=== PATIENT | female | born 1935 | race Caucasian/White ===

== ENCOUNTER 2017-06-23 08:18 | Day surgery (SDC) | payer OTHER ==
[2017-06-23] MEDS ORDERED: NS 0.9% VIAL 10 ML ONE (09:07)
[2017-06-23] MEDS ORDERED: DUOVISC 1 KIT OPTH ONE (09:08)
[2017-06-23] MEDS ORDERED: BALANCED SALT IRRIG PLAIN 500 ML BTL IRR ONE (09:08)
[2017-06-23] MEDS ORDERED: MOXIFLOXACIN HCL 10 DROPS/ML **OR USE OPTH ONE (09:08)
[2017-06-23] MEDS ORDERED: EPINEPHRINE/PF 1 MG/ML AMP ONE (09:08)
[2017-06-23] MEDS ORDERED: BSS OPTHALMIC SOL 15 ML BOT OPTH ONE (09:15)
[2017-06-23] MEDS: LIDOCAINE 2% MPF 5 ML VIAL ONE ×2 (09:30→10:47)
[2017-06-23] MEDS: TETRACAINE HCL 0.5% 2ML OPTH ONE ×2 (09:30→10:46)
[2017-06-23] MEDS: BUPIVACAINE 0.25% PF 10 ML VIAL ONE ×2 (09:30→10:47)
[2017-06-23 09:35] LABS: Protime INR 1.46
[2017-06-23] MEDS ORDERED: NA CHLORIDE 0.9% 500 ML ONE (09:40)
[2017-06-23] MEDS ORDERED: PHENYLEPHRINE 10% OPTH 5ML ONE (09:41)
[2017-06-23] MEDS ORDERED: CYCLOPENTOLATE 1% OPTH 2 ML ONE (09:41)
[2017-06-23] MEDS ORDERED: CYCLOPENTOLATE 1% OPTH 2 ML OPTH ONE ×2 (09:50→09:55)
[2017-06-23] MEDS ORDERED: PHENYLEPHRINE 10% OPTH 5ML OPTH ONE ×2 (09:50→09:55)
[2017-06-23] MEDS ORDERED: PROPOFOL 200 MG/20 ML VIAL IV ONE ×2 (10:39→10:59)
[2017-06-23] MEDS ORDERED: LIDOCAINE 2% MPF 5 ML VIAL ONE ×2 (10:39→10:59)
[2017-06-23] MEDS ORDERED: BSS PLUS 500 ML BOTTLE IRR ONE (11:08)
--- NOTE | 2017-06-23 11:45 | P.BOP ---
Preoperative diagnosis: Nuclear sclerotic cataract OS Postoperative diagnosis: Same + phacodenesis OS Primary procedure: Phacoemulsification with IOL, complex with iris retractors and CTR OS Estimated blood loss: None Anesthesia: Local (Subtenon's infusion with anesthesia for cataract surgery) Complications: None Implants: ZCB00 +19.0; 12 mm CTR Transferred to: Other (Day surgery) Condition: Good
[2017-06-23 13:05] VITALS: BP 138/78; TEMP 97.4; O2SAT 94
--- NOTE | 2017-06-23 22:39 | OP ---
Date of Procedure: 06/23/2017 Surgeon: Cely Appiah MD Anesthesiologist: 1. Marcia Amaya CRNA. 2. Bart Rascon M.D. Preoperative Diagnoses: Nuclear sclerotic and cortical cataract, OS (left eye). 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 Operation Performed: Phacoemulsification with intraocular lens implant OS eye complex with the use of iris retractors and the capsular tension ring. Anesthesia: Per cataract surgery. Complications: None. Description Of The Procedure: In day surgery, the patient was prepped with Betadine and draped. A lid speculum was placed in the OS eye. A conjunctival incision was made in the inferior nasal quadrant with Flor scissors. A 1:1 mixture of 2% Xylocaine and 0.25% bupivacaine was placed around the globe. Approximately 5 mL were used. A Honan balloon was placed on the eye for approximately 5 minutes. The patient was brought into the operative room. The patient was prepped and draped in the usual sterile fashion for ophthalmic surgery. A lid speculum was placed in the eye. Paracentesis were made superiorly and inferiorly in the limbal cornea. Viscoat was placed in the anterior chamber. A crescent blade was used to create a tunnel incision in the temporal cornea and a keratome was used to enter the anterior chamber. Provisc was placed in the eye and 360 degree capsulotomy was performed. The lens was loose during the capsulotomy. Four additional paracentesis sites were created with one in each quadrant; through these, 4 iris retractors were placed to stabilize the lens. The lens was hydrodissected with balanced salt solution and moved freely. The lens was removed in a stop and chop fashion. A 7.58 CDE was required. Irrigation and aspiration was used to remove residual cortex. Provisc was placed in the eye. A ZCB00 +19.0 diopter lens was placed in the capsular bag without complications. The iris retractors were removed. Irrigation and aspiration was used to remove residual viscoelastic. The paracentesis sites were hydrated with balanced salt solution and the wound and paracentesis sites were inspected and found to be watertight. Intracameral Vigamox 0.07 cc was injected at the end of the procedure. The eye was irrigated with balanced salt solution. The eye was patched with a soft cotton patch and Gandhi metal shield. The patient was returned to day surgery in good condition. Comments: A scleral incision was created. Flor scissors were used to cut the temporal conjunctiva and the scleral incision was initiated in the sclera. BSS Plus was used. A 1:5000 epinephrine was placed in the anterior chamber prior to Viscoat. A 12 mm capsular tension ring was placed in the capsular bag prior to lens insertion. Discharge Instructions: Ms. Carrillo is discharged home in good condition and is to follow up with Dr. Appiah in the morning. GUSTAVO/ABDELRAHMAN Voice ID: [id number] Report ID: [id number] DAVID
== END 2017-06-23 12:15 | disposition home or self-care (01) ==
LOC: OR 08:18
PROVIDERS: ATTEND Ophthalmology Retina Specialist
PROC: 08RK3JZ Replacement of Left Lens with Synthetic Substitute, Percutaneous Approach (ICD-10-PCS; principal; 2017-06-23 09:45)
DX: H25.12 Age-related nuclear cataract, left eye (principal); H25.012 Cortical age-related cataract, left eye; H27.8 Other specified disorders of lens; H35.3130 Nonexudative age-related macular degeneration, bilateral, stage unspecified; H18.51 Endothelial corneal dystrophy; I10 Essential (primary) hypertension; I48.91 Unspecified atrial fibrillation; M19.90 Unspecified osteoarthritis, unspecified site; Z95.0 Presence of cardiac pacemaker; Z86.73 Personal history of transient ischemic attack (TIA), and cerebral infarction without residual deficits; Z79.01 Long term (current) use of anticoagulants
CPT/HCPCS: 36415 ×2; 66982; 84132; 85610; J0171

== ENCOUNTER 2017-08-04 08:45 | Day surgery (SDC) | payer OTHER ==
[2017-08-04] MEDS ORDERED: NS 0.9% VIAL 10 ML ONE (09:09)
[2017-08-04] MEDS ORDERED: EPINEPHRINE/PF 1 MG/ML AMP ONE (09:10)
[2017-08-04] MEDS ORDERED: MOXIFLOXACIN HCL 10 DROPS/ML **OR USE OPTH ONE (09:11)
[2017-08-04] MEDS ORDERED: DUOVISC 1 KIT OPTH ONE (09:11)
[2017-08-04] MEDS ORDERED: PHENYLEPHRINE 10% OPTH 5ML ONE (09:20)
[2017-08-04] MEDS ORDERED: TETRACAINE HCL 0.5% 2ML OPTH ONE (09:20)
[2017-08-04] MEDS ORDERED: LIDOCAINE 2% MPF 5 ML VIAL ONE (09:20)
[2017-08-04] MEDS ORDERED: BUPIVACAINE 0.25% PF 10 ML VIAL ONE (09:20)
[2017-08-04] MEDS ORDERED: NA CHLORIDE 0.9% 500 ML ONE (09:20)
[2017-08-04] MEDS ORDERED: CYCLOPENTOLATE 1% OPTH 2 ML ONE (09:20)
[2017-08-04] MEDS ORDERED: PHENYLEPHRINE 10% OPTH 5ML OPTH ONE ×2 (09:35→09:40)
[2017-08-04] MEDS ORDERED: CYCLOPENTOLATE 1% OPTH 2 ML OPTH ONE ×2 (09:35→09:40)
[2017-08-04 09:38] LABS: Protime INR 1.71
[2017-08-04] MEDS ORDERED: LIDOCAINE 1% MPF 5 ML VIAL ONE (10:03)
[2017-08-04] MEDS ORDERED: PROPOFOL 200 MG/20 ML VIAL IV ONE ×2 (10:03→10:12)
[2017-08-04] MEDS ORDERED: LIDOCAINE 1% MPF 2 ML AMPULE ONE (10:13)
[2017-08-04] MEDS ORDERED: BSS PLUS 500 ML BOTTLE IRR ONE (10:17)
--- NOTE | 2017-08-04 11:06 | P.BOP ---
Preoperative diagnosis: Nuclear sclerotic and posterior subcapsular cataract OD Postoperative diagnosis: Same Primary procedure: Phacoemulsification with IOL OD Estimated blood loss: None Anesthesia: Local (Subtenon's infusion with anesthesia for cataract surgery) Complications: None Implants: ZCB00 +18.5 Transferred to: Other (Day surgery) Condition: Good
[2017-08-04 11:15] VITALS: BP 155/86; TEMP 97.9; O2SAT 95
--- NOTE | 2017-08-05 00:42 | OP ---
Date of Procedure: 08/04/2017 Surgeon: Cely Appiah MD Anesthesiologist: 1. Marciano Marmolejo CRNA. 2. Twyla Son CRNA. 3. Hans Peña M.D. Preoperative Diagnosis: Nuclear sclerotic cataract and posterior subcapsular cataract OD (right eye) . Operation Performed: Phacoemulsification with intraocular lens implant, right eye. Anesthesia: Per cataract surgery. Complications: None. Description Of Procedure: In day surgery, the patient was prepped with Betadine and draped. A conju nctival incision was made in the inferior nasal quadrant with Flor scissors. A sub-Tenon block c onsisting of a 1:1 mixture of 2% Xylocaine and 0.25% bupivacaine was placed through the conjunctival incision with a blunt cannula. A Honan balloon was placed over the eye and the patient was transferr ed to the operating room. In the operating room the patient was prepped and draped in the usual sterile fashion for ophthalmic surgery. A lid speculum was placed in the right eye. Two paracentesis sites were made superiorly an d inferiorly in the limbal cornea. Viscoat was placed in the anterior chamber and a crescent blade w as used to make a corneal groove and tunnel, and a keratome was used to enter the anterior chamber. Provisc was placed in the anterior chamber and a 360 degree capsulotomy was performed with a cystitom e. The lens was hydrodissected with BSS and rotated freely. The lens was removed with a stop and ch op technique. A 4.02 Phaco CDE was used to remove the lens. Residual cortex was removed with the ir rigation and aspiration. Provisc was placed in the capsular bag. A ZCB00 +18.5 diopter lens was tiffany esteban in the capsular bag without complications. Irrigation and aspiration was used to remove residual viscoelastic. The paracentesis sites were hydrated with BSS. The wound and paracentesis sites were inspected and found to be watertight. Vigamox 0.07 cc was placed intracamerally at the end of the p rocedure. The eye was irrigated with balanced salt solution. The eye was patched with a soft cotton patch and Gandhi metal shield. The patient was returned to day surgery in good condition. Comments: A scleral incision was created; 1:5000 epinephrine was placed in the eye prior to Viscoat. BSS plus was used. Discharge Instructions: Ms. Carrillo is discharged to home in good condition and is to follow up with Dr. Appiah in the morning. GUSTAVO/ABDELRAHMAN Voice ID: [id number] Report ID: [id number]
== END 2017-08-04 11:40 | disposition home or self-care (01) ==
LOC: OR 08:45
PROVIDERS: ATTEND Ophthalmology Retina Specialist
PROC: 08RJ3JZ Replacement of Right Lens with Synthetic Substitute, Percutaneous Approach (ICD-10-PCS; principal; 2017-08-04 10:15)
DX: H25.11 Age-related nuclear cataract, right eye (principal); H25.041 Posterior subcapsular polar age-related cataract, right eye; I48.91 Unspecified atrial fibrillation; R56.9 Unspecified convulsions; Z95.0 Presence of cardiac pacemaker; Z86.73 Personal history of transient ischemic attack (TIA), and cerebral infarction without residual deficits; Z79.01 Long term (current) use of anticoagulants
CPT/HCPCS: 36415 ×2; 66984; 84132; 85610; J0171; J2001

== ENCOUNTER 2017-10-12 14:54 | Inpatient (IN) | payer OTHER ==
[2017-10-12] MEDS ORDERED: IPRATROPIUM BROM 0.5MG/2.5ML ONE (15:21)
[2017-10-12] MEDS ORDERED: NA CHLORIDE 0.9% 2,000 ML ONE (15:22)
[2017-10-12] MEDS ORDERED: LEVALBUTEROL 1.25 MG/3 ML NEB ONE (15:22)
[2017-10-12] MEDS ORDERED: ACETAMINOPHEN 650MG/RECT SUPP PR ONE (15:22)
[2017-10-12 15:41] LABS: Arterial Blood Carboxyhemoglob 0.8 % (0-1.5); Blood Gas Oxyhemoglobin 97.9 % (94-97); Blood O2 Saturation 99.6 % (92-98.5)
[2017-10-12 15:43] LABS: Absolute Lymphocytes (CBC) 0.9 K/uL (0.7-4.9); Absolute Monocytes 0.7 K/uL (0.1-1.3); Absolute Neutrophil 3.8 K/uL (1.8-8.0); Basophils % 0.6 % (0-1.3); Eosinophils % 0.2 % (0-4.4); Hematocrit 41.1 % (36.0-45.0); Lymphocytes % 16.7 % (15.3-44.8); MCH 28.6 pg (27.0-35.0); MCV 89.9 fL (80-100); MPV 9.3 fL (7.6-11.3); Monocytes % 12.8 % (3.3-12.3); RBC Red Blood Cell Count 4.58 M/uL (3.86-4.86)
[2017-10-12 15:51] LABS: Protime INR 1.56
[2017-10-12] MEDS ORDERED: VANCOMYCIN 1 GM/250 ML BAG ONE (15:54)
[2017-10-12] MEDS ORDERED: CEFEPIME 1 GM/100 ML BAG IV ONE (15:54)
[2017-10-12] MEDS ORDERED: D5 0.9 NS 1,000 ML IV ONE (15:54)
[2017-10-12 15:59] LABS: Albumin 3.6 g/dL (3.4-5.0); Bilirubin Direct 0.7 mg/dL (0-0.2); Bilirubin Total 1.4 mg/dL (0.2-1.0); Potassium 4.7 mmol/L (3.5-5.1); Protein, Total 8.2 g/dL (6.4-8.2)
--- NOTE | 2017-10-12 16:42 | RAD REPORT ---
EXAM DESCRIPTION: RAD - Chest Single View - 10/12/2017 4:15 pm CLINICAL HISTORY: Shortness of breath COMPARISON: September 28 TECHNIQUE: AP portable chest image was obtained 1604 hours . FINDINGS: Inspiratory effort is shallow this accentuates lung markings. A small left base infiltrate could be masked. Cardiac silhouette is enlarged. Vasculature and central lung markings are prominent . Pacemaker in place. No measurable pleural effusion and no pneumothorax. No gross bony abnormality s een. No acute aortic findings suspected. IMPRESSION: Heart, vasculature and lung markings are all prominent. Findings are in part due to shallow inspiration; however, mild failure or volume overload suspected.
[2017-10-12 16:45] LABS: Urine Blood TRACE (NEG); Urine Glucose NEGATIVE (NEG); Urine Protein NEGATIVE (NEG); Urine pH 5.5 (5.0-7.0)
[2017-10-12 16:45] LABS: Urine RBC <5 /HPF (NONE SEEN)
[2017-10-12 16:46] LABS: Urine Bacteria >50 /HPF (<20); Urine Culture Reflex Order REFLEXED
--- NOTE | 2017-10-12 17:31 | RAD REPORT ---
EXAM DESCRIPTION: CT - Chest For Pe Angio - 10/12/2017 5:21 pm CLINICAL HISTORY: Chest pain, shortness of breath COMPARISON: None. TECHNIQUE: Dynamically enhanced 3 mm thick images of the chest were obtained during administration o f approximately 150mL Isovue 370 IV contrast. Coronal and oblique reconstruction images were generate d using MIP protocol and reviewed. Exam utilizes a protocol to evaluate the pulmonary arterial tree. All CT scans are performed using dose optimization technique as appropriate and may include automated exposure control or mA/KV adjustment according to patient size. FINDINGS: No pulmonary emboli are identified. Far peripheral branch assessment is limited due to mot ion. Aorta assessment is limited on a PE protocol study. No displaced calcification or aneurysm. Cardiomeg kelton is present without pericardial effusion. This is primarily a biatrial enlargement process. Patient has baseline interstitial lung disease that could mask interstitial edema or infiltrate. Smal l pleural effusion is present on the right. Lung base atelectasis is present. There is prominent opac ification of small vessels of the upper chest and left shoulder. This is probably due to restricted f low through the subclavian vein due to compressive affects of arm positioning. No mediastinal or hilar suspicious masses. No chest wall masses or abnormal axillary lymphadenopathy. Dilated air-filled esophagus is present. There is no history of bowel interposition. Esophageal asse ssment is limited. IMPRESSION: No pulmonary emboli. Small right pleural effusion and bilateral lung base atelectasis. Cardiomegaly with interstitial prominence. CHF/volume overload is suspected. The prominent cardiomegaly is primarily biatrial enlargement. Dilated upper and mid esophagus with the esophagus incompletely evaluated.
--- NOTE | 2017-10-12 17:40 | ER ---
Nurse's Notes [facility] Name: Padma Carrillo Age: 82 yrs Sex: Female : 1935 Arrival Date: 10/12/2017 Time: 15:07 Bed 2 Private MD: Diagnosis: Urosepsis;Dyspnea Presentation: 10/12 16:40 Presenting complaint: EMS states: EMS states patient lives at [facility], ae1 staff states patient has difficulty breathing, normally has discoloration to KIKE lower extremities but now has blue tint to KIKE hands and oxygen saturation is in the 70s. Transition of care: nursing facility. [place]. Onset of symptoms was October 12, 2017. Risk Assessment: Do you want to hurt yourself or someone else? Patient reports no desire to harm self or others. Initial Sepsis Screen: Does the patient meet any 2 criteria? RR > 20 per min. Temp <36.0*C (96.8*F)) or > 38.3*C (100.4*F). Does the patient have a suspected source of infection? No. Patient's initial sepsis screen is negative. Care prior to arrival: Oxygen applied via non-rebreather. 16:40 Acuity: SAGAR 1 ae1 16:40 Method Of Arrival: EMS: [facility] ae1 Triage Assessment: 16:47 General: Appears distressed, uncomfortable, unkempt, Behavior is anxious, restless. ae1 Pain: Denies pain. EENT: Oral mucosa is dry. Neuro: Level of Consciousness is awake, obeys commands, Patient can say yes or no weakly, . Oriented to person. 16:49 Cardiovascular: Heart tones S1 S2 present Rhythm is regular. Respiratory: Reports ae1 shortness of breath air hunger labored breathing Airway is compromised PAtient is "moving air" however is labored and cyanotic to KIKE ears, hands and KIKE lower extremities. Onset: The symptoms/episode began/occurred gradually, the patient has severe shortness of breath. Respiratory: Breath sounds are diminished bilaterally. Breath sounds with wheezes in right middle lobe and right posterior middle lobe. GI: Abdomen is round obese, Bowel sounds present X 4 quads. : Urine is cloudy, latonia urine. Derm: Skin is mottled, pale, KIKE HANDS, EARS< AND KIKE LOWER EXTREMITIES APPEAR CYANOTIC WITH BLUE [place] TINT>. Musculoskeletal: Swelling present in right foot, left foot, right leg and left leg. Historical: - Allergies: 16:57 Codeine; ae1 16:57 Fosamax; ae1 16:57 Ibuprofen; ae1 16:57 PROPOXYPHENE; ae1 16:57 Talwin NX; ae1 16:57 Verapamil; ae1 - Home Meds: 19:22 cetirizine 10 mg Oral tab 1 tab once daily [Active]; Cymbalta 30 mg Oral cpDR once ak1 daily for Anxiety with Depression [Active]; docusate sodium 100 mg Oral tab 1 tab once daily [Active]; nitroglycerin 0.4 mg SL subl 1 tab every 5 minutes for Angina [Active]; omeprazole 20 mg Oral cpDR 1 cap once daily [Active]; potassium chloride 10 mEq Oral cpER 1 cap once daily [Active]; rivaroxaban 20 mg Oral 1 tab nightly for Prevention of Deep Vein Thrombosis Recurrence [Active]; Toprol XL 100 mg Oral Tb24 once daily for Hypertension [Active]; tramadol 50 mg Oral tab 2 tabs every 12 hours [Active]; acetaminophen 325 mg Oral cap 650 mg every 6 hours for Fever [Active]; Ativan 1 mg Oral tab 1 tab every 6 hours for Anxiety [Active]; Cerovite Senior Oral tab daily [Active]; clonidine HCl 0.1 mg Oral tab every 6 hours for Hypertension [Active]; gabapentin 100 mg Oral cap twice a day for Restless Legs Syndrome [Active]; gabapentin 300 mg Oral cap nightly [Active]; hydrocodone-acetaminophen 5-325 mg Oral tab 1 tab every 6 hours for Pain [Active]; Keppra 1,000 mg Oral tab 1 tab every 12 hours for Myoclonic Epilepsy Adjunct Treatment [Active]; lactulose 20 gram/30 mL Oral soln 30 mL twice a day for constipation [Active]; Lasix 20 mg Oral tab 1 tab once daily for EDEMA [Active]; Levothroid 75 mcg Oral tab 1 tab once daily [Active]; Lidoderm 5 % Topical ptmd 1 patch once daily [Active]; loperamide 2 mg Oral cap PRN for diarrhea [Active]; magnesium oxide 400 mg Oral cap daily [Active]; melatonin 3 mg Oral tab nightly [Active]; Milk of Magnesia 400 mg/5 mL Oral susp 15 mL once daily [Active]; Namenda XR 28 mg Oral CSpX 1 cap once daily for Moderate to Severe Alzheimer's Type Dementia [Active]; Robafen DM 10-100 mg/5 mL Oral syrp 5 mL every 6 hours for Cough [Active]; - PMHx: 16:57 Anemia; Atrial Fib; CVA (Deficit: slurred speech and weakness); Depression; epilepsy; ae1 GERD; Hyperlipidemia; Hypothyroidism; insomnia; muscle atrophy; UTI; - Immunization history:: Pneumococcal vaccine is up to date, Flu vaccine is up to date. - Ebola Screening: : Patient denies travel to an Ebola-affected area in the 21 days before illness onset. - Social history:: Smoking status: Patient/guardian denies using tobacco. Screenin:37 Abuse screen: Denies threats or abuse. Nutritional screening: No deficits noted. ae1 Tuberculosis screening: No symptoms or risk factors identified. Fall Risk No fall in past 12 months (0 pts). Secondary diagnosis (15 points) impaired mobility, CVA, IV access (20 points). Ambulatory Aid- None/Bed Rest/Nurse Assist (0 pts). Gait- Impaired (20 pts.). Mental Status- Overestimates/Forgets Limitations (15 pts.). Assessment: 17:33 Reassessment: Patient appears in no apparent distress at this time. Patient states she ae1 is able to breathe easier. Patient appears more relaxed, and less labored. Patient states feeling better. Patient states symptoms have improved. 18:30 Reassessment: Dr. Bobo at bedside discussing plan of care. ae1 18:34 Respiratory: Respiratory effort is see full assessment. ae1 19:28 Reassessment: Patient appears in no apparent distress at this time. pt c/o leg pain. pt ak1 reported to be A\\T\\OX1 to 2 as her norm. pt non ambulatory at [facility]. pt on BiPap at 30%. pt bilateral lower legs are red and swollen, hot to touch. pt appears in no distress at this time. called ICU to take pt to room, Natty stated she would have someone call me back. Vital Signs: 15:14 BP 166 / 70; Pulse 80; Resp 20; Temp 101.2(A); Pulse Ox 66% on R/A; ae1 15:35 Weight 79.38 kg (R); ae1 16:15 BP 105 / 79; Pulse 80; Resp 12; Pulse Ox 72% on 50% BiPAP; ae1 16:30 BP 137 / 84; Pulse 80; Resp 16; Pulse Ox 79% on 50% BiPAP; ae1 16:45 BP 133 / 80; Pulse 80; Resp 18; Pulse Ox 70% on 50% BiPAP; ae1 17:38 BP 140 / 90; Pulse 80; Resp 17; Pulse Ox 100% on 50% BiPAP; ae1 18:34 BP 138 / 98; Pulse 82; Resp 15; Temp 98.1(A); Pulse Ox 98% on 50% BiPAP; ae1 16:15 Patient appears less labored, respirations are even, patient states she feels better. ae1 16:30 PAtient states she can breathe easier, respirations are less labored. ae1 ED Course: 15:07 Patient arrived in ED. ae1 15:20 Laurent Wood PA is PHCP. jr8 15:20 Cristhian Deshpande MD is Attending Physician. jr8 15:46 Luke Patel, YUE is Primary Nurse. ae1 16:13 Chest Single View XRAY In Process Unspecified. EDMS 16:30 Placed in gown. Bed in low position. Call light in reach. Side rails up X2. Cardiac ae1 monitor on. Pulse ox on. NIBP on. light sheet applied. 16:33 Inserted saline lock: 20 gauge in left antecubital area, using aseptic technique. Blood ae1 collected. 16:33 Pleitez cath inserted, using sterile technique, 16 Fr., by mn, balloon inflated, to ae1 gravity drainage, urine specimen collected. returned latonia urine. Patient tolerated well. Inserted saline lock: 20 gauge in right forearm, using aseptic technique. 16:44 Triage completed. ae1 16:55 Arm band placed on right wrist. EKG completed in triage. Results shown to MD. ae1 17:20 CT completed. Patient tolerated procedure well. Patient moved back from CT. bq 17:21 CT Chest For PE Angio In Process Unspecified. EDMS 17:39 Guru Bob MD is Hospitalizing Provider. jr8 19:13 No provider procedures requiring assistance completed. Patient admitted, IV remains in ak1 place. 19:15 Primary Nurse role handed off by Luke Patel, RN rg2 Administered Medications: 15:00 Drug: Acetaminophen Suppository 650 mg Route: OK; ae1 18:33 Follow up: Response: Temperature is decreased; 98.1 axillary ae1 15:19 Drug: Xopenex (3) 1.25 mg Route: Inhalation; ae1 15:19 Drug: AtroVENT Aerosol 0.5 mg Route: Inhalation; ae1 15:22 Drug: NS 0.9% (30 ml/kg) 30 ml/kg Route: IV; Rate: bolus; Site: left antecubital; ae1 19:27 Follow up: IV Status: Completed infusion ak1 16:00 Drug: Cefepime 1 grams Route: IVPB; Rate: 200 ml/hr; Infused Over: 30 mins; Site: left ae1 antecubital; 16:44 Follow up: IV Status: Completed infusion ae1 16:00 Drug: D5-NS 300 ml Route: IV; Rate: bolus; Site: right forearm; ae1 16:31 Follow up: 300 ml bolus infused per provider, then infusion switched to 50 mls/hour ae1 19:26 Follow up: IV Status: Completed infusion ak1 16:35 Drug: vancoMYCIN 1 grams Route: IVPB; Infused Over: 2 hrs; Site: left antecubital; ae1 19:26 Follow up: IV Status: Completed infusion ak1 Point of Care Testing: Blood Glucose: 15:25 Blood Glucose: 69 mg/dL; ae1 15:25 provider notified that FSBS low end of normal, new orders received. ae1 Ranges: Intake: Outcome: 17:39 Decision to Hospitalize by Provider. jr8 19:27 Admitted to ICU accompanied by nurse, accompanied by tech, via stretcher, room ICU 6, ak1 with oxygen, on monitor, with chart. 19:27 Condition: stable 19:27 Instructed on the need for admit. 20:33 Patient left the ED. ak1 Signatures: Dispatcher [employer] EDMS Manohar Irving2 Joaquina Cheema Josh, PA PA jr8 Latonia Morfin, RN RN ak1 Luke Patel, YUE RN ae1 Corrections: (The following items were deleted from the chart) 16:55 16:47 Neuro: Level of Consciousness is awake, confused, ae1 ae1
--- NOTE | 2017-10-12 17:40 | EDPHYS ---
Physician Documentation [facility] Name: Padma Carrillo Age: 82 yrs Sex: Female : 1935 Arrival Date: 10/12/2017 Time: 15:07 Bed 2 Private MD: ED Physician Cristhian Deshpande HPI: 10/12 15:29 This 82 yrs old Female presents to ER via Unassigned with complaints of jr8 Breathing Difficulty. 15:29 The patient has shortness of breath at rest. Onset: The symptoms/episode began/occurred jr8 acutely, today. Duration: The symptoms are continuous. The patient's shortness of breath has no apparent modifying factors. Associated signs and symptoms: Pertinent positives: fever. Severity of symptoms: At their worst the symptoms were severe in the emergency department the symptoms are unchanged. It is unknown whether or not the patient has had similar symptoms in the past. The patient has not recently seen a physician. Historical: - Allergies: 16:57 Codeine; ae1 16:57 Fosamax; ae1 16:57 Ibuprofen; ae1 16:57 PROPOXYPHENE; ae1 16:57 Talwin NX; ae1 16:57 Verapamil; ae1 - Home Meds: 19:22 cetirizine 10 mg Oral tab 1 tab once daily [Active]; Cymbalta 30 mg Oral cpDR once ak1 daily for Anxiety with Depression [Active]; docusate sodium 100 mg Oral tab 1 tab once daily [Active]; nitroglycerin 0.4 mg SL subl 1 tab every 5 minutes for Angina [Active]; omeprazole 20 mg Oral cpDR 1 cap once daily [Active]; potassium chloride 10 mEq Oral cpER 1 cap once daily [Active]; rivaroxaban 20 mg Oral 1 tab nightly for Prevention of Deep Vein Thrombosis Recurrence [Active]; Toprol XL 100 mg Oral Tb24 once daily for Hypertension [Active]; tramadol 50 mg Oral tab 2 tabs every 12 hours [Active]; acetaminophen 325 mg Oral cap 650 mg every 6 hours for Fever [Active]; Ativan 1 mg Oral tab 1 tab every 6 hours for Anxiety [Active]; Cerovite Senior Oral tab daily [Active]; clonidine HCl 0.1 mg Oral tab every 6 hours for Hypertension [Active]; gabapentin 100 mg Oral cap twice a day for Restless Legs Syndrome [Active]; gabapentin 300 mg Oral cap nightly [Active]; hydrocodone-acetaminophen 5-325 mg Oral tab 1 tab every 6 hours for Pain [Active]; Keppra 1,000 mg Oral tab 1 tab every 12 hours for Myoclonic Epilepsy Adjunct Treatment [Active]; lactulose 20 gram/30 mL Oral soln 30 mL twice a day for constipation [Active]; Lasix 20 mg Oral tab 1 tab once daily for EDEMA [Active]; Levothroid 75 mcg Oral tab 1 tab once daily [Active]; Lidoderm 5 % Topical ptmd 1 patch once daily [Active]; loperamide 2 mg Oral cap PRN for diarrhea [Active]; magnesium oxide 400 mg Oral cap daily [Active]; melatonin 3 mg Oral tab nightly [Active]; Milk of Magnesia 400 mg/5 mL Oral susp 15 mL once daily [Active]; Namenda XR 28 mg Oral CSpX 1 cap once daily for Moderate to Severe Alzheimer's Type Dementia [Active]; Robafen DM 10-100 mg/5 mL Oral syrp 5 mL every 6 hours for Cough [Active]; - PMHx: 16:57 Anemia; Atrial Fib; CVA (Deficit: slurred speech and weakness); Depression; epilepsy; ae1 GERD; Hyperlipidemia; Hypothyroidism; insomnia; muscle atrophy; UTI; - Immunization history:: Pneumococcal vaccine is up to date, Flu vaccine is up to date. - Ebola Screening: : Patient denies travel to an Ebola-affected area in the 21 days before illness onset. - Social history:: Smoking status: Patient/guardian denies using tobacco. ROS: 15:29 Unable to obtain ROS due to altered mental status. jr8 Exam: 15:29 Eyes: Pupils equal round and reactive to light, extra-ocular motions intact. Lids and jr8 lashes normal. Conjunctiva and sclera are non-icteric and not injected. Cornea within normal limits. Periorbital areas with no swelling, redness, or edema. ENT: Nares patent. No nasal discharge, no septal abnormalities noted. Tympanic membranes are normal and external auditory canals are clear. Oropharynx with no redness, swelling, or masses, exudates, or evidence of obstruction, uvula midline. Mucous membranes moist. Neck: Trachea midline, no thyromegaly or masses palpated, and no cervical lymphadenopathy. Supple, full range of motion without nuchal rigidity, or vertebral point tenderness. No Meningismus. Abdomen/GI: Soft, non-tender, with normal bowel sounds. No distension or tympany. No guarding or rebound. No evidence of tenderness throughout. Back: No spinal tenderness. No costovertebral tenderness. Full range of motion. Skin: Warm, dry with normal turgor. Normal color with no rashes, no lesions, and no evidence of cellulitis. MS/ Extremity: Pulses equal, peripheral cyanosis present. Neurovascular intact. Full, normal range of motion. 15:29 Cardiovascular: Rate: normal, Rhythm: paced, Pulses: Pulses are 2+ in right radial artery and left radial artery. Heart sounds: normal, normal S1and S2, no S3 or S4, no murmur, no rub, no gallop, Edema: 2+ edema to level of left midcalf, left ankle, left foot, left toes, right midcalf, right ankle, right foot and right toes, JVD: is not appreciated. 15:29 Respiratory: mild respiratory distress is noted, Respirations: shallow respirations, that is mild, Breath sounds: bronchial sounds, that are moderate, are heard in the right posterior middle lobe and right posterior lower lobe, Respiratory rate: 20 Vital Signs: 15:14 BP 166 / 70; Pulse 80; Resp 20; Temp 101.2(A); Pulse Ox 66% on R/A; ae1 15:35 Weight 79.38 kg (R); ae1 16:15 BP 105 / 79; Pulse 80; Resp 12; Pulse Ox 72% on 50% BiPAP; ae1 16:30 BP 137 / 84; Pulse 80; Resp 16; Pulse Ox 79% on 50% BiPAP; ae1 16:45 BP 133 / 80; Pulse 80; Resp 18; Pulse Ox 70% on 50% BiPAP; ae1 17:38 BP 140 / 90; Pulse 80; Resp 17; Pulse Ox 100% on 50% BiPAP; ae1 18:34 BP 138 / 98; Pulse 82; Resp 15; Temp 98.1(A); Pulse Ox 98% on 50% BiPAP; ae1 16:15 Patient appears less labored, respirations are even, patient states she feels better. ae1 16:30 PAtient states she can breathe easier, respirations are less labored. ae1 MDM: 15:20 Patient medically screened. jr 17:31 Differential diagnosis: CHF exacerbation, Chronic Obstructive Pulmonary Disease jr8 Myocardial Infarction pneumonia, pulmonary edema, Pulmonary Embolism Sepsis. Antibiotic administration: vancomycin and cefepime , Data reviewed: vital signs, nurses notes, lab test result(s), EKG, radiologic studies, CT scan, plain films. Data interpreted: Pulse oximetry: on room air is 66 %. Interpretation: hypoxia. Sepsis 6 hour Focused Exam: Focused Assessment performed: October 12, 2017 at 17:32 Heart: Regular rate/rhythm noted. Lungs: Rhonchi noted. Capillary refill examination performed. Capillary refill noted to be < 2 seconds. Peripheral pulse evaluation performed. Radial Peripheral pulses noted to be 2+ slightly diminished. Skin examination performed. Core is pink. Extremities with cyanosis. Family states that this is somewhat normal for her Current vital signs reviewed: Neuro: Neurological examination improved from previous exam. Cardio: Cardiovascular examination improved from previous exam. Heart rate and blood pressure have improved. Respiratory: Respiratory exam improved from previous exam. Counseling: I had a detailed discussion with the patient and/or guardian regarding: the historical points, exam findings, and any diagnostic results supporting the discharge/admit diagnosis, lab results, radiology results, the need for further work-up and treatment in the hospital. ED course: Patient overall has improved. Last pulse ox is now 99% on Bipap after cleaning her skin and trying another pulse ox probe. Patient believed to have baseline respiratory failure as her face would become cyanotic if she was laid down or taken off oxygen and would become normal on oxygen. The abnormally low pulse ox readings earlier are thought to be misinterpreted due to chronic long standing history of peripheral cyanosis. ABG was unremarkable. Patient ultimately with mild HF and urosepsis but improving . 10/12 15:21 Order name: ABG; Complete Time: 16:36 10/12 15:21 Order name: Urine Microscopic Only; Complete Time: 16:52 10/12 15:21 Order name: Basic Metabolic Panel; Complete Time: 16:36 [facility] 10/12 15:21 Order name: Blood Culture Adult (2) 10/12 15:21 Order name: CBC with Diff; Complete Time: 15:44 [facility] 10/12 15:21 Order name: Lactate; Complete Time: 16:36 [facility] 10/12 15:21 Order name: LFT's; Complete Time: 16:36 [facility] 10/12 15:21 Order name: Lipase; Complete Time: 16:36 [facility] 10/12 15:21 Order name: Procalcitonin; Complete Time: 16:36 [facility] 10/12 15:21 Order name: Protime (+inr); Complete Time: 16:36 [facility] 10/12 15:21 Order name: Troponin (emerg Dept Use Only); Complete Time: 16:36 [facility] 10/12 16:41 Order name: Urine Dipstick--Ancillary (enter results); Complete Time: 16:52 bd 10/12 16:47 Order name: Urine Culture [facility] 10/12 18:32 Order name: ABG Arterial Blood Gas; Complete Time: 19:19 [facility] 10/12 15:21 Order name: Cath; Complete Time: 16:32 [facility] 10/12 15:21 Order name: Chest Single View XRAY; Complete Time: 16:52 [facility] 10/12 15:21 Order name: Accucheck; Complete Time: 16:13 [facility] 10/12 16:40 Order name: CT Chest For PE Angio; Complete Time: 17:40 [facility] 10/12 18:35 Order name: Echo with Doppler [facility] 10/12 18:35 Order name: NT PRO-BNP [facility] 10/12 18:35 Order name: Thyroid Stimulating Hormone [facility] 10/12 18:36 Order name: Comprehensive Metabolic Panel [facility] 10/12 18:39 Order name: Heart Healthy [facility] 10/12 15:21 Order name: Cardiac monitoring; Complete Time: 15:39 [facility] 10/12 15:21 Order name: EKG - Nurse/Tech; Complete Time: 15:39 [facility] 10/12 15:21 Order name: IV Saline Lock - Large Bore; Complete Time: 15:39 [facility] 10/12 15:21 Order name: Labs collected and sent; Complete Time: 15:39 [facility] 10/12 15:21 Order name: O2 Per Protocol; Complete Time: 15:39 [facility] 10/12 15:21 Order name: O2 Sat Monitoring; Complete Time: 15:39 [facility] 10/12 15:21 Order name: Urine Dipstick-Ancillary (obtain specimen); Complete Time: 16:32 [facility] Administered Medications: 15:00 Drug: Acetaminophen Suppository 650 mg Route: HI; ae1 18:33 Follow up: Response: Temperature is decreased; 98.1 axillary ae1 15:19 Drug: Xopenex (3) 1.25 mg Route: Inhalation; ae1 15:19 Drug: AtroVENT Aerosol 0.5 mg Route: Inhalation; ae1 15:22 Drug: NS 0.9% (30 ml/kg) 30 ml/kg Route: IV; Rate: bolus; Site: left antecubital; ae1 19:27 Follow up: IV Status: Completed infusion ak1 16:00 Drug: Cefepime 1 grams Route: IVPB; Rate: 200 ml/hr; Infused Over: 30 mins; Site: left ae1 antecubital; 16:44 Follow up: IV Status: Completed infusion ae1 16:00 Drug: D5-NS 300 ml Route: IV; Rate: bolus; Site: right forearm; ae1 16:31 Follow up: 300 ml bolus infused per provider, then infusion switched to 50 mls/hour ae1 19:26 Follow up: IV Status: Completed infusion ak1 16:35 Drug: vancoMYCIN 1 grams Route: IVPB; Infused Over: 2 hrs; Site: left antecubital; ae1 19:26 Follow up: IV Status: Completed infusion ak1 Point of Care Testing: Blood Glucose: 15:25 Blood Glucose: 69 mg/dL; ae1 15:25 provider notified that FSBS low end of normal, new orders received. ae1 Ranges: Critical Glucose Levels:Adult <50 mg/dl or >400 mg/dl <40 mg/dl or >180 mg/dl Disposition: 10/13 15:24 Co-signature as Attending Physician, Cristhian Deshpande MD I agree with the assessment and gertrude plan of care. Disposition: 10/12/17 17:39 Hospitalization ordered by Guru Bob for Inpatient Admission. Preliminary diagnosis are Urosepsis, Dyspnea. - Bed requested for Intensive Care Unit. - Status is Inpatient Admission. ak1 - Condition is Stable. - Problem is new. - Symptoms have improved. UTI on Admission? Yes Signatures: Dispatcher [employer] Isidra Mcgrath RN Cristhian De Oliveira MD MD cha Roszak, Josh, PA PA jr8 Latonia Morfin RN RN ak1 Luke Patel RN RN ae1 Corrections: (The following items were deleted from the chart) 10/12 18:38 17:39 Hospitalization Ordered by Guru Bob MD for Inpatient Admission. dw Preliminary diagnosis is Urosepsis; Dyspnea. Bed requested for Telemetry/MedSurg (Inpatient). Status is Inpatient Admission. Condition is Stable. Problem is new. Symptoms have improved. UTI on Admission? Yes. jr8 18:39 18:38 10/12/2017 17:39 Hospitalization Ordered by Guru Bob MD for Inpatient jr8 Admission. Preliminary diagnosis is Urosepsis; Dyspnea. Bed requested for Telemetry/MedSurg (Inpatient). Status is Inpatient Admission. Condition is Stable. Problem is new. Symptoms have improved. UTI on Admission? Yes. dw 18:42 18:39 10/12/2017 17:39 Hospitalization Ordered by Guru Bob MD for Inpatient dw Admission. Preliminary diagnosis is Urosepsis; Dyspnea. Bed requested for Intensive Care Unit. Status is Inpatient Admission. Condition is Stable. Problem is new. Symptoms have improved. UTI on Admission? Yes. 8 20:33 18:42 10/12/2017 17:39 Hospitalization Ordered by Guru Bob MD for Inpatient ak1 Admission. Preliminary diagnosis is Urosepsis; Dyspnea. Bed requested for Intensive Care Unit. Status is Inpatient Admission. Condition is Stable. Problem is new. Symptoms have improved. UTI on Admission? Yes.
--- NOTE | 2017-10-12 18:27 | P.HP ---
Certification for Inpatient With expected LOS: >2 Midnights Practitioner: I am a practitioner with admitting privileges, knowledge of patient current condition, hospital course, and medical plan of care. Services: Services provided to patient in accordance with Admission requirements found in Title 42 Section 412.3 of the Code of Federal Regulations Patient History Date of Service: 10/12/17 Reason for admission: Shortness of breath History of Present Illness: Patient is 82 years of age admitted with shortness of breath she is currently on a BiPAP very poor baseline functioning chronic lower extremity edema she also has purplish discoloration of her hands presumed some Raynaud's is currently alert responsive and a BiPAP Allergies codeine [Codeine] Allergy (Intermediate, Verified 07/31/17 11:31) hallucination morphine Allergy (Intermediate, Verified 07/31/17 11:31) hallucinations propoxyphene HCl [From Darvon] Allergy (Intermediate, Verified 07/31/17 11:31) hallucinations verapamil [Verapamil] Allergy (Intermediate, Verified 07/31/17 11:31) hallucinations alendronate sodium [From Fosamax] Allergy (Verified 07/31/17 11:31) Unknown ibuprofen Allergy (Unverified 07/31/17 11:31) Unknown pentazocine [From Talwin NX] Allergy (Verified 07/31/17 11:31) Rash Home Medications: Rivaroxaban [Xarelto*] 20 mg PO DAILY AT SUPPER 06/24/12 Duloxetine [Cymbalta *] 30 mg PO DAILY 06/26/12 Magnesium Oxide [Mag 0X*] 400 mg PO DAILY 06/26/12 Cetirizine HCl [Zyrtec] 10 mg PO BEDTIME 08/10/15 Docusate Sodium 100 mg PO DAILY 08/10/15 Hydrocodone 5/APAP 325 [Ortley 5/325*] 1 tab PO Q6H PRN 08/10/15 Memantine HCl [Namenda Xr] 28 mg PO DAILY 08/10/15 Multivitamin/Iron/Folic Acid [Certavite-Antioxidant Tablet] 1 tab PO DAILY 08/09 Levetiracetam [Keppra] 1,000 mg PO BID #60 tablet 08/14/15 C,E,Zinc,Copper 11/Fhxtu0o/Lut [Eye Health Adult 50 Plus Sftgl] 1 each PO DAILY 06/19/17 Gabapentin [Gralise] 300 mg PO TIDP PRN 06/19/17 Iron,Carbonyl/Vit C/Vit B12/FA [Iron 100 Plus Tablet] 1 each PO DAILY 06/19/17 Metoprolol Tartrate [Lopressor*] 100 mg PO BID 06/19/17 Omeprazole 20 mg PO DAILY 06/19/17 Potassium Chloride [Micro-K] 10 meq PO DAILY 06/19/17 - Past Medical/Surgical History Diabetic: No -: epilepsy -: GERD -: depression -: hyperlipidemia -: anemia -: hypothyroidism -: Atrial fibrillation -: muscle atrophy -: UTI -: CVA -: dementia -: htn ,osteoarthritis -: pacemaker -: back surgery -: bilateral knee replacement -: abdominal surgery - Family History Father -: Heart disease Mother -: Heart disease, Cancer Sister -: Heart disease, Diabetes Brother -: Heart disease - Social History Alcohol use: No CD- Drugs: No Caffeine use: Yes Review of Systems is unable to be obtained Physical Examination - Vital Signs Blood Pressure: 140/90 Pulse: 80 Respirations: 17 - Physical Exam General: Alert, Cooperative Neck: Supple Respiratory: Clear to auscultation bilaterally, Diminished Cardiovascular: Normal S1 S2, Edema (4+ edema of lower extremities) Gastrointestinal: Normal bowel sounds, Soft and benign Musculoskeletal: No clubbing, Swelling Integumentary: No rashes, No breakdown - Studies Laboratory Data (last 24 hrs) 10/12/17 15:25: PT 18.5 H, INR 1.56 10/12/17 15:25: WBC 5.4, Hgb 13.1, Hct 41.1, Plt Count 134 L 10/12/17 15:25: Sodium 140, Potassium 4.7, BUN 25 H, Creatinine 1.10, Glucose 142 H, Total Bilirubin 1.4 H, AST 26, ALT 15, Alkaline Phosphatase 158 H, Lipase 60 L Assessment and Plan - Problems (Diagnosis) (1) Congestive heart failure Current Visit: Yes Status: Acute Plan: Patient is 82 years of age admitted with dyspnea chronic lower extremity edema she also has a pacemaker I strongly suspect that this is congestive heart failure start patient on Lasix spironolactone currently on BiPAP difficulty obtaining a sat due to a acralcyanosis. Patient's urinalysis is abnormal possible UTI arterial blood gases on FiO2 50% 2D echo with Doppler serum pro calcitonin start patient on Rocephin fluid restriction Qualifiers: Heart failure chronicity: unspecified - Advance Directives Does patient have a Living Will: No Does patient have a Durable POA for Healthcare: No
[2017-10-12 18:56] LABS: Arterial Blood Carboxyhemoglob 0.7 % (0-1.5); Blood Gas Oxyhemoglobin 97.4 % (94-97)
[2017-10-12 21:18] LABS: Thyroid Stimulating Hormone 1.3 uIU/mL (0.36-3.74)
[2017-10-12] MEDS: FUROSEMIDE 20 MG/ 2ML VIAL IV SCH (22:24)
[2017-10-12] MEDS: SPIRONOLACTONE 25 MG TABLET PO SCH (22:25)
[2017-10-13 05:39] LABS: Albumin 3.3 g/dL (3.4-5.0); Bilirubin Total 1.3 mg/dL (0.2-1.0); Protein, Total 7.4 g/dL (6.4-8.2)
[2017-10-13 05:44] VITALS: BMI 29.3
--- NOTE | 2017-10-13 07:40 | EKG ---
Test Date: 2017-10-12 Test Time: 15:24:55 Piler: DARSHAN MEASUREMENT RESULTS: Intervals: Rate: 82 SD: QRSD: 176 QT: 434 QTc: 507 [place]: P: SD: QRS: -66 T: 114 INTERPRETIVE STATEMENTS: Ventricular-paced rhythm Abnormal ECG Compared to ECG 08/10/2015 11:35:42 No significant changes Electronically Signed On 10-13-17 07:39:56 CDT by Christoph Pratt
[2017-10-13] MEDS: CEFTRIAXONE/SWI 1gm 1 GM/10 ML SYR IV SCH (09:31)
[2017-10-13] MEDS: SPIRONOLACTONE 25 MG TABLET PO SCH ×2 (09:31→20:10)
[2017-10-13] MEDS: FUROSEMIDE 20 MG/ 2ML VIAL IV SCH ×2 (09:31→16:34)
[2017-10-13] MEDS ORDERED: NITROGLYCERIN 0.4 MG/TAB SL PRN (10:12)
--- NOTE | 2017-10-13 13:13 | ECHO ---
HEIGHT: 5 ft 8 in WEIGHT: 192 lb 14.4 oz DATE OF STUDY: 10/13/[address]: Guru Bob MD 2-DIMENSIONAL: YES M.MODE: YES DOPPLER: YES COLOR FLOW: YES TDS: NO PORTABLE: NO DEFINITY: NO BUBBLE STUDY: NO DIAGNOSIS: CONGESTIVE HEART FAILURE CARDIAC HISTORY: CATHERIZATION: NO SURGERY: NO PROSTHETIC VALVE: NO PACEMAKER: YES MEASUREMENTS (cm) DIASTOLIC (NORMALS) SYSTOLIC (NORMALS) IVSd 1.3 (0.6-1.2) LA Diam 5.1 (1.9-4.0) LVEF 62% LVIDd 4.3 (3.5-5.7) LVIDs 2.9 (2.0-3.5) %FS 33% LVPWd 1.2 (0.6-1.2) Ao Diam 3.4 (2.0-3.7) 2 DIMENSIONAL ASSESSMENT: RIGHT ATRIUM: DILATED LEFT ATRIUM: DILATED RIGHT VENTRICLE: DILATED, PACEMAKER LEFT VENTRICLE: LEFT VENTRICULAR HYPERTROPHY TRICUSPID VALVE: NORMAL MITRAL VALVE: NORMAL PULMONIC VALVE: NORMAL AORTIC VALVE: SCLEROSIS PERICARDIAL EFFUSION: NONE AORTIC ROOT: NORMAL LEFT VENTRICULAR WALL MOTION: NORMAL DOPPLER/COLOR FLOW: NO AORTIC STENOSIS OR AORTIC REGURGITATION. MILD TRICUSPID REGURGITATION. NORMAL RIGHT VENTRICULAR SYSTOLIC PRESSURE. CONSIDER RESTRICTIVE CARDIOMYOPATHY. COMMENTS: NORMAL LEFT VENTRICULAR EJECTION FRACTION. LEFT VENTRICULAR HYPERTROPHY. DILATED LEFT ATRIUM, RIGHT ATRIUM AND RIGHT VENTRICLE. PACEMAKER CATHETER IN RIGHT VENTRICLE. AORTIC SCLEROSIS WITH NO AORTIC STENOSIS OR AORTIC REGURGITATION. MILD TRICUSPID REGURGITATION. 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
--- NOTE | 2017-10-13 14:11 | PN ---
Date of Progress Note: 10/13/2017 Subjective: The patient seen and examined, chart reviewed and case discussed with RN. The patient continues to be on BiPAP, but O2 saturations are improved. No other complaints. Review of Systems: Negative except as above. Medications: List reviewed. Objective: Vital Signs: Temperature 99.7, T-max was 101.2 yesterday afternoon , heart rate 80, blood pressure 108/53, respirations 12, O2 96% on 3 L via nasal cannula. General: Awake, alert, oriented x3. Elderly female, ill-appearing, obese. CV: S1, S2. Regular rate and rhythm. Peripheral pulses present. Respiratory: Diminished breath sounds. No wheezing or crackles. Gastrointestinal: Abdomen is soft, nontender, nondistended. Positive bowel sounds. Extremities: No clubbing, cyanosis, or edema. Neurologic: Nonfocal. Laboratory Data: Sodium 144, potassium 4, chloride 108, CO2 29, BUN 24, creatinine 1, glucose 97, calcium 8.4. BNP 15,560. ABG showed no abnormalities. Microbiology, blood cultures pending. Urine culture 100,000 colony-forming units of 4+ gram-negative rods. CT angio, no PE, small right pleural effusion and bilateral lung base atelectasis, cardiomegaly, CHF, volume overload, dilated upper and mid esophagus with the esophagus incompletely evaluated. Assessment: 1. Acute congestive heart failure exacerbation. We will continue with congestive heart failure guidelines. Monitor inputs and outputs. Continue 2 g to 8 sodium diet. Diastolic dysfunction. 2. Mild pulmonary hypertension. 3. Hypothyroidism. 4. History of paroxysmal atrial fibrillation. 5. Urinary tract infection, acute cystitis without hematuria. Culture growing gram-negative rods. We will follow up on ID and sensitivity. Continue IV antibiotics for now. 6. History of cerebrovascular accident. 7. Dementia. Continue home medications. 8. Essential hypertension, stable. 9. Osteoarthritis. 10. Epilepsy. 11. Gastroesophageal reflux disease. Continue PPI. 12. Major depressive disorder. Continue SSRI. 13. Hyperlipidemia. 14. Anemia, normocytic, normochromic. Plan: Step down from ICU. Wean off BiPAP. Appreciate pulmonology input. Code status Full SA/MODL Voice ID: [id number] Report ID: [id number] [facility]
[2017-10-13] MEDS: DOCUSATE NA 100 MG CAP PO SCH ×2 (14:12→20:10)
[2017-10-13] MEDS: HYDROCODONE/APAP 5/325 MG TAB PO PRN ×2 (16:31→23:40)
[2017-10-13] MEDS: GABAPENTIN 300 MG CAP PO SCH (16:31)
[2017-10-13] MEDS ORDERED: RIVAROXABAN 20 MG TABLET PO SCH (17:00)
[2017-10-13] MEDS: levETIRAcetam 500 MG TAB PO SCH (20:10)
[2017-10-13] MEDS: MEMANTINE HCL 10 MG TABLET PO SCH (20:10)
[2017-10-13] MEDS ORDERED: CETIRIZINE HCL 5 MG TABLET PO SCH (21:00)
[2017-10-13] MEDS ORDERED: MELATONIN 3 MG TABLET PO SCH (21:00)
[2017-10-14] MEDS: GABAPENTIN 300 MG CAP PO SCH ×2 (01:19→10:49)
[2017-10-14 04:26] LABS: Absolute Lymphocytes (CBC) 1.3 K/uL (0.7-4.9); Absolute Monocytes 0.8 K/uL (0.1-1.3); Absolute Neutrophil 2.4 K/uL (1.8-8.0); Basophils % 0.7 % (0-1.3); Eosinophils % 2.4 % (0-4.4); Hematocrit 35.8 % (36.0-45.0); Lymphocytes % 29.1 % (15.3-44.8); MCH 29.3 pg (27.0-35.0); MCV 87.8 fL (80-100); MPV 9.3 fL (7.6-11.3); Monocytes % 16.9 % (3.3-12.3); RBC Red Blood Cell Count 4.08 M/uL (3.86-4.86)
[2017-10-14 04:36] LABS: Bilirubin Total 0.8 mg/dL (0.2-1.0); Potassium 3.3 mmol/L (3.5-5.1); Protein, Total 6.9 g/dL (6.4-8.2)
[2017-10-14] MEDS ORDERED: LEVOTHYROXINE SOD 0.125 MG TAB PO SCH (06:30)
[2017-10-14] MEDS ORDERED: PANTOPRAZOLE 40MG TABLET PO SCH (06:30)
[2017-10-14] MEDS: CEFTRIAXONE/SWI 1gm 1 GM/10 ML SYR IV SCH (09:00)
[2017-10-14] MEDS ORDERED: METOPROLOL XL 100 MG TAB PO SCH (09:00)
[2017-10-14] MEDS ORDERED: FERROUS SULFATE 325 MG TAB PO SCH (09:00)
[2017-10-14] MEDS ORDERED: DULOXETINE 30 MG CAP PO SCH (09:00)
[2017-10-14 09:12] VITALS: O2SAT 94
[2017-10-14] MEDS: MEMANTINE HCL 10 MG TABLET PO SCH (10:48)
[2017-10-14] MEDS: DOCUSATE NA 100 MG CAP PO SCH (10:48)
[2017-10-14] MEDS: levETIRAcetam 500 MG TAB PO SCH (10:49)
[2017-10-14] MEDS: SPIRONOLACTONE 25 MG TABLET PO SCH (10:49)
[2017-10-14] MEDS: FUROSEMIDE 20 MG/ 2ML VIAL IV SCH (10:50)
[2017-10-14] MEDS ORDERED: POTASSIUM CL SA 10 MEQ TAB PO ONE (11:45)
[2017-10-14 13:28] VITALS: BP 116/55; TEMP 97.8
--- NOTE | 2017-10-15 02:55 | DS ---
Date of Discharge: 10/14/2017 Consultants: None. Admitting Diagnoses: 1.Acute on chronic congestive heart failure exacerbation, diastolic dysfunction. 2.Urinary tract infection. Discharge Diagnoses: 1.Acute on chronic diastolic heart failure. 2.Urinary tract infection secondary to Proteus. 3.Epilepsy. 4.Gastroesophageal reflux disease without esophagitis. 5.Major depressive disorder. 6.Hyperlipidemia, mixed. 7.Atrial fibrillation, on anticoagulation. 8.Hypothyroidism. 9.Normocytic normochromic anemia. 10.History of cerebrovascular accident. 11.Dementia, Alzheimer's type, early onset without behavioral disturbance. 12.Essential hypertension. 13.Generalized osteoarthritis. 14.Status post pacemaker. 15.Hypertensive heart disease. Hospital Course: The patient is an 82-year-old female from [place] comes in with shortness of carlie th. 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 This was thought to be due to the acute on chronic congestive hear t failure. The patient was started on diuresis. Chest x-ray did show some mild CHF pattern. Echoca rdiogram was done, which showed EF of 62%, some left ventricular hypertrophy. The patient was then s tarting to improve. She was able to be taken off BiPAP. She was saturating 95% on 1 L via nasal can nula, which was weaned off. The patient did have some mild hypokalemia, which was replaced. Her UA was positive and cultures grew out E. coli. Blood cultures were negative. The patient also had CT a ngio chest done to rule out PE, which was negative for PE. The patient was then cleared for discharg e and was sent back to [place] in a stable condition. Activity: Fall precautions. Diet: Low-sodium, fluid-restricted diet. Followup: Follow up with primary care physician in 2 to 3 days. Return to ER for worsening conditio n. Medications: As per medication reconciliation list. Total time spent discharging the patient was 35 minutes. Physical Examination: General: Awake, alert, oriented x2, no acute distress elderly female. CV: S1, S2. No murmurs. Respiratory: Moving air well bilaterally. Gastrointestinal: Abdomen is soft, nontender, nondistended. Positive bowel sounds. Extremities: No clubbing, cyanosis, edema. Neurologic: Nonfocal. SA/MODL Voice ID: [id number] Report ID: [id number]
== END 2017-10-14 14:38 | DRG 292 ==
LOC: ER 14:54 → SUPCPDRO 14:54 → ERHOLD 18:29 → 3RD-ICU 19:04 → 4TH 10-13 13:25
PROVIDERS: ADMIT Internal Medicine Sleep Medicine; ATTEND Family Medicine
PROC: 5A09357 Assistance with Respiratory Ventilation, Less than 24 Consecutive Hours, Continuous Positive Airway Pressure (ICD-10-PCS; principal; 2017-10-12)
DX: I11.0 Hypertensive heart disease with heart failure (principal); N30.00 Acute cystitis without hematuria; G40.909 Epilepsy, unspecified, not intractable, without status epilepticus; K21.9 Gastro-esophageal reflux disease without esophagitis; D64.9 Anemia, unspecified; I27.20 Pulmonary hypertension, unspecified; I48.0 Paroxysmal atrial fibrillation; I50.33 Acute on chronic diastolic (congestive) heart failure; E03.9 Hypothyroidism, unspecified; M62.50 Muscle wasting and atrophy, not elsewhere classified, unspecified site; F32.9 Major depressive disorder, single episode, unspecified; E87.6 Hypokalemia; B96.20 Unspecified Escherichia coli [E. coli] as the cause of diseases classified elsewhere; E78.2 Mixed hyperlipidemia; G30.0 Alzheimer's disease with early onset; F02.80 Dementia in other diseases classified elsewhere, unspecified severity, without behavioral disturbance, psychotic disturbance, mood disturbance, and anxiety; M15.9 Polyosteoarthritis, unspecified; I73.00 Raynaud's syndrome without gangrene; I69.328 Other speech and language deficits following cerebral infarction; Z88.6 Allergy status to analgesic agent; Z88.5 Allergy status to narcotic agent; Z88.8 Allergy status to other drugs, medicaments and biological substances; Z79.01 Long term (current) use of anticoagulants; Z95.0 Presence of cardiac pacemaker
CPT/HCPCS: 36415; 51702; 71045; 71275; 80048; 80053; 80076; 81003; 81015; 82805; 82962; 83605; 83690; 83880; 84145; 84443; 84484; 85025; 85610; 87040; 87077; 87086; 87088; 87186; 93005; 93306; 94660; 96365; 96366; 96367; 99291; J0692; J0696; J1940; J3370; J7030; Q9967

== ENCOUNTER 2018-01-04 17:43 | Inpatient (IN) | payer OTHER ==
[2018-01-04] MEDS ORDERED: NA CHLORIDE 0.9% 1,000 ML ONE (18:44)
[2018-01-04 18:54] LABS: Absolute Lymphocytes (CBC) 0.7 K/uL (0.7-4.9); Absolute Monocytes 0.9 K/uL (0.1-1.3); Basophils % 0.4 % (0-1.3); Eosinophils % 0.3 % (0-4.4); Hematocrit 37.6 % (36.0-45.0); Lymphocytes % 7.1 % (15.3-44.8); MCH 28.9 pg (27.0-35.0); MCV 89.1 fL (80-100); MPV 9.1 fL (7.6-11.3); RBC Red Blood Cell Count 4.22 M/uL (3.86-4.86)
[2018-01-04 18:56] LABS: Protime INR 2.73
[2018-01-04 19:06] LABS: ALT/SGPT 15 U/L (12-78); AST/SGOT 25 U/L (15-37); Albumin 3.2 g/dL (3.4-5.0); Alkaline Phosphatase 133 U/L (45-117); BUN Blood Urea Nitrogen 24 mg/dL (7-18); Bicarbonate 30 mmol/L (21-32); Bilirubin Total 1.7 mg/dL (0.2-1.0); CKMB Creatine Kinase MB 1.3 ng/mL (0.3-3.6); Creatine Phosphokinase 48 U/L (26-192); Glucose Level 104 mg/dL (74-106); Lipase 66 U/L (73-393); Potassium 3.8 mmol/L (3.5-5.1); Protein, Total 7.9 g/dL (6.4-8.2); Sodium Level 142 mmol/L (136-145); Troponin (Emerg Dept Use Only) < 0.02 ng/mL (0.0-0.045)
--- NOTE | 2018-01-04 19:22 | RAD REPORT ---
EXAM DESCRIPTION: RAD - Chest Single View - 01/04/2018 7:05 pm CLINICAL HISTORY: SOB Chest pain. COMPARISON: Chest Single View dated 10/12/2017; Chest Single View dated 09/28/2016; Chest Single View d ated 08/10/2015; CHEST SINGLE VIEW dated 03/29/2013 FINDINGS: Portable technique limits examination quality. Mild interstitial pulmonary edema. Small pleural effusions are present. The heart is significantly pr ominent size with a dual lead pacer device present. No displaced fractures. IMPRESSION: Mild CHF versus volume overload pattern.
[2018-01-04] MEDS ORDERED: ACETAMINOPHEN 650MG/RECT SUPP PR ONE (19:33)
[2018-01-04 20:38] LABS: Arterial Blood Carboxyhemoglob 1.1 % (0-1.5); Blood Gas Oxyhemoglobin 97.7 % (94-97); Blood O2 Saturation 99.6 % (92-98.5)
[2018-01-04 20:49] LABS: Urine Bacteria LOADED /HPF (<20); Urine Culture Reflex Order REFLEXED; Urine RBC <5 /HPF (NONE SEEN)
--- NOTE | 2018-01-04 20:53 | EDPHYS ---
Physician Documentation [facility] Name: Padma Carrillo Age: 82 yrs Sex: Female : 1935 Arrival Date: 01/04/2018 Time: 18:03 Bed 4 Private MD: ED Physician Blane Aguirre HPI: 01/04 20:48 This 82 yrs old Female presents to ER via EMS with complaints of Breathing gs Difficulty. 20:48 The patient has shortness of breath at rest. Onset: The symptoms/episode began/occurred gs today. Duration: The symptoms are continuous. Associated signs and symptoms: Pertinent positives: non-productive cough, fever. Severity of symptoms: At their worst the symptoms were incapacitating in the emergency department the symptoms are unchanged. The patient has experienced similar episodes in the past, multiple times. Historical: - Allergies: 18:15 Codeine; iw 18:15 Fosamax; iw 18:15 Ibuprofen; iw 18:15 PROPOXYPHENE; iw 18:15 Talwin NX; iw 18:15 Verapamil; iw - Home Meds: 18:50 acetaminophen 325 mg Oral cap 650 mg every 6 hours for Fever [Active]; Ativan 1 mg Oral sg tab 1 tab every 6 hours for Anxiety [Active]; Cerovite Senior Oral tab daily [Active]; cetirizine 10 mg Oral tab 1 tab once daily [Active]; clonidine HCl 0.1 mg Oral tab every 6 hours for Hypertension [Active]; Cymbalta 30 mg Oral cpDR once daily for Anxiety with Depression [Active]; docusate sodium 100 mg Oral tab 1 tab once daily [Active]; gabapentin 100 mg Oral cap twice a day for Restless Legs Syndrome [Active]; gabapentin 300 mg Oral cap nightly [Active]; hydrocodone-acetaminophen 5-325 mg Oral tab 1 tab every 6 hours for Pain [Active]; Keppra 1,000 mg Oral tab 1 tab every 12 hours for Myoclonic Epilepsy Adjunct Treatment [Active]; lactulose 20 gram/30 mL Oral soln 30 mL twice a day for constipation [Active]; Lasix 20 mg Oral tab 1 tab once daily for EDEMA [Active]; Levothroid 75 mcg Oral tab 1 tab once daily [Active]; Lidoderm 5 % Topical ptmd 1 patch once daily [Active]; loperamide 2 mg Oral cap PRN for diarrhea [Active]; magnesium oxide 400 mg Oral cap daily [Active]; melatonin 3 mg Oral tab nightly [Active]; Milk of Magnesia 400 mg/5 mL Oral susp 15 mL once daily [Active]; Namenda XR 28 mg Oral CSpX 1 cap once daily for Moderate to Severe Alzheimer's Type Dementia [Active]; nitroglycerin 0.4 mg SL subl 1 tab every 5 minutes for Angina [Active]; omeprazole 20 mg Oral cpDR 1 cap once daily [Active]; potassium chloride 10 mEq Oral cpER 1 cap once daily [Active]; rivaroxaban 20 mg Oral 1 tab nightly for Prevention of Deep Vein Thrombosis Recurrence [Active]; Robafen DM 10-100 mg/5 mL Oral syrp 5 mL every 6 hours for Cough [Active]; Toprol XL 100 mg Oral Tb24 once daily for Hypertension [Active]; tramadol 50 mg Oral tab 2 tabs every 12 hours [Active]; - PMHx: 18:15 Anemia; Atrial Fib; CVA (Deficit: slurred speech and weakness); Depression; epilepsy; iw GERD; Hyperlipidemia; Hypothyroidism; insomnia; muscle atrophy; UTI; - Immunization history:: Adult Immunizations up to date. - Social history:: Smoking status: Patient/guardian denies using tobacco. - Ebola Screening: : Patient negative for fever greater than or equal to 101.5 degrees Fahrenheit, and additional compatible Ebola Virus Disease symptoms Patient denies exposure to infectious person Patient denies travel to an Ebola-affected area in the 21 days before illness onset No symptoms or risks identified at this time. ROS: 20:48 Unable to obtain ROS due to patient distress. gs Exam: 20:48 Head/Face: Normocephalic, atraumatic. Eyes: Pupils equal round and reactive to light, gs extra-ocular motions intact. Lids and lashes normal. Conjunctiva and sclera are non-icteric and not injected. Cornea within normal limits. Periorbital areas with no swelling, redness, or edema. ENT: Nares patent. No nasal discharge, no septal abnormalities noted. Tympanic membranes are normal and external auditory canals are clear. Oropharynx with no redness, swelling, or masses, exudates, or evidence of obstruction, uvula midline. Mucous membranes moist. Neck: Trachea midline, no thyromegaly or masses palpated, and no cervical lymphadenopathy. Supple, full range of motion without nuchal rigidity, or vertebral point tenderness. No Meningismus. Chest/axilla: Normal chest wall appearance and motion. Nontender with no deformity. No lesions are appreciated. Cardiovascular: Regular rate and rhythm with a normal S1 and S2. No gallops, murmurs, or rubs. Normal PMI, no JVD. No pulse deficits. 20:48 Constitutional: The patient appears lethargic, in obvious distress, severely distressed. 20:48 Cardiovascular: Rate: normal, Rhythm: regular, Pulses: no pulse deficits are appreciated, Edema: 2+ edema to level of left midcalf and right midcalf. 20:48 ECG was reviewed by the Attending Physician. 20:48 Respiratory: severe repiratory distress is noted, Respirations: shallow respirations, tachypnea. 20:48 Abdomen/GI: Palpation: abdomen is soft and non-tender. 20:48 Skin: cellulitis, that is moderate, on the right louis. 20:48 Neuro: Cranial nerves: CN II- XII are normal as tested, Motor: moves all fours, Sensation: no obvious gross deficits. Vital Signs: 18:06 BP 155 / 75; Pulse 84; Resp 26 S; Temp 100.7(A); Pulse Ox 85% on R/A; Pain 0/10; iw 18:06 Weight 106.59 kg; Height 6 ft. 0 in. (182.88 cm); sg 18:44 BP 143 / 75; Pulse 84; Resp 24; Pulse Ox 94% on R/A; Pain 0/10; sg 19:00 BP 145 / 77; Pulse 80; Resp 24; Pulse Ox 93% on Non-rebreather mask; cb2 19:50 BP 142 / 59; Pulse 80; Resp 22; Temp 101.7(R); Pulse Ox 93% on BiPAP; aa1 20:36 BP 109 / 49; Pulse 80; Resp 18; Pulse Ox 100% on BiPAP; aa1 22:02 BP 107 / 78; Pulse 81; Resp 18; Temp 100.0; Pulse Ox 94% on 40% BiPAP; aa1 18:06 Body Mass Index 31.87 (106.59 kg, 182.88 cm) sg MDM: 19:11 Patient medically screened. gs 20:48 Differential diagnosis: CHF exacerbation, Chronic Obstructive Pulmonary Disease gs Myocardial Infarction Sepsis. Data reviewed: vital signs, nurses notes. 01/04 18:16 Order name: Basic Metabolic Panel iw 01/04 18:16 Order name: Blood Culture Adult (2) iw 01/04 18:16 Order name: CBC with Diff; Complete Time: 19:06 iw 01/04 18:16 Order name: Ckmb; Complete Time: 20:12 iw 01/04 18:16 Order name: CPK; Complete Time: 20:12 iw 01/04 18:16 Order name: Lactate; Complete Time: 20:12 iw 01/04 18:16 Order name: LFT's; Complete Time: 20:12 iw 01/04 18:16 Order name: Lipase; Complete Time: 20:12 iw 01/04 18:16 Order name: Procalcitonin; Complete Time: 20:12 iw 01/04 18:16 Order name: Protime (+inr); Complete Time: 19:06 iw 01/04 18:16 Order name: Ptt, Activated; Complete Time: 19:06 iw 01/04 18:16 Order name: Troponin (emerg Dept Use Only); Complete Time: 20:12 iw 01/04 18:16 Order name: Urine Microscopic Only iw 01/04 18:17 Order name: Basic Metabolic Panel; Complete Time: 20:12 EDMS 01/04 19:12 Order name: ABG gs 01/04 20:16 Order name: Urine Dipstick--Ancillary (enter results) ms 01/04 20:50 Order name: Urine Culture EDMS 01/04 21:17 Order name: CBC with Automated Diff EDMS 01/04 21:17 Order name: CBC with Automated Diff EDMS 01/04 21:17 Order name: Comprehensive Metabolic Panel EDMS 01/04 21:17 Order name: Comprehensive Metabolic Panel EDMS 01/04 21:17 Order name: Magnesium EDMS 01/04 21:17 Order name: Magnesium EDMS 01/04 21:17 Order name: Phosphorus EDMS 01/04 21:17 Order name: Phosphorus EDMS 01/04 21:17 Order name: NT PRO-BNP EDMS 01/04 21:17 Order name: NT PRO-BNP EDMS 01/04 21:17 Order name: Troponin I EDMS 01/04 21:17 Order name: Troponin I EDMS 01/04 21:17 Order name: Troponin I EDMS 01/04 18:16 Order name: Chest Single View XRAY; Complete Time: 20:12 iw 01/04 18:16 Order name: Accucheck; Complete Time: 18:53 iw 01/04 18:16 Order name: Cardiac monitoring; Complete Time: 18:53 iw 01/04 18:16 Order name: EKG - Nurse/Tech; Complete Time: 18:53 iw 01/04 18:16 Order name: IV Saline Lock - Large Bore; Complete Time: 18:53 iw 01/04 18:16 Order name: Labs collected and sent; Complete Time: 18:53 01/04 18:16 Order name: O2 Per Protocol; Complete Time: 18:53 iw 01/04 18:16 Order name: O2 Sat Monitoring; Complete Time: 18:53 01/04 18:16 Order name: Urine Dipstick-Ancillary (obtain specimen); Complete Time: 20:19 01/04 19:12 Order name: BIPAP 01/04 19:26 Order name: Pleitez; Complete Time: 20:06 01/04 21:17 Order name: CONS Physician Consult EDOK 01/04 21:17 Order name: Heart Healthy EDOK 01/04 21:17 Order name: Echo with Doppler EDMS 01/04 21:17 Order name: Troponin I EDMS EC:48 Rate is 82 beats/min. Rhythm is regular with Ventricular paced. QRS interval is gs prolonged. T waves are Normal. No ST changes noted. Clinical impression: Abnormal EKG without significant change. Interpreted by me. Administered Medications: Discontinued: NS 0.9% (30 ml/kg) 30 ml/kg IV at bolus once; Sepsis Protocol 18:52 Drug: NS 0.9% (30 ml/kg) 30 ml/kg {Note: 1,000mL administered at this time.} Route: IV; sg Rate: bolus; Site: right wrist; 19:50 Drug: Tylenol Suppository 650 mg Route: CA; aa1 22:31 Follow up: Response: No adverse reaction; Temperature is decreased aa1 20:50 Drug: Lasix 20 mg Route: IVP; Site: right forearm; aa1 21:50 Follow up: Response: No adverse reaction aa1 20:50 Drug: Rocephin 1 grams Route: IV; Rate: calculated rate; Site: right forearm; aa1 20:55 Follow up: IV Status: Completed infusion aa1 20:55 Drug: vancoMYCIN 1 grams Route: IVPB; Infused Over: 2 hrs; Site: right forearm; aa1 22:30 Follow up: IV Status: Infusion continued upon admission aa1 21:09 Not Given (Other Intervention Used): Rocephin - (cefTRIAXone) 1 grams IVPB once over 30 aa1 mins; (mix in 50 mL NS) Disposition: 20:48 Critical Care:. Disposition: 01/04/18 20:53 Hospitalization ordered by Mercedes Mccoy for Inpatient Admission. Preliminary diagnosis are Systolic (congestive) heart failure, Acute respiratory failure with hypoxia, Cellulitis of left lower limb, Cellulitis of right lower limb. - Bed requested for Telemetry/MedSurg (Inpatient). - Status is Inpatient Admission. aa1 - Condition is Stable. - Problem is new. - Symptoms have improved. UTI on Admission? Yes Critical care time excluding procedures: 20:48 Critical care time: Bedside Care: 10 minutes, Consultation: 10 minutes, Family gs Intervention: 10 minutes. Total time: 30 minutes Signatures: Dispatcher [employer] EDMS Daniel Quezada RN RN Hetal Boss RN RN aa1 Karen Parrish RN RN Tiffany Mancilla ms, Gregory, MD MD Corrections: (The following items were deleted from the chart) 21:36 20:53 Hospitalization Ordered by Mercedes Mccoy MD for Inpatient Admission. Preliminary ms diagnosis is Systolic (congestive) heart failure; Acute respiratory failure with hypoxia; Cellulitis of left lower limb; Cellulitis of right lower limb. Bed requested for Telemetry/MedSurg (Inpatient). Status is Inpatient Admission. Condition is Stable. Problem is new. Symptoms have improved. UTI on Admission? Yes. 22:40 21:36 01/04/2018 20:53 Hospitalization Ordered by Mercedes Mccoy MD for Inpatient aa1 Admission. Preliminary diagnosis is Systolic (congestive) heart failure; Acute respiratory failure with hypoxia; Cellulitis of left lower limb; Cellulitis of right lower limb. Bed requested for Telemetry/MedSurg (Inpatient). Status is Inpatient Admission. Condition is Stable. Problem is new. Symptoms have improved. UTI on Admission? Yes. ms
--- NOTE | 2018-01-04 20:53 | ER ---
Nurse's Notes [facility] Name: Padma Carrilol Age: 82 yrs Sex: Female : 1935 Arrival Date: 01/04/2018 Time: 18:03 Bed 4 Private MD: Diagnosis: Systolic (congestive) heart failure;Acute respiratory failure with hypoxia;Cellulitis of left lower limb;Cellulitis of right lower limb Presentation: 01/04 18:06 Presenting complaint: EMS states: detention staff reported that pt c/o chest pain iw earlier today, was given 1 Nitro and pain resolved, pt then appeared pale and had decreased O2 sat, was placed on 5L NC and sat was 97%, pt had increased respirations and increased BP. pt is normally A\T\OX1 and has speech impediment, can answer yes/no questions, [place] staff reports pt was not responding to her for approx 10 secs, called the doctor and advised to send pt to ER for evaluation. Transition of care: patient was not received from another setting of care. Onset of symptoms was January 04, 2018. Risk Assessment: Do you want to hurt yourself or someone else? Patient reports no desire to harm self or others. Initial Sepsis Screen: Does the patient meet any 2 criteria? RR > 20 per min. Altered Mental Status. HR > 90 bpm. Does the patient have a suspected source of infection? No. Patient's initial sepsis screen is negative. Care prior to arrival: Oxygen administered. 18:06 Method Of Arrival: EMS: [facility] iw 18:06 Acuity: SAGAR 2 iw Historical: - Allergies: 18:15 Codeine; iw 18:15 Fosamax; iw 18:15 Ibuprofen; iw 18:15 PROPOXYPHENE; iw 18:15 Talwin NX; iw 18:15 Verapamil; iw - Home Meds: 18:50 acetaminophen 325 mg Oral cap 650 mg every 6 hours for Fever [Active]; Ativan 1 mg Oral sg tab 1 tab every 6 hours for Anxiety [Active]; Cerovite Senior Oral tab daily [Active]; cetirizine 10 mg Oral tab 1 tab once daily [Active]; clonidine HCl 0.1 mg Oral tab every 6 hours for Hypertension [Active]; Cymbalta 30 mg Oral cpDR once daily for Anxiety with Depression [Active]; docusate sodium 100 mg Oral tab 1 tab once daily [Active]; gabapentin 100 mg Oral cap twice a day for Restless Legs Syndrome [Active]; gabapentin 300 mg Oral cap nightly [Active]; hydrocodone-acetaminophen 5-325 mg Oral tab 1 tab every 6 hours for Pain [Active]; Keppra 1,000 mg Oral tab 1 tab every 12 hours for Myoclonic Epilepsy Adjunct Treatment [Active]; lactulose 20 gram/30 mL Oral soln 30 mL twice a day for constipation [Active]; Lasix 20 mg Oral tab 1 tab once daily for EDEMA [Active]; Levothroid 75 mcg Oral tab 1 tab once daily [Active]; Lidoderm 5 % Topical ptmd 1 patch once daily [Active]; loperamide 2 mg Oral cap PRN for diarrhea [Active]; magnesium oxide 400 mg Oral cap daily [Active]; melatonin 3 mg Oral tab nightly [Active]; Milk of Magnesia 400 mg/5 mL Oral susp 15 mL once daily [Active]; Namenda XR 28 mg Oral CSpX 1 cap once daily for Moderate to Severe Alzheimer's Type Dementia [Active]; nitroglycerin 0.4 mg SL subl 1 tab every 5 minutes for Angina [Active]; omeprazole 20 mg Oral cpDR 1 cap once daily [Active]; potassium chloride 10 mEq Oral cpER 1 cap once daily [Active]; rivaroxaban 20 mg Oral 1 tab nightly for Prevention of Deep Vein Thrombosis Recurrence [Active]; Robafen DM 10-100 mg/5 mL Oral syrp 5 mL every 6 hours for Cough [Active]; Toprol XL 100 mg Oral Tb24 once daily for Hypertension [Active]; tramadol 50 mg Oral tab 2 tabs every 12 hours [Active]; - PMHx: 18:15 Anemia; Atrial Fib; CVA (Deficit: slurred speech and weakness); Depression; epilepsy; iw GERD; Hyperlipidemia; Hypothyroidism; insomnia; muscle atrophy; UTI; - Immunization history:: Adult Immunizations up to date. - Social history:: Smoking status: Patient/guardian denies using tobacco. - Ebola Screening: : Patient negative for fever greater than or equal to 101.5 degrees Fahrenheit, and additional compatible Ebola Virus Disease symptoms Patient denies exposure to infectious person Patient denies travel to an Ebola-affected area in the 21 days before illness onset No symptoms or risks identified at this time. Screenin:00 Abuse screen: Denies threats or abuse. Denies injuries from another. Nutritional sg screening: No deficits noted. Tuberculosis screening: No symptoms or risk factors identified. Never had TB. Fall Risk None identified. Assessment: 18:10 General: Appears ill, well groomed, well developed, well nourished, Behavior is calm, sg cooperative, appropriate for age. Pain: Complains of pain in chest Pain does not radiate. Neuro: Level of Consciousness is awake, obeys commands, Oriented to person, situation, Executive Sales Manager are weak bilaterally Speech is slurred, Facial symmetry appears normal. Cardiovascular: Patient's skin is warm and dry. Respiratory: Respiratory effort is even, labored, shallow, Respiratory pattern is symmetrical, tachypnea. GI: Abdomen is round non-distended, Bowel sounds present X 4 quads. : No deficits noted. EENT: No deficits noted. Derm: Skin is pink, warm \T\ dry. red, noted to BLE. Musculoskeletal: Range of motion: intact in all extremities, Swelling present in right leg and left leg. 19:40 Reassessment: Patient appears in no apparent distress at this time. Patient and/or aa1 family updated on plan of care and expected duration. Pain level reassessed. Daughter at bedside. Discussed camacho placement. BiPAP in place. Finger tips blue. Pt's eyes open and makes eye contact but does not respond verbally to questions. Neuro: Level of Consciousness is awake. Respiratory: Airway is patent Respiratory effort is even, unlabored, Respiratory pattern is symmetrical, tachypnea Breath sounds with crackles bilaterally. Derm: Decubitus located on sacrum approximately 7.6 cm to 20 cm is stage I. 20:35 Reassessment: Patient appears in no apparent distress at this time. No changes from aa1 previously documented assessment. Awaiting provider reassessment. 21:30 Reassessment: Patient appears in no apparent distress at this time. No changes from aa1 previously documented assessment. Patient and/or family updated on plan of care and expected duration. Pain level reassessed. Awaiting bed assignment. 22:15 Reassessment: Patient appears in no apparent distress at this time. No changes from aa1 previously documented assessment. Report given to Darius on 4th floor. Awaiting RT to transport pt upstairs. Vital Signs: 18:06 BP 155 / 75; Pulse 84; Resp 26 S; Temp 100.7(A); Pulse Ox 85% on R/A; Pain 0/10; iw 18:06 Weight 106.59 kg; Height 6 ft. 0 in. (182.88 cm); sg 18:44 BP 143 / 75; Pulse 84; Resp 24; Pulse Ox 94% on R/A; Pain 0/10; sg 19:00 BP 145 / 77; Pulse 80; Resp 24; Pulse Ox 93% on Non-rebreather mask; cb2 19:50 BP 142 / 59; Pulse 80; Resp 22; Temp 101.7(R); Pulse Ox 93% on BiPAP; aa1 20:36 BP 109 / 49; Pulse 80; Resp 18; Pulse Ox 100% on BiPAP; aa1 22:02 BP 107 / 78; Pulse 81; Resp 18; Temp 100.0; Pulse Ox 94% on 40% BiPAP; aa1 18:06 Body Mass Index 31.87 (106.59 kg, 182.88 cm) sg ED Course: 18:00 Initial lab(s) drawn, by me, sent to lab. First set of blood cultures drawn by me. sg Inserted saline lock: 20 gauge in right forearm, using aseptic technique. Blood collected. Maintain EMS IV. Dressing intact. Good blood return noted. Site clean \T\ dry. Gauge \T\ site: 20 G LFA. IV is patent, is intact, with good blood return. 18:03 Patient arrived in ED. iw 18:10 Patient has correct armband on for positive identification. Call light in reach. Side sg rails up X2. surveillance monitor on. Pulse ox on. NIBP on. Warm blanket given. Head of bed elevated. 18:11 Triage completed. iw 18:18 Arm band placed on. iw 18:40 Daniel Quezada, RN is Primary Nurse. sg 19:01 Blane Aguirre MD is Attending Physician. gs 19:05 Chest Single View XRAY In Process Unspecified. EDMS 19:50 Camacho cath inserted, using sterile technique, 16 Fr., by me, balloon inflated, to aa1 gravity drainage, urine specimen collected. returned cloudy urine. Patient tolerated well. 20:52 Mercedes Mccoy MD is Hospitalizing Provider. gs 21:00 Cleaned of incontinence. Linen changed. aa1 22:40 No provider procedures requiring assistance completed. Patient admitted, IV remains in aa1 place. Administered Medications: Discontinued: NS 0.9% (30 ml/kg) 30 ml/kg IV at bolus once; Sepsis Protocol 18:52 Drug: NS 0.9% (30 ml/kg) 30 ml/kg {Note: 1,000mL administered at this time.} Route: IV; sg Rate: bolus; Site: right wrist; 19:50 Drug: Tylenol Suppository 650 mg Route: DE; aa1 22:31 Follow up: Response: No adverse reaction; Temperature is decreased aa1 20:50 Drug: Lasix 20 mg Route: IVP; Site: right forearm; aa1 21:50 Follow up: Response: No adverse reaction aa1 20:50 Drug: Rocephin 1 grams Route: IV; Rate: calculated rate; Site: right forearm; aa1 20:55 Follow up: IV Status: Completed infusion aa1 20:55 Drug: vancoMYCIN 1 grams Route: IVPB; Infused Over: 2 hrs; Site: right forearm; aa1 22:30 Follow up: IV Status: Infusion continued upon admission aa1 21:09 Not Given (Other Intervention Used): Rocephin - (cefTRIAXone) 1 grams IVPB once over 30 aa1 mins; (mix in 50 mL NS) Outcome: 20:53 Decision to Hospitalize by Provider. 22:38 Admitted to Tele accompanied by tech, via stretcher, room 404, with oxygen, with chart, aa1 Report called to Darius 22:38 Condition: stable 22:38 Discharge instructions given to family, Instructed on the need for admit, Demonstrated understanding of instructions. 22:40 Patient left the ED. aa1 Signatures: Dispatcher [employer] EDMS Daniel Quezada, Hetal Smiley RN RN RN aa1 Karen Parrish, Adrián Carson RN, Gregory, MD MD
[2018-01-04] MEDS ORDERED: CEFTRIAXONE/SWI 1gm 1 GM/10 ML SYR ONE (20:54)
[2018-01-04] MEDS ORDERED: VANCOMYCIN 1 GM/250 ML BAG ONE (20:54)
[2018-01-04] MEDS ORDERED: FUROSEMIDE 20 MG/ 2ML VIAL ONE (20:54)
[2018-01-04] MEDS ORDERED: ACETAMINOPHEN 500 MG TAB PO PRN (21:12)
[2018-01-04] MEDS ORDERED: ONDANSETRON 4 MG/2 ML VIAL IV PRN (21:12)
[2018-01-04 22:09] LABS: Urine Blood 2+ (NEG); Urine Glucose NEGATIVE (NEG); Urine Protein NEGATIVE (NEG); Urine Specific Gravity 1.025 (1.005-1.030); Urine pH 5.5 (5.0-7.0)
[2018-01-05] MEDS ORDERED: ALBUTEROL 2.5 MG/3 ML NEB SOL NEB SCH (02:00)
[2018-01-05] MEDS: IPRATROPIUM BROM 0.5MG/2.5ML NEB SCH ×2 (04:25)
[2018-01-05 06:04] LABS: Absolute Lymphocytes (CBC) 0.7 K/uL (0.7-4.9); Absolute Monocytes 0.6 K/uL (0.1-1.3); Absolute Neutrophil 8.1 K/uL (1.8-8.0); Basophils % 0.5 % (0-1.3); Eosinophils % 0.1 % (0-4.4); Lymphocytes % 6.9 % (15.3-44.8); MCH 29.1 pg (27.0-35.0); MCV 89.8 fL (80-100); MPV 9.1 fL (7.6-11.3); Monocytes % 6.7 % (3.3-12.3); RBC Red Blood Cell Count 4.34 M/uL (3.86-4.86)
[2018-01-05 06:20] LABS: ALT/SGPT 15 U/L (12-78); AST/SGOT 25 U/L (15-37); Albumin 3.1 g/dL (3.4-5.0); Alkaline Phosphatase 120 U/L (45-117); BUN Blood Urea Nitrogen 26 mg/dL (7-18); Bicarbonate 30 mmol/L (21-32); Bilirubin Total 1.5 mg/dL (0.2-1.0); Glucose Level 113 mg/dL (74-106); Magnesium 2.3 mg/dL (1.8-2.4); NT PRO-BNP 16762 pg/mL (<450); Phosphorus 4.3 mg/dL (2.5-4.9); Potassium 3.9 mmol/L (3.5-5.1); Protein, Total 7.5 g/dL (6.4-8.2); Sodium Level 142 mmol/L (136-145); Troponin I < 0.02 ng/mL (0.0-0.045)
[2018-01-05 06:52] LABS: Blood Morphology Comment NOT SEEN (NOT SEEN); Platelet Estimate ADEQ
[2018-01-05] MEDS ORDERED: ALBUTEROL 2.5 MG/3 ML NEB SOL NEB PRN (07:50)
[2018-01-05] MEDS ORDERED: IPRATROPIUM BROM 0.5MG/2.5ML NEB PRN (07:50)
[2018-01-05] MEDS ORDERED: KCL 20 MEQ/100 mL IVPB 20 MEQ/100 ML BAG IV SCH ×2 (08:00→10:00)
[2018-01-05] MEDS ORDERED: ENOXAPARIN 40 MG/0.4 ML SQ SCH (09:00)
[2018-01-05] MEDS: POTASSIUM CL SA 10 MEQ TAB PO SCH ×2 (09:00→09:11)
[2018-01-05] MEDS: ASPIRIN EC 81 MG TAB PO SCH ×2 (09:00→09:12)
[2018-01-05] MEDS: FUROSEMIDE 40 MG/4 ML VIAL IV SCH ×2 (09:12→16:38)
--- NOTE | 2018-01-05 09:12 | P.HP ---
Certification for Inpatient Patient admitted to: Inpatient With expected LOS: >2 Midnights Patient will require the following post-hospital care: None Practitioner: I am a practitioner with admitting privileges, knowledge of patient current condition, hospital course, and medical plan of care. Services: Services provided to patient in accordance with Admission requirements found in Title 42 Section 412.3 of the Code of Federal Regulations Patient History Date of Service: 01/04/18 Reason for admission: Respiratory failure History of Present Illness: Patient is an 82-year-old female who is had numerous admissions in the past for similar complaints. She was last admitted a few months ago for respiratory failure. She was short of breath and tachypneic. She was also lethargic. She was sent to the emergency room from [facility]. Patient in the emergency room was found to be tachypneic. Patient's chest x-ray revealed congestive heart failure exacerbation. Patient has an ejection fraction of 20-25%. Patient will be diuresed aggressively. Will wean patient off of the BiPAP. Patient arterial oxygen on the ABG is adequate. Patient does have some cyanosis of the hands and the feet. This is probably related to a circulatory issue. May need to use nitro more keep hands warm so they won't appear cyanotic. However, at this point patient is doing well and will continue to diurese as mentioned above and continue with cardiac medications. Allergies codeine [Codeine] Allergy (Intermediate, Verified 07/31/17 11:31) hallucination morphine Allergy (Intermediate, Verified 07/31/17 11:31) hallucinations propoxyphene HCl [From Darvon] Allergy (Intermediate, Verified 07/31/17 11:31) hallucinations verapamil [Verapamil] Allergy (Intermediate, Verified 07/31/17 11:31) hallucinations alendronate sodium [From Fosamax] Allergy (Verified 07/31/17 11:31) Unknown ibuprofen Allergy (Verified 10/12/17 22:45) Unknown pentazocine [From Talwin NX] Allergy (Verified 07/31/17 11:31) Rash Home Medications: Acetaminophen 650 mg PO Q6HP PRN 10/12/17 Docusate Sodium 100 mg PO TID 10/12/17 Ferrous Sulfate 325 mg PO DAILY 10/12/17 Gabapentin [Gralise] 300 mg PO TID 10/12/17 Hydrocodone Bit/Acetaminophen [Hydrocodon-Acetaminophen 5-325] 1 each PO Q6HP PRN 10/12/17 Magnesium Oxide [Magnesium] 400 mg PO DAILY 10/12/17 Melatonin 3 mg PO BEDTIME 10/12/17 Multivitamin with Minerals [Multivitamins with Minerals] 1 each PO DAILY Nitroglycerin 0.4 mg SL Q5M PRN MDD 3 10/12/17 Omeprazole 20 mg PO DAILY 10/12/17 Potassium Chloride [K-Dur] 10 meq PO DAILY 10/12/17 Rivaroxaban [Xarelto] 20 mg PO DAILY AT SUPPER 10/12/17 Tramadol HCl [Ultram] 100 mg PO Q12H 10/12/17 Furosemide [Lasix*] 20 mg PO BID #60 tab 10/14/17 Arginine/Ascorbate Sod/Crissy AC [Arginaid Powder] 1 packet PO DAILY 01/04/18 Ascorbic Acid [C-500] 500 mg PO DAILY 01/05/18 Levothyroxine Sodium [Synthroid] 150 mcg PO DAILY 01/05/18 Loratadine [Claritin] 10 mg PO DAILY 01/05/18 Memantine HCl [Namenda] 10 mg PO BID 01/05/18 Metoprolol Tartrate [Lopressor] 50 mg PO BID 01/05/18 Valacyclovir HCl [Valtrex] 1,000 mg PO DAILY 01/05/18 Venlafaxine HCl [Effexor] 100 mg PO DAILY 01/05/18 Zinc Sulfate [Zinc Sulfate*] 220 mg PO DAILY 01/05/18 levETIRAcetam [Levetiracetam] 10 ml PO BID 01/05/18 - Past Medical/Surgical History Diabetic: No -: epilepsy -: GERD -: depression -: hyperlipidemia -: anemia -: hypothyroidism -: Atrial fibrillation -: muscle atrophy -: UTI -: CVA -: dementia -: htn ,osteoarthritis -: pacemaker -: back surgery -: bilateral knee replacement -: abdominal surgery -: jerson hip surgeries - Family History Father Medical History: Heart disease Mother Medical History: Heart disease, Cancer Sister Medical History: Heart disease, Diabetes Brother Medical History: Heart disease - Social History Smoking Status: Unknown if ever smoked Alcohol use: No CD- Drugs: No Caffeine use: No Place of Residence: [facility] Review of Systems 10-point ROS is otherwise unremarkable Physical Examination - Vital Signs Temperature: 98.4 F Blood Pressure: 124/61 Pulse: 80 Respirations: 18 Pulse Ox (%): 100 - Physical Exam General: Alert, In no apparent distress, Oriented x1, Moderate distress HEENT: Atraumatic, PERRLA, Mucous membr. moist/pink, EOMI, Sclerae nonicteric Neck: Supple, 2+ carotid pulse no bruit, No LAD, Without JVD or thyroid abnormality Respiratory: Diminished, Crackles/rales, Expiratory wheezes Cardiovascular: Regular rate/rhythm, Normal S1 S2, Abnormal S4, Systolic murmur Gastrointestinal: Normal bowel sounds, Soft and benign, Non-distended, No tenderness Musculoskeletal: No clubbing, No tenderness, Swelling Integumentary: No rashes Neurological: Normal speech, Normal tone, Sensation intact, Cranial nerves 3-12 intact, Normal affect, Abnormal gait, Abnormal strength Lymphatics: No axilla or inguinal lymphadenopathy - Studies Laboratory Data (last 24 hrs) 01/04/18 18:00: PT 32.6 H, INR 2.73, APTT 38.7 H 01/04/18 18:00: WBC 9.6, Hgb 12.2, Hct 37.6, Plt Count 149 L 01/04/18 18:00: Sodium 142, Potassium 3.8, BUN 24 H, Creatinine 1.00, Glucose 104, Total Bilirubin 1.7 H, AST 25, ALT 15, Alkaline Phosphatase 133 H, Lipase 66 L Assessment & Plan - Problems (Diagnosis) (1) Respiratory failure Current Visit: Yes Status: Acute (2) Acute CHF Current Visit: Yes Status: Acute (3) Atrial fibrillation Onset Date: 08/11/15 Current Visit: No Status: Acute (4) Congestive heart failure Onset Date: 10/13/17 Current Visit: No Status: Acute Qualifiers: Heart failure chronicity: unspecified (5) Hyperlipidemia Onset Date: 08/11/15 Current Visit: No Status: Acute (6) Hypertension Onset Date: 08/11/15 Current Visit: No Status: Acute (7) Hypothyroidism Onset Date: 08/11/15 Current Visit: No Status: Acute (8) Seizure disorder Onset Date: 08/11/15 Current Visit: No Status: Acute - Plan 1. Echocardiogram; EF is b/w 20-25% 2. Continue BiPAP support; slowly wean off 3. Continue with low dose Beta janelle 4. Cardiology consultation 5. Aggressive diuresis 6. Strict I's and O's 7. Repeat CXR 8. Daily weights 9. Possible Raynaud's-isosorbide 10. Arrange for discharge to a snf in greater than 48 hrs Discharge Plan: Home Plan to discharge in: Greater than 2 days - Advance Directives Does patient have a Living Will: No Does patient have a Durable POA for Healthcare: No - Code Status/Comfort Care Code Status Assessed: Yes Code Status: Full Code Critical Care: No Time Spent Managing PTS Care (In Minutes): 50
[2018-01-05] MEDS ORDERED: ACETAMINOPHEN 325 MG TABLET PO PRN (09:20)
[2018-01-05] MEDS: TRAMADOL HCL 50 MG TAB PO SCH ×2 (09:30→21:04)
--- NOTE | 2018-01-05 10:04 | EKG ---
Test Date: 2018-01-04 Test Time: 17:50:41 Sheeting Puller: ARIELLA MEASUREMENT RESULTS: Intervals: Rate: 82 UT: QRSD: 142 QT: 420 QTc: 490 [place]: P: UT: QRS: -70 T: 108 INTERPRETIVE STATEMENTS: Electronic ventricular pacemaker Compared to ECG 10/12/2017 15:24:55 No significant changes Electronically Signed On 01-05-18 10:03:47 CDT by Christoph Pratt
[2018-01-05 10:22] LABS: Arterial Blood Carboxyhemoglob 1.6 % (0-1.5); Blood Gas Oxyhemoglobin 96.4 % (94-97); Blood O2 Saturation 98.6 % (92-98.5)
[2018-01-05] MEDS: Levofloxacin500mg IV 500 MG/100 ML BAG IV SCH (11:01)
--- NOTE | 2018-01-05 11:36 | P.CNS ---
Date of Consult: 01/05/18 Reason for Consult: Respiratory failure Chief Complaint: Respiratory failure History of Present Illness: Patient is 82 years of age admitted with the respiratory distress came on rather suddenly patient is nonverbal on a BiPAP machine recurrent hospital admissions lethargic history of congestive heart failure lower extremity edema. Patient is currently on BiPAP very comfortable history of prior stroke will arouse to stimulate Allergies codeine [Codeine] Allergy (Intermediate, Verified 07/31/17 11:31) hallucination morphine Allergy (Intermediate, Verified 07/31/17 11:31) hallucinations propoxyphene HCl [From Darvon] Allergy (Intermediate, Verified 07/31/17 11:31) hallucinations verapamil [Verapamil] Allergy (Intermediate, Verified 07/31/17 11:31) hallucinations alendronate sodium [From Fosamax] Allergy (Verified 07/31/17 11:31) Unknown ibuprofen Allergy (Verified 10/12/17 22:45) Unknown pentazocine [From Talwin NX] Allergy (Verified 07/31/17 11:31) Rash Home Medications: Acetaminophen 650 mg PO Q6HP PRN 10/12/17 Docusate Sodium 100 mg PO TID 10/12/17 Ferrous Sulfate 325 mg PO DAILY 10/12/17 Gabapentin [Gralise] 300 mg PO TID 10/12/17 Hydrocodone Bit/Acetaminophen [Hydrocodon-Acetaminophen 5-325] 1 each PO Q6HP PRN 10/12/17 Magnesium Oxide [Magnesium] 400 mg PO DAILY 10/12/17 Melatonin 3 mg PO BEDTIME 10/12/17 Multivitamin with Minerals [Multivitamins with Minerals] 1 each PO DAILY Nitroglycerin 0.4 mg SL Q5M PRN MDD 3 10/12/17 Omeprazole 20 mg PO DAILY 10/12/17 Potassium Chloride [K-Dur] 10 meq PO DAILY 10/12/17 Rivaroxaban [Xarelto] 20 mg PO DAILY AT SUPPER 10/12/17 Tramadol HCl [Ultram] 100 mg PO Q12H 10/12/17 Furosemide [Lasix*] 20 mg PO BID #60 tab 10/14/17 Arginine/Ascorbate Sod/Crissy AC [Arginaid Powder] 1 packet PO DAILY 01/04/18 Ascorbic Acid [C-500] 500 mg PO DAILY 01/05/18 Levothyroxine Sodium [Synthroid] 150 mcg PO DAILY 01/05/18 Loratadine [Claritin] 10 mg PO DAILY 01/05/18 Memantine HCl [Namenda] 10 mg PO BID 01/05/18 Metoprolol Tartrate [Lopressor] 50 mg PO BID 01/05/18 Valacyclovir HCl [Valtrex] 1,000 mg PO DAILY 01/05/18 Venlafaxine HCl [Effexor] 100 mg PO DAILY 01/05/18 Zinc Sulfate [Zinc Sulfate*] 220 mg PO DAILY 01/05/18 levETIRAcetam [Levetiracetam] 10 ml PO BID 01/05/18 - Past Medical/Surgical History Diabetic: No -: epilepsy -: GERD -: depression -: hyperlipidemia -: anemia -: hypothyroidism -: Atrial fibrillation -: muscle atrophy -: UTI -: CVA -: dementia -: htn ,osteoarthritis -: pacemaker -: back surgery -: bilateral knee replacement -: abdominal surgery -: jerson hip surgeries - Family History Father Medical History: Heart disease Mother Medical History: Heart disease, Cancer Sister Medical History: Heart disease, Diabetes Brother Medical History: Heart disease - Social History Smoking Status: Never smoker Alcohol use: No CD- Drugs: No Caffeine use: No Place of [facility]idence[facility] Review of Systems is unable to be obtained Physical Examination Temp Pulse Resp BP Pulse Ox 98.4 F 80 18 124/61 100 01/05/18 09:22 01/05/18 09:22 01/05/18 09:22 01/05/18 09:22 01/05/18 09:22 General: Other (Minimally responsive) HEENT: Atraumatic Neck: Supple Respiratory: Crackles/rales (Bilateral crackles) Cardiovascular: Normal S1 S2, Edema (Bilateral edema) Laboratory Data (last 24 hrs) 01/04/18 18:00: PT 32.6 H, INR 2.73, APTT 38.7 H 01/04/18 18:00: WBC 9.6, Hgb 12.2, Hct 37.6, Plt Count 149 L 01/04/18 18:00: Sodium 142, Potassium 3.8, BUN 24 H, Creatinine 1.00, Glucose 104, Total Bilirubin 1.7 H, AST 25, ALT 15, Alkaline Phosphatase 133 H, Lipase 66 L - Problems (1) Congestive heart failure Onset Date: 10/13/17 Current Visit: No Status: Acute Plan: Patient is 82 years of age admitted with altered mental status respiratory distress possible exacerbation of congestive heart failure normal ejection fraction chemistries reviewed normal renal function chest x-ray possible volume overload patient is anti coagulated on Xarelto possible urinary tract infection culture pending at spironolactone oxygenation satisfactory probably normal oxygenation hypercapnia is also declined consider DNR Qualifiers: Heart failure chronicity: unspecified
[2018-01-05] MEDS: SPIRONOLACTONE 25 MG TABLET PO SCH ×2 (11:39→21:05)
--- NOTE | 2018-01-05 12:58 | ECHO ---
HEIGHT: 5 ft10 in WEIGHT: 217 lb oz DATE OF STUDY: 01/05/[address]: Mercedes Mccoy MD 2-DIMENSIONAL: YES M.MODE: YES DOPPLER: YES COLOR FLOW: YES TDS: NO PORTABLE: NO DEFINITY: NO BUBBLE STUDY: NO DIAGNOSIS: CONGESTIVE HEART FAILURE CARDIAC HISTORY: CATHERIZATION: NO SURGERY: NO PROSTHETIC VALVE: NO PACEMAKER: YES MEASUREMENTS (cm) DIASTOLIC (NORMALS) SYSTOLIC (NORMALS) IVSd 1.1 (0.6-1.2) LA Diam 5.2 (1.9-4.0) LVEF 72% LVIDd 3.0 (3.5-5.7) LVIDs 1.8 (2.0-3.5) %FS 40% LVPWd 1.0 (0.6-1.2) Ao Diam 3.6 (2.0-3.7) 2 DIMENSIONAL ASSESSMENT: RIGHT ATRIUM: PACEMAKER, DILATED LEFT ATRIUM: DILATED RIGHT VENTRICLE: PACEMAKER, DILATED LEFT VENTRICLE: NORMAL TRICUSPID VALVE: NORMAL MITRAL VALVE: NORMAL PULMONIC VALVE: NORMAL AORTIC VALVE: SCLEROSIS PERICARDIAL EFFUSION: NONE AORTIC ROOT: NORMAL LEFT VENTRICULAR WALL MOTION: NORMAL DOPPLER/COLOR FLOW: NO AORTIC STENOSIS OR AORTIC REGURGITATION. MILD MITRAL REGURGITATION. TRACE TRICUSPID REGURGITATION. NORMAL RIGHT VENTRICULAR SYSTOLIC PRESSURE. COMMENTS: NORMAL LEFT VENTRICULAR EJECTION FRACTION. DILATED LEFT AND RIGHT ATRIUM. PACEMAKER CATHETER IN RIGHT ATRIUM AND RIGHT VENTRICLE. AORTIC SCLEROSIS WITH NO AORTIC STENOSIS OR AORTIC REGURGITATION. MILD MITRAL REGURGITATION. TRACE TRICUSPID REGURGITATION. TECHNOLOGIST: Ronak BARILLAS
[2018-01-05 13:08] LABS: Arterial Blood Carboxyhemoglob 1.6 % (0-1.5); Blood Gas Oxyhemoglobin 90.3 % (94-97); Blood O2 Saturation 92.2 % (92-98.5)
[2018-01-05] MEDS ORDERED: NITROGLYCERIN 0.4 MG/TAB SL PRN (13:21)
--- NOTE | 2018-01-05 13:41 | RAD REPORT ---
EXAM DESCRIPTION: RAD - Chest Single View - 01/05/2018 1:32 pm CLINICAL HISTORY: evaluate overload Chest pain. COMPARISON: Chest Single View dated 01/04/2018; Chest Single View dated 10/12/2017; Chest Single View dated 09/28/2016; Chest Single View dated 08/10/2015 FINDINGS: Portable technique limits examination quality. Mild interstitial pulmonary edema seen. Small pleural effusions are present. The heart is moderately enlarged in size with a dual lead pacer device present. No displaced fractures. IMPRESSION: Mild CHF versus volume overload pattern. Findings appear mildly improved since the betty rative study.
[2018-01-05] MEDS: DOCUSATE NA 100 MG CAP PO SCH ×2 (14:19→21:06)
[2018-01-05] MEDS: GABAPENTIN 300 MG CAP PO SCH ×2 (14:19→21:04)
--- NOTE | 2018-01-05 14:46 | P.PN ---
Subjective Date of Service: 01/05/18 Chief Complaint: Respiratory failure Patient seen and examined at bedside with RN. Chart reviewed. Currently patient is on BiPAP. Case discussed with pulmonology and cardiology at this time. Will try to wean off BiPAP at this time. Patient is responsive to verbal stimuli. Overnight and did well overall as well. Review of Systems 10-point ROS is otherwise unremarkable Physical Examination - Vital Signs Temperature: 97.0 F Blood Pressure: 122/56 Pulse: 80 Respirations: 22 Pulse Ox (%): 100 - Physical Exam General: Alert, In no apparent distress, Acute distress HEENT: Atraumatic, PERRLA, EOMI Neck: Supple, JVD not distended Respiratory: Normal air movement, Crackles/rales, Expiratory wheezes, Inspiratory wheezes Cardiovascular: Regular rate/rhythm, Normal S1 S2 Gastrointestinal: Normal bowel sounds, No tenderness Musculoskeletal: No tenderness Integumentary: No rashes Neurological: Normal speech, Normal tone, Normal affect Lymphatics: No axilla or inguinal lymphadenopathy - Studies Laboratory Data (last 24 hrs) 01/04/18 18:00: PT 32.6 H, INR 2.73, APTT 38.7 H 01/04/18 18:00: WBC 9.6, Hgb 12.2, Hct 37.6, Plt Count 149 L 01/04/18 18:00: Sodium 142, Potassium 3.8, BUN 24 H, Creatinine 1.00, Glucose 104, Total Bilirubin 1.7 H, AST 25, ALT 15, Alkaline Phosphatase 133 H, Lipase 66 L Medications List Reviewed: Yes Assessment And Plan - Current Problems (Diagnosis) (1) Respiratory failure Onset Date: 01/05/18 Current Visit: Yes Status: Acute Plan: Hypoxic acute respiratory failure most likely secondary to CHF exacerbation versus COPD exacerbation -currently patient is on BiPAP will wean as tolerated to nasal cannula -pulmonology consulted appreciated recommendations at this time -ABGs pending at this time if shows marked improvement will wean off to nasal cannula Qualifiers: Chronicity: acute on chronic Respiratory failure complication: hypoxia Qualified Code(s): J96.21 - Acute and chronic respiratory failure with hypoxia (2) COPD (chronic obstructive pulmonary disease) Current Visit: Yes Status: Chronic Plan: COPD with acute exacerbation -units, steroids, BiPAP for right now will wean as tolerated Qualifiers: COPD type: COPD with acute exacerbation Qualified Code(s): J44.1 - Chronic obstructive pulmonary disease with (acute) exacerbation (3) Congestive heart failure Onset Date: 10/13/17 Current Visit: No Status: Acute Plan: acute on chronic CHF -the currently patient is on IV Lasix at this time BiPAP for volume overload -cardiology consulted awaiting recommendations at this time -patient is improving markedly today. Will try to wean off of BiPAP to nasal cannula Qualifiers: Heart failure type: systolic Heart failure chronicity: acute on chronic Qualified Code(s): I50.23 - Acute on chronic systolic (congestive) heart failure (4) Atrial fibrillation Onset Date: 08/11/15 Current Visit: No Status: Chronic Qualifiers: Atrial fibrillation type: chronic Qualified Code(s): I48.2 - Chronic atrial fibrillation (5) Depressive disorder Onset Date: 08/11/15 Current Visit: No Status: Chronic (6) GERD (gastroesophageal reflux disease) Onset Date: 08/11/15 Current Visit: No Status: Chronic Qualifiers: Esophagitis presence: without esophagitis Qualified Code(s): K21.9 - Gastro -esophageal reflux disease without esophagitis (7) Hyperlipidemia Onset Date: 08/11/15 Current Visit: No Status: Chronic Qualifiers: Hyperlipidemia type: mixed hyperlipidemia Qualified Code(s): E78.2 - Mixed hyperlipidemia (8) Hypertension Onset Date: 08/11/15 Current Visit: No Status: Chronic Qualifiers: Hypertension type: essential hypertension Qualified Code(s): I10 - Essential (primary) hypertension (9) Hypothyroidism Onset Date: 08/11/15 Current Visit: No Status: Chronic Qualifiers: Hypothyroidism type: acquired Qualified Code(s): E03.9 - Hypothyroidism, unspecified (10) Osteoarthritis, multiple sites Onset Date: 08/11/15 Current Visit: No Status: Chronic Qualifiers: Osteoarthritis type: primary Qualified Code(s): M15.0 - Primary generalized (osteo)arthritis (11) Seizure disorder Onset Date: 08/11/15 Current Visit: No Status: Chronic - Plan Currently awaiting clinical improvement at this time. Discharge Plan: Jail Plan to discharge in: 48 Hours - Code Status/Comfort Care Code Status Assessed: Yes Critical Care: No
[2018-01-05] MEDS: ISOSORBIDE DINIT 20 MG TAB PO SCH (21:05)
[2018-01-05] MEDS: levETIRAcetam 500 MG TAB PO SCH (21:05)
[2018-01-05] MEDS: MEMANTINE HCL 10 MG TABLET PO SCH (21:06)
[2018-01-05] MEDS: METOPROLOL TAR 50 MG TAB PO SCH (21:06)
[2018-01-05] MEDS: MELATONIN 3 MG TABLET PO SCH (21:06)
[2018-01-05] MEDS ORDERED: FUROSEMIDE 40 MG/4 ML VIAL IV SCH (23:00)
[2018-01-06] MEDS: HYDROCODONE/APAP 5/325 MG TAB PO PRN (04:39)
[2018-01-06] MEDS: LEVOTHYROXINE SOD 0.075 MG TAB PO SCH (06:02)
[2018-01-06] MEDS: PANTOPRAZOLE 40MG TABLET PO SCH (06:02)
[2018-01-06 07:09] LABS: BUN Blood Urea Nitrogen 29 mg/dL (7-18); Bicarbonate 28 mmol/L (21-32); Glucose Level 109 mg/dL (74-106); Magnesium 2.1 mg/dL (1.8-2.4); Phosphorus 2.8 mg/dL (2.5-4.9); Potassium 3.1 mmol/L (3.5-5.1); Sodium Level 142 mmol/L (136-145); Troponin I < 0.02 ng/mL (0.0-0.045)
[2018-01-06] MEDS ORDERED: MULTIVITAMIN WITH MINERALS PO SCH (09:00)
[2018-01-06] MEDS ORDERED: POTASSIUM 25 MEQ EFFERV TAB PO ONE (09:00)
[2018-01-06] MEDS ORDERED: HOME MED 1 EA UNK (Arginine/Ascorbate Sod/Vite Ac [Arginaid Powder] 1 PACKET) PO SCH (09:00)
[2018-01-06] MEDS ORDERED: ASCORBIC ACID 500 MG PO SCH (09:00)
[2018-01-06] MEDS ORDERED: VENLAFAXINE HCL 100 MG PO SCH (09:00)
[2018-01-06] MEDS: levETIRAcetam 500 MG TAB PO SCH ×2 (09:24→20:29)
[2018-01-06] MEDS: VALACYCLOVIR 500 MG TAB PO SCH (09:24)
[2018-01-06] MEDS: GABAPENTIN 300 MG CAP PO SCH ×3 (09:25→20:28)
[2018-01-06] MEDS: DOCUSATE NA 100 MG CAP PO SCH ×3 (09:25→20:30)
[2018-01-06] MEDS: TRAMADOL HCL 50 MG TAB PO SCH ×2 (09:26→20:30)
[2018-01-06] MEDS: MEMANTINE HCL 10 MG TABLET PO SCH ×2 (09:26→20:28)
[2018-01-06] MEDS: MAGNESIUM OXIDE 400 MG TAB PO SCH (09:27)
[2018-01-06] MEDS: FUROSEMIDE 40 MG/4 ML VIAL IV SCH ×2 (09:28→16:00)
[2018-01-06] MEDS: METOPROLOL TAR 50 MG TAB PO SCH ×2 (09:28→20:28)
[2018-01-06] MEDS: FERROUS SULFATE 325 MG TAB PO SCH (09:28)
[2018-01-06] MEDS: MULTIVIT W/ MINERAL TAB PO SCH (09:28)
[2018-01-06] MEDS: ZINC SULFATE 220 MG CAP PO SCH (09:28)
[2018-01-06] MEDS: ASCORBIC ACID 500 MG TABLET PO SCH (09:29)
[2018-01-06] MEDS: ISOSORBIDE DINIT 20 MG TAB PO SCH ×2 (09:29→20:29)
[2018-01-06] MEDS: SPIRONOLACTONE 25 MG TABLET PO SCH ×2 (09:29→20:30)
[2018-01-06] MEDS: ASPIRIN EC 81 MG TAB PO SCH (09:30)
[2018-01-06] MEDS: MEDIHONEY 44 ML TOPICAL TUBE TOP SCH (09:30)
[2018-01-06] MEDS: LORATADINE 10 MG TAB PO SCH (09:30)
[2018-01-06] MEDS: Levofloxacin500mg IV 500 MG/100 ML BAG IV SCH (10:10)
[2018-01-06] MEDS: RIVAROXABAN 20 MG TABLET PO SCH (16:01)
--- NOTE | 2018-01-06 17:13 | PN ---
Date of Progress Note: 01/06/2018 Subjective: The patient seen and examined. Chart reviewed and case discussed with RN. The patient denies any acute events overnight. States her breathing is better. Review of Systems: Negative except as above. Medications: List reviewed. Code Status: Full. Physical Examination: Vital Signs: Temperature 98.8, heart rate 78, blood pressure 132/65, respirations 16, O2 98% on 2 L via nasal cannula. General: Awake, alert, oriented x3, not in any acute distress. Elderly female , somewhat ill-appearing. CV: S1, S2. Peripheral pulses present. Respiratory: Moving air well bilaterally. No wheezing or stridor. No crackles. No use of accessory muscles. Gastrointestinal: Abdomen is soft, nontender, nondistended. Positive bowel sounds. No guarding or rigidity. Extremities: No clubbing, cyanosis. Trace pedal edema. Neurologic: Nonfocal. Skin: The patient does have a wound on the left foot first digit and third digit with ulcerations. Laboratory Data: Sodium 142, potassium 3.1, chloride 105, CO2 28, BUN 29, creatinine 0.8, glucose 109, calcium 8, phosphorus 2.8, magnesium 2.1. Troponin less than 0.02. Urine culture growing 4+ gram-negative rods. Blood cultures no growth to date. Echocardiogram shows EF 72%. Dilated left and right atrium, pacemaker, catheter in right atrium and right ventricle, aortic sclerosis with no stenosis. Tricuspid regurgitation, mild mitral regurgitation. Assessment And Plan: An 82-year-old female with: 1. Acute respiratory failure secondary to congestive heart failure and chronic obstructive pulmonary disease exacerbation, improving. The patient is currently on 2 L via nasal cannula, now off BiPAP. Appreciate Pulmonology and Cardiology recommendations. Continue to wean off as tolerated. 2. Acute chronic obstructive pulmonary disease exacerbation. Continue steroids, supplemental oxygen, breathing treatments. Appreciate Dr. Bob's input. 3. Chronic diastolic heart failure, ejection fraction 72%. Continue IV Lasix. Appreciate Cardiology input. 4. Atrial fibrillation, chronic, on anticoagulation. 5. Major depressive disorder, stable. 6. Gastroesophageal reflux disease without esophagitis. Continue PPI. 7. Mixed hyperlipidemia. Continue home medications. 8. Essential hypertension, stable. 9. Hypothyroidism, stable. Continue home medications. 10. Osteoarthritis, generalized, stable. 11. History of seizure disorder. 12. Urinary tract infection secondary to gram-negative rods. ID and sensitivity pending. 13. Left foot wound: cont wound care. No infection Plan: Await the urine culture results. Continue Levaquin for UTI. Monitor I' s and O's. Likely due to next 24-48 hours if continues to improve. Continue wound care. /ABDELRAHMAN Voice ID: [id number] Report ID: [id number] [facility] HOSPITALIssa
[2018-01-06] MEDS: MELATONIN 3 MG TABLET PO SCH (20:29)
[2018-01-07 05:49] VITALS: BMI 24.7
[2018-01-07] MEDS: PANTOPRAZOLE 40MG TABLET PO SCH (05:59)
[2018-01-07] MEDS: LEVOTHYROXINE SOD 0.075 MG TAB PO SCH (06:00)
[2018-01-07] MEDS: SPIRONOLACTONE 25 MG TABLET PO SCH ×2 (08:47→20:57)
[2018-01-07] MEDS: FERROUS SULFATE 325 MG TAB PO SCH (08:47)
[2018-01-07] MEDS: LORATADINE 10 MG TAB PO SCH (08:47)
[2018-01-07] MEDS: ASCORBIC ACID 500 MG TABLET PO SCH (08:48)
[2018-01-07] MEDS: DOCUSATE NA 100 MG CAP PO SCH ×3 (08:48→20:57)
[2018-01-07] MEDS: TRAMADOL HCL 50 MG TAB PO SCH ×2 (08:48→20:56)
[2018-01-07] MEDS: MEMANTINE HCL 10 MG TABLET PO SCH ×2 (08:48→20:57)
[2018-01-07] MEDS: GABAPENTIN 300 MG CAP PO SCH ×3 (08:48→20:57)
[2018-01-07] MEDS: VALACYCLOVIR 500 MG TAB PO SCH (08:48)
[2018-01-07] MEDS: MAGNESIUM OXIDE 400 MG TAB PO SCH (08:48)
[2018-01-07] MEDS: ISOSORBIDE DINIT 20 MG TAB PO SCH ×2 (08:48→20:58)
[2018-01-07] MEDS: FUROSEMIDE 40 MG/4 ML VIAL IV SCH ×2 (08:48→16:27)
[2018-01-07] MEDS: ZINC SULFATE 220 MG CAP PO SCH (08:48)
[2018-01-07] MEDS: METOPROLOL TAR 50 MG TAB PO SCH ×2 (08:49→20:57)
[2018-01-07] MEDS: MULTIVIT W/ MINERAL TAB PO SCH (08:49)
[2018-01-07] MEDS: ASPIRIN EC 81 MG TAB PO SCH (08:49)
[2018-01-07] MEDS: levETIRAcetam 500 MG TAB PO SCH ×2 (08:49→20:56)
[2018-01-07] MEDS: MEDIHONEY 44 ML TOPICAL TUBE TOP SCH (08:49)
[2018-01-07] MEDS ORDERED: Meropenem 1000 MG/VIAL IV SCH (09:39)
[2018-01-07] MEDS: Meropenem 1,000 MG in NA CHLORIDE 0.9% 100 ML IV SCH ×2 (11:00→16:27)
[2018-01-07] MEDS: Levofloxacin500mg IV 500 MG/100 ML BAG IV SCH (11:01)
[2018-01-07] MEDS: HYDROCODONE/APAP 5/325 MG TAB PO PRN (12:49)
--- NOTE | 2018-01-07 13:28 | CON ---
Additional Attending Physician: Dr. Wilhelm. Chief Complaint: According to ER notes, history and physical, and consultation notes is dyspnea. Th e patient told me the reason she came here is because she passed out. There is simply no documentati on of that. Four years ago, the patient had syncope, and we found it was due to a pacemaker lead fracture. Her p acemaker right now seems to be functioning normally according to electrocardiographic findings. She had a pacemaker check in my office in September of this year, so I think it is important to be interrogate d. The patient has normal ejection fraction. She has a mildly stiff heart, no doubt because of her age. She does very little activity. She has underlying obstructive lung disease. She has a pacemak er and I think there are many reasons why she could get dyspneic. She seems to be doing better now. Physical Examination: Lungs: Do not reveal crackles or wheezes, but the breath sounds are all bronchial. She has really s evere obstructive lung disease and N-terminal proBNP is very elevated, but her ejection fraction is c ompletely normal. Abdomen: Soft. Extremities: No edema. Laboratory Data: Her chest x-ray, when she first came in, indicated mild interstitial edema, bilater al small pleural effusions. Impression: The patient is chronically dyspneic, probably from the reasons that we cannot ever treat . I do not really think a lot of diuresis is needed to help her feel better. Given that the patient said to me she went unconscious and did not know how long, it is undocumented. I think it is import ant for us to interrogate her pacemaker, make sure it is functioning normally. She does have a history of a lead fracture 5 years ago that was repaired with a new pacing lead. CHUCKIE/ABDELRAHMAN Voice ID: [id number] Report ID: [id number]
[2018-01-07] MEDS: RIVAROXABAN 20 MG TABLET PO SCH (16:27)
--- NOTE | 2018-01-07 18:25 | PN ---
Date of Progress Note: 01/07/2018 Subjective: The patient seen and examined. Chart reviewed and case discussed with RN. The patient doing well. No acute events overnight. She did have some apneic episode where she felt like she had sleep apnea. However, the patient is on oxygen. Review of Systems: Negative except as above. Medications: List reviewed. Physical Examination: Vital Signs: Temperature 97.7, heart rate 80, blood pressure 176/96, respirations 20, O2 93% on 2 L via nasal cannula. General: Awake, alert, oriented x3. Elderly female, frail, somewhat ill-appearing. CV: S1, S2. Peripheral pulses present. Respiratory: Moving air well bilaterally. No wheezing. Gastrointestinal: Abdomen is soft, nontender, nondistended. Positive bowel sounds. Extremities: No clubbing, cyanosis, or edema. Neurologic: Nonfocal. Laboratory Data: Troponin less than 0.02. Urine culture growing ESBL Escherichia coli. Blood cultu res no growth to date. Assessment And Plan: A 82-year-old female with: 1.Acute respiratory failure secondary to congestive heart failure and chronic obstructive pulmonary disease, improving. Still on 2 L via nasal cannula, off BiPAP. We will continue to wean as tolerate d. 2.Near syncopal episode. The patient does have pacemaker. Appreciate Dr. Pratt's input. Pacemake r will be interrogated to rule out any abnormalities causing the near syncopal event. No further epi sodes while in the hospital. 3.Acute chronic obstructive pulmonary disease exacerbation. Continue nebulizer treatments and stero ids have been weaned. The patient is still requiring supplemental oxygen. 4.Likely obstructive sleep apnea. The patient has had some apneic episodes. She will need to follo w up with Pulmonology as an outpatient to have sleep study obtained. 5.Chronic diastolic heart failure. We will continue diuresis. Congestive heart failure guidelines. 6.Atrial fibrillation, chronic. On anticoagulation. Rate controlled. 7.Major depressive disorder, stable. 8.Gastroesophageal reflux disease without esophagitis. We will continue PPI. 9.Mixed hyperlipidemia. Continue statin. 10.Essential hypertension, stable on home medications. 11.Hypothyroidism. Continue levothyroxine. 12.Osteoarthritis generalized, stable. 13.History of seizure disorder. 14.Urinary tract infection secondary to extended-spectrum beta-lactamases producing Escherichia col i. The patient has been switched to meropenem. We will need 2 weeks of IV antibiotics and will need isolation bed at the senior living. 15.Right foot wound. We will continue Levaquin for a cellulitis of that area. Blood cultures have not showing any growth. Plan: Refer to the senior living with long-term IV antibiotics for minimum of 2 weeks with meropenem 1000 mg IV q.8 hours. The patient will need PICC line placement. /ABDELRAHMAN Voice ID: [id number] Report ID: [id number]
[2018-01-07] MEDS: MELATONIN 3 MG TABLET PO SCH (21:00)
[2018-01-08] MEDS: Meropenem 1,000 MG in NA CHLORIDE 0.9% 100 ML IV SCH ×2 (01:00→09:31)
[2018-01-08 05:15] LABS: Hematocrit 37.1 % (36.0-45.0); MCV 87.8 fL (80-100); MPV 8.3 fL (7.6-11.3); RBC Red Blood Cell Count 4.23 M/uL (3.86-4.86)
[2018-01-08 05:16] LABS: Absolute Lymphocytes (CBC) 1.1 K/uL (0.7-4.9); Absolute Monocytes 0.6 K/uL (0.1-1.3); Absolute Neutrophil 3.1 K/uL (1.8-8.0); Basophils % 0.6 % (0-1.3); Eosinophils % 0.8 % (0-4.4); Lymphocytes % 22.1 % (15.3-44.8); Monocytes % 12.9 % (3.3-12.3)
[2018-01-08 05:38] LABS: Albumin 2.5 g/dL (3.4-5.0); Bilirubin Total 0.9 mg/dL (0.2-1.0); Potassium 3.5 mmol/L (3.5-5.1); Protein, Total 6.7 g/dL (6.4-8.2)
[2018-01-08] MEDS: LEVOTHYROXINE SOD 0.075 MG TAB PO SCH (06:28)
[2018-01-08] MEDS: PANTOPRAZOLE 40MG TABLET PO SCH (06:28)
--- NOTE | 2018-01-08 06:47 | RAD REPORT ---
EXAM DESCRIPTION: RAD - Chest Single View - 01/07/2018 10:21 pm CLINICAL HISTORY: PICC line placement A preliminary report was provided at the time of the study and reviewed prior to final report. COMPARISON: January 05 TECHNIQUE: AP portable chest image was obtained 2206 hours . FINDINGS: Right upper extremity PICC line has been placed. Tip terminates at the subclavian SVC junc tion. Cardiomegaly remains. Mediastinum and heart are distorted by rotation. No new or progressive pleural or parenchymal finding. IMPRESSION: Right upper extremity PICC line has been placed with tip at the subclavian SVC junction.
--- NOTE | 2018-01-08 06:48 | RAD REPORT ---
EXAM DESCRIPTION: RAD - Chest Single View - 01/07/2018 11:46 pm CLINICAL HISTORY: PICC line placement/readjustment A preliminary report was provided at the time of the study and reviewed prior to final report. COMPARISON: January 07 TECHNIQUE: AP portable chest image was obtained 2315 hours . FINDINGS: PICC line has been advanced in the superior aspect SVC. Exam is otherwise unchanged. IMPRESSION: Right upper extremity PICC line has been advanced. Tip is now in the superior aspect SVC .
[2018-01-08] MEDS ORDERED: KCL 20 MEQ/100 mL IVPB 20 MEQ/100 ML BAG IV SCH (07:00)
[2018-01-08] MEDS: DOCUSATE NA 100 MG CAP PO SCH ×2 (08:15→13:07)
[2018-01-08] MEDS: GABAPENTIN 300 MG CAP PO SCH ×2 (08:15→13:07)
[2018-01-08] MEDS: ISOSORBIDE DINIT 20 MG TAB PO SCH (08:16)
[2018-01-08] MEDS: MAGNESIUM OXIDE 400 MG TAB PO SCH (08:16)
[2018-01-08] MEDS: MEMANTINE HCL 10 MG TABLET PO SCH (08:16)
[2018-01-08] MEDS: ASCORBIC ACID 500 MG TABLET PO SCH (08:16)
[2018-01-08] MEDS: MULTIVIT W/ MINERAL TAB PO SCH (08:16)
[2018-01-08] MEDS: LORATADINE 10 MG TAB PO SCH (08:17)
[2018-01-08] MEDS: VALACYCLOVIR 500 MG TAB PO SCH (08:17)
[2018-01-08] MEDS: TRAMADOL HCL 50 MG TAB PO SCH (08:17)
[2018-01-08] MEDS: ASPIRIN EC 81 MG TAB PO SCH (08:17)
[2018-01-08] MEDS: levETIRAcetam 500 MG TAB PO SCH (08:17)
[2018-01-08] MEDS: FERROUS SULFATE 325 MG TAB PO SCH (08:17)
[2018-01-08] MEDS: SPIRONOLACTONE 25 MG TABLET PO SCH (08:18)
[2018-01-08] MEDS: MEDIHONEY 44 ML TOPICAL TUBE TOP SCH (08:18)
[2018-01-08] MEDS: METOPROLOL TAR 50 MG TAB PO SCH (08:18)
--- NOTE | 2018-01-08 08:21 | P.PN ---
Subjective Date of Service: 01/08/18 Chief Complaint: Congestive heart failure Subjective: Improving (Patient is doing much better Pt has ESBL urine the alert responsive cooperative) Review of Systems General: Weakness Physical Examination - Vital Signs Temperature: 98.2 F Blood Pressure: 115/59 Pulse: 81 Respirations: 18 Pulse Ox (%): 93 - Physical Exam General: Alert, Cooperative Respiratory: Clear to auscultation bilaterally Cardiovascular: No edema, Normal S1 S2 - Studies Microbiology Data (last 24 hrs): 01/04/18 20:04 Clean Catch Urine [place] Count - Final >100,000 CFU/ML. 01/04/18 20:04 Clean Catch Urine - Final Escherichia Coli Medications List Reviewed: Yes Assessment & Plan - Problems (Diagnosis) (1) Congestive heart failure Onset Date: 10/13/17 Current Visit: No Status: Acute Plan: Patient is doing much better oxygenation satisfactory child check daily room air pulse ox and change to p.o. Lasix Dc IV Dc Pleitez catheter physical therapy patient hasESBL in the urine and will need IV meropenem apparently she also has a cellulitis Qualifiers: Heart failure type: systolic Heart failure chronicity: acute on chronic Qualified Code(s): I50.23 - Acute on chronic systolic (congestive) heart failure
[2018-01-08] MEDS ORDERED: FUROSEMIDE 40 MG TABLET PO SCH (09:00)
[2018-01-08] MEDS: ZINC SULFATE 220 MG CAP PO SCH (10:12)
[2018-01-08 11:05] VITALS: O2SAT 90
[2018-01-08 12:24] VITALS: BP 122/60; TEMP 97
--- NOTE | 2018-01-08 22:09 | DS ---
Date of Discharge: 01/08/2018 Consultants: Dr. Bob with Pulmonology and Dr. Pratt with Cardiology. Admitting Diagnoses: 1.Acute respiratory failure. 2.Acute congestive heart failure. 3.Atrial fibrillation. 4.Congestive heart failure. 5.Hyperlipidemia. 6.Hypertension. 7.Hypothyroidism. 8.Seizure disorder. Discharge Diagnoses: 1.Acute respiratory failure, secondary to congestive heart failure and chronic obstructive pulmonary disease. 2.Near syncopal episode. The patient does have a pacemaker which was interrogated. 3.Acute chronic obstructive pulmonary disease exacerbation, improved. 4.Acute on chronic diastolic heart failure. 5.Likely obstructive sleep apnea. Will need sleep study as an outpatient. 6.Atrial fibrillation, chronic, on anticoagulation. 7.Major depressive disorder. 8.Gastroesophageal reflux disease without esophagitis. 9.Mixed hyperlipidemia. 10.Essential hypertension. 11.Hypothyroidism. 12.Osteoarthritis. 13.History of seizure disorder. 14.Urinary tract infection, secondary to extended spectrum beta lactamase Escherichia coli, on merop enem for 2 weeks. 15.Right foot wound with cellulitis. Cultures negative. Hospital Course: The patient is an 82-year-old female with past medical history of atrial fibrillati on, on anticoagulation, COPD, CHF, hypothyroidism, anemia, depression, GERD, dementia, hypertension, history of pacemaker, who is a resident of prison, comes in with respiratory failure secondary to congestive heart failure and chronic obstructive pulmonary disease. The patient has a low EF. Th e patient did well with diuretics, was started on CHF guidelines. Cardiology and Pulmonology were co nsulted. The patient's chest x-ray did show improvement. The patient was also found to have ESBL Es cherichia coli in the urine cultures, and therefore had PICC line placed and will need meropenem for the next 2 weeks. The patient was then doing well, cleared for discharge from [facility] sales [facility] to return [facility] with IV antibiotics for 2 weeks. Medications: As per medication reconciliation list. Followup: Follow up with primary care physician in 2 days. Follow up with senior communications engineer, Dr. Pratt, in 2 weeks. Return to ER for worsening condition. Follow up with wound care clinic as well. Diet: Low-sodium, fluid-restricted diet. Activity: Fall precautions. No driving or operating heavy machinery while on narcotics. Physical Examination: General: Awake, alert, oriented, no acute distress, elderly female. CV: S1, S2. No murmurs. Irregularly irregular. Respiratory: Moving air well bilaterally. Abdomen: Soft, nontender, nondistended. Positive bowel sounds. Extremities: No clubbing, cyanosis, edema. Neurologic: Nonfocal. SA/MODL Voice ID: [id number] Report ID: [id number]
--- NOTE | 2018-01-09 06:19 | PN ---
Subjective: Patient admitted on 01/04/2018 for syncope. Her pacemaker was checked yesterday and zen t was functioning normally. An echocardiogram that was done showed LVH with an ejection fraction of 72%, which is chronic for Ms. Carrillo. She had some mild congestive heart failure symptoms, when she came in. This has resolved already. She is known to have chronic diastolic congestive heart failure . Ms. Carrillo can go home whenever it is okay with admitting physician. I would not change her medical therapy at this point. To follow up with me in the office in the next 2-4 weeks. NICHOLAS/ABDELRAHMAN Voice ID: [id number] Report ID: [id number]
== END 2018-01-08 14:55 | DRG 291 ==
LOC: ER 17:43 → ERHOLD 21:10 → 4TH 22:21
PROVIDERS: ADMIT Hospitalist; ATTEND Family Medicine
PROC: 5A09457 Assistance with Respiratory Ventilation, 24-96 Consecutive Hours, Continuous Positive Airway Pressure (ICD-10-PCS; 2018-01-04)
PROC: 02HV33Z Insertion of Infusion Device into Superior Vena Cava, Percutaneous Approach (ICD-10-PCS; principal; 2018-01-07)
PROC: B548ZZA Ultrasonography of Superior Vena Cava, Guidance (ICD-10-PCS; 2018-01-07)
DX: I50.33 Acute on chronic diastolic (congestive) heart failure (principal); J96.01 Acute respiratory failure with hypoxia; J44.1 Chronic obstructive pulmonary disease with (acute) exacerbation; N39.0 Urinary tract infection, site not specified; L03.115 Cellulitis of right lower limb; G47.33 Obstructive sleep apnea (adult) (pediatric); I48.2 Chronic atrial fibrillation; Z79.01 Long term (current) use of anticoagulants; F32.9 Major depressive disorder, single episode, unspecified; K21.9 Gastro-esophageal reflux disease without esophagitis; E78.2 Mixed hyperlipidemia; E03.9 Hypothyroidism, unspecified; M19.90 Unspecified osteoarthritis, unspecified site; B96.29 Other Escherichia coli [E. coli] as the cause of diseases classified elsewhere; Z95.0 Presence of cardiac pacemaker; I11.0 Hypertensive heart disease with heart failure; F03.90 Unspecified dementia, unspecified severity, without behavioral disturbance, psychotic disturbance, mood disturbance, and anxiety; Z88.6 Allergy status to analgesic agent; Z88.5 Allergy status to narcotic agent; Z88.8 Allergy status to other drugs, medicaments and biological substances; D64.9 Anemia, unspecified; G40.909 Epilepsy, unspecified, not intractable, without status epilepticus; Z96.653 Presence of artificial knee joint, bilateral; Z86.73 Personal history of transient ischemic attack (TIA), and cerebral infarction without residual deficits
CPT/HCPCS: 36415; 51702; 71045; 80048; 80053; 80076; 81003; 81015; 82550; 82553; 82805; 82962; 83605; 83690; 83735; 83880; 84100; 84132; 84145; 84484; 85025; 85610; 85730; 87040; 87077; 87086; 87088; 87186; 93005; 93306; 94760; 97163; 99285; J0696; J1650; J1940; J3370; J7030

== ENCOUNTER 2018-01-14 17:57 | Emergency (ER) | payer OTHER ==
[2018-01-14 18:45] LABS: Absolute Lymphocytes (CBC) 1.5 K/uL (0.7-4.9); Absolute Monocytes 0.8 K/uL (0.1-1.3); Absolute Neutrophil 3.2 K/uL (1.8-8.0); Basophils % 1.6 % (0-1.3); Eosinophils % 3.6 % (0-4.4); Hematocrit 40.4 % (36.0-45.0); Lymphocytes % 25.4 % (15.3-44.8); MCV 87.4 fL (80-100); MPV 8.3 fL (7.6-11.3); Monocytes % 13.6 % (3.3-12.3); RBC Red Blood Cell Count 4.63 M/uL (3.86-4.86)
[2018-01-14 18:47] LABS: Protime INR 1.81
[2018-01-14 18:59] LABS: Bilirubin Total 1.2 mg/dL (0.2-1.0); Potassium 4.4 mmol/L (3.5-5.1); Protein, Total 8.1 g/dL (6.4-8.2)
--- NOTE | 2018-01-14 19:25 | RAD REPORT ---
EXAM DESCRIPTION: US - Extremity Venous Uni Ltd - 01/14/2018 7:15 pm CLINICAL HISTORY: SWELLING Recent PICC line placement COMPARISON: EXT VENOUS UNI LTD dated 10/17/2011 FINDINGS: Right upper extremity venous system was interrogated with Doppler technique. Normal flow, compressibility and augmentation was noted. There is no DVT present. IMPRESSION: No evidence of right upper extremity deep venous thrombosis.
[2018-01-14] MEDS ORDERED: ALTEPLASE 2 MG/VIAL IV ONE (20:00)
[2018-01-14] MEDS ORDERED: WATER FOR INJ,STERILE 10 ML IV ONE (20:00)
--- NOTE | 2018-01-14 20:09 | RAD REPORT ---
EXAM DESCRIPTION: RAD - Chest Single View - 01/14/2018 7:57 pm CLINICAL HISTORY: PICC line placement Chest pain. COMPARISON: Chest Single View dated 01/07/2018; Chest Single View dated 01/07/2018; Chest Single Vie w dated 01/05/2018; Chest Single View dated 01/04/2018 FINDINGS: Portable technique limits examination quality. The lungs are grossly clear. The heart is moderately enlarged in size with a dual lead pacer device p resent. Right-sided PICC line has tip in the SVC. IMPRESSION: No acute intrathoracic process suspected.
--- NOTE | 2018-01-14 20:34 | ER ---
Nurse's Notes [facility] Name: Padma Carrillo Age: 82 yrs Sex: Female : 1935 Arrival Date: 01/14/2018 Time: 17:59 Bed 14 Private MD: Diagnosis: PICC line problem Presentation: 01/14 18:03 Presenting complaint: EMS states: group home staff report increased pain and bruising hb to RIGHT PICC site over the last few days. BP 165/97, HR 88, T 97.9, AOx2 at baseline. Transition of care: patient was not received from another setting of care. Onset of symptoms was January 14, 2018. Risk Assessment: Do you want to hurt yourself or someone else? Patient reports no desire to harm self or others. Care prior to arrival: None. 18:03 Method Of Arrival: EMS: [facility] hb 18:03 Acuity: SAGAR 3 hb 18:17 Initial Sepsis Screen: Does the patient meet any 2 criteria? No. Patient's initial la1 sepsis screen is negative. Does the patient have a suspected source of infection? No. Patient's initial sepsis screen is negative. Historical: - Allergies: 18:06 Codeine; hb 18:06 Fosamax; hb 18:06 Ibuprofen; hb 18:06 PROPOXYPHENE; hb 18:06 Talwin NX; hb 18:06 Verapamil; hb 18:06 Demerol; hb - PMHx: 18:17 Anemia; Atrial Fib; CVA (Deficit: slurred speech and weakness); Depression; epilepsy; la1 GERD; Hyperlipidemia; Hypothyroidism; insomnia; muscle atrophy; UTI; - Immunization history:: Adult Immunizations up to date. - Social history:: Smoking status: Patient/guardian denies using tobacco. - Ebola Screening: : No symptoms or risks identified at this time. Screenin:16 Abuse screen: Denies threats or abuse. Nutritional screening: On. Tuberculosis la1 screening: No symptoms or risk factors identified. Fall Risk None identified. Assessment: 18:15 Reassessment: PICC to MEREDITH, purple port not patent, red port flushes easily. bruising la1 noted from axilla for forearm, pt C/O pain with passive ROM. General: Appears in no apparent distress. Behavior is calm, cooperative. Pain: Complains of pain in right bicep and dorsal aspect of right forearm. Neuro: Level of Consciousness is awake, alert, obeys commands, Oriented to person, place, Pupils are PERRLA. Cardiovascular: Capillary refill < 3 seconds Patient's skin is warm and dry. Respiratory: Airway is patent Respiratory effort is even, unlabored, Respiratory pattern is regular, symmetrical. GI: Abdomen is round non-distended. : No signs and/or symptoms were reported regarding the genitourinary system. 19:36 Reassessment: Awaiting chest xray before administering cath ginny. tl2 20:45 Reassessment: administered cath ginny into purple lumen, will check line in 30 minutes. tl2 21:30 Reassessment: Patient appears in no apparent distress at this time. Good blood return tl2 noted in both lumens. Flushed both lumens with ease with 10 mL of NS. MD notified. Will call [facility] to arrange transport. 22:04 Reassessment: Patient appears in no apparent distress at this time. Patient and/or tl2 family updated on plan of care and expected duration. Pain level reassessed. [facility] contacted, awaiting transport. 01/15 00:22 Reassessment: Patient appears in no apparent distress at this time. Patient and/or tl2 family updated on plan of care and expected duration. Pain level reassessed. [facility] arrived to fruit or nut picker pt. Pt awake and alert, VSS. Vital Signs: 01/14 18:03 BP 155 / 86; Pulse 85; Resp 16; Temp 98.2; Pulse Ox 100% on R/A; Pain 10/10; hb 19:39 BP 145 / 70; Pulse 81; Resp 18; Pulse Ox 98% on R/A; tl2 22:04 BP 125 / 51; Pulse 80; Resp 18; Pulse Ox 95% on R/A; tl2 01/15 00:22 BP 124 / 64; Pulse 82; Resp 18; Pulse Ox 95% on R/A; tl2 ED Course: 01/14 17:59 Patient arrived in ED. la1 18:01 Sae Najera MD is Attending Physician. ps1 18:05 Triage completed. hb 18:05 Arm band placed on left wrist. hb 18:15 Vamsi Fernandez, YUE is Primary Nurse. la1 18:17 Bed in low position. Call light in reach. Side rails up X 1. Adult w/ patient. Pulse ox la1 on. NIBP on. 19:10 Accessed PICC line. red lumen had good blood return and flushed, purple lumen was tl2 difficult to flush 19:14 US Extremity Venous Unilateral Ltd In Process Unspecified. EDMS 19:56 X-ray completed. Portable x-ray completed in exam room. Patient tolerated procedure az well. 19:57 XRAY Chest (1 view) In Process Unspecified. EDMS 01/15 00:22 No provider procedures requiring assistance completed. Patient did not have IV access tl2 during this emergency room visit. Administered Medications: 01/14 20:46 Drug: Cathflo Activase 2 mg Route: IV; Rate: bolus; Site: PICC; tl2 22:20 Follow up: IV Status: Completed infusion; Purple lumen now flushes and has good blood tl2 return Intake: Outcome: 20:34 Discharge ordered by . ps1 01/15 00:30 Discharge instructions given to patient. tl2 00:30 Discharged to long-term. tl2 00:30 Condition: stable 00:33 Patient left the ED. tl2 Signatures: Dispatcher [employer] EDMS Vamsi Fernandez RN RN la1 Asia Munroe RN RN hb Knox, Taylor, RN RN tl2 Sae Najera MD MD ps1 Nya Maldonado Corrections: (The following items were deleted from the chart) 01/14 18:05 18:03 Presenting complaint: EMS states: group home staff report increased pain and hb bruising to RIGHT PICC site over the last few days. hb 01/15 00:30 01/14 19:10 Discharged to long-term. tl2 tl2 01/15 00:30 01/14 19:10 Condition: stable tl2 tl2
--- NOTE | 2018-01-14 20:34 | EDPHYS ---
Physician Documentation [facility] Name: Padma Carrillo Age: 82 yrs Sex: Female : 1935 Arrival Date: 01/14/2018 Time: 17:59 Bed 14 Private MD: ED Physician Sae Najera HPI: 01/14 18:58 This 82 yrs old Female presents to ER via EMS with complaints of PICC LINE ps1 PROBLEM. 18:58 right arm swelling concern for DVT. Has PICC line for abx treatment of E.coli. Pain ps1 mild/moderate. No fever. . Historical: - Allergies: 18:06 Codeine; hb 18:06 Fosamax; hb 18:06 Ibuprofen; hb 18:06 PROPOXYPHENE; hb 18:06 Talwin NX; hb 18:06 Verapamil; hb 18:06 Demerol; hb - PMHx: 18:17 Anemia; Atrial Fib; CVA (Deficit: slurred speech and weakness); Depression; epilepsy; la1 GERD; Hyperlipidemia; Hypothyroidism; insomnia; muscle atrophy; UTI; - Immunization history:: Adult Immunizations up to date. - Social history:: Smoking status: Patient/guardian denies using tobacco. - Ebola Screening: : No symptoms or risks identified at this time. ROS: 18:58 Constitutional: Negative for fever, chills, and weight loss, Eyes: Negative for injury, ps1 pain, redness, and discharge, Cardiovascular: Negative for chest pain, palpitations, and edema, Respiratory: Negative for shortness of breath, cough, wheezing, and pleuritic chest pain, Abdomen/GI: Negative for abdominal pain, nausea, vomiting, diarrhea, and constipation, Skin: Negative for injury, rash, and discoloration, Neuro: Negative for headache, weakness, numbness, tingling, and seizure. 18:58 MS/extremity: Positive for swelling. Exam: 18:58 Constitutional: This is a well developed, well nourished patient who is awake, alert, ps1 and in no acute distress. Head/Face: Normocephalic, atraumatic. Eyes: Pupils equal round and reactive to light, extra-ocular motions intact. Lids and lashes normal. Conjunctiva and sclera are non-icteric and not injected. Chest/axilla: Normal chest wall appearance and motion. Nontender with no deformity. No lesions are appreciated. Cardiovascular: Regular rate and rhythm. No gallops, murmurs, or rubs. Normal PMI, no JVD. No pulse deficits. Respiratory: Lungs have equal breath sounds bilaterally, clear to auscultation and percussion. No rales, rhonchi or wheezes noted. No increased work of breathing, no retractions or nasal flaring. Abdomen/GI: Soft, non-tender, with normal bowel sounds. No distension or tympany. No guarding or rebound. No evidence of tenderness throughout. MS/ Extremity: Pulses equal, no cyanosis. Neurovascular intact. Full, normal range of motion. 18:58 Skin: Appearance: normal except for affected area, Color: ecchymosis, swelling. Vital Signs: 18:03 BP 155 / 86; Pulse 85; Resp 16; Temp 98.2; Pulse Ox 100% on R/A; Pain 10/10; hb 19:39 BP 145 / 70; Pulse 81; Resp 18; Pulse Ox 98% on R/A; tl2 22:04 BP 125 / 51; Pulse 80; Resp 18; Pulse Ox 95% on R/A; tl2 01/15 00:22 BP 124 / 64; Pulse 82; Resp 18; Pulse Ox 95% on R/A; tl2 MDM: 01/14 18:38 Patient medically screened. ps1 18:58 Data reviewed: vital signs, nurses notes, radiologic studies, ultrasound, and as a ps1 result, I will give tnkase. notified by rn that flow through one line and other blocked. No DVT on US. . 20:32 Counseling: I had a detailed discussion with the patient and/or guardian regarding: the ps1 historical points, exam findings, and any diagnostic results supporting the discharge/admit diagnosis, the presence of at least one elevated blood pressure reading (>120/80) during this emergency department visit, the need for outpatient follow up. 01/14 18:21 Order name: CBC with Diff; Complete Time: 18:57 ps1 01/14 18:21 Order name: CMP; Complete Time: 19:03 ps1 01/14 18:21 Order name: US Extremity Venous Unilateral Ltd; Complete Time: 19:31 ps1 01/14 18:21 Order name: PT-INR; Complete Time: 18:57 ps1 01/14 19:35 Order name: XRAY Chest (1 view); Complete Time: 20:11 tl2 Administered Medications: 20:46 Drug: Cathflo Activase 2 mg Route: IV; Rate: bolus; Site: PICC; tl2 22:20 Follow up: IV Status: Completed infusion; Purple lumen now flushes and has good blood tl2 return Disposition: 01/14/18 20:34 Discharged to Home. Impression: PICC line problem. - Condition is Stable. - Discharge Instructions: PICC Insertion, Care After. - Medication Reconciliation Form, Thank You Letter, Antibiotic Education, Prescription Opioid Use form. - Follow up: Emergency Department; When: As needed; Reason: Worsening of condition. Follow up: Private Physician; When: As needed; Reason: Recheck today's complaints, Continuance of care, Re-evaluation by your physician. - Problem is new. - Symptoms have improved. Signatures: Dispatcher [employer] EDMS Vamsi Fernandez RN RN la1 Asia Munroe RN RN Nancy Pérez RN RN tl2 Sae Najera MD MD ps1 Corrections: (The following items were deleted from the chart) 01/15 00:33 10 20:34 01/14/2018 20:34 Discharged to Home. Impression: PICC line problem. tl2 Condition is Stable. Forms are Medication Reconciliation Form, Thank You Letter, Antibiotic Education, Prescription Opioid Use. Follow up: Emergency Department; When: As needed; Reason: Worsening of condition. Follow up: Private Physician; When: As needed; Reason: Recheck today's complaints, Continuance of care, Re-evaluation by your physician. Problem is new. Symptoms have improved. ps1
[2018-01-15 01:54] VITALS: TEMP 98.2
[2018-01-15 01:56] VITALS: O2SAT 95
[2018-01-15 01:58] VITALS: BP 124/64
== END 2018-01-15 00:33 | disposition home or self-care (01) ==
LOC: ER 17:57
DX: T82.898A Other specified complication of vascular prosthetic devices, implants and grafts, initial encounter (principal); Z88.5 Allergy status to narcotic agent; Z88.6 Allergy status to analgesic agent; Z88.8 Allergy status to other drugs, medicaments and biological substances
CPT/HCPCS: 36415; 71045; 80053; 85025; 85610; 92977; 93971; 99285; J2997; 96365; 96366

== ENCOUNTER 2018-04-01 12:46 | Inpatient (IN) | payer OTHER ==
--- NOTE | 2018-04-01 13:24 | EKG ---
Test Date: 2018-04-01 Test Time: 13:04:12 Account Coordinator: JENNA MEASUREMENT RESULTS: Intervals: Rate: 80 AL: QRSD: 166 QT: 428 QTc: 493 Morris: P: AL: QRS: -71 T: 94 INTERPRETIVE STATEMENTS: Ventricular-paced rhythm Abnormal ECG Compared to ECG 01/04/2018 17:50:41 No significant changes Electronically Signed On 04-01-18 13:23:51 ADULT REMEDIAL EDUCATION INSTRUCTOR by Christoph Pratt
[2018-04-01 13:48] LABS: Absolute Lymphocytes (CBC) 1.2 K/uL (0.7-4.9); Absolute Monocytes 0.9 K/uL (0.1-1.3); Absolute Neutrophil 4.8 K/uL (1.8-8.0); Basophils % 0.5 % (0-1.3); Eosinophils % 0.7 % (0-4.4); Lymphocytes % 17.3 % (15.3-44.8); MPV 8.7 fL (7.6-11.3); Monocytes % 13.3 % (3.3-12.3); RBC Red Blood Cell Count 4.73 M/uL (3.86-4.86)
[2018-04-01] MEDS ORDERED: NA CHLORIDE 0.9% 500 ML ONE (13:59)
[2018-04-01 14:04] LABS: Potassium 5.8 mmol/L (3.5-5.1)
--- NOTE | 2018-04-01 14:41 | ER ---
Nurse's Notes [facility] Name: Padma Carrillo Age: 82 yrs Sex: Female : 1935 Arrival Date: 04/01/2018 Time: 12:49 Bed 16 Private MD: Diagnosis: Acute kidney failure;Hyperkalemia;Dehydration;Urinary tract infection, site not specified Presentation: 04/01 13:06 Presenting complaint: EMS states: Sent by [facility] for elevated aj potassium. Patient is awake and alert x 4. Denies pain. Transition of care: patient was not received from another setting of care. Onset of symptoms was April 01, 2018. Risk Assessment: Do you want to hurt yourself or someone else? Patient reports no desire to harm self or others. Initial Sepsis Screen: Does the patient meet any 2 criteria? No. Patient's initial sepsis screen is negative. Does the patient have a suspected source of infection? No. Patient's initial sepsis screen is negative. Care prior to arrival: None. 13:06 Method Of Arrival: EMS: [facility] 13:06 Acuity: SAGAR 3 aj Triage Assessment: 13:17 General: Appears in no apparent distress. comfortable, Behavior is calm, cooperative. aj Pain: Denies pain. Neuro: Level of Consciousness is awake, alert, obeys commands, Oriented to person, place, time, situation, Weakness in bilateral leg(s) Gait is unsteady, Speech with expressive aphasia noted, Facial symmetry appears normal. Respiratory: Airway is patent Respiratory effort is even, unlabored, Respiratory pattern is regular, symmetrical. Derm: Skin is intact, is healthy with good turgor, Skin is pink, warm \T\ dry. normal. Historical: - Allergies: 13:17 Codeine; aj 13:17 Demerol; aj 13:17 Fosamax; aj 13:17 Ibuprofen; aj 13:17 PROPOXYPHENE; aj 13:17 Talwin NX; aj 13:17 Verapamil; aj - Home Meds: 13:17 acetaminophen 325 mg Oral cap 650 mg every 6 hours for Fever [Active]; Ativan 1 mg Oral aj tab 1 tab every 6 hours for Anxiety [Active]; Cerovite Senior Oral tab daily [Active]; cetirizine 10 mg Oral tab 1 tab once daily [Active]; clonidine HCl 0.1 mg Oral tab every 6 hours for Hypertension [Active]; Cymbalta 30 mg Oral cpDR once daily for Anxiety with Depression [Active]; docusate sodium 100 mg Oral tab 1 tab once daily [Active]; gabapentin 100 mg Oral cap twice a day for Restless Legs Syndrome [Active]; gabapentin 300 mg Oral cap nightly [Active]; hydrocodone-acetaminophen 5-325 mg Oral tab 1 tab every 6 hours for Pain [Active]; Keppra 1,000 mg Oral tab 1 tab every 12 hours for Myoclonic Epilepsy Adjunct Treatment [Active]; lactulose 20 gram/30 mL Oral soln 30 mL twice a day for constipation [Active]; Lasix 20 mg Oral tab 1 tab once daily for EDEMA [Active]; Levothroid 75 mcg Oral tab 1 tab once daily [Active]; Lidoderm 5 % Topical ptmd 1 patch once daily [Active]; loperamide 2 mg Oral cap PRN for diarrhea [Active]; magnesium oxide 400 mg Oral cap daily [Active]; melatonin 3 mg Oral tab nightly [Active]; Milk of Magnesia 400 mg/5 mL Oral susp 15 mL once daily [Active]; Namenda XR 28 mg Oral CSpX 1 cap once daily for Moderate to Severe Alzheimer's Type Dementia [Active]; nitroglycerin 0.4 mg SL subl 1 tab every 5 minutes for Angina [Active]; omeprazole 20 mg Oral cpDR 1 cap once daily [Active]; potassium chloride 10 mEq Oral cpER 1 cap once daily [Active]; rivaroxaban 20 mg Oral 1 tab nightly for Prevention of Deep Vein Thrombosis Recurrence [Active]; Robafen DM 10-100 mg/5 mL Oral syrp 5 mL every 6 hours for Cough [Active]; Toprol XL 100 mg Oral Tb24 once daily for Hypertension [Active]; tramadol 50 mg Oral tab 2 tabs every 12 hours [Active]; - PMHx: 13:17 Atrial Fib; CVA (Deficit: slurred speech and weakness); Depression; epilepsy; GERD; aj Hyperlipidemia; Hypothyroidism; insomnia; muscle atrophy; UTI; - Immunization history:: Adult Immunizations. - Family history:: not pertinent. - Social history:: Smoking status: Patient/guardian denies using tobacco. - Ebola Screening: : Patient negative for fever greater than or equal to 101.5 degrees Fahrenheit, and additional compatible Ebola Virus Disease symptoms Patient denies exposure to infectious person Patient denies travel to an Ebola-affected area in the 21 days before illness onset No symptoms or risks identified at this time. - Hospitalizations: : No recent hospitalization is reported. Screenin:37 Abuse screen: Denies threats or abuse. Denies injuries from another. Nutritional aj screening: No deficits noted. Tuberculosis screening: No symptoms or risk factors identified. Fall Risk None identified. Assessment: 13:37 Reassessment: Patient appears in no apparent distress at this time. No changes from aj previously documented assessment. Patient denies pain at this time. Vital Signs: 13:17 BP 137 / 74; Pulse 80; Resp 16; Temp 98.4; Pulse Ox 97% on R/A; Weight 74.84 kg; Height aj 6 ft. 0 in. (182.88 cm); 14:06 BP 124 / 80; Pulse 82; Resp 17; Temp 98.2(O); Pulse Ox 98% on R/A; mh5 16:12 BP 131 / 82; Pulse 87; Resp 17; Pulse Ox 99% on R/A; aj 13:17 Body Mass Index 22.38 (74.84 kg, 182.88 cm) ED Course: 12:49 Patient arrived in ED. hj 12:49 James Biswas MD is Attending Physician. rn 13:06 Betsy Chi RN is Primary Nurse. aj 13:08 Triage completed. aj 13:17 Arm band placed on left wrist. Patient placed in an exam room, on a stretcher, on aj cardiac technician, on pulse oximetry. 13:20 EKG done, by telemetry tech. reviewed by James Biswas MD. at1 13:37 Accessed PICC line. Clean \T\ dry. Dressing intact. Good blood return. Flushes easily. aj 13:37 Patient has correct armband on for positive identification. aj 14:41 Carlton Mayorga MD is Hospitalizing Provider. rn 16:12 No provider procedures requiring assistance completed. Patient admitted, IV remains in aj place. intact. Administered Medications: 13:57 Drug: NS 0.9% 500 ml Route: IV; Rate: bolus; Site: PICC; aj 16:14 Follow up: Response: No adverse reaction; IV Status: Completed infusion; IV Intake: aj 500ml 14:48 Drug: NS 0.9% 500 ml Route: IV; Rate: bolus; Site: PICC; aj 16:15 Follow up: Response: No adverse reaction; IV Status: Infusion continued upon admission; aj IV Intake: 200ml 14:54 Drug: Zosyn 3.375 grams Route: IVPB; Infused Over: 60 mins; Site: PICC; aj 16:15 Follow up: Response: No adverse reaction; IV Status: Completed infusion; IV Intake: aj 100ml Intake: 16:14 IV: 500ml; Total: 500ml. aj 16:15 IV: 100ml; Total: 600ml. aj 16:15 IV: 200ml; Total: 800ml. sai Outcome: 14:41 Decision to Hospitalize by Provider. rn 16:12 Admitted to Med/surg accompanied by tech, family with patient, via wheelchair, Report aj called to [place] 16:12 Condition: good 16:12 Instructed on the need for admit. 16:16 Patient left the ED. sai Signatures: Betsy Chi RN RN aj Nieto, Roman, MD MD rn Gonzales, Amanda, circus performer EKG Tat1 Navid Sloan RN RN hj Martinez, [facility]
--- NOTE | 2018-04-01 14:42 | EDPHYS ---
Physician Documentation [facility] Name: Padma Carrillo Age: 82 yrs Sex: Female : 1935 Arrival Date: 04/01/2018 Time: 12:49 Bed 16 Private MD: ED Physician James Biswas HPI: 04/01 13:01 This 82 yrs old Female presents to ER via Unassigned with complaints of high rn potassium. 13:01 Per EMS, sent in for high potassium and acute kidney failure, custodial reports rn given bactrim oral for ESBL UTI and kayexalate. . Onset: The symptoms/episode began/occurred at an unknown time. Severity of symptoms: At their worst the symptoms were mild in the emergency department the symptoms are unchanged. The patient has not experienced similar symptoms in the past. The patient has been recently seen by a physician:. Historical: - Allergies: 13:17 Codeine; aj 13:17 Demerol; aj 13:17 Fosamax; aj 13:17 Ibuprofen; aj 13:17 PROPOXYPHENE; aj 13:17 Talwin NX; aj 13:17 Verapamil; aj - Home Meds: 13:17 acetaminophen 325 mg Oral cap 650 mg every 6 hours for Fever [Active]; Ativan 1 mg Oral aj tab 1 tab every 6 hours for Anxiety [Active]; Cerovite Senior Oral tab daily [Active]; cetirizine 10 mg Oral tab 1 tab once daily [Active]; clonidine HCl 0.1 mg Oral tab every 6 hours for Hypertension [Active]; Cymbalta 30 mg Oral cpDR once daily for Anxiety with Depression [Active]; docusate sodium 100 mg Oral tab 1 tab once daily [Active]; gabapentin 100 mg Oral cap twice a day for Restless Legs Syndrome [Active]; gabapentin 300 mg Oral cap nightly [Active]; hydrocodone-acetaminophen 5-325 mg Oral tab 1 tab every 6 hours for Pain [Active]; Keppra 1,000 mg Oral tab 1 tab every 12 hours for Myoclonic Epilepsy Adjunct Treatment [Active]; lactulose 20 gram/30 mL Oral soln 30 mL twice a day for constipation [Active]; Lasix 20 mg Oral tab 1 tab once daily for EDEMA [Active]; Levothroid 75 mcg Oral tab 1 tab once daily [Active]; Lidoderm 5 % Topical ptmd 1 patch once daily [Active]; loperamide 2 mg Oral cap PRN for diarrhea [Active]; magnesium oxide 400 mg Oral cap daily [Active]; melatonin 3 mg Oral tab nightly [Active]; Milk of Magnesia 400 mg/5 mL Oral susp 15 mL once daily [Active]; Namenda XR 28 mg Oral CSpX 1 cap once daily for Moderate to Severe Alzheimer's Type Dementia [Active]; nitroglycerin 0.4 mg SL subl 1 tab every 5 minutes for Angina [Active]; omeprazole 20 mg Oral cpDR 1 cap once daily [Active]; potassium chloride 10 mEq Oral cpER 1 cap once daily [Active]; rivaroxaban 20 mg Oral 1 tab nightly for Prevention of Deep Vein Thrombosis Recurrence [Active]; Robafen DM 10-100 mg/5 mL Oral syrp 5 mL every 6 hours for Cough [Active]; Toprol XL 100 mg Oral Tb24 once daily for Hypertension [Active]; tramadol 50 mg Oral tab 2 tabs every 12 hours [Active]; - PMHx: 13:17 Atrial Fib; CVA (Deficit: slurred speech and weakness); Depression; epilepsy; GERD; aj Hyperlipidemia; Hypothyroidism; insomnia; muscle atrophy; UTI; - Immunization history:: Adult Immunizations. - Family history:: not pertinent. - Social history:: Smoking status: Patient/guardian denies using tobacco. - Ebola Screening: : Patient negative for fever greater than or equal to 101.5 degrees Fahrenheit, and additional compatible Ebola Virus Disease symptoms Patient denies exposure to infectious person Patient denies travel to an Ebola-affected area in the 21 days before illness onset No symptoms or risks identified at this time. - Hospitalizations: : No recent hospitalization is reported. ROS: 13:01 Constitutional: Negative for fever, chills, and weight loss, Eyes: Negative for injury, rn pain, redness, and discharge, Cardiovascular: Negative for chest pain, palpitations, and edema, Respiratory: Negative for shortness of breath, cough, wheezing, and pleuritic chest pain, Abdomen/GI: Negative for abdominal pain, nausea, vomiting, diarrhea, and constipation, MS/Extremity: Negative for injury and deformity, Skin: Negative for injury, rash, and discoloration, Neuro: + generalized weakness Exam: 13:01 Constitutional: This is a well developed, well nourished patient who is awake, alert, rn and in no acute distress. Head/Face: Normocephalic, atraumatic. Eyes: Pupils equal round and reactive to light, extra-ocular motions intact. Lids and lashes normal. Conjunctiva and sclera are non-icteric and not injected. Cornea within normal limits. Periorbital areas with no swelling, redness, or edema. ENT: dry MM Cardiovascular: Regular rate and rhythm. No pulse deficits. Respiratory: Lungs have equal breath sounds bilaterally, clear to auscultation. No increased work of breathing, no retractions or nasal flaring. Abdomen/GI: soft, non-tender Skin: Warm, dry MS/ Extremity: Pulses equal, no cyanosis. Neuro: Awake and alert, GCS 15, oriented to person, place, time, and situation. + RLE weakness and contracture. + mild slurred speech. Vital Signs: 13:17 BP 137 / 74; Pulse 80; Resp 16; Temp 98.4; Pulse Ox 97% on R/A; Weight 74.84 kg; Height aj 6 ft. 0 in. (182.88 cm); 14:06 BP 124 / 80; Pulse 82; Resp 17; Temp 98.2(O); Pulse Ox 98% on R/A; mh5 16:12 BP 131 / 82; Pulse 87; Resp 17; Pulse Ox 99% on R/A; aj 13:17 Body Mass Index 22.38 (74.84 kg, 182.88 cm) MDM: 12:49 Patient medically screened. rn 14:26 Differential Diagnosis acute kidney injury, hyperkalemia, UTI. Data reviewed: vital rn signs, nurses notes, lab test result(s), and as a result, I will admit patient. Counseling: I had a detailed discussion with the patient and/or guardian regarding: the historical points, exam findings, and any diagnostic results supporting the discharge/admit diagnosis, lab results, the need for further work-up and treatment in the hospital. Admission orders: after a detailed discussion of the patient's condition and case, the admit orders are written by me. ED course: Pt with ALEJANDRO, ESBL, mild hyperkalemia, will admit for further care and eval. . 04/01 12:57 Order name: CBC with Diff; Complete Time: 14:18 rn 04/01 12:57 Order name: Basic Metabolic Panel; Complete Time: 14:18 rn 04/01 12:57 Order name: Urine Culture rn 04/01 12:57 Order name: Urine Microscopic Only rn 04/01 12:57 Order name: Blood Culture Adult (2) rn 04/01 12:57 Order name: Procalcitonin; Complete Time: 14:18 rn 04/01 12:57 Order name: IV Start; Complete Time: 13:37 rn 04/01 12:57 Order name: Urine Dipstick-Ancillary (obtain specimen) rn 04/01 12:57 Order name: EKG; Complete Time: 12:57 rn 04/01 12:57 Order name: EKG - Nurse/Tech; Complete Time: 13:36 rn 04/01 12:57 Order name: Magnesium; Complete Time: 14:18 rn Administered Medications: 13:57 Drug: NS 0.9% 500 ml Route: IV; Rate: bolus; Site: PICC; aj 16:14 Follow up: Response: No adverse reaction; IV Status: Completed infusion; IV Intake: aj 500ml 14:48 Drug: NS 0.9% 500 ml Route: IV; Rate: bolus; Site: PICC; aj 16:15 Follow up: Response: No adverse reaction; IV Status: Infusion continued upon admission; aj IV Intake: 200ml 14:54 Drug: Zosyn 3.375 grams Route: IVPB; Infused Over: 60 mins; Site: PICC; aj 16:15 Follow up: Response: No adverse reaction; IV Status: Completed infusion; IV Intake: aj 100ml Disposition: 04/01/18 14:41 Hospitalization ordered by Carlton Mayorga for Inpatient Admission. Preliminary diagnosis are Acute kidney failure, Hyperkalemia, Dehydration, Urinary tract infection, site not specified. - Bed requested for Telemetry/MedSurg (Inpatient). - Status is Inpatient Admission. aj - Condition is Stable. - Problem is new. - Symptoms have improved. UTI on Admission? Yes Signatures: Dispatcher [employer] EDMS Betsy Chi RN RN aj Nieto, Roman, MD MD rn Fitzgerald, Diane, RN RN df Corrections: (The following items were deleted from the chart) 15:15 14:41 Hospitalization Ordered by Carlton Mayorga MD for Inpatient Admission. Preliminary df diagnosis is Acute kidney failure; Hyperkalemia; Dehydration; Urinary tract infection, site not specified. Bed requested for Telemetry/MedSurg (Inpatient). Status is Inpatient Admission. Condition is Stable. Problem is new. Symptoms have improved. UTI on Admission? Yes. rn 16:16 15:15 04/01/2018 14:41 Hospitalization Ordered by Carlton Mayorga MD for Inpatient aj Admission. Preliminary diagnosis is Acute kidney failure; Hyperkalemia; Dehydration; Urinary tract infection, site not specified. Bed requested for Telemetry/MedSurg (Inpatient). Status is Inpatient Admission. Condition is Stable. Problem is new. Symptoms have improved. UTI on Admission? Yes. df
[2018-04-01] MEDS ORDERED: PIPER/TAZO/NS 3.375gm 3.375 GM/100 ML BAG ONE (14:59)
[2018-04-01] MEDS ORDERED: ONDANSETRON 4 MG/2 ML VIAL IV PRN (16:07)
[2018-04-01] MEDS ORDERED: Meropenem 1000 MG/VIAL IV SCH (17:00)
[2018-04-01] MEDS: Meropenem 1,000 MG in NA CHLORIDE 0.9% 100 ML IV SCH (17:42)
[2018-04-01] MEDS ORDERED: NA CHLORIDE 0.9% 1,000 ML IV SCH (18:00)
[2018-04-01 18:22] VITALS: BMI 22.4
[2018-04-01 19:33] LABS: Urine Bacteria 20-50 /HPF (<20); Urine Culture Reflex Order NOT NEEDED
[2018-04-01 19:34] LABS: Urine Mucus 1+ /HPF (NONE SEEN)
[2018-04-01] MEDS: SOD POLYSTYREN SUL 15 GM/60 ML UCUP PO SCH (21:00)
[2018-04-01] MEDS ORDERED: BISACODYL E.C. 5 MG TAB PO PRN (21:03)
[2018-04-01] MEDS ORDERED: NITROGLYCERIN 0.4 MG/TAB SL SCH (22:00)
[2018-04-01] MEDS: NA CHLORIDE 0.9% 1,000 ML IV SCH (23:00)
[2018-04-01] MEDS: VALACYCLOVIR 500 MG TAB PO SCH (23:10)
[2018-04-01] MEDS: MEMANTINE HCL 10 MG TABLET PO SCH (23:11)
[2018-04-01] MEDS: METOPROLOL TAR 50 MG TAB PO SCH (23:11)
[2018-04-01] MEDS: GABAPENTIN 300 MG CAP PO SCH (23:11)
[2018-04-02] MEDS: Meropenem 1,000 MG in NA CHLORIDE 0.9% 100 ML IV SCH ×3 (02:06→22:53)
[2018-04-02] MEDS: MEDIHONEY 44 ML TOPICAL TUBE TOP SCH ×2 (02:09→09:36)
--- NOTE | 2018-04-02 03:11 | HP ---
Date of Admission: 04/01/2018 Code Status: Full code. Consultants: 1.Ally Joy M.D., with Nephrology. 2.Esteban Constantino M.D., with Urology. Chief Complaint: Abnormal labs. 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 Her main issue at pr evious hospitalization was congestive heart failure and chronic obstructive pulmonary disease. The p atient then was sent in to the ER today from the residential due to abnormal labs. Labs drawn today showed acute kidney failure along with hyperkalemia with potassium of 6, as well as urine culture wh ich returned with extended-spectrum beta-lactamase Escherichia coli. The patient had been given oral Bactrim for her urinary tract infection. The patient specifically denies any fever, chills, nausea, or vomiting. No dysuria or hematuria. Does not appear to be septic. The patient was also given Ka yexalate at the residential prior to transfer. Upon repeat lab work, the patient's potassium was 5. 8, creatinine was 2.3. Her baseline creatinine is normal. WBC count was also normal. The patient w as given a dose of Zosyn and then referred for admission. When the patient was seen in the ER, she w as awake, alert, oriented x3, in some acute distress, accompanied by her daughter. Past Medical History: Epilepsy, gastroesophageal reflux disease, depression, hyperlipidemia, anemia, hypothyroidism, atrial fibrillation, muscle atrophy, urinary tract infection, recurrent cerebrovascu lar accident, right-sided weakness, dementia, hypertension, and osteoarthritis. Surgeries: Pacemaker placement, back surgery, bilateral knee replacement, abdominal surgery, and jerson ateral hip surgeries. Allergies: TO CODEINE, MORPHINE, PROPOXYPHENE, VERAPAMIL, FOSAMAX, IBUPROFEN, AND PENTAZOCINE. Family History: Father had heart disease. Mother also had heart disease and cancer. Sister also marin d heart disease and diabetes. Father had heart disease. Social History: The patient is resident of residential, is wheelchair bound due to her strokes. No previous alcohol use or illicit drug use. Review of Systems: Ten-point system reviewed and negative except as per HPI. Physical Examination: Vital Signs: Temperature 98.4, heart rate 80, blood pressure 137/74, respirations 16, and O2 of 97% on room air. General: Awake, alert, and oriented x3. Ill-appearing elderly female, frail. HEENT: Normocephalic, atraumatic. PERRLA. EOMI. Moist mucous membranes. Oropharynx is clear. Co njunctivae are anicteric. Poor dentition. Neck: Supple. No JVD. Trachea midline. CV: S1, S2. Regular rate and rhythm. Peripheral pulses are present bilaterally. Respiratory: Moving air well bilaterally. No wheezing. No stridor. No use of accessory muscles. Gastrointestinal: Abdomen is soft, nontender, nondistended. Positive bowel sounds. Extremities: No clubbing or cyanosis. The patient does have pedal edema bilaterally. No calf tende rness. Neurologic: Cranial nerves 2 through 12 are intact grossly. The patient has weakness on the right s leila from her previous stroke. Speech is normal. Skin: The patient has some dry gangrenous ulcers of the left first and second toe as well as on the right third toe with surrounding erythema of bilateral feet with some warmth to touch. No tenderness . Psychiatric: Mood is okay. Affect is flat. Insight and judgment are fair. Laboratory Data: Sodium 136, potassium 5.8, chloride 105, CO2 of 23, BUN 26, creatinine 2.43, glucos e 114, calcium 9.3, and magnesium 3. Procalcitonin 0.16. WBC 7.1, H and H 13.9 and 42, and platelet s 282. UA is pending. Urine culture results from the residential showing extended-spectrum beta-la ctamase Escherichia coli. Date of collection of the culture was 03/26/2018. EKG; ventricular paced rhythm at 80 beats per minute. Assessment And Plan: An 82-year-old female with; 1.Acute kidney injury, likely prerenal. We will continue with IV fluids, and we will consult Nephro logy. 2.Hyperkalemia. The patient was given Kayexalate. We will continue with Kayexalate p.o. and repeat potassium level this evening at approximately 6 hours. 3.Extended-spectrum beta-lactamase Escherichia coli urinary tract infection. We will switch over to meropenem. This is the patient's second extended-spectrum beta-lactamase Escherichia coli infection in the past 4 months. We will consult Urology to rule out any anatomical etiologies related to recu rrent infections including reflux and possible colovesicular fistula. The patient already has a PICC line in place. The patient will need meropenem for a minimum of 2 weeks. 4.Atrial fibrillation, paroxysmal. The patient is on chronic anticoagulation. 5.Remote history of epilepsy. 6.Gastroesophageal reflux disease without esophagitis. We will continue PPI. 7.Major depressive disorder. Continue SSRI. 8.Hyperlipidemia. Continue statin. 9.Hypothyroidism. We will continue levothyroxine. 10.Anemia. 11.History of cerebrovascular accident with right-sided weakness. 12.Alzheimer dementia, apparently new onset, without behavioral disturbance. 13.Essential hypertension. We will resume home medications as appropriate. 14.Generalized osteoarthritis. 15.Status post pacemaker. Plan: Gastrointestinal and deep venous thrombosis prophylaxis addressed. We will resume the patient 's chronic anticoagulation. Admit the patient to Med-Surg, place as inpatient. Length of stay greater than 2 midnights. SUMMER Voice ID: [id number]
[2018-04-02 05:32] LABS: Absolute Lymphocytes (CBC) 1.3 K/uL (0.7-4.9); Absolute Monocytes 1.1 K/uL (0.1-1.3); Absolute Neutrophil 4.3 K/uL (1.8-8.0); Basophils % 0.5 % (0-1.3); Eosinophils % 1.9 % (0-4.4); Hematocrit 38.6 % (36.0-45.0); Lymphocytes % 18.9 % (15.3-44.8); MPV 8.9 fL (7.6-11.3); Monocytes % 15.5 % (3.3-12.3)
[2018-04-02] MEDS: LEVOTHYROXINE SOD 0.075 MG TAB PO SCH (05:35)
[2018-04-02 05:41] LABS: Albumin 3.3 g/dL (3.4-5.0); Phosphorus 4.4 mg/dL (2.5-4.9); Potassium 5.4 mmol/L (3.5-5.1); Thyroid Stimulating Hormone 0.074 uIU/mL (0.360-3.740); Uric Acid 6.4 mg/dL (2.6-6.0)
[2018-04-02 06:13] LABS: Blood Morphology Comment NOT SEEN (NOT SEEN); Platelet Estimate ADEQ
--- NOTE | 2018-04-02 08:53 | RAD REPORT ---
EXAM DESCRIPTION: US - Renal Ultrasound-Complete - 04/02/2018 7:59 am CLINICAL HISTORY: ALEJANDRO COMPARISON: ABDOMINAL EXAM COMPLETE dated 06/25/2012 FINDINGS: Both kidneys are mildly echogenic. The right kidney measures 8.7 x 4.1 x 4.0 cm. No hydronephrosis, focal mass or perinephric fluid. The left kidney measures 7.2 x 4.2 x 3.8 cm. No hydronephrosis. 3.5 cm benign-appearing left renal cy st. The urinary bladder demonstrates a small 5 mm echogenic focus along the posterolateral bladder wall. IMPRESSION: Mildly echogenic kidneys suggesting underlying medical renal disease. 5 mm echogenic focus along the bladder wall posteriorly may represent a small polyp or mass. Consider followup bladder sonography in 3-6 months for surveillance purposes.
[2018-04-02] MEDS: SENOSIDES 8.6 MG TAB PO SCH ×2 (09:00→22:57)
[2018-04-02] MEDS ORDERED: SPIRONOLACTONE 25 MG TABLET PO SCH (09:00)
[2018-04-02] MEDS ORDERED: FUROSEMIDE 20 MG TABLET PO SCH (09:00)
[2018-04-02] MEDS: DOCUSATE NA 100 MG CAP PO SCH ×3 (09:00→22:56)
[2018-04-02] MEDS: SOD POLYSTYREN SUL 15 GM/60 ML UCUP PO SCH ×2 (09:33→21:00)
[2018-04-02] MEDS: ISOSORBIDE DINIT 5 MG TAB PO SCH ×2 (09:34→22:56)
[2018-04-02] MEDS: levETIRAcetam 500 MG/5 ML OSYR PO SCH ×2 (09:34→22:56)
[2018-04-02] MEDS: METOPROLOL TAR 50 MG TAB PO SCH ×2 (09:34→22:56)
[2018-04-02] MEDS: MEGESTROL 400 MG/10 ML UCUP PO SCH ×2 (09:34→22:57)
[2018-04-02] MEDS: GABAPENTIN 300 MG CAP PO SCH ×3 (09:35→22:57)
[2018-04-02] MEDS: RIVAROXABAN 20 MG TABLET PO SCH (09:35)
[2018-04-02] MEDS: VALACYCLOVIR 500 MG TAB PO SCH ×2 (09:35→22:57)
[2018-04-02] MEDS: LACTOBACILLUS/ACIDOPHILUS TAB PO SCH (09:35)
[2018-04-02] MEDS: MEMANTINE HCL 10 MG TABLET PO SCH ×2 (09:35→22:56)
[2018-04-02 11:43] LABS: Urine Protein/Creatinine Ratio 0.5 ratio (<0.15)
[2018-04-02] MEDS: NA CHLORIDE 0.9% 1,000 ML IV SCH ×2 (17:36→22:00)
--- NOTE | 2018-04-02 19:27 | PN ---
Date of Progress Note: 04/02/2018 History: The patient seen and examined. Chart reviewed and case discussed with RN. The patient sta shiv she feels okay. No acute events overnight. Medications: List reviewed. Physical Examination: Vital Signs: Temperature 97.7, heart rate 80, blood pressure 136/82, respirations 20, O2 98% on room air. General: Awake, alert, oriented x3. Elderly female, ill-appearing, frail, cachectic. CV: S1, S2. Regular rate and rhythm. Peripheral pulses are weak bilaterally. Respiratory: Moving air well bilaterally. No wheezing or stridor. Gastrointestinal: Abdomen is soft, nontender, nondistended. Positive bowel sounds. Extremities: No clubbing, cyanosis, or edema. Skin: Dry gangrenous ulcers at the left first and second toe as well as on the right third toe with some surrounding erythema of the feet with warm to touch. Does have a healing ulcer on the left lowe r extremity, anterior aspect. Laboratory Data: Sodium 139, potassium 5.4, chloride 108, CO2 22, BUN 91, creatinine 1.9, glucose 10 8, uric acid 6.4, calcium 8.9, phosphorus 4.4, albumin 3.3, TSH 0.074, PTH 100. WBC 6.8, H and H 12. 9 and 38.6, platelets 239, neutrophils 63%. Renal ultrasound shows mild echogenic kidneys suggesting underlying medical renal disease. A 5 mm echogenic focus along the bladder wall posteriorly, may re present a small polyp or mass. Consider followup sonography in 3-6 months. Assessment And Plan: An 82-year-old female with: 1.Acute kidney injury, improving. We will continue to monitor creatinine, likely prerenal azotemia. Appreciate Nephrology input. 2.Hyperkalemia, improving. We will continue Kayexalate and monitor secondary to above. 3.Extended-spectrum beta-lactamase, Escherichia coli urinary tract infection. The patient was start ed on meropenem. Renal ultrasound does show a 5 mm echogenic mass versus polyp in the bladder. Urol nahomy has been consulted. May need cystoscopy. The patient already has PICC line. She will need long -term IV antibiotics. 4.Atrial fibrillation, paroxysmal. Continue chronic anticoagulation, rate control. 5.Gastroesophageal reflux disease without esophagitis. Continue PPI. 6.Major depressive disorder. We will continue SNRI. 7.Mixed hyperlipidemia. We will continue statin. 8.Hypothyroidism, on levothyroxine. 9.Remote history of epilepsy. No recent seizures. 10.History of cerebrovascular accident with right-sided weakness. 11.Alzheimer dementia, early onset, without behavioral disturbance. 12.Essential hypertension, stable, on home medications. 13.Generalized osteoarthritis. 14.Status post pacemaker. 15.Gastrointestinal and deep vein thrombosis prophylaxes. The patient already on chronic anticoagul ation and PPI. Plan: Resume home medications as appropriate. We will follow up with repeat urine culture. Blood c ultures pending. Follow up with Urology and Nephrology recommendations. Likely discharge back to [facility] facility in the next 24-48 hours depending on clinical response with long-term IV antibiotics. /ABDELRAHMAN Voice ID: [id number] Report ID: [id number]
--- NOTE | 2018-04-02 22:24 | HP ---
Date of Admission: 04/01/2018 History Of Present Illness: This is an 82-year-old residential resident with past medical history of seizure disorder, gastroesophageal reflux disease, depression, hyperlipidemia, anemia, hypothyroidism, atrial fibrillation on blood thinners, recurrent urinary tract infections, stroke with right-sided weakness, dementia, hypertension, osteoarthritis, pacemaker, chronic pain, who was found to have ESBL E coli in December. She has serious medical issues such as congestive heart failure, COPD. She was seen in the ER today for abnormal labs showing acute kidney injury and hyperkalemia with a potassium of 6. Urine is growing ESBL again. Her PVR is low. I do not believe this lady drinks a lot of fluids. She needs fluids, hydration and treatment of her ESBL. Past Medical History: As mentioned above. Past Surgery History: Pacemaker, back surgery, knee surgery, abdominal surgery. Past Medical History: Epilepsy, GERD, depression, hyperlipidemia, anemia, hypothyroidism, atrial fibrillation, muscular atrophy, UTIs, ESBL, recurrent strokes, right-sided weakness, dementia, hypertension, and osteoarthritis. Past Surgical History: Pacemaker, back surgery, knee surgery, abdominal surgery , and hip surgery. Allergies: TO CODEINE, MORPHINE, PROPOXYPHENE, VERAPAMIL, FOSAMAX, IBUPROFEN, AND PENTAZOCINE. Family History: Significant for heart disease. Social History: Lives in residential. Review of Systems: Ten-point review of systems otherwise unable to obtain from the patient. Physical Examination: Vital Signs: Afebrile, stable. HEENT: Atraumatic, normocephalic. Chest: Clear. Cardiovascular: S1, S2. Gastrointestinal: Soft, nontender. Neurologic: Cranial nerves 2-12 grossly intact. Psychiatric: Mood okay. Laboratory Data: Shows a white count of 6.8, H and H 12.9 and 38.6, and platelet count 239. Chemistry shows sodium 139, potassium 5.4, down from 5.6, chloride 108, carbon dioxide 22, BUN 91, and creatinine 1.9. GFR 25, uric acid 6.4, and procalcitonin 3.3. Urine shows 20-50 bacteria and microbiology urine showed prior to admission, she was growing ESBL, done on March 26, 2018 and E. coli greater than 100,000 colony-forming units/mL, sensitive to nitrofurantoin, gentamicin, cefoxitin, cefotetan, pip-tazobactam, meropenem, and amikacin. Assessment: Acute kidney injury, hyperkalemia, ESBL, E. coli sensitive to meropenem. Recommend meropenem for 14 days via PICC line. The patient has atrial fibrillation, remote history of epilepsy, GERD, major depression, SSRI, and hyperlipidemia. Continue therapy. We will try to be conservative with this patient. DIANA Voice ID: [id number] MTDD
[2018-04-02] MEDS: LORATADINE 10 MG TAB PO SCH (22:56)
--- NOTE | 2018-04-03 01:48 | CON ---
Reason For Consultation: Elevated BUN and creatinine, UTI. History Of Present Illness: This is an 82-year-old female with significant past medical history of G ERD, seizure, depression, hyperlipidemia, hypothyroidism, AFib, UTI, CVA with right-sided weakness, d ementia, osteoporosis, the patient recently admitted to the hospital with recurrent UTI with E coli, treated. The patient came back, showed elevated BUN and creatinine with hyperkalemia, potassium up t o 6. For that reason, we have been consulted. Over the night, I discontinued spironolactone and Las ix, started the patient on hydration, kidney function gradually started improving. Renal ultrasound done shows multiple polyps in the bladder. No obstruction. Reviewing the record, there are no other insulting medications except the diuresis and the spironolac tone. Past Medical History: 1.CVA with right-sided weakness and epilepsy. 2.GERD. 3.Recurrent UTI. 4.Hyperlipidemia. 5.Dementia. 6.Atrial fibrillation surgery. Past Surgical History: 1.ICD placement. 2.Knee surgery. 3.Abdominal surgery. 4.Hip surgery. Allergies: CODEINE, MORPHINE, VERAPAMIL, FOSAMAX, IBUPROFEN, PENTAZOCINE. Family History: Positive for cardiac, coronary artery disease and diabetes. Social History: The patient lives in [place]way. Denies smoking. Denies drinking. Denies drug a buse. Review of Systems: Head and Neck: No red eye. No ear pain. GI: Has abdominal pain. : No polyuria. No dysuria. No hematuria. CHIEF DISPATCHER SERVICE: No vaginal discharge. Respiratory: No shortness of breath. Cardiovascular: No chest pain. Endocrine: No polydipsia. Skin: No rash. Neuro: Has right-sided weakness. Musculoskeletal: No joint pain. Physical Examination: Vital Signs: When I saw the patient blood pressure 163/97, pulse of 84, afebrile. Chest: Clear to auscultation. Heart: S1, S2. Systolic murmur. Abdomen: Soft, nontender. Extremities: Trace edema. Laboratory Data: WBC 6.8, H and H of 12.9/38.6, platelets of 239. Sodium 139, potassium down to 5.4 , bicarb 22, BUN 91, creatinine 1.9, calcium of 8.9, uric acid of 6.4. TSH 0.07, PTH 100.7. Reviewing the records for the patient, on previous admission she was released from the hospital with normal creatinine 0.8 back in December and at that time her culture was growing E. coli. Current Medications: In the hospital include meropenem, acyclovir, loratadine, megestrol, isosorbide , nitroglycerin, gabapentin, Namenda, Zofran, levothyroxine, bisacodyl, hydrocodone. Assessment And Plan: 1.Acute kidney injury secondary to prerenal/toxic acute tubular necrosis complicated with hyperkalem ia on the recovery phase. I am going to go ahead and continue with hydration for the patient. We wi ll increase her IV fluid to 75 per hour and we will continue to monitor the patient. I will go ahead and keep holding her Lasix and spironolactone for the time being and we will follow up. 2.Hypertension, controlled, optimal. Keep holding Lasix and Aldactone. 3.Relapsing urinary tract infection, escherichia coli, possible secondary to bladder masses. We denis l follow up with Urology. 4.Bladder mass. Follow up with Urology. 5.Hyperkalemia secondary to renal failure superimposed with Aldactone, recovered. Continue hydration. We will monitor. Keep holding Aldactone. EZE/ABDELRAHMAN Voice ID: [id number] Report ID: [id number]
[2018-04-03 06:58] LABS: Absolute Lymphocytes (CBC) 1.5 K/uL (0.7-4.9); Absolute Monocytes 0.9 K/uL (0.1-1.3); Absolute Neutrophil 2.7 K/uL (1.8-8.0); Basophils % 0.8 % (0-1.3); Eosinophils % 1.9 % (0-4.4); Hematocrit 39.4 % (36.0-45.0); Lymphocytes % 28.1 % (15.3-44.8); MPV 8.9 fL (7.6-11.3); RBC Red Blood Cell Count 4.46 M/uL (3.86-4.86)
[2018-04-03 07:03] LABS: Phosphorus 3.9 mg/dL (2.5-4.9); Potassium 4.3 mmol/L (3.5-5.1)
[2018-04-03] MEDS: HYDROCODONE/APAP 5/325 MG TAB PO PRN ×2 (07:12→19:49)
[2018-04-03] MEDS: LEVOTHYROXINE SOD 0.075 MG TAB PO SCH (07:13)
[2018-04-03] MEDS: DOCUSATE NA 100 MG CAP PO SCH ×3 (09:00→21:00)
[2018-04-03] MEDS: SOD POLYSTYREN SUL 15 GM/60 ML UCUP PO SCH (09:00)
[2018-04-03] MEDS: SENOSIDES 8.6 MG TAB PO SCH ×2 (09:00→21:00)
[2018-04-03] MEDS: VALACYCLOVIR 500 MG TAB PO SCH ×2 (10:41→21:49)
[2018-04-03] MEDS: MEMANTINE HCL 10 MG TABLET PO SCH ×2 (10:41→21:49)
[2018-04-03] MEDS: Meropenem 1,000 MG in NA CHLORIDE 0.9% 100 ML IV SCH ×2 (10:41→21:48)
[2018-04-03] MEDS: GABAPENTIN 300 MG CAP PO SCH ×3 (10:41→21:50)
[2018-04-03] MEDS: LACTOBACILLUS/ACIDOPHILUS TAB PO SCH (10:41)
[2018-04-03] MEDS: RIVAROXABAN 20 MG TABLET PO SCH (10:41)
[2018-04-03] MEDS: levETIRAcetam 500 MG/5 ML OSYR PO SCH ×2 (10:42→21:46)
[2018-04-03] MEDS: ISOSORBIDE DINIT 5 MG TAB PO SCH ×2 (10:42→21:50)
[2018-04-03] MEDS: MEGESTROL 400 MG/10 ML UCUP PO SCH ×2 (10:43→21:52)
[2018-04-03] MEDS: MEDIHONEY 44 ML TOPICAL TUBE TOP SCH (10:44)
[2018-04-03] MEDS: ACETAMINOPHEN 500 MG TAB PO PRN ×2 (10:56→12:12)
[2018-04-03] MEDS: METOPROLOL TAR 50 MG TAB PO SCH ×2 (10:56→21:58)
[2018-04-03] MEDS: NA CHLORIDE 0.9% 1,000 ML IV SCH ×2 (12:35→22:00)
--- NOTE | 2018-04-03 16:22 | PN ---
Subjective: The patient is stable. Objective: Vital signs are stable. Potassium down to 4.3. The patient has ESBL. Assessment: Extended-spectrum beta-lactamase urinary tract infection. Bladder ultrasound shows poss ible tiny mass in the bladder which may not be for sure. Plan: Given the patient's medical status, no symptoms from the bladder mass. No gross hematuria or thing like that. The ultrasound may be a possible over-read. If she does have a bladder tumor, it w ill bleed for sure causing gross hematuria. Since the patient is frail, I will rather not expose her to anesthesia unnecessarily at this time. If she does develop gross hematuria, we will consider doi ng a cysto and TURBT, if necessary. Plan right now is to continue with the IV meropenem. SUNDAY/ABDELRHAMAN Voice ID: [id number] Report ID: [id number]
[2018-04-03] MEDS: ENSURE CLEAR 200 ML CAN PO SCH (21:00)
[2018-04-03] MEDS: LORATADINE 10 MG TAB PO SCH (21:49)
--- NOTE | 2018-04-03 23:25 | PN ---
Date of Progress Note: 04/03/2018 Subjective: The patient is seen and examined. Chart reviewed and case discussed with RN, Dr. Constantino, and Dr. Dalton. The patient denies any specific complaints, other than some pain in her left leg. Medications: List reviewed. Physical Examination: Vital Signs: Temperature 97.5, heart rate 80, blood pressure 125/68, respirations 18, and O2 97% on room air. General: Awake, alert, and oriented x3. Some mild distress due to pain. Elderly female, ill-appearing, frail, cachectic. CV: S1, S2. Peripheral pulses 1+ bilaterally. Respiratory: Moving air well bilaterally. No wheezing. Gastrointestinal: Abdomen is soft, nontender, and nondistended. Positive bowel sounds. Extremities: No clubbing, cyanosis, or edema. Neurologic: Nonfocal. Skin: Left foot has dry ulcers. Laboratory Data: Sodium 144, potassium 4.3, chloride 113, CO2 24, BUN 67, creatinine 1.44, glucose 94, calcium 8.7, and albumin 3. WBC 5.3, H and H 13.1 and 39.4, platelets 210, and neutrophils 51%. Blood cultures; no growth to date. Urine cultures; no growth final. Assessment And Plan: An 82-year-old female with: 1. Acute kidney injury, improving, likely secondary to prerenal azotemia. Creatinine is trending down. Appreciate Nephrology input. The patient has been on the dry side, not completely emptying her bladder. Urology recommends urinary catheter placement for short term to empty out the bladder. We will continue to monitor. 2. Hyperkalemia, corrected. We will discontinue Kayexalate. 3. Extended-spectrum beta-lactamase Escherichia coli urinary tract infection and acute cystitis. We will continue meropenem. Spoke with Dr. Constantino. He does not recommend any cystoscopy at this time. There is no hematuria. We will look at the imaging study. Mass versus polyp is likely artifact. We will continue to monitor. Risks at this time of putting the patient under anesthesia outweigh the benefits from cystoscopy. 4. Atrial fibrillation, paroxysmal. We will continue chronic anticoagulation and rate control. 5. Gastroesophageal reflux disease without esophagitis. We will continue PPI. 6. Major depressive disorder, in remission. We will continue SNRI. 7. Mixed hyperlipidemia. Continue statin. 8. Hypothyroidism. Levothyroxine. TSH is low. We will adjust medication. 9. Remote history of seizures. No current activity. 10. History of cerebrovascular accident with right-sided weakness. 11. Alzheimer's dementia, early onset without behavioral disturbance. 12. Essential hypertension, stable. 13. Generalized osteoarthritis. 14. Status post pacemaker. 15. Gastrointestinal and deep venous thrombosis prophylaxis addressed. Plan: Discharge back to senior care once IV antibiotics are set up. /ABDELRAHMAN Voice ID: [id number] Report ID: [id number] MTDIssa
--- NOTE | 2018-04-03 23:54 | P.PN ---
Subjective Date of Service: 04/04/18 Subjective: Improving poor oral intake will start on ensure e.coil esbl , on merrem Cr improving K normal Physical Examination - Vital Signs Temperature: 99.0 F Blood Pressure: 125/60 Pulse: 80 Respirations: 17 Pulse Ox (%): 97 - Physical Exam General: Alert, In no apparent distress HEENT: Atraumatic Neck: Supple, Without JVD or thyroid abnormality Respiratory: Clear to auscultation bilaterally, Normal air movement Cardiovascular: No edema, Normal pulses, Regular rate/rhythm Gastrointestinal: Normal bowel sounds, Non-distended Assessment And Plan - Current Problems (Diagnosis) (1) ALEJANDRO (acute kidney injury) Current Visit: No Status: Acute (2) UTI (urinary tract infection) Onset Date: 10/13/17 Current Visit: No Status: Acute - Plan Acute kidney injury likely prerenal improving on IVF Hyperkalemia resolved likely due to dehydration, alejandro and aldactone E.coli esbl on merrem bladder mass urilogy on board . \
[2018-04-04] MEDS: HYDROCODONE/APAP 5/325 MG TAB PO PRN (04:15)
[2018-04-04] MEDS: LEVOTHYROXINE SOD 0.075 MG TAB PO SCH (06:11)
[2018-04-04 07:00] LABS: Absolute Lymphocytes (CBC) 1.5 K/uL (0.7-4.9); Absolute Monocytes 0.9 K/uL (0.1-1.3); Absolute Neutrophil 3.4 K/uL (1.8-8.0); Basophils % 0.7 % (0-1.3); Eosinophils % 1.7 % (0-4.4); Hematocrit 37.4 % (36.0-45.0); Lymphocytes % 24.6 % (15.3-44.8); MPV 8.3 fL (7.6-11.3); Monocytes % 15.4 % (3.3-12.3); RBC Red Blood Cell Count 4.22 M/uL (3.86-4.86)
[2018-04-04 07:14] LABS: Albumin 2.9 g/dL (3.4-5.0); Phosphorus 3.1 mg/dL (2.5-4.9); Potassium 3.9 mmol/L (3.5-5.1)
[2018-04-04] MEDS: Meropenem 1,000 MG in NA CHLORIDE 0.9% 100 ML IV SCH (10:35)
[2018-04-04] MEDS: MEGESTROL 400 MG/10 ML UCUP PO SCH (10:35)
[2018-04-04] MEDS: LACTOBACILLUS/ACIDOPHILUS TAB PO SCH (10:36)
[2018-04-04] MEDS: METOPROLOL TAR 50 MG TAB PO SCH (10:36)
[2018-04-04] MEDS: levETIRAcetam 500 MG/5 ML OSYR PO SCH (10:36)
[2018-04-04] MEDS: DOCUSATE NA 100 MG CAP PO SCH ×2 (10:36→14:40)
[2018-04-04] MEDS: GABAPENTIN 300 MG CAP PO SCH ×2 (10:36→14:40)
[2018-04-04] MEDS: VALACYCLOVIR 500 MG TAB PO SCH (10:36)
[2018-04-04] MEDS: SENOSIDES 8.6 MG TAB PO SCH (10:37)
[2018-04-04] MEDS: MEMANTINE HCL 10 MG TABLET PO SCH (10:37)
[2018-04-04] MEDS: RIVAROXABAN 20 MG TABLET PO SCH (10:37)
[2018-04-04] MEDS: ENSURE CLEAR 200 ML CAN PO SCH (10:39)
[2018-04-04] MEDS: MEDIHONEY 44 ML TOPICAL TUBE TOP SCH (10:40)
[2018-04-04 11:26] VITALS: O2SAT 94
[2018-04-04 12:24] VITALS: BP 129/67; TEMP 99.1
[2018-04-04] MEDS: ISOSORBIDE DINIT 5 MG TAB PO SCH (14:40)
--- NOTE | 2018-04-04 14:41 | PN ---
Date of Progress Note: 04/04/2018 NEPHROLOGY FOLLOWUP NOTE Subjective: The patient is doing well, more awake today. Physical Examination: Vital Signs: Blood pressure 129/67, pulse of 82. Chest: Clear to auscultation. Heart: S1, S2, regular. Abdomen: Soft, nontender. Extremities: Trace edema. Laboratory Data: WBC 5.9, H and H 12.4/37.4, platelet of 198. Sodium 144, potassium 3.9, bicarb 22, BUN 47, creatinine 1.1, GFR of 48, calcium 8.5, albumin 2.9. Current Medications: Include: 1.Meropenem. 2.Valacyclovir. 3.Loratadine. 4.Isosorbide. 5.Metoprolol. 6.Keppra. 7.Gabapentin. 8.Namenda. 9.Zofran. 10.IV fluid at 75 per hour. Assessment And Plan: 1.Acute kidney injury secondary to prerenal/toxic acute tubular necrosis, recovered/resolved. I am going to go ahead and discontinue IV fluid. 2.Urinary tract infection, recurrent. Continue current antibiotic. Follow up with ID. Recommended meropenem for 2 weeks. 3.Bladder mass, seen by Urology, cleared. 4.Seizure, cerebrovascular accident. Continue supportive care. EZE/ABDELRAHMAN Voice ID: [id number] Report ID: [id number]
--- NOTE | 2018-04-05 07:48 | DS ---
Date of Discharge: 04/04/2018 Consultants: Dr. Constantino with Urology, Dr. Joy with Nephrology. Procedures: None. Admitting Diagnoses: 1. Acute kidney injury. 2. Hyperkalemia. 3. Extended-spectrum beta-lactamase Escherichia coli. 4. Atrial fibrillation, paroxysmal. 5. Remote history of epilepsy. 6. Gastroesophageal reflux disease without esophagitis. 7. Major depressive disorder. 8. Hyperlipidemia. 9. Hypothyroidism. 10. Anemia. 11. History of cerebrovascular accident with right-sided weakness. 12. Alzheimer dementia, early onset without behavioral disturbance. 13. Essential hypertension. 14. Generalized osteoarthritis. 15. Status post pacemaker. Hospital Course: The patient is an 82-year-old female, resident of [facility] , who comes in with abnormal labs. The patient's potassium was elevated at 6. Her urine culture grew out ESBL E. coli. The patient was admitted for further workup and evaluation. Her potassium was corrected. The patient did have elevated kidney function as well at 2.43, which was treated with IV fluids. The patient responded well to treatment. She was started on meropenem for ESBL E. coli. This is the patient's second infection. Dr. Constantino with Urology was consulted for possible cystoscopy. However, he did not recommend any intervention at this time as the patient's likely cause for recurrent infections is low flow. The patient did have some mild retention about 100-150 cc postvoid residual. Pleitez catheter was placed to help drain out the bladder which was removed within 24 hours. The patient's bladder ultrasound did show some echogenic lesion. However, after looking at the scans, Dr. Constantino felt that this was likely artifact. The patient did not have any urinary bleeding either. Therefore, she is at low risk for any sort of malignancy or other abnormalities and moreover the risk of general anesthesia outweighs the benefits at this time. Therefore, we will continue to watch and repeat sonogram within 2 to 4 weeks. The patient improved. Her electrolytes improved. Her kidney function normalized with IV fluid hydration. She was seen by Nephrology. The patient has already had a PICC line in place. She was set up for long-term IV antibiotics with meropenem for 2 weeks to treat this ESBL infection. The patient will need to be placed on isolation at the nursing facility. Repeat urine culture once antibiotics are completed. The patient will need weekly CBC and CMP to dose medications renally. The patient was afebrile, did not appear septic, tolerating her diet. She was then cleared for discharge and was sent back to the nursing facility in a stable condition. Activity: Fall precautions. Medications: As per medication reconciliation list. Meropenem 1 g IV q.8 hours for 14 days. Followup: Follow up with PCP in 2 to 3 days. Follow up with urologist, Dr. Constantino, in 2 weeks. Follow up with caul puller, Dr. Joy, in 2 weeks. Return to ER for worsening condition. Diet: Low-sodium, fluid-restricted diet. Physical Examination: General: Awake, alert, oriented x3. Elderly female, frail, no acute distress. CV: S1, S2. Respiratory: Moving air well bilaterally. Gastrointestinal: Abdomen is soft, nontender, nondistended. Positive bowel sounds. Extremities: No clubbing, cyanosis, edema. Total time spent discharging the patient was 37 minutes. /ABDELRAHMAN Voice ID: [id number] Report ID: [id number] DAVID
== END 2018-04-04 18:08 | DRG 689 ==
LOC: ER 12:46 → ERHOLD 15:06 → 4TH 15:47
PROVIDERS: ADMIT Family Medicine; ATTEND Family Medicine
DX: N30.00 Acute cystitis without hematuria (principal); N17.0 Acute kidney failure with tubular necrosis; N17.9 Acute kidney failure, unspecified; I69.351 Hemiplegia and hemiparesis following cerebral infarction affecting right dominant side; E87.5 Hyperkalemia; E86.0 Dehydration; Z88.5 Allergy status to narcotic agent; Z88.8 Allergy status to other drugs, medicaments and biological substances; G40.909 Epilepsy, unspecified, not intractable, without status epilepticus; K21.9 Gastro-esophageal reflux disease without esophagitis; F32.9 Major depressive disorder, single episode, unspecified; E78.5 Hyperlipidemia, unspecified; D64.9 Anemia, unspecified; E03.9 Hypothyroidism, unspecified; Z79.01 Long term (current) use of anticoagulants; I10 Essential (primary) hypertension; Z95.0 Presence of cardiac pacemaker; G89.29 Other chronic pain; B96.20 Unspecified Escherichia coli [E. coli] as the cause of diseases classified elsewhere; Z16.12 Extended spectrum beta lactamase (ESBL) resistance; Z99.3 Dependence on wheelchair; I48.0 Paroxysmal atrial fibrillation; G30.0 Alzheimer's disease with early onset; F02.80 Dementia in other diseases classified elsewhere, unspecified severity, without behavioral disturbance, psychotic disturbance, mood disturbance, and anxiety; M15.9 Polyosteoarthritis, unspecified
CPT/HCPCS: 36415; 76770; 80048; 80069; 81015; 82570; 83735; 83970; 84132; 84145; 84156; 84443; 84550; 85025; 87040; 87086; 87088; 93005; 94760; 96361; 96365; 99285; J2543; J7030

== ENCOUNTER 2018-04-05 10:18 | Emergency (ER) | payer OTHER ==
[2018-04-05 10:34] LABS: Absolute Lymphocytes (CBC) 1.5 K/uL (0.7-4.9); Absolute Monocytes 0.8 K/uL (0.1-1.3); Absolute Neutrophil 3.8 K/uL (1.8-8.0); Basophils % 0.5 % (0-1.3); Eosinophils % 1.1 % (0-4.4); Hematocrit 39.7 % (36.0-45.0); Lymphocytes % 24.4 % (15.3-44.8); MPV 8.3 fL (7.6-11.3); RBC Red Blood Cell Count 4.42 M/uL (3.86-4.86)
[2018-04-05 10:40] LABS: Protime INR 1.44
--- NOTE | 2018-04-05 10:40 | RAD REPORT ---
EXAM DESCRIPTION: CT - Ct Stroke Brain Wo Cont - 04/05/2018 10:32 am CLINICAL HISTORY: CONFUSED CVA, drowsiness COMPARISON: Head Brain Wo Cont dated 08/10/2015; HEAD BRAIN W O CONTRAST dated 01/04/2013 TECHNIQUE: All CT scans are performed using dose optimization technique as appropriate and may inclu de automated exposure control or mA/KV adjustment according to patient size. FINDINGS: No intracranial hemorrhage, hydrocephalus or extra-axial fluid collection.Advanced general ized brain atrophy is present with advanced periventricular and deep white matter chronic microvascul ar ischemic changes.Large area gliosis is seen left frontal lobe compatible with old infarction. The paranasal sinuses and mastoids are clear. The calvarium is intact. IMPRESSION: No acute intracranial abnormality.
[2018-04-05 10:47] LABS: Potassium 3.7 mmol/L (3.5-5.1)
[2018-04-05] MEDS ORDERED: ALTEPLASE 0 ML IV ONE (11:02)
--- NOTE | 2018-04-05 11:22 | RAD REPORT ---
EXAM DESCRIPTION: RAD - Chest Single View - 04/05/2018 10:53 am CLINICAL HISTORY: MALAISE Chest pain. COMPARISON: Chest Single View dated 01/14/2018; Chest Single View dated 01/07/2018; Chest Single Vie w dated 01/07/2018; Chest Single View dated 01/05/2018 FINDINGS: Portable technique limits examination quality. The lungs are grossly clear. The heart is moderately enlarged in size with a dual lead pacer device p resent. No displaced fractures. IMPRESSION: No acute intrathoracic process suspected.
--- NOTE | 2018-04-05 11:31 | EDPHYS ---
Physician Documentation [facility] Name: Padma Carrillo Age: 82 yrs Sex: Female : 1935 Arrival Date: 04/05/2018 Time: 10:14 Bed 7 Private MD: ED Physician Blane Aguirre HPI: 04/05 13:24 This 82 yrs old Female presents to ER via EMS with complaints of Weakness. gs 13:24 The patient presents to the emergency department with weakness of the right upper gs extremity, right lower extremity. Onset: The symptoms/episode began/occurred at 09:15. Associated signs and symptoms: Pertinent negatives: altered mental status, fever. Severity of symptoms: At their worst the symptoms were severe in the emergency department the symptoms have improved mildly. Current symptoms: paralysis or paresis. The patient has experienced a previous episode, approximately 2 years ago. The patient has been recently been admitted at [facility], was discharged yesterday. Historical: - Allergies: 10:29 Codeine; ph 10:29 Demerol; ph 10:29 Fosamax; ph 10:29 Ibuprofen; ph 10:29 PROPOXYPHENE; ph 10:29 Talwin NX; ph 10:29 Verapamil; ph - Home Meds: 10:50 acetaminophen 325 mg Oral tab 650 mg every 6 hours for Fever [Active]; Ativan 1 mg Oral ph tab 1 tab every 6 hours for Anxiety [Active]; Cerovite Senior Oral tab daily [Active]; cetirizine 10 mg Oral tab 1 tab once daily [Active]; clonidine HCl 0.1 mg Oral tab every 6 hours for Hypertension [Active]; Cymbalta 30 mg Oral cpDR once daily for Anxiety with Depression [Active]; docusate sodium 100 mg Oral tab 1 tab once daily [Active]; gabapentin 100 mg Oral tab twice a day for Restless Legs Syndrome [Active]; gabapentin 300 mg Oral tab nightly [Active]; hydrocodone-acetaminophen 5-325 mg Oral tab 1 tab every 6 hours for Pain [Active]; Keppra 1,000 mg Oral tab 1 tab every 12 hours for Myoclonic Epilepsy Adjunct Treatment [Active]; lactulose 20 gram/30 mL Oral soln 30 mL twice a day for constipation [Active]; Lasix 20 mg Oral tab 1 tab once daily for EDEMA [Active]; Levothroid 75 mcg Oral tab 1 tab once daily [Active]; Lidoderm 5 % Topical ptmd 1 patch once daily [Active]; loperamide 2 mg Oral tab PRN for diarrhea [Active]; magnesium oxide 400 mg Oral tab daily [Active]; melatonin 3 mg Oral tab nightly [Active]; Milk of Magnesia 400 mg/5 mL Oral susp 15 mL once daily [Active]; Namenda XR 28 mg Oral CSpX 1 cap once daily for Moderate to Severe Alzheimer's Type Dementia [Active]; nitroglycerin 0.4 mg SL subl 1 tab every 5 minutes for Angina [Active]; omeprazole 20 mg Oral cpDR 1 cap once daily [Active]; potassium chloride 10 mEq Oral cpER 1 cap once daily [Active]; rivaroxaban 20 mg Oral 1 tab nightly for Prevention of Deep Vein Thrombosis Recurrence [Active]; Robafen DM 10-100 mg/5 mL Oral syrp 5 mL every 6 hours for Cough [Active]; Toprol XL 100 mg Oral Tb24 once daily for Hypertension [Active]; tramadol 50 mg Oral tab 2 tabs every 12 hours [Active]; - PMHx: 10:29 Anemia; Atrial Fib; CVA (Deficit: slurred speech and weakness); Depression; epilepsy; ph GERD; Hyperlipidemia; Hypothyroidism; insomnia; muscle atrophy; UTI; - Immunization history:: Adult Immunizations up to date, Adult Immunizations unknown. - Social history:: Smoking status: Patient/guardian denies using tobacco, Smoking status: Patient/guardian denies using tobacco. - Ebola Screening: : No symptoms or risks identified at this time. ROS: 13:24 All other systems are negative. gs Exam: 13:24 Head/Face: Normocephalic, atraumatic. Eyes: Pupils equal round and reactive to light, gs extra-ocular motions intact. Lids and lashes normal. Conjunctiva and sclera are non-icteric and not injected. Cornea within normal limits. Periorbital areas with no swelling, redness, or edema. ENT: Nares patent. No nasal discharge, no septal abnormalities noted. Tympanic membranes are normal and external auditory canals are clear. Oropharynx with no redness, swelling, or masses, exudates, or evidence of obstruction, uvula midline. Mucous membranes moist. Neck: Trachea midline, no thyromegaly or masses palpated, and no cervical lymphadenopathy. Supple, full range of motion without nuchal rigidity, or vertebral point tenderness. No Meningismus. Chest/axilla: Normal chest wall appearance and motion. Nontender with no deformity. No lesions are appreciated. Cardiovascular: Regular rate and rhythm with a normal S1 and S2. No gallops, murmurs, or rubs. Normal PMI, no JVD. No pulse deficits. Respiratory: Lungs have equal breath sounds bilaterally, clear to auscultation and percussion. No rales, rhonchi or wheezes noted. No increased work of breathing, no retractions or nasal flaring. Abdomen/GI: Soft, non-tender, with normal bowel sounds. No distension or tympany. No guarding or rebound. No evidence of tenderness throughout. Back: No spinal tenderness. No costovertebral tenderness. Full range of motion. Skin: Warm, dry with normal turgor. Normal color with no rashes, no lesions, and no evidence of cellulitis. 13:24 Constitutional: The patient appears alert, awake. 13:24 Musculoskeletal/extremity: Circulation is intact in all extremities. 13:24 Neuro: Orientation: to person, place, time, situation, Cranial nerves: CN II- XII are normal as tested, Cerebellar function: no acute changes, Motor: Strength is 3/5 in the right arm, Strength is 1/5 in the right leg. Vital Signs: 10:15 BP 148 / 86; Pulse 82; Resp 18; Temp 97.6(TE); Pulse Ox 100% on R/A; Weight 65.77 kg; sv 10:37 BP 139 / 80; Pulse 80; Resp 14; Pulse Ox 99% on R/A; sv 11:30 BP 161 / 91; Pulse 82; Resp 15; Pulse Ox 98% ; sv NIH Stroke Scale Scores: 11:01 NIHSS Score: 7 gs MDM: 10:22 Patient medically screened. 13:24 Data reviewed: vital signs, nurses notes, old medical records, lab test result(s), EKG, gs radiologic studies. Response to treatment: the patient's symptoms have resolved after treatment, per patient can move rue,rle at baseline not candidate for tpa on xarelto.. ED course: ddx tia,cva,anxiety,drug reaction. 04/05 10:22 Order name: Basic Metabolic Panel; Complete Time: 11:23 04/05 10:22 Order name: CBC with Diff; Complete Time: 10: 04/05 10:22 Order name: Protime (+inr); Complete Time: 04/05 10:22 Order name: Ptt, Activated; Complete Time: 04/05 10:22 Order name: CT Stroke Brain w/o Contrast; Complete Time: 10: 04/05 10:23 Order name: glucometer results - FOR PT WITH NO ID 04/05 10:22 Order name: Stroke CXR 1 View; Complete Time: 11: 04/05 10:22 Order name: EKG; Complete Time: 10: 04/05 10:22 Order name: Accucheck; Complete Time: 04/05 10:22 Order name: Cardiac monitoring; Complete Time: 04/05 10:22 Order name: EKG - Nurse/Tech; Complete Time: 11: 04/05 10:22 Order name: IV Saline Lock; Complete Time: 04/05 10:22 Order name: Labs collected and sent; Complete Time: 04/05 10:22 Order name: NPO; Complete Time: : 04/05 10:22 Order name: O2 Per Protocol; Complete Time: 04/05 10:22 Order name: O2 Sat Monitoring; Complete Time: 04/05 10:22 Order name: Stroke Swallow Screen; Complete Time: 11:19 gs Administered Medications: 11:21 CANCELLED (Patient Refused): Alteplase (Bolus for Stroke) - Activase 0.09 mg/kg IV Thrombolytics once over 1 mins; Max Bolus dose 9 mg. 11:21 CANCELLED (pt refused not candidate): Alteplase IV Thrombolytics at calculated rate Per protocol; 0.9 mg/kg IV (Max: 90 mg); give 10% of the total dose as an IV bolus over 1 minute, then give the remaining 90% as an IV infusion over 60 minutes 11:48 Drug: NS 0.9% 750 ml Route: IV; Rate: 1 bolus; Site: left upper arm; sv 14:15 Follow up: Response: No adverse reaction; IV Status: Completed infusion; IV Intake: sv 750ml Point of Care Testing: Blood Glucose: 10:20 Blood Glucose: 103 mg/dL; sv Ranges: Critical Glucose Levels:Adult <50 mg/dl or >400 mg/dl <40 mg/dl or >180 mg/dl Disposition: 04/05/18 11:31 Discharged to Home. Impression: Transient cerebral ischemic attack, unspecified. - Condition is Stable. - Discharge Instructions: Transient Ischemic Attack. - Medication Reconciliation Form, Thank You Letter, Antibiotic Education, Prescription Opioid Use form. - Follow up: Private Physician; When: 1 - 2 days; Reason: Re-evaluation by your physician. NIH Stroke Scale - NIH Stroke Score Date: 04/05/2018 Time: 11:01 Total Score = 7 1a. Level of Consciousness (LOC) - 0(Alert) 1b. Level of Consciousness (LOC) (Year \T\ Age) - 0(Both) 1c. LOC Commands (Open \T\ Closes Eyes/Stitching Machine Operator) - 0(Both) 2. Best Gaze (Lateral Gaze Paresis) - 0(Normal) 3. Visual Field Loss - 0(No visual loss) 4. Facial Palsy - 0(Normal) 5a. Left Arm: Motor (10-second hold) - 0(No drift) 5b. Right Arm: Motor (10-second hold) - 2(Drift, some effort against gravity) 6a. Left Leg: Motor (5-second hold - always test supine) - 0(No drift) 6b. Right Leg: Motor (5-second hold - always test supine) - 4(No movement) 7. Limb Ataxia (finger/nose \T\ heel/louis - test with eyes open) - 0(Absent) 8. Sensory Loss (pinprick arms/legs/face) - 0(Normal) 9. Best Language: Aphasia (description/naming/reading) - 0(No aphasia) 10. Dysarthria (speech clarity - read or repeat words) - 1(Mild to Moderate) 11. Extinction and Inattention (visual/tactile/auditory/spatial/personal) - 0(No abnormality) Initials: Signatures: Dispatcher [employer] Arlen Corbin RN RN sv Smirch, Shelby, RN RN ss Hall, Patricia, RN RN ph Starr, Gregory, MD MD gs Corrections: (The following items were deleted from the chart) 11:21 11:05 Alteplase (Bolus for Stroke) - Activase 0.09 mg/kg IV Thrombolytics once gs over 1 mins; Max Bolus dose 9 mg. ordered. 11:21 11:05 Alteplase IV Thrombolytics at calculated rate Per protocol; 0.9 mg/kg IV gs (Max: 90 mg); give 10% of the total dose as an IV bolus over 1 minute, then give the remaining 90% as an IV infusion over 60 minutes ordered. 11:26 11:06 Head Angio+CT.DANIELA.SUNNY ordered. EDMS EDMS 14:15 11:31 04/05/2018 11:31 Discharged to Home. Impression: Transient cerebral ss ischemic attack, unspecified. Condition is Stable. Forms are Medication Reconciliation Form, Thank You Letter, Antibiotic Education, Prescription Opioid Use. Follow up: Private Physician; When: 1 - 2 days; Reason: Re-evaluation by your physician. gs
--- NOTE | 2018-04-05 11:31 | ER ---
Nurse's Notes [facility] Name: Padma Carrillo Age: 82 yrs Sex: Female : 1935 Arrival Date: 04/05/2018 Time: 10:14 Bed 7 Private MD: Diagnosis: Transient cerebral ischemic attack, unspecified Presentation: 04/05 10:08 Presenting complaint: EMS states: R sided weakness in arm and leg that began at approx sv 0915 this morning, unsteady gait, midline tongue. Pt had no weakness at 0800 this morning per [facility] staff. Pt normally is a 1 person assist, A\T\O x2, with word salad as normal mentation. 10:17 Transition of care: patient was received from another setting of care (long-term care facility), [facility]. The patients blood glucose was checked before arriving to the hospital and was found to be normal. Onset of symptoms was April 05, 2018 at 09:15. Risk Assessment: Do you want to hurt yourself or someone else? Patient reports no desire to harm self or others. Care prior to arrival: Glucose check: 121. 10:17 Method Of Arrival: EMS: [facility] ph 10:17 Acuity: SAGAR 2 ph 10:23 An acute neurological deficit is present. The charge nurse has been notified. sv 10:32 Initial Sepsis Screen: Does the patient meet any 2 criteria? No. Patient's initial sv sepsis screen is negative. Does the patient have a suspected source of infection? No. Patient's initial sepsis screen is negative. Triage Assessment: 10:10 The onset of the patients symptoms was April 05, 2018 at 09:15. General: Appears in sv no apparent distress. comfortable, Behavior is calm, cooperative, appropriate for age. Pain: Denies pain. Neuro: Level of Consciousness is awake, alert, obeys commands, Pt has word salad which is normal for her.. Oriented to person, place, situation, Contact Lens Blocker And Cutter are weak on right Weakness in right arm(s) leg(s) Facial symmetry appears normal, Facial symmetry: tongue is midline, Reports weakness in right arm and right leg. Respiratory: Respiratory effort is even, unlabored, Respiratory pattern is regular, symmetrical. Derm: Skin is normal. Stroke Activation: Symptom onset < 3 hours Physician: Stroke Attending; Name: ; Notified At: ; Arrived At: Physician: Chief Stroke Resident; Name: ; Notified At: ; Arrived At: Physician: Stroke Resident; Name: ; Notified At: ; Arrived At: Physician: ED Attending; Name: Dr Aguirre; Notified At: 10:14; Arrived At: 10:15 Physician: ED Resident; Name: ; Notified At: ; Arrived At: Historical: - Allergies: 10:29 Codeine; ph 10:29 Demerol; ph 10:29 Fosamax; ph 10:29 Ibuprofen; ph 10:29 PROPOXYPHENE; ph 10:29 Talwin NX; ph 10:29 Verapamil; ph - Home Meds: 10:50 acetaminophen 325 mg Oral tab 650 mg every 6 hours for Fever [Active]; Ativan 1 mg Oral ph tab 1 tab every 6 hours for Anxiety [Active]; Cerovite Senior Oral tab daily [Active]; cetirizine 10 mg Oral tab 1 tab once daily [Active]; clonidine HCl 0.1 mg Oral tab every 6 hours for Hypertension [Active]; Cymbalta 30 mg Oral cpDR once daily for Anxiety with Depression [Active]; docusate sodium 100 mg Oral tab 1 tab once daily [Active]; gabapentin 100 mg Oral tab twice a day for Restless Legs Syndrome [Active]; gabapentin 300 mg Oral tab nightly [Active]; hydrocodone-acetaminophen 5-325 mg Oral tab 1 tab every 6 hours for Pain [Active]; Keppra 1,000 mg Oral tab 1 tab every 12 hours for Myoclonic Epilepsy Adjunct Treatment [Active]; lactulose 20 gram/30 mL Oral soln 30 mL twice a day for constipation [Active]; Lasix 20 mg Oral tab 1 tab once daily for EDEMA [Active]; Levothroid 75 mcg Oral tab 1 tab once daily [Active]; Lidoderm 5 % Topical ptmd 1 patch once daily [Active]; loperamide 2 mg Oral tab PRN for diarrhea [Active]; magnesium oxide 400 mg Oral tab daily [Active]; melatonin 3 mg Oral tab nightly [Active]; Milk of Magnesia 400 mg/5 mL Oral susp 15 mL once daily [Active]; Namenda XR 28 mg Oral CSpX 1 cap once daily for Moderate to Severe Alzheimer's Type Dementia [Active]; nitroglycerin 0.4 mg SL subl 1 tab every 5 minutes for Angina [Active]; omeprazole 20 mg Oral cpDR 1 cap once daily [Active]; potassium chloride 10 mEq Oral cpER 1 cap once daily [Active]; rivaroxaban 20 mg Oral 1 tab nightly for Prevention of Deep Vein Thrombosis Recurrence [Active]; Robafen DM 10-100 mg/5 mL Oral syrp 5 mL every 6 hours for Cough [Active]; Toprol XL 100 mg Oral Tb24 once daily for Hypertension [Active]; tramadol 50 mg Oral tab 2 tabs every 12 hours [Active]; - PMHx: 10:29 Anemia; Atrial Fib; CVA (Deficit: slurred speech and weakness); Depression; epilepsy; ph GERD; Hyperlipidemia; Hypothyroidism; insomnia; muscle atrophy; UTI; - Immunization history:: Adult Immunizations up to date, Adult Immunizations unknown. - Social history:: Smoking status: Patient/guardian denies using tobacco, Smoking status: Patient/guardian denies using tobacco. - Ebola Screening: : No symptoms or risks identified at this time. Screenin:31 Abuse screen: Denies threats or abuse. Denies injuries from another. Nutritional sv screening: No deficits noted. Tuberculosis screening: No symptoms or risk factors identified. Fall Risk No fall in past 12 months (0 pts). Secondary diagnosis (15 points) CVA, IV access (20 points). Ambulatory Aid- None/Bed Rest/Nurse Assist (0 pts). Gait- Normal/Bed Rest/Wheelchair (0 pts) Mental Status- Overestimates/Forgets Limitations (15 pts.). Total Dotson Fall Scale indicates High Risk Score (45 or more points). Fall prevention measures have been instituted. Side Rails Up X 2 Placed Close to Nursing Station Frequent Obs/Assessments Occuring As available patient and family educated on Fall Prevention Program and Strategies. Assessment: 10:17 Reassessment: Dr Aguirre at bedside. ph 10:40 Reassessment: Daughter at the bedside. sv 10:40 Patient has been NPO before screening. The patient is alert, and able to follow sv commands. The patient does not exhibit slurred or garbled speech. The patient is exhibiting difficulty speaking. Pt has word salad. The patient does not exhibit difficulty understanding words. The patient is able to swallow own secretions with no drooling or need for suction. Patient tolerated one teaspoon of water. No drooling, immediate coughing, gurgling, or clearing of the throat was noted. The patient tolerated 90mL of water. No drooling, immediate coughing, gurgling, or clearing of the throat was noted. The patient passed the bedside swallow screening. Oral medications may be given as ordered. Contact Physician for further diet orders. Provider notified of bedside swallow screening results: Blane Aguirre MD. 10:40 Reassessment: Unable to do NIH scale. Pt has deficits from her last CVA, pt has word sv salad, right sided weakness arm and leg. 10:47 Reassessment: Dr Aguirre at bedside reevaluating pt and speaking with daughter regarding sv possible TPA. 11:00 Reassessment: Daughter stated that pt does not want to get transferred to [place]. Went sv in to speak with the pt and daughter. Daughter and pt now state that the pt normally lifts her right arm with her left arm as a result of her old CVA. Pt stated that she doesn't feel like her right arm is weaker than normal. Pt now able to wiggle her toes and slightly move her right leg in the bed. Informed Dr Aguirre. 11:18 Reassessment: Confirmed with pt's admission and discharge chart in [facility] that pt is sv on Xarelto. 11:18 T-PA (Activase) Screening: Contraindications: Is the patient on Aspirin, Heparin, or sv Warfarin: Yes. 11:22 Reassessment: Pt and daughter told Dr Aguirre that she now wants to go back to the [place] and sv she can move her right arm. 11:50 Reassessment: [facility] has been called by [facility] to transfer the pt, will sv be about 1.5 hours. 13:01 Reassessment: Pt cleaned of urinary and fecal incontinence. sv Vital Signs: 10:15 BP 148 / 86; Pulse 82; Resp 18; Temp 97.6(TE); Pulse Ox 100% on R/A; Weight 65.77 kg; sv 10:37 BP 139 / 80; Pulse 80; Resp 14; Pulse Ox 99% on R/A; sv 11:30 BP 161 / 91; Pulse 82; Resp 15; Pulse Ox 98% ; sv NIH Stroke Scale Scores: 11:01 NIHSS Score: 7 gs ED Course: 10:08 Maintain EMS IV. Dressing intact. Good blood return noted. Site clean \T\ dry. Pt has sv access to the left upper arm from the longterm for IV antibiotic therapy for a UTI.. 10:10 gambling monitor on. Pulse ox on. NIBP on. Head of bed elevated. sv 10:14 Patient arrived in ED. ph 10:15 ED physician to see patient. sv 10:16 Arlen Barton, RN is Primary Nurse. sv 10:19 Triage completed. ph 10:[address] via stretcher. sv 10:20 Arm band placed on. ph 10:20 Patient has correct armband on for positive identification. Bed in low position. Call sv light in reach. Side rails up X2. 10:20 Initial lab(s) drawn, by me, sent to lab. sv 10:22 Blane Aguirre MD is Attending Physician. gs 10:33 CT Stroke Brain w/o Contrast In Process Unspecified. EDMS 10:34 CT completed. Patient moved back from CT. bq 10:35 [address] back [address]. sv 10:51 EKG done, by ED staff, reviewed by Blane Aguirre MD. em1 10:53 Stroke CXR 1 View In Process Unspecified. EDMS 14:13 No provider procedures requiring assistance completed. IV discontinued, intact, ss bleeding controlled, No redness/swelling at site. Pressure dressing applied. Administered Medications: 11:21 CANCELLED (Patient Refused): Alteplase (Bolus for Stroke) - Activase 0.09 mg/kg IV Thrombolytics once over 1 mins; Max Bolus dose 9 mg. 11:21 CANCELLED (pt refused not candidate): Alteplase IV Thrombolytics at calculated rate Per protocol; 0.9 mg/kg IV (Max: 90 mg); give 10% of the total dose as an IV bolus over 1 minute, then give the remaining 90% as an IV infusion over 60 minutes 11:48 Drug: NS 0.9% 750 ml Route: IV; Rate: 1 bolus; Site: left upper arm; sv 14:15 Follow up: Response: No adverse reaction; IV Status: Completed infusion; IV Intake: sv 750ml Point of Care Testing: Blood Glucose: 10:20 Blood Glucose: 103 mg/dL; sv Ranges: Intake: 14:15 IV: 750ml; Total: 750ml. sv Outcome: 11:31 Discharge ordered by . gs 11:50 Discharged to longterm. Report called to Frank CoxSenior Climate Advisor form completed. sv 11:50 Condition: stable 11:50 Condition: improved 11:50 Discharge instructions given to longterm, Instructed on discharge instructions, follow up and referral plans. Demonstrated understanding of instructions, follow-up care. 14:15 Patient left the ED. NIH Stroke Scale - NIH Stroke Score Date: 04/05/2018 Time: 11:01 Total Score = 7 1a. Level of Consciousness (LOC) - 0(Alert) 1b. Level of Consciousness (LOC) (Year \T\ Age) - 0(Both) 1c. LOC Commands (Open \T\ Closes Eyes/Clinical Therapist) - 0(Both) 2. Best Gaze (Lateral Gaze Paresis) - 0(Normal) 3. Visual Field Loss - 0(No visual loss) 4. Facial Palsy - 0(Normal) 5a. Left Arm: Motor (10-second hold) - 0(No drift) 5b. Right Arm: Motor (10-second hold) - 2(Drift, some effort against gravity) 6a. Left Leg: Motor (5-second hold - always test supine) - 0(No drift) 6b. Right Leg: Motor (5-second hold - always test supine) - 4(No movement) 7. Limb Ataxia (finger/nose \T\ heel/louis - test with eyes open) - 0(Absent) 8. Sensory Loss (pinprick arms/legs/face) - 0(Normal) 9. Best Language: Aphasia (description/naming/reading) - 0(No aphasia) 10. Dysarthria (speech clarity - read or repeat words) - 1(Mild to Moderate) 11. Extinction and Inattention (visual/tactile/auditory/spatial/personal) - 0(No abnormality) Initials: Signatures: Dispatcher [employer] EDMS Arlen Barton RN RN Joaquina Cheema Eric em1 Dana Santos RN RN Tania Casas RN RN ph Carla, MD MODESTO Arguelles Corrections: (The following items were deleted from the chart) 10:25 10:17 Presenting complaint: EMS states: R sided weakness in arm and leg that sv began at approx 0915 this morning ph 10:49 10:47 Reassessment: Dr Aguirre at bedside reevaluating pt sv sv 11:00 10:15 BP 148 / 86; Pulse 82bpm; Resp 18bpm; Pulse Ox 100% RA; Temp 97.6F sv Temporal; 72.57 kg; ph
[2018-04-05] MEDS ORDERED: NA CHLORIDE 0.9% 1,000 ML ONE (11:50)
[2018-04-05 14:28] VITALS: BP 161/91; O2SAT 98
--- NOTE | 2018-04-05 16:26 | EKG ---
Test Date: 2018-04-05 Test Time: 10:42:56 [employer] Teacher: TIM MEASUREMENT RESULTS: Intervals: Rate: 82 NC: QRSD: 166 QT: 446 QTc: 521 [place]: P: NC: QRS: -79 T: 101 INTERPRETIVE STATEMENTS: Ventricular-paced rhythm Abnormal ECG Compared to ECG 04/01/2018 13:04:12 No significant changes Electronically Signed On 04-05-18 16:25:37 RESTAURANT ASSOCIATE by Christoph Pratt
== END 2018-04-05 14:15 | disposition home or self-care (01) ==
LOC: ER 10:18
DX: G45.9 Transient cerebral ischemic attack, unspecified (principal); I10 Essential (primary) hypertension; E03.9 Hypothyroidism, unspecified; E78.5 Hyperlipidemia, unspecified; I48.91 Unspecified atrial fibrillation; F32.9 Major depressive disorder, single episode, unspecified; G40.909 Epilepsy, unspecified, not intractable, without status epilepticus; K21.9 Gastro-esophageal reflux disease without esophagitis; R29.707 NIHSS score 7; Z88.5 Allergy status to narcotic agent; Z88.6 Allergy status to analgesic agent; Z88.8 Allergy status to other drugs, medicaments and biological substances
CPT/HCPCS: 36415; 70450; 71045; 80048; 82962; 85025; 85610; 85730; 93005; 96360; 96361; 99285; J7030; J2997

== ENCOUNTER 2021-07-23 21:16 | Emergency (ER) | payer OTHER ==
--- OUTSIDE RECORDS SUMMARY | 2021-07-23 21:19 | XMS REPORT | Continuity of Care Document ---
:1935 Author Organization [facility] t Address [facility] [address] [place] [address] Care Team Providers Name Role Phone GABRIELLA Attending Clinician Unavailable GABRIELLA Admitting Clinician Unavailable Problems This patient has no known problems. Allergies, Adverse Reactions, Alerts This patient has no known allergies or adverse reactions. Medications This patient has no known medications. Procedures This patient has no known procedures. Encounters Start End Encounter Admission Attending Care Care Encounter Source Date/Time Date/Time Type Type Clinicians Facility Department ID 2021-05-25 2021-05-25 Outpatient GABRIELLA, [facility] 083 [id number] 00:00:00 00:00:00 NADIM [address] 2021-05-24 2021-05-24 Outpatient GABRIELLA, [facility] [id number] 00:00:00 00:00:00 NADIM [address] Results Test Description Test Time Test Comments Results Result Comments Source SARS-CoV-2 (COVID-19) RNA [Presence] in Respiratory sp ecimen by 2021-05-24 14:49:15 JOHANNE with probe detection Test Item Value Reference Range Interpretation Comme nts SARS-CoV-2 (COVID-19) RNA [Presence] in Respiratory specimen by Not detected JOHANNE with probe detection (test code = 06621-4) Whether patient is employed in a healthcare setting (test code = Un known 73793-6) Whether the patient has symptoms related to condition of interest U nknown (test code = 37706-1) Whether the patient was hospitalized for condition of interest Unkn own (test code = 45917-6) Whether the patient was admitted to intensive care unit (ICU) for U nknown condition of interest (test code = 46645-5) Whether patient resides in a congregate care setting (test code = U nknown 59322-2) status (test code = 59560-6) Unknown Date and time of symptom onset (test code = 25295-8) Unknown SARS-CoV-2 (COVID-19) RNA [Presence] in Respiratory specimen by JOHANNE with probe [id number] 14:49:15 Test Item Value Reference Range Interpretation Comments SARS coronavirus RNA [Presence] Not detected in Isolate by JOHANNE with probe detection (test code = 40046-6) Whether patient is employed in a Unknown healthcare setting (test code = 85001-3) Whether the patient has symptoms Unknown related to condition of interest (test code = 00489-4) Whether the patient was Unknown hospitalized for condition of interest (test code = 05687-8) Whether the patient was admitted Unknown to intensive care unit (ICU) for condition of interest (test code = 29367-3) Whether patient resides in a Unknown congregate care setting (test code = 85943-2) status (test code = Unknown 59109-7) Date and time of symptom onset Unknown (test code = 90291-0)
[2021-07-23 21:40] LABS: Absolute Lymphocytes (CBC) 0.9 K/uL (0.7-4.9); Hematocrit 42.1 % (36.0-45.0); Lymphocytes % 12.5 % (15.3-44.8); MPV 8.8 fL (7.6-11.3); RBC Red Blood Cell Count 4.76 M/uL (3.86-4.86)
[2021-07-23 21:44] LABS: Protime INR 1.55
[2021-07-23] MEDS ORDERED: MORPHINE 4 MG/ML SYR ONE (21:44)
[2021-07-23] MEDS ORDERED: ONDANSETRON 4 MG/2 ML VIAL ONE (21:45)
[2021-07-23] MEDS ORDERED: NA CHLORIDE 0.9% 1,000 ML ONE (21:45)
[2021-07-23 21:59] LABS: Albumin 3.9 g/dL (3.4-5.0); Bilirubin Direct 0.2 mg/dL (0-0.2); Bilirubin Total 0.7 mg/dL (0.2-1.0); Magnesium 2.1 mg/dL (1.8-2.4); Potassium 4.3 mmol/L (3.5-5.1); Protein, Total 7.9 g/dL (6.4-8.2); Troponin High Sensitivity 24.6 pg/mL (<58.9)
[2021-07-23 22:13] LABS: Urine Blood 1+ (Negative); Urine Glucose Negative (Negative); Urine Protein Negative (Negative); Urine Specific Gravity 1.015 (1.005-1.030); Urine pH 5.5 (5.0-7.0)
--- NOTE | 2021-07-23 22:14 | EDPHYS ---
Physician Documentation [facility] Name: Padma Carrillo Age: 86 yrs Sex: Female : 1935 Arrival Date: 07/23/2021 Time: 21:18 Bed 7 Private MD: KHRIS Physician Cristhian Deshpande HPI: 07/23 22:03 This 86 yrs old Unknown Female presents to ER via EMS with complaints of fall this gertrude morning, right distal femur fracture. 22:03 The patient presents with decreased range of motion, pain. The complaints affect the [facility] lateral aspect of right knee and right knee. Context: The problem was sustained at a [facility] or assisted living facility, resulted from the patient falling. Onset: The symptoms/episode began/occurred 1 day(s) ago. Modifying factors: The symptoms are alleviated by nothing. remaining still, the symptoms are aggravated by movement. Associated signs and symptoms: The patient has no apparent associated signs or symptoms. Treatment prior to arrival includes: no previous treatment. Severity of symptoms: At their worst the symptoms were moderate, in the emergency department the symptoms are unchanged. The patient has not experienced similar symptoms in the past. Historical: - Allergies: 21:23 Codeine; as6 21:23 Propoxyphene; as6 21:23 Verapamil; as6 21:23 Fosamax; as6 21:23 Talwin NX; as6 - Home Meds: 21:23 acetaminophen 325 mg Oral tab 650 mg every 6 hours for Fever [Active]; Ativan 1 mg Oral as6 tab 1 tab every 6 hours for Anxiety [Active]; Cerovite Senior Oral tab daily [Active]; cetirizine 10 mg Oral tab 1 tab once daily [Active]; clonidine HCl 0.1 mg Oral tab every 6 hours for Hypertension [Active]; Cymbalta 30 mg Oral cpDR once daily for Anxiety with Depression [Active]; docusate sodium 100 mg Oral tab 1 tab once daily [Active]; gabapentin 100 mg Oral tab twice a day for Restless Legs Syndrome [Active]; gabapentin 300 mg Oral tab nightly [Active]; hydrocodone-acetaminophen 5-325 mg Oral tab 1 tab every 6 hours for Pain [Active]; Keppra 1,000 mg Oral tab 1 tab every 12 hours for Myoclonic Epilepsy Adjunct Treatment [Active]; lactulose 20 gram/30 mL Oral soln 30 mL twice a day for constipation [Active]; Lasix 20 mg Oral tab 1 tab once daily for EDEMA [Active]; Levothroid 75 mcg Oral tab 1 tab once daily [Active]; Lidoderm 5 % Topical ptmd 1 patch once daily [Active]; loperamide 2 mg Oral tab PRN for diarrhea [Active]; magnesium oxide 400 mg Oral tab daily [Active]; melatonin 3 mg Oral tab nightly [Active]; Milk of Magnesia 400 mg/5 mL Oral susp 15 mL once daily [Active]; Namenda XR 28 mg Oral CSpX 1 cap once daily for Moderate to Severe Alzheimer's Type Dementia [Active]; nitroglycerin 0.4 mg SL subl 1 tab every 5 minutes for Angina [Active]; omeprazole 20 mg Oral cpDR 1 cap once daily [Active]; potassium chloride 10 mEq Oral cpER 1 cap once daily [Active]; Robafen DM 10-100 mg/5 mL Oral syrp 5 mL every 6 hours for Cough [Active]; rivaroxaban 20 mg Oral 1 tab nightly for Prevention of Deep Vein Thrombosis Recurrence [Active]; Toprol XL 100 mg Oral Tb24 once daily for Hypertension [Active]; tramadol 50 mg Oral tab 2 tabs every 12 hours [Active]; - PMHx: 21:23 Anemia; Atrial Fib; CVA (Deficit: slurred speech and weakness); Depression; epilepsy; as6 GERD; Hyperlipidemia; Hypothyroidism; insomnia; muscle atrophy; UTI; - Immunization history:: Adult Immunizations up to date. - Social history:: Smoking status: unknown. - Immunization history: Last tetanus immunization: unknown. ROS: 22:03 Constitutional: Negative for fever, chills, and weight loss, Eyes: Negative for injury, gertrude pain, redness, and discharge, ENT: Negative for injury, pain, and discharge, Neck: Negative for injury, pain, and swelling, Cardiovascular: Negative for chest pain, palpitations, and edema, Respiratory: Negative for shortness of breath, cough, wheezing, and pleuritic chest pain, Abdomen/GI: Negative for abdominal pain, nausea, vomiting, diarrhea, and constipation, Back: Negative for injury and pain, : Negative for injury, bleeding, discharge, and swelling, Skin: Negative for injury, rash, and discoloration, Neuro: Negative for headache, weakness, numbness, tingling, and seizure, Psych: Negative for depression, anxiety, suicide ideation, homicidal ideation, and hallucinations, Allergy/Immunology: Negative for hives, rash, and allergies, Endocrine: Negative for neck swelling, polydipsia, polyuria, polyphagia, and marked weight changes, Hematologic/Lymphatic: Negative for swollen nodes, abnormal bleeding, and unusual bruising. 22:03 Constitutional: Positive for 22:03 MS/extremity: Positive for decreased range of motion, pain, swelling, tenderness, of the lateral aspect of right knee and right knee. Exam: 22:03 Constitutional: This is a well developed, well nourished patient who is awake, alert, gertrude and in no acute distress. Head/Face: Normocephalic, atraumatic. Eyes: Pupils equal round and reactive to light, extra-ocular motions intact. Lids and lashes normal. Conjunctiva and sclera are non-icteric and not injected. Cornea within normal limits. Periorbital areas with no swelling, redness, or edema. ENT: Nares patent. No nasal discharge, no septal abnormalities noted. Tympanic membranes are normal and external auditory canals are clear. Oropharynx with no redness, swelling, or masses, exudates, or evidence of obstruction, uvula midline. Mucous membranes moist. Neck: Trachea midline, no thyromegaly or masses palpated, and no cervical lymphadenopathy. Supple, full range of motion without nuchal rigidity, or vertebral point tenderness. No Meningismus. Chest/axilla: Normal chest wall appearance and motion. Nontender with no deformity. No lesions are appreciated. Cardiovascular: Regular rate and rhythm with a normal S1 and S2. No gallops, murmurs, or rubs. Normal PMI, no JVD. No pulse deficits. Respiratory: Lungs have equal breath sounds bilaterally, clear to auscultation and percussion. No rales, rhonchi or wheezes noted. No increased work of breathing, no retractions or nasal flaring. Abdomen/GI: Soft, non-tender, with normal bowel sounds. No distension or tympany. No guarding or rebound. No evidence of tenderness throughout. Back: No spinal tenderness. No costovertebral tenderness. Full range of motion. Female : Normal external genitalia. Skin: Warm, dry with normal turgor. Normal color with no rashes, no lesions, and no evidence of cellulitis. Neuro: Awake and alert, GCS 15, oriented to person, place, time, and situation. Cranial nerves II-XII grossly intact. Motor strength 5/5 in all extremities. Sensory grossly intact. Cerebellar exam normal. Normal gait. Psych: Awake, alert, with orientation to person, place and time. Behavior, mood, and affect are within normal limits. 22:03 Musculoskeletal/extremity: ROM: limited active range of motion due to pain, limited passive range of motion due to pain, Circulation is intact in all extremities. Sensation intact. Compartment Syndrome exam of affected extremity: is normal. DVT Exam: No signs of deep vein thrombosis. negative Homans' sign noted on exam, no appreciated bluish discoloration, no erythema, no increased warmth, pain, swelling, tenderness, that is moderate, of the right leg, of the lateral aspect of right knee and right knee. 22:19 ECG was reviewed by the Attending Physician. [facility] Vital Signs: 21:18 BP 120 / 81; Pulse 71 MON; Resp 18 S; Temp 97.5; Pulse Ox 97% on R/A; Weight 72.57 kg; as6 22:00 BP 115 / 91; Pulse 72; Resp 18 S; Pulse Ox 100% on R/A; as6 22:55 BP 95 / 68; Pulse 70; Resp 18 S; Pulse Ox 96% on 2 lpm NC; as6 Judy Coma Score: 23:06 Eye Response: spontaneous(4). Verbal Response: confused(4). Motor Response: obeys as6 commands(6). Total: 14. Trauma Score (Adult): 23:06 Eye Response: spontaneous(1); Verbal Response: confused(1); Motor Response: obeys as6 commands(2); Systolic BP: > 89 mm Hg(4); Respiratory Rate: 10 to 29 per min(4); Heath Score: 14; Trauma Score: 12 Procedures: 23:11 Splinting: Splint applied to right knee using Orthoglass splint, applied by myself. gertrude tech. Examined by me, post splint application: neurovascular intact, 2+ distal pulses palpable, brisk capillary refill noted, Patient tolerated well. Pleitez cath inserted by myself - 16 Fr. Urine output = 200 ml's. MDM: 21:20 Patient medically screened. [facility] 22:10 Differential diagnosis: closed fracture. Data reviewed: vital signs, nurses notes, lab gertrude test result(s), EKG, radiologic studies, plain films. Data interpreted: awake overnight monitor: rate is 71 beats/min, rhythm is regular, Pulse oximetry: on room air is 97 %. Test interpretation: by ED physician or midlevel provider: ECG, plain radiologic studies. Counseling: I had a detailed discussion with the patient and/or guardian regarding: the historical points, exam findings, and any diagnostic results supporting the discharge/admit diagnosis, lab results, radiology results, the need to transfer to another facility, for higher level of care, [facility] does not immediately have the required specialist, family choice. 07/23 21:22 Order name: Basic Metabolic Panel; Complete Time: 22:17 [facility] 07/23 21:22 Order name: CBC with Diff; Complete Time: 22:17 [facility] 07/23 21:22 Order name: LFT's; Complete Time: 22:17 [facility] 07/23 21:22 Order name: Magnesium; Complete Time: 22:17 [facility] 07/23 21:22 Order name: NT PRO-BNP; Complete Time: 22:17 [facility] 07/23 21:22 Order name: PT-INR; Complete Time: 22:17 [facility] 07/23 21:22 Order name: Troponin HS; Complete Time: 22:17 [facility] 07/23 21:22 Order name: XRAY Chest (1 view) [facility] 07/23 21:22 Order name: Femur Right XRAY [facility] 07/23 21:22 Order name: SARS-COV-2 RT PCR (Document "Date of Onset" if Symptomatic); Complete Time: [facility] 22:35 07/23 22:14 Order name: Urine Dipstick-Ancillary; Complete Time: 22:17 [facility] 07/23 22:15 Order name: Urine Microscopic Only; Complete Time: 22:35 mw 07/23 22:31 Order name: Urine Culture [facility] 07/23 21:22 Order name: EKG; Complete Time: 21:23 [facility] 07/23 21:22 Order name: Cardiac monitoring; Complete Time: 22:05 [facility] 07/23 21:22 Order name: EKG - Nurse/Tech; Complete Time: 22:05 [facility] 07/23 21:22 Order name: IV Saline Lock; Complete Time: 22:05 [facility] 07/23 21:22 Order name: Labs collected and sent; Complete Time: 22:05 [facility] 07/23 21:22 Order name: O2 Per Protocol; Complete Time: 22:05 [facility] 07/23 21:22 Order name: O2 Sat Monitoring; Complete Time: 22:05 [facility] 07/23 21:22 Order name: Pleitez; Complete Time: 22:05 [facility] 07/23 21:22 Order name: Urine Dipstick-Ancillary (obtain specimen); Complete Time: 22:24 [facility] 07/23 22:02 Order name: Splint; Complete Time: 22:53 [facility] EC:19 Rate is 72 beats/min. Rhythm is regular. QRS [place] is Normal. MO interval is normal. QRS gertrude interval is normal. QT interval is normal. No Q waves. T waves are Normal. No ST changes noted. Clinical impression: Abnormal EKG without significant change. Interpreted by me. Reviewed by me. Administered Medications: 22:05 Drug: NS 0.9% 1000 ml Route: IV; Rate: 125 ml/hr; Site: left antecubital; kd3 22:05 Drug: morphine 4 mg Route: IVP; Site: left antecubital; kd3 22:53 Follow up: Response: No adverse reaction; RASS: Alert and Calm (0) as6 22:06 Drug: Zofran (Ondansetron) 4 mg Route: IVP; Site: left antecubital; kd3 22:53 Follow up: Response: No adverse reaction as6 22:42 Drug: Keppra (levETIRAcetam) 500 mg Route: IV; Rate: per protocol; Site: left as6 antecubital; 22:54 Follow up: Response: No adverse reaction; IV Status: Completed infusion; IV Intake: [id number] 22:46 Drug: Meropenem 1 grams Route: IV; Rate: per protocol; Site: left antecubital; as6 23:36 Follow up: Response: No adverse reaction; IV Status: Completed infusion; IV Intake: as6 100ml Disposition Summary: 07/23/21 22:14 Transfer Ordered Transfer Location: [facility] Reason: Higher level of care gertrude Condition: Stable gertrude Problem: new gertrude Symptoms: have improved gertrude Accepting Physician: [facility](07/23/21 23:37) as6 Diagnosis - UTI/ Urinary tract infection, site not specified gertrude - Dementia in other diseases classified elsewhere without behavioral disturbance gertrude - Fall on same level, unspecified gertrude - Fracture of shaft of femur - periprosthetic gertrude - Unspecified kidney failure - chronic gertrude Forms: - Medication Reconciliation Form gertrude - SBAR form gertrude Signatures: Dispatcher [employer] EDCristhian Currie MD MD cha Slawson, Ashby RN RN as6 Monisha Meraz RN RN kd3 Corrections: (The following items were deleted from the chart) 22:28 22:14 to [facility] gertrude loredo 22:53 21:22 Knee Immobilizer ordered. gertrude as6 23:37 22:28 to [facility] gertrude as6
--- NOTE | 2021-07-23 22:14 | ER ---
Nurse's Notes [facility] Name: Padma Carrillo Age: 86 yrs Sex: Female : 1935 Arrival Date: 07/23/2021 Time: 21:18 Bed 7 Private MD: Diagnosis: UTI/ Urinary tract infection, site not specified;Dementia in other diseases classified elsewhere without behavioral disturbance;Fall on same level, unspecified;Fracture of shaft of femur-periprosthetic;Unspecified kidney failure-chronic Presentation: 07/23 21:18 Chief complaint: EMS states: pt had a fall in bathroom earlier today, skilled nursing did as6 x-ray, results came back positive for right femur fracture. Coronavirus screen: At this time, the client does not indicate any symptoms associated with coronavirus-19. Ebola Screen: No symptoms or risks identified at this time. Initial Sepsis Screen: Does the patient meet any 2 criteria? No. Patient's initial sepsis screen is negative. Does the patient have a suspected source of infection? No. Patient's initial sepsis screen is negative. Risk Assessment: Do you want to hurt yourself or someone else? Patient reports no desire to harm self or others. Onset of symptoms was July 23, 2021. 21:18 Method Of Arrival: EMS: [facility] as6 21:18 Acuity: SAGAR 3 as6 23:04 Care prior to arrival: None. Mechanism of Injury: Fall out of chair. Trauma event as6 details: Injury occurred in the [facility], Injury occurred: at home. Triage Assessment: 23:36 General: Appears in no apparent distress. uncomfortable, Behavior is calm, cooperative. as6 Pain: Complains of pain in right leg. Trauma Activation: Alert Physician: ED Physician; Name: ; Notified At: ; Arrived At: Physician: General Surgeon; Name: ; Notified At: ; Arrived At: Physician: Radiology; Name: ; Notified At: ; Arrived At: Physician: Respiratory; Name: ; Notified At: ; Arrived At: Physician: Lab; Name: ; Notified At: ; Arrived At: Historical: - Allergies: 21:23 Codeine; as6 21:23 Propoxyphene; as6 21:23 Verapamil; as6 21:23 Fosamax; as6 21:23 Talwin NX; as6 - Home Meds: 21:23 acetaminophen 325 mg Oral tab 650 mg every 6 hours for Fever [Active]; Ativan 1 mg Oral as6 tab 1 tab every 6 hours for Anxiety [Active]; Cerovite Senior Oral tab daily [Active]; cetirizine 10 mg Oral tab 1 tab once daily [Active]; clonidine HCl 0.1 mg Oral tab every 6 hours for Hypertension [Active]; Cymbalta 30 mg Oral cpDR once daily for Anxiety with Depression [Active]; docusate sodium 100 mg Oral tab 1 tab once daily [Active]; gabapentin 100 mg Oral tab twice a day for Restless Legs Syndrome [Active]; gabapentin 300 mg Oral tab nightly [Active]; hydrocodone-acetaminophen 5-325 mg Oral tab 1 tab every 6 hours for Pain [Active]; Keppra 1,000 mg Oral tab 1 tab every 12 hours for Myoclonic Epilepsy Adjunct Treatment [Active]; lactulose 20 gram/30 mL Oral soln 30 mL twice a day for constipation [Active]; Lasix 20 mg Oral tab 1 tab once daily for EDEMA [Active]; Levothroid 75 mcg Oral tab 1 tab once daily [Active]; Lidoderm 5 % Topical ptmd 1 patch once daily [Active]; loperamide 2 mg Oral tab PRN for diarrhea [Active]; magnesium oxide 400 mg Oral tab daily [Active]; melatonin 3 mg Oral tab nightly [Active]; Milk of Magnesia 400 mg/5 mL Oral susp 15 mL once daily [Active]; Namenda XR 28 mg Oral CSpX 1 cap once daily for Moderate to Severe Alzheimer's Type Dementia [Active]; nitroglycerin 0.4 mg SL subl 1 tab every 5 minutes for Angina [Active]; omeprazole 20 mg Oral cpDR 1 cap once daily [Active]; potassium chloride 10 mEq Oral cpER 1 cap once daily [Active]; Robafen DM 10-100 mg/5 mL Oral syrp 5 mL every 6 hours for Cough [Active]; rivaroxaban 20 mg Oral 1 tab nightly for Prevention of Deep Vein Thrombosis Recurrence [Active]; Toprol XL 100 mg Oral Tb24 once daily for Hypertension [Active]; tramadol 50 mg Oral tab 2 tabs every 12 hours [Active]; - PMHx: 21:23 Anemia; Atrial Fib; CVA (Deficit: slurred speech and weakness); Depression; epilepsy; as6 GERD; Hyperlipidemia; Hypothyroidism; insomnia; muscle atrophy; UTI; - Immunization history:: Adult Immunizations up to date. - Social history:: Smoking status: unknown. - Immunization history: Last tetanus immunization: unknown. Screenin:56 Abuse screen: Denies threats or abuse. Denies injuries from another. Nutritional as6 screening: No deficits noted. Tuberculosis screening: No symptoms or risk factors identified. Fall Risk Fall in past 12 months (25 points). Secondary diagnosis (15 points) Alzheimer's, IV access (20 points). Total Dotson Fall Scale indicates High Risk Score (45 or more points). Fall prevention measures have been instituted. Side Rails Up X 2 Frequent Obs/Assessments Occuring As available patient and family educated on Fall Prevention Program and Strategies. Primary Survey: 23:35 NO uncontrolled hemorrhage observed. A: The client is awake and alert. The airway is as6 patent. Breathing/Chest: Spontaneous respiratory effort, equal unlabored respirations, breath sounds clear bilaterally, regular pattern, symmetrical chest rise and fall. Circulation: No external hemorrhage present. Regular and strong central pulse, skin warm/dry/normal color. Disability Client is alert. Exposure/Environment: A warming method has been applied: A warm blanket has been provided to the patient. Reassessment Alertness and Airway: Awake and alert. The airway is patent. Breathing: Spontaneous respiratory effort, equal unlabored respirations, breath sounds clear bilaterally, regular pattern with symmetrical chest rise and fall. Circulation: No external hemorrhage noted. Regular and strong central pulse, skin warm/dry/normal color. Disability: Alert. Assessment: 22:36 Reassessment: report called to Jaleesa TURNER at [facility]. bb 22:45 Reassessment: [facility] at bedside for transport of pt to [facility]. Pt is bb resting quietly, eyes closed, resp unlabored, IV site intact, patent with fluids infusing, camacho catheter in place. Vital Signs: 21:18 BP 120 / 81; Pulse 71 MON; Resp 18 S; Temp 97.5; Pulse Ox 97% on R/A; Weight 72.57 kg; as6 22:00 BP 115 / 91; Pulse 72; Resp 18 S; Pulse Ox 100% on R/A; as6 22:55 BP 95 / 68; Pulse 70; Resp 18 S; Pulse Ox 96% on 2 lpm NC; as6 Warren Coma Score: 23:06 Eye Response: spontaneous(4). Verbal Response: confused(4). Motor Response: obeys as6 commands(6). Total: 14. Trauma Score (Adult): 23:06 Eye Response: spontaneous(1); Verbal Response: confused(1); Motor Response: obeys as6 commands(2); Systolic BP: > 89 mm Hg(4); Respiratory Rate: 10 to 29 per min(4); Warren Score: 14; Trauma Score: 12 ED Course: 21:18 Patient arrived in ED. as6 21:20 Cristhian Deshpande MD is Attending Physician. [facility] 21:23 Triage completed. as6 21:29 Alec Vieira, YUE is Primary Nurse. as6 22:00 Urine collected: Camacho catheter specimen, cloudy. bb 22:04 initiated a transfer with Caryn Rivera from [facility]. [facility] 22:10 administrative approval given by Caryn Rivera/ patient has been accepted to [address] to the ER/ Dr. Dave accepted the patient in transfer/report to be called to [phone]. 22:29 XRAY Chest (1 view) In Process Unspecified. EDMS 22:29 Femur Right XRAY In Process Unspecified. EDMS 23:03 Arm band placed on. as6 23:04 Oxygen administration via nasal cannula \T\ 2L/min Response to oxygen therapy: symptoms as6 improved. 23:04 Thermoregulation: warm blanket given to patient. as6 23:05 No provider procedures requiring assistance completed. Patient transferred, IV remains as6 in place. Orthoglass splint: Posterior long leg splint applied on right leg. 23:06 Bed in low position. Call light in reach. Side rails up X2. Client placed on continuous as6 cardiac and pulse oximetry monitoring. NIBP monitoring applied. Warm blanket given. Administered Medications: 22:05 Drug: NS 0.9% 1000 ml Route: IV; Rate: 125 ml/hr; Site: left antecubital; kd3 22:05 Drug: morphine 4 mg Route: IVP; Site: left antecubital; kd3 22:53 Follow up: Response: No adverse reaction; RASS: Alert and Calm (0) as6 22:06 Drug: Zofran (Ondansetron) 4 mg Route: IVP; Site: left antecubital; kd3 22:53 Follow up: Response: No adverse reaction as6 22:42 Drug: Keppra (levETIRAcetam) 500 mg Route: IV; Rate: per protocol; Site: left as6 antecubital; 22:54 Follow up: Response: No adverse reaction; IV Status: Completed infusion; IV Intake: [id number] 22:46 Drug: Meropenem 1 grams Route: IV; Rate: per protocol; Site: left antecubital; as6 23:36 Follow up: Response: No adverse reaction; IV Status: Completed infusion; IV Intake: as6 100ml Intake: 22:54 IV: 50ml; Total: 50ml. as6 23:06 IV: 350ml (IV Fluid); Total: 400ml. as6 23:36 IV: 100ml; Total: 500ml. as6 Output: 23:06 Urine: 200ml (Camacho); Total: 200ml. as6 Outcome: 22:14 ER care complete, transfer ordered by MD. loredo 23:03 Transferred by ground EMS to [facility], Transfer form completed. X-rays sent as6 w/ patient. 23:03 Condition: stable 23:03 Patient's length of stay in the Emergency Department was greater than 2 hours. pending transfer Patient's length of stay extended due to 23:37 Patient left the ED. as6 Signatures: Dispatcher [employer] EDMS Cristhian Deshpande MD MD cha Ballard, Brenda, RN RN bb [place], MyKena [facility] Alec Vieira RN RN as6 Monisha Meraz RN RN kd3
[2021-07-23 22:29] LABS: Urine Bacteria 20-50 /HPF (<20); Urine Mucus 2+ /HPF (NONE SEEN)
[2021-07-23] MEDS ORDERED: Meropenem 1000 MG/VIAL IV ONE (22:39)
[2021-07-23] MEDS ORDERED: NA CHLORIDE 0.9% 50 ML ONE (22:40)
[2021-07-23] MEDS ORDERED: LEVETIRACETAM 500 MG/5 ML VIAL IV ONE (22:40)
[2021-07-23] MEDS ORDERED: NA CHLORIDE 0.9% 100 ML IV ONE (22:40)
[2021-07-23 23:42] VITALS: TEMP 97.5
[2021-07-23 23:44] VITALS: BP 95/68; O2SAT 96
--- NOTE | 2021-07-24 10:50 | EKG ---
Test Date: 2021-07-23 Test Time: 21:26:45 Nanotechnology Engineering Technologist: STACIE MEASUREMENT RESULTS: Intervals: Rate: 72 SC: QRSD: 178 QT: 464 QTc: 508 Berry: P: SC: QRS: -69 T: 99 INTERPRETIVE STATEMENTS: paced rhythm Left axis deviation Left bundle branch block Abnormal ECG Electronically Signed On 07-24-21 10:49:57 CDT by Isreal Donaldson
--- NOTE | 2021-07-24 20:11 | RAD REPORT ---
EXAM DESCRIPTION: Chest Single View RadLex: XR CHEST 1 VIEW CLINICAL HISTORY: COUGH. COMPARISON: None. TECHNIQUE: Single view AP chest radiograph(s). FINDINGS: No focal infiltrate identified. Incidentally noted azygos fissure. Tracheobronchial tree c alcifications. No pleural effusion. No pneumothorax. Mild cardiomegaly. Partially imaged dual-chamber pacemaker. No significant osseous abnormality. IMPRESSION: No acute cardiopulmonary abnormality identified by radiograph. Chronic findings, as desc ribed. Electronically signed by: Asmita Castillo MD 07/23/2021 10:38 PM CDT Due to temporary technical issues with the PACS/Fluency reporting system, reports are being signed by the in house radiologists without review as a courtesy to insure prompt reporting. The interpreting radiologist is fully responsible for the content of the report.
--- NOTE | 2021-07-24 20:13 | RAD REPORT ---
EXAM DESCRIPTION: Femur Right RadLex: XR FEMUR 2 VIEWS CLINICAL HISTORY: PAIN Femur Right. COMPARISON: None. TECHNIQUE: Two views of the right femur: AP and lateral radiographs. FINDINGS: There is an acute mildly angulated fracture in the distal femoral shaft, just above the fe moral component of the total knee arthroplasty. There is mild apex anterior angulation at the fractur e site, and minimal impaction. 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 Osteopenia. Moderate calcific atherosclerosis. IMPRESSION: 1. Acute mildly angulated fracture in the distal femoral shaft. 2. Total hip and knee arthroplasties. Electronically signed by: Asmita Castillo MD 07/23/2021 10:40 PM CDT Due to temporary technical issues with the PACS/Fluency reporting system, reports are being signed by the in house radiologists without review as a courtesy to insure prompt reporting. The interpreting radiologist is fully responsible for the content of the report.
== END 2021-07-23 23:37 | disposition short-term general hospital (02) ==
LOC: ER 21:16
PROC: 2W3LX1Z Immobilization of Right Lower Extremity using Splint (ICD-10-PCS; principal; 2021-07-23)
DX: S72.301A Unspecified fracture of shaft of right femur, initial encounter for closed fracture (principal); M97.11XA Periprosthetic fracture around internal prosthetic right knee joint, initial encounter; W18.30XA Fall on same level, unspecified, initial encounter; Y92.099 Unspecified place in other non-institutional residence as the place of occurrence of the external cause; N39.0 Urinary tract infection, site not specified; N18.9 Chronic kidney disease, unspecified; F03.90 Unspecified dementia, unspecified severity, without behavioral disturbance, psychotic disturbance, mood disturbance, and anxiety; I48.91 Unspecified atrial fibrillation; Z79.01 Long term (current) use of anticoagulants; Z88.5 Allergy status to narcotic agent; Z88.8 Allergy status to other drugs, medicaments and biological substances; Z20.822 Contact with and (suspected) exposure to COVID-19
CPT/HCPCS: 93005; 87088; 85025; 87086; 80048; 36415; 83735; 85610; 80076; 84484; 83880; 71045; 73552; 29505; U0003; J2185; J1953; J7030; J2405; 51702; 81003; 81015; 96365; 96375; 99285

== ENCOUNTER 2022-02-25 11:22 | Inpatient (IN) | payer OTHER ==
--- OUTSIDE RECORDS SUMMARY | 2022-02-25 11:28 | XMS REPORT | Continuity of Care Document ---
:[address] [facility] t Address [address] [place] [address] Care Team Providers Name Role Phone Provider MD, Not In System Primary Care Physician Unavailabl e Pcp, Patient Does Not Have A Attending Clinician [phone] ALIRIO STANLEY Attending Clinician Unavailable Alirio Stanley Attending Clinician MIKE REYES Attending Clinician Unavailable Sherry Michel MD Attending Clinician Eyal Moreno MD, V. Attending Clinician Joel Mendoza CRNA Attending Clinician ANMOL MEYERS Admitting Clinician Unavailable Anmol Meyers Admitting Clinician SHERRY MICHEL Admitting Clinician Unavailable Payers Payer Name Policy Type Policy Number Effective Date Expiration Date Josias [place] [id number] 2016 STARPLUS OON EXC 00:00:00 HHS Problems Condition Condition Condition Status Onset Resolution Last Treating Co mments Source Name Details Category Date Date Treatment Clinician Date RT DISTAL RT DISTAL Diagnosis Active 2021-08-13 Memoria PERIPROSTH PERIPROSTH 07-23 21:44:00 l ETIC FEMUR ETIC FEMUR 00:00: He rmann FX FX Active 00 07/23/2021 [facility] Encounter Encounter Disease Active Met kenna for for 3-04 st pacemaker pacemaker 00:00: Hosp bib at end of at end of 00 l battery battery life life 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 00:00: Hospita 00 l Atrial Atrial Problem Active 2021-08-06 Miguel roe fibrillati fibrillati 06:38:41 l on on [place] (disorder) (disorder) Active Problem 08/06/2021 [facility] Dementia Dementia Problem Active 2021-08-06 Memoria (disorder) (disorder) 06:38:41 l Active Crow Problem 08/06/2021 [facility] 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 06:38:41 l (context-d (context-d He rmann ependent ependent category) category) Active Problem 08/06/2021 [facility] Allergies, Adverse Reactions, Alerts Allergy Allergy Status Severity Reaction(s) Onset Inactive Treating Comm ents Source Name Type Date Date Clinician Propoxyp Propensi Active Other (See Pt.don't Methodi hene ty to Comments) 3- remember st adverse 00:00: Hospita reaction 00 l s to drug Verapami Propensi Active Other (See Pt.don't Methodi l ty to Comments) 3- remember [facility] adverse 00:00: Hospita reaction 00 l s to drug Codeine Propensi Active Other (See Pt.don't M ethodi ty to Comments) 3- remember st adverse 00:00: Hospita reaction 00 l s to drug codeine codeine Active Memoria l Crow verapami verapami Active Memori a l l l [facility] Family History Family Member Diagnosis Comments Start Date Stop Date Source [facility] Natural sister [facility] Social History Social Habit Start Date Stop Date Quantity Comments Source History SDOH [facility] Drinks History SDOH [facility] Social History 2021-07-24 2021-07-24 [facility] stephon 18:01:06 18:01:06 Alcohol intake 2021-05-29 2021-05-29 Lifetime [facility] 00:00:00 00:00:00 non-drinker Hospital (finding) Tobacco use and 2021-05-25 2021-05-25 Smokeless tobacco [facility] exposure 00:00:00 00:00:00 non-user Hospital History SDOH 2021-05-25 2021-05-25 1 [facility] Frequency 00:00:00 00:00:00 Hospita l Sex Ass[birth year] At [birth year] [facility] 00:[facility]00 Hospital Smoking Status Start Date Stop Date Source Unknown if ever smoked [facility] Never smoked tobacco [facility] Medications Ordered Filled Start Stop Current Ordering Indication Dosage Frequency Signature Comments Components Source Medication Medication Date Date Medication? Clinician (SIG) Name Name oxyCODONE 5 No 5 mg = 1 Me moria mg oral 5-09 tab, PO, l tablet, 22:38: Q6H, PRN Aaron n immediate 00 Pain Score release 7-10, X 2 day, # 5 tab, 0 Refill(s), Pharmacy: [facility], 182.88, cm, 07/24/21 16:57:00 CDT, Height, 70.455, kg, 07/25/21 18:40:00 CDT, Weight gabapentin Yes 100 mg = 1 M emoria 100 mg oral 5-09 cap, PO, l capsule 20:50: BID, 0 [place] 00 Refill(s) gabapentin No Notes: Memor ia 100 mg oral 5-08 (Same as: l capsule 14:35: Neurontin) Herm stef 00 oxyCODONE 5 No Notes: Miguel roe mg/5 mL 5-08 (Same as: l oral 13:47: 'Roxicodon Crow solution 00 e) oxyCODONE No Notes: Memori a immediate 5-08 (Same as: l release 13:47: Roxicodone Herm stef 00 ) naloxone No Notes: Memoria 5-08 Same as l 13:47: Narcan [place] 00 Jose No Notes: Memoria packet 5-07 (Same as: l 21:30: Jose [place] 00 Amelia) Jose No Notes: Memoria packet 5-06 (Same as: l 21:30: Jose [place] 00 Amelia) ceFAZolin No Notes: Memori a 5-06 (Same as l 05:00: Ancef) Crow 00 remove No Notes: Memoria patch 07-27 Remove l 02:00: patch 12 00 hours after applicatio n each day. metoprolol No Notes: Memor ia tartrate 07-27 (Same as: l 02:00: Lopressor) 12.5 mg=1/2 X 25 mg TAB Keppra 100 No Notes: Memor ia mg/mL oral 07-27 (Same l solution 02:00: as:Keppra) Her sugammadex No Route: IV, M emoria (ANES) 07-27 Drug form: l 01:02: SOLN, ONCE, Stop date: 07/26/21 20:02:00 CDT lidocaine No Route: IV, Me moria (ANES) 07-27 Drug form: l 00:57: INJ, ONCE, Stop date: 07/26/21 19:57:00 CDT ondansetron No Route: IV, Memoria (ANES) 07-27 Drug form: l 00:47: INJ, ONCE, Stop date: 07/26/21 19:47:00 CDT ANES No Notes: Memoria hydrALAZINE - (Same as: l 00:15: Apresoline ) Push over 5 minutes ANES No 10 mg, 2 Memoria labetalol 5-06 mL, Route: l 00:15: IVP, Drug form: INJ, Q5Min, Dosing Weight 70.455, kg, PRN Elevated BP, Start date: 07/26/21 19:15:00 CDT, Duration: 5 doses or times, Stop date: Limited # of times, 0 ANES No Notes: Max Memoria acetaminoph 5-06 acetaminop l en 00:15: hen 4000 mg/day (4 gm/day). (Same as: Tylenol Extra Strength) ANES No Notes: Memoria oxyCODONE -06 (Same l 00:15: as:'Roxico done) To be drawn up in 3 mL syr No Notes: Memoria HYDROmorpho 5-06 Same as l ne 00:15: Dilaudid No Notes: Memoria fentaNYL 5-06 (Same as: l 00:15: Sublimaze) Preservati ve free. No Notes: Memoria flumazenil 5-06 (Same as: l 00:15: Romazicon) No Notes: Memoria naloxone 5-06 Same as l 00:15: Narcan No Notes: Memoria ondansetron 5-06 (Same as: l 00:15: Zofran) MEDICATION WASTE Product Size: 4 mg Product Wasted: ___ mg ketAMINE No Route: IV, Mem oria (ANES) 5- Drug form: l 22:19: INJ, ONCE, Stop date: 07/26/21 17:19:00 CDT dexamethaso No Route: IV, Memoria ne (ANES) 5- Drug form: l 22:14: INJ, ONCE, Stop date: 07/26/21 17:14:00 CDT propofol No Route: IV, Mem oria (ANES) 5-05 Drug form: l 22:09: INJ, ONCE, Stop date: 07/26/21 17:09:00 CDT rocuronium No Route: IV, M emoria (ANES) 5-05 Drug form: l 22:09: INJ, ONCE, Stop date: 07/26/21 17:09:00 CDT fentaNYL No Route: IV, Mem oria (ANES) 5-05 Drug form: l 22:09: INJ, ONCE, Stop date: 07/26/21 17:09:00 CDT ceFAZolin No Route: IV, Me moria (ANES) 5- Drug form: l 22:04: INJ, ONCE, Stop date: 07/26/21 17:04:00 CDT Lactated No Route: IV, Mem oria Ringers 5-05 Total l Injection 21:07: Volume: Vero nn IV (ANES) 00 1,000, 1000 mL Start date: 07/26/21 16:07:00 CDT, Stop date: 07/26/21 17:07:00 CDT adenosine No 59.1822 Memor ia 5-05 mg, Route: l 13:23: IVP, ONCE, [place] Dosing Weight 70.455, kg, Priority: Routine, Start date: 07/26/21 8:23:00 CDT, Stop date: 07/26/21 8:23:00 CDT Lidocaine No Notes: Memori a Viscous 2% 5-04 (Same as: l mucous 21:00: Xylocaine) Vero nn membrane 00 solution midazolam No Notes: Memori a 5-04 Same as: l 21:00: Versed fentaNYL No Notes: Memoria 5-04 (Same as: l 21:00: Sublimaze) Preservati ve free. ferrous No Notes: Memoria sulfate 5-04 Give with l 14:00: food. "Do Not Crush" levothyroxi No Notes: Miguel roe ne 5-04 Take 1 l 14:00: hour before or 2 hours after meal; Enteral feeds may interefere with the absorption of this medication . (Same as:Synthro id, Levothroid ) Namenda No Notes: Memoria 5-04 (Same As: l 14:00: Namenda) senna No Notes: Memoria 5-04 (Same as: l 02:00: Senokot) gabapentin No Notes: Memor ia 5-04 (Same as: l 02:00: Neurontin) melatonin No Notes: Memori a 5-04 (Same as: l 02:00: Melatonin) mirtazapine No Notes: Miguel roe 5-04 (Same l 02:00: as:Remeron ) Keppra 100 No Notes: Memor ia mg/mL oral 07-24 (Same l solution 22:00: as:Keppra) Her ibrahim 00 metoprolol No Notes: Memor ia tartrate -03 (Same as: l 22:00: Lopressor) 12.5 mg=1/2 X 25 mg TAB Nitrostat No 0.4 mg = 1 Me moria 0.4 mg 5-03 tab, SL, l sublingual 20:25: PRN [place] tablet tramadol 50 No 100 mg = 2 Memoria mg oral 5-03 tab, PO, l tablet 20:24: BID rivaroxaban Yes 20 mg = 1 M emoria 20 mg oral 5-03 tab, PO, l tablet 20:23: Daily Senna 8.6 Yes 17.2 mg = Mem oria mg oral 5-03 2 tab, PO, l tablet 20:23: Daily spironolact No 25 mg = 1 M emoria one 25 mg 5-03 tab, PO, l oral tablet 20:23: Daily Vero nn Namenda 10 Yes 10 mg = 1 Me moria mg oral 5-03 tab, PO, l tablet 20:22: Daily metoprolol Yes 25 mg = 1 Me moria tartrate 25 5-03 tab, PO, l mg oral 20:21: BID Crow tablet mirtazapine Yes 45 mg = 1 M emoria 45 mg oral 5-03 tab, PO, l tablet 20:21: Bedtime multivitami No 1 tab, PO, Memoria n with 5-03 Bedtime l minerals 20:21: levothyroxi Yes 75 Memori a ne 75 mcg 5-03 microgram l (0.075 mg) 20:20: = 1 tab, Her ibrahim oral tablet 00 PO, QAM magnesium Yes 400 mg = 1 Me moria oxide 400 5-03 tab, PO, l mg oral 20:20: QAM Crow tablet 00 melatonin 5 Yes 5 mg = 1 Me moria mg oral 5-03 tab, PO, l tablet 20:20: Bedtime isosorbide No 10 mg = 1 Me moria dinitrate 5-03 tab, PO, l 10 mg oral 20:19: BID [place] tablet 00 Keppra 100 Yes 500 mg = 5 M emoria mg/mL oral 5-03 mL, PO, l solution 20:19: BID Lasix 20 mg Yes 20 mg = 1 M emoria oral tablet 5-03 tab, PO, l 20:19: Daily gabapentin No 300 mg = 1 M emoria 300 mg oral 5-03 cap, PO, l capsule 20:18: TID Tylenol 325 Yes 650 mg = 2 Memoria mg oral 5-03 tab, PO, l tablet 20:17: Q6H, PRN pain docusate No 100 mg = 1 Mem oria sodium 100 5-03 cap, PO, l mg oral 20:17: BID Crow capsule 00 ferrous Yes 325 mg = 1 Miguel roe sulfate 325 5-03 tab, PO, l mg oral 20:17: Daily enteric 00 coated tablet cefTRIAXone No Notes: Miguel roe + sterile -03 (Same As: l water 10 mL 19:00: Rocephin). MEDICATION WASTE Product Size: 1000 mg Product Wasted: ___ mg polyethylen No Notes: Miguel roe e glycol 5-03 Dissolve l 3350 14:00: in 8 oz of water or juice. (Same as: Miralax) lidocaine No Notes: Memori a 4% topical 5-03 Apply only l film 14:00: once for up to 12 hours in a 24-hour period (12 hours on and 12 hours off). (Same as: Aspercreme Lidocaine Patch) "Remove old patch before applicatio n of new patch" Lovenox No Notes: Memoria 5-03 (Same as: l 14:00: Lovenox) oxyCODONE 5 No Notes: Miguel roe mg/5 mL - (Same l oral 12:52: as:'Roxico Crow solution 00 done) To be drawn up in 3 mL syr oxyCODONE No Notes: Memori a immediate - (Same as: l release 12:52: Roxicodone Herm stef ) naloxone No Notes: Memoria - Same as l 12:52: Narcan Crow Electrolyte No Notes: Miguel roe Solution 07-24 (Same as: l 1,000 mL 12:52: Isolyte S Herm stef 00 PH7.4, Normosol-R PH 7.4, Plasma-Lyt e A ) Dextrose No 12.5 gm, Memor ia 50% Syringe 07-24 25 mL, l (D50W) 12:51: Route: IVP, Drug Form: INJ, kg, PRN, PRN Blood Glucose Results, Start date: 07/24/21 7:51:00 CDT, Duration: 30 day, Stop date: 08/23/21 7:50:00 CDT, 0 glucagon No 1 mg, Memoria 07-24 Route: IM, l 12:51: Drug form: PDR/INJ, PRN, kg, PRN Blood Glucose Results, Start date: 07/24/21 7:51:00 CDT, Duration: 30 day, Stop date: 08/23/21 7:50:00 CDT, 0 bisacodyl No Notes: Memori a - (Same As: l 12:51: Dulcolax, Crow 00 Bisco-Lax) ondansetron No Notes: Miguel roe - (Same as: l 12:51: Zofran) MEDICATION WASTE Product Size: 4 mg Product Wasted: ___ mg melatonin No Notes: Memori a 5-03 (Same as: l 12:51: Melatonin) acetaminoph No Notes: Max Memoria en 07-24 acetaminop l 12:50: hen 4000 [place] 00 mg/day (4 gm/day). (Same as: Tylenol Extra Strength) mirtazapine Yes 45mg QD Take 45 mg Methodi (REMERON) 3-[address] 15 MG 12:10: nightly. Hospita tablet 03 l memantine Yes 10mg Q.5D Take 10 mg Me thodi (NAMENDA) 3-[address] 10 MG 12:10: (two) Hospita tablet 03 times a l day. rivaroxaban Yes 20mg Take 20 mg [facility] (XARELTO) 3-[address] 20 mg 12:10: Hospita tablet 03 l senna Yes 1{tbl} QD Take 1 [facility] (SENOKOT) 3-[address] 8.6 mg 12:10: mouth Hospita tablet 03 daily. l spironolact Yes 25mg QD Take 25 mg [facility] one 3-[address] (ALDACTONE) 12:10: daily. Hosp bib 25 MG 03 l tablet traMADoL [place] 47572 50mg Q12H Take 50 mg Me thodi (ULTRAM) 50 3-[address] mg tablet 12:10: every 12 Hosp bib 03 (twelve) l hours as needed for moderate pain .acute pain. traMADoL Yes 26685 100mg Q.5D Take 100 Met hodi (ULTRAM) 50 3-[address] mg tablet 12:10: mouth 2 Hospi ta 03 (two) l times a day .acute pain. minocycline 2021- No 100mg Q.5D Take 1 Me thodi (DYNACIN) 3-04 03-[address] 100 MG 00:00: 05:59 (100 mg Hospita tablet 00 :00 total) by l mouth 2 (two) times a day for 5 days. Vital Signs Vital Name Observation Time Observation Value Comments Source Respitory Rate 2021-07-31 14:00:00 Dylan kennedy [place] Systolic (mm Hg) 2021-07-31 14:00:00 Miguel lora [place] Diastolic (mm Hg) 2021-07-31 14:00:00 Mem orial [place] Temperature Oral (F) 2021-07-31 13:25:00 96.5 F [facility] [place] Respitory Rate 2021-07-31 13:00:00 Memori al [place] Systolic (mm Hg) 2021-07-31 13:00:00 Miguel rial [place] Diastolic (mm Hg) 2021-07-31 13:00:00 Mem orial [place] Respitory Rate 2021-07-31 12:00:00 Memori al [place] Systolic (mm Hg) 2021-07-31 12:00:00 Miguel rial [place] Diastolic (mm Hg) 2021-07-31 12:00:00 Mem orial [place] Temperature Oral (F) 2021-07-30 20:03:00 97.7 F [facility] [place] Temperature Oral (F) 2021-07-30 16:15:00 97.2 F [facility] [place] Respitory Rate 2021-07-30 06:00:00 Memori al [place] Systolic (mm Hg) 2021-07-30 06:00:00 Miguel rial [place] Diastolic (mm Hg) 2021-07-30 06:00:00 Mem orial [place] Respitory Rate 2021-07-30 05:00:00 Memori al [place] Systolic (mm Hg) 2021-07-30 05:00:00 Miguel rial [place] Diastolic (mm Hg) 2021-07-30 05:00:00 Mem orial [place] Temperature Oral (F) 2021-07-30 04:41:00 97.6 F [facility] [place] Respitory Rate 2021-07-30 04:00:00 Memori al [place] Systolic (mm Hg) 2021-07-30 04:00:00 Miguel rial [place] Diastolic (mm Hg) 2021-07-30 04:00:00 Mem orial [place] Temperature Oral (F) 2021-07-29 09:41:00 97.9 F [facility] Temperature Oral (F) 2021-07-29 01:07:00 98.0 F [facility] [place] Heart Rate 2021-07-26 16:25:43 [facility] Heart Rate 2021-07-26 16:25:35 [facility] Heart Rate 2021-07-26 13:20:00 [facility] Weight 2021-07-25 13:40:00 [facility] [place] Height 2021-07-24 21:57:00 182.88 cm [facility] Weight 2021-07-24 21:57:00 [facility] [place] BMI Calculated 2021-07-24 21:57:00 [facility] Systolic blood 2021-05-25 17:15:00 107 mm[Hg] [facility] pressure Diastolic blood 2021-05-25 17:15:00 57 mm[Hg] [facility] pressure Heart rate 2021-05-25 17:15:00 70 /min [facility] Respiratory rate 2021-05-25 17:15:00 20 /min [facility] Oxygen saturation in 2021-05-25 17:15:00 94 /min [facility] Arterial blood by Pulse oximetry Body temperature 2021-05-25 15:08:00 35.94 Kalli [facility] Body height 2021-05-25 11:46:00 182.9 cm [facility] Body weight 2021-05-25 11:46:00 67.631 kg [facility] BMI 2021-05-25 11:46:00 20.22 kg/m2 [facility] Procedures Procedure Date / Time Performing Clinician Source Performed EP PPI GENERATOR CHANGE 2021-05-25 14:42:00 [facility] ECG 12-LEAD 2021-05-25 12:45:14 [facility] spital TYPE AND SCREEN 2021-05-25 12:07:00 [facility] COVID-19 QUALITATIVE 2021-05-24 16:54:00 [facility] RT-PCR COMPREHENSIVE METABOLIC 2021-05-24 16:48:00 [facility] PANEL HC COMPLETE BLD COUNT 2021-05-24 16:48:00 [facility] W/AUTO DIFF MAGNESIUM LEVEL 2021-05-24 16:48:00 [facility] spital PROTHROMBIN TIME WITH INR 2021-05-24 16:48:00 [facility] ESTIMATED GFR 2021-05-24 16:48:00 [facility] spital Plan of Care Planned Activity Planned Date Details Comments Source Future Scheduled 2022-01-24 HEPATITIS B VACCINES Met [facility] Test 12:09:10 (1 of 3 - 3-dose series) [code = HEPATITIS B VACCINES (1 of 3 - 3-dose series)] Future Scheduled 2022-01-24 SHINGLES VACCINES (1 Met [facility] Hospital Test 12:09:10 of 2) [code = SHINGLES VACCINES (1 of 2)] Future Scheduled 2022-01-24 65+ PNEUMOCOCCAL [facility] Hospital Test 12:09:10 VACCINE (1 - PCV) [code = 65+ PNEUMOCOCCAL VACCINE (1 - PCV)] Future Scheduled 2022-01-24 COVID-19 VACCINE (4 - Me [facility] Hospital Test 12:09:10 Booster for Pfizer series) [code = COVID-19 VACCINE (4 - Booster for Pfizer series)] Future Scheduled 2022-01-24 INFLUENZA VACCINE Method [facility] Hospital Test 12:09:10 [code = INFLUENZA VACCINE] Encounters Start End Encounter Admission Attending Care Care Encounter Source Date/Time Date/Time Type Type Clinicians Facility Department ID 2021-09-05 Outpatient [facility] [id number] [place] 10:22:04 [id number] Health 2021-08-06 2021-08-06 Telephone Pcp, [facility] [id number] [facility] 00:00:00 00:00:00 Patient HEALTH 350.1.13.10 it y of Does Not [place] LIA?BLEA [id number] Ne maggie CHEN [address] [place] [address] MEDICAL OFFICE BUILDING 2021-07-24 2021-07-31 Inpatient [facility] [id number] [facility] 15:15:00 [facility] 22 [facility] 2021-07-24 2021-07-31 Inpatient E ONYEMA, [facility] MED [id number] [facility] 06:32:00 10:15:00 [facility]-07-23 2021-07-31 Outpatient Onyema, [facility] [id number] 22:57:00 10:15:00 [facility] 22 Nis[place] 2021-07-23 2021-07-31 Outpatient Onyema, [facility] [id number] 22:57:00 10:15:00 [facility] 22 [place] 2021-07-26 2021-07-26 Outpatient ERIC [facility] [id number] [place] 08:30:00 08:30:00 [facility] 2021-07-23 2021-07-23 Outpatient Hector [facility] [id number] 22:57:00 22:57:00 Alirio Sanon 2021-05-25 2021-05-25 Hospital Anand, 1.2.840.1 [id number] Methodi 05:26:00 12:10:00 Encounter Nadim [id number] 3.430.2.7 Hospit a .3.921461 l .8 2021-05-25 2021-05-25 Surgery [facility], 1.2.840.1 [id number] Methodi 07:30:00 09:30:[address] 3.430.2.7 Hospit a .3.962387 l .8 2021-05-25 2021-05-25 Anesthesia JoshEyal V. 1.2.840.1 [id number] Method[facility] 07:28:00 09:05:00 Event Joel Mendoza Jain 10259.1.[address] 3.430.2.7 Hospit a .3.455914 l .8 2021-05-25 2021-05-25 Outpatient [facility] [id number] [place] 00:00:00 00:00:00 NADIM [address] 2021-05-25 2021-05-25 Travel 1.2.840.1 [id number] Methodi 00:00:00 00:00:[address] 3.430.2.7 0.2.7.3.698 Ho spita .3.587637 084.8 l .8 2021-05-24 2021-05-24 Lab [facility], 1.2.840.1 [id number] Methodi 10:25:00 10:30:[address] 3.430.2.7 Hospit a .3.204793 l .8 2021-05-24 2021-05-24 Outpatient ANAND, H [facility] [id number] [place] 00:00:00 00:00:00 NADIM [address] 2021-05-24 2021-05-24 Travel 1.2.840.1 [id number] Methodi 00:00:00 00:00:[address] 3.430.2.7 0.2.7.3.698 Ho spita .3.932174 084.8 l .8 2021-05-21 2021-05-21 Community Anand, 1.2.840.1 [id number] Method[facility] 00:00:00 00:00:00 Orders Nadim 80379.1.[address] 3.430.2.7 Hospit a .3.611452 l .8 Results Test Description Test Time Test Comments Results Result Comments Source [facility] 2021-07-30 15:54:00 Test Item Value Reference Range Interpretation Comme nts Coronavirus (COVID-19) JOHANNE (test code = Not Detected (07/30/21 10:54 AM) Coronavirus (COVID-19) JOHANNE) [id number] 15:37:00 Test Item Value Reference Range Interpretation Comments Segs (test code = Segs) 70.2 45.0-75.0 [facility]UhvivabCLAJRFYCTI1565-92-97 15:37:00 Test Item Value Reference Range Interpretation Comments Lymphocytes (test code = Lymphocytes) 17.5 20.0-40.0 [facility] HospitalClgitaxPWDJRTUBPL5703-41-03 15:37:00 Test Item Value Reference Range Interpretation Comments Monocytes (test code = Monocytes) 10.0 2.0-12.0 [facility] [id number] 15:37:00 Test Item Value Reference Range Interpretation Comments Eosinophils (test code = 1.7 See_Comment [A utomated message] The Eosinophils) system which ge nerated this result tra nsmitted reference range : <=4.0. The reference r daysi was not used to int erpret this result as normal/abnormal . [facility] Ho[id number] 15:37:00 Test Item Value Reference Range Interpretation Comments Basophils (test code = 0.6 See_Comment [Aut omated message] The Basophils) system which ge nerated this result tra nsmitted reference range : <=1.0. The reference r daysi was not used to int erpret this result as normal/abnormal . [facility] HospitalQnnxjduKTCVGKNVFH6969-71-83 15:37:00 Test Item Value Reference Range Interpretation Comments Neutrophils # (test code = Neutrophils 4.6 1.5-8.1 #) [facility] [id number] 15:37:00 Test Item Value Reference Range Interpretation Comments Lymphocytes # (test code = Lymphocytes 1.2 1.0-5.5 #) [facility] Ho[id number] 15:37:00 Test Item Value Reference Range Interpretation Comments Monocytes # (test code 0.7 See_Comment [Aut omated message] The = Monocytes #) system which generated this result tra nsmitted reference range : <=0.8. The reference r daysi was not used to int erpret this result as normal/abnormal . [facility] Hospit[id number] 15:37:00 Test Item Value Reference Range Interpretation Comments Eosinophils # (test code 0.1 See_Comment [A utomated message] The = Eosinophils #) system whic h generated this result tra nsmitted reference range : <=0.5. The reference r daysi was not used to int erpret this result as normal/abnormal . [facility] [id number] 15:37:00 Test Item Value Reference Range Interpretation Comments ABO/Rh (test code = ABO/Rh) O POS [facility] [id number] 15:37:00 Test Item Value Reference Range Interpretation Comments Antibody Scrn (test Negative (07/29/21 10:37 code = Antibody Scrn) AM) [facility] H[id number] 15:37:00 Test Item Value Reference Range Interpretation Comments WBC (test code = WBC) 6.6 3.7-10.4 [facility] Hos[id number] 15:37:00 Test Item Value Reference Range Interpretation Comments RBC (test code = RBC) 2.90 4.20-5.40 [facility] H[id number] 15:37:00 Test Item Value Reference Range Interpretation Comments Hgb (test code = Hgb) 8.3 12.0-16.0 [facility] [id number] 15:37:00 Test Item Value Reference Range Interpretation Comments Hct (test code = Hct) 25.4 36.0-48.0 [place] [id number] 15:37:00 Test Item Value Reference Range Interpretation Comments MCV (test code = MCV) 87.5 80.0-98.0 [place] [id number] 15:37:00 Test Item Value Reference Range Interpretation Comments MCH (test code = MCH) 28.6 pg 27.0-31.0 [facility] [id number] 15:37:00 Test Item Value Reference Range Interpretation Comments MCHC (test code = MCHC) 32.7 32.0-36.0 [place] 532762-05-08 15:37:00 Test Item Value Reference Range Interpretation Comments RDW (test code = RDW) 13.7 11.5-14.5 [facility]BrpnwerPCJRCRXZWN8696-55-04 15:37:00 Test Item Value Reference Range Interpretation Comments Platelet (test code = Platelet) 166 133-450 [facility] HospitalFrcilkdZDOLXYYJHG3059-88-21 15:37:00 Test Item Value Reference Range Interpretation Comments MPV (test code = MPV) 8.7 7.4-10.4 [facility] HospitalTucsfvxKCICXHSXGY9434-72-69 18:45:00 Test Item Value Reference Range Interpretation Comments WBC (test code = WBC) 8.6 3.7-10.4 [facility] HospitalPnbgmaoRWPNVUXHGO6330-88-86 18:45:00 Test Item Value Reference Range Interpretation Comments RBC (test code = RBC) 3.08 4.20-5.40 [place] 532762-05-07 18:45:00 Test Item Value Reference Range Interpretation Comments Hgb (test code = Hgb) 8.8 12.0-16.0 [place] [address]-05-07 18:45:00 Test Item Value Reference Range Interpretation Comments Hct (test code = Hct) 27.2 36.0-48.0 [place] 532762-05-07 18:45:00 Test Item Value Reference Range Interpretation Comments MCV (test code = MCV) 88.3 80.0-98.0 [facility] HospitalCzfvsjmCEEAUATXAF7119-40-45 18:45:00 Test Item Value Reference Range Interpretation Comments MCH (test code = MCH) 28.6 pg 27.0-31.0 [place] 532762-05-07 18:45:00 Test Item Value Reference Range Interpretation Comments MCHC (test code = MCHC) 32.4 32.0-36.0 [place] 532762-05-07 18:45:00 Test Item Value Reference Range Interpretation Comments RDW (test code = RDW) 14.2 11.5-14.5 [place] 532762-05-07 18:45:00 Test Item Value Reference Range Interpretation Comments Platelet (test code = Platelet) 194 133-450 [facility] HospitalHqtmldoTGHEJNZTED9572-64-13 18:45:00 Test Item Value Reference Range Interpretation Comments MPV (test code = MPV) 9.2 7.4-10.4 [place] 532762-05-07 18:45:00 Test Item Value Reference Range Interpretation Comments Segs (test code = Segs) 69.2 45.0-75.0 [facility] HospitalVzheespRVBAQDTUZE0232-71-66 18:45:00 Test Item Value Reference Range Interpretation Comments Lymphocytes (test code = Lymphocytes) 18.9 20.0-40.0 [facility] HospitalWlsfaztDFBBMYOZSX9599-10-95 18:45:00 Test Item Value Reference Range Interpretation Comments Monocytes (test code = Monocytes) 10.6 2.0-12.0 [place] 532762-05-07 18:45:00 Test Item Value Reference Range Interpretation Comments Eosinophils (test code = 0.3 See_Comment [A utomated message] The Eosinophils) system which ge nerated this result tra nsmitted reference range : <=4.0. The reference r daysi was not used to int erpret this result as normal/abnormal . [facility] HospitalIwbobszINSVOFCBJI3168-33-26 18:45:00 Test Item Value Reference Range Interpretation Comments Basophils (test code = 1.0 See_Comment [Aut omated message] The Basophils) system which ge nerated this result tra nsmitted reference range : <=1.0. The reference r daysi was not used to int erpret this result as normal/abnormal . [place] 532762-05-07 18:45:00 Test Item Value Reference Range Interpretation Comments Neutrophils # (test code = Neutrophils 6.0 1.5-8.1 #) [place] [address]-05-07 18:45:00 Test Item Value Reference Range Interpretation Comments Lymphocytes # (test code = Lymphocytes 1.6 1.0-5.5 #) [place] [address]-05-07 18:45:00 Test Item Value Reference Range Interpretation Comments Monocytes # (test code 0.9 See_Comment [Aut omated message] The = Monocytes #) system which generated this result tra nsmitted reference range : <=0.8. The reference r daysi was not used to int erpret this result as normal/abnormal . [place] [address]-05-07 18:45:00 Test Item Value Reference Range Interpretation Comments Basophils # (test code 0.1 See_Comment [Aut omated message] The = Basophils #) system which generated this result tra nsmitted reference range : <=0.2. The reference r daysi was not used to int erpret this result as normal/abnormal . [place] 532762-05-06 09:20:00 Test Item Value Reference Range Interpretation Comments WBC (test code = WBC) 9.7 3.7-10.4 [place] [address]-05-06 09:20:00 Test Item Value Reference Range Interpretation Comments RBC (test code = RBC) 3.63 4.20-5.40 [place] [address]-05-06 09:20:00 Test Item Value Reference Range Interpretation Comments Hgb (test code = Hgb) 10.3 12.0-16.0 [place] [address]-05-06 09:20:00 Test Item Value Reference Range Interpretation Comments Hct (test code = Hct) 32.0 36.0-48.0 [place] [address]-05-06 09:20:00 Test Item Value Reference Range Interpretation Comments MCV (test code = MCV) 88.2 80.0-98.0 [place] [address]-05-06 09:20:00 Test Item Value Reference Range Interpretation Comments MCH (test code = MCH) 28.3 pg 27.0-31.0 [place] [address]-05-06 09:20:00 Test Item Value Reference Range Interpretation Comments MCHC (test code = MCHC) 32.1 32.0-36.0 [facility] HospitalBgctbqzEJYKGULGGV5503-71-30 09:20:00 Test Item Value Reference Range Interpretation Comments RDW (test code = RDW) 13.8 11.5-14.5 [place] [address]-05-06 09:20:00 Test Item Value Reference Range Interpretation Comments Platelet (test code = Platelet) 162 133-450 [place] 532762-05-06 09:20:00 Test Item Value Reference Range Interpretation Comments MPV (test code = MPV) 9.2 7.4-10.4 [place] 532762-05-06 09:20:00 Test Item Value Reference Range Interpretation Comments RBC Morph (test code = Normal (07/27/21 4:20 AM) RBC Morph) [place] 532762-05-06 09:20:00 Test Item Value Reference Range Interpretation Comments Plt Morph (test code = Normal (07/27/21 4:20 AM) Plt Morph) [facility] HospitalKbxmjqcHNCPPKFQWX3710-41-23 09:20:00 Test Item Value Reference Range Interpretation Comments Segs (test code = Segs) 88.2 45.0-75.0 [facility] HospitalLmqtrmjTKWBKFKELB7541-12-50 09:20:00 Test Item Value Reference Range Interpretation Comments Lymphocytes (test code = Lymphocytes) 3.7 20.0-40.0 [place] [address]-05-06 09:20:00 Test Item Value Reference Range Interpretation Comments Monocytes (test code = Monocytes) 7.8 2.0-12.0 [place] [address]-05-06 09:20:00 Test Item Value Reference Range Interpretation Comments Basophils (test code = 0.3 See_Comment [Aut omated message] The Basophils) system which ge nerated this result tra nsmitted reference range : <=1.0. The reference r daysi was not used to int erpret this result as normal/abnormal . [facility] HospitalVlucvueQYROVVJKGY4585-84-38 09:20:00 Test Item Value Reference Range Interpretation Comments Neutrophils # (test code = Neutrophils 8.5 1.5-8.1 #) [facility] HospitalKlnkjxoDKMSATSEEY5070-42-10 09:20:00 Test Item Value Reference Range Interpretation Comments Lymphocytes # (test code = Lymphocytes 0.4 1.0-5.5 #) [facility]QzajhosSMVIFTSRRB8955-37-97 09:20:00 Test Item Value Reference Range Interpretation Comments Monocytes # (test code 0.8 See_Comment [Aut omated message] The = Monocytes #) system which generated this result tra nsmitted reference range : <=0.8. The reference r daysi was not used to int erpret this result as normal/abnormal . [place] 859462-05-06 09:20:00 Test Item Value Reference Range Interpretation Comments Glucose Lvl (test code = Glucose Lvl) 151 70-99 [place] 859462-05-06 09:20:00 Test Item Value Reference Range Interpretation Comments BUN (test code = BUN) 33 7-22 [place] 859462-05-06 09:20:00 Test Item Value Reference Range Interpretation Comments Creatinine Lvl (test code = Creatinine 1.21 0.50-1.40 Lvl) [place] 859462-05-06 09:20:00 Test Item Value Reference Range Interpretation Comments Sodium Lvl (test code = Sodium Lvl) 142 135-145 [place] 859462-05-06 09:20:00 Test Item Value Reference Range Interpretation Comments Potassium Lvl (test code = Potassium 4.1 3.5-5.1 Lvl) [place] 859462-05-06 09:20:00 Test Item Value Reference Range Interpretation Comments Chloride Lvl (test code = Chloride Lvl) 109 95-109 [place] 859462-05-06 09:20:00 Test Item Value Reference Range Interpretation Comments CO2 (test code = CO2) 23 24-32 [place] 859462-05-06 09:20:00 Test Item Value Reference Range Interpretation Comments Calcium Lvl (test code = Calcium Lvl) 8.5 8.5-10.5 [place] 859462-05-06 09:20:00 Test Item Value Reference Range Interpretation Comments AGAP (test code = AGAP) 14.1 10.0-20.0 [place] 859462-05-06 09:20:00 Test Item Value Reference Range Interpretation Comments eGFR (test code = eGFR) 41 [place] 859462-05-04 12:10:00 Test Item Value Reference Range Interpretation Comments Glucose Lvl (test code = Glucose Lvl) 106 70-99 [facility]2022 12:10:00 Test Item Value Reference Range Interpretation Comments BUN (test code = BUN) 33 7-22 [facility]2022 12:10:00 Test Item Value Reference Range Interpretation Comments Creatinine Lvl (test code = Creatinine 1.13 0.50-1.40 Lvl) [facility]2022 12:10:00 Test Item Value Reference Range Interpretation Comments Sodium Lvl (test code = Sodium Lvl) 140 135-145 [facility]2022 12:10:00 Test Item Value Reference Range Interpretation Comments Potassium Lvl (test code = Potassium 4.2 3.5-5.1 Lvl) [facility]2022 12:10:00 Test Item Value Reference Range Interpretation Comments Chloride Lvl (test code = Chloride Lvl) 105 95-109 [facility]2022 12:10:00 Test Item Value Reference Range Interpretation Comments CO2 (test code = CO2) 28 24-32 [facility]2022 12:10:00 Test Item Value Reference Range Interpretation Comments Calcium Lvl (test code = Calcium Lvl) 8.5 8.5-10.5 [facility]2022 12:10:00 Test Item Value Reference Range Interpretation Comments AGAP (test code = AGAP) 11.2 10.0-20.0 [facility]2022 12:10:00 Test Item Value Reference Range Interpretation Comments eGFR (test code = eGFR) 44 [facility] HospitalMxvnnjaIUZQIGPRGP5380-54-48 12:10:00 Test Item Value Reference Range Interpretation Comments Eosinophils (test code = 0.8 See_Comment [A utomated message] The Eosinophils) system which ge nerated this result tra nsmitted reference range : <=4.0. The reference r daysi was not used to int erpret this result as normal/abnormal . [facility] [id number] 17:12:00 Test Item Value Reference Range Interpretation Comments HS Troponin I Baseline (test code = HS 24 Troponin I Baseline) [facility] [id number] 17:12:00 Test Item Value Reference Range Interpretation Comments HS Troponin I 1 Hr (test code = HS 22 Troponin I 1 Hr) [facility] [id number] 17:12:00 Test Item Value Reference Range Interpretation Comments HS Troponin I 0 to 1 See Note (07/24/21 Hour Delta (test code = 12:12 PM) HS Troponin I 0 to 1 Hour Delta) [facility]ballCulture: [id number] 17:12:00 Test Item Value Reference Range Interpretation Comments Culture: Urine (test <10,000 CFU/mL Skin code = Culture: Urine) [facility] AND [id number] 15:54:00 Test Item Value Reference Range Interpretation Comments UA Color (test code = Latonia *ABN*(07/24/21 UA Color) 10:54 AM) [facility] AND [id number] 15:54:00 Test Item Value Reference Range Interpretation Comments UA Turbidity (test code Marked *ABN*(07/24/21 = UA Turbidity) 10:54 AM) [facility] [id number] 15:54:00 Test Item Value Reference Range Interpretation Comments UA Spec Grav (test code = UA Spec 1.018 1 Grav) [facility] AND [id number] 15:54:00 Test Item Value Reference Range Interpretation Comments UA pH (test code = UA pH) 5.0 1 5.0-8.0 [facility] AND [id number] 15:54:00 Test Item Value Reference Range Interpretation Comments UA Protein (test code = UA Negative mg/dL Protein) [facility] [id number] 15:54:00 Test Item Value Reference Range Interpretation Comments UA Glucose (test code = UA Negative mg/dL Glucose) [facility] [id number] 15:54:00 Test Item Value Reference Range Interpretation Comments UA Ketones (test code = UA Trace mg/dL Ketones) [facility] [id number] 15:54:00 Test Item Value Reference Range Interpretation Comments UA Bili (test code = Negative *NA*(07/24/21 UA Bili) 10:54 AM) [facility] AND [id number] 15:54:00 Test Item Value Reference Range Interpretation Comments UA Blood (test code = Small *ABN*(07/24/21 UA Blood) 10:54 AM) [facility] [id number] 15:54:00 Test Item Value Reference Range Interpretation Comments UA Urobilinogen (test code = UA 2.0 0.1-1.0 Urobilinogen) [facility] AND [id number] 15:54:00 Test Item Value Reference Range Interpretation Comments UA Nitrite (test code Positive *ABN*(07/24/21 = UA Nitrite) 10:54 AM) [facility] AND [id number] 15:54:00 Test Item Value Reference Range Interpretation Comments UA Leuk Est (test code Large *ABN*(07/24/21 = UA Leuk Est) 10:54 AM) [facility] AND [id number] 15:54:00 Test Item Value Reference Range Interpretation Comments UA Sq Epi (test code = UA Sq Occasional /LPF Epi) [facility] AND [id number] 15:54:00 Test Item Value Reference Range Interpretation Comments UA WBC (test code = no gt See_Comment [Automa martina message] The UA WBC) system which ge nerated this result transmit martina reference range : <=5. The reference range was not used to interpr et this result as jules l/abnormal. [facility] AND [id number] 15:54:00 Test Item Value Reference Range Interpretation Comments UA RBC (test code = 21 See_Comment [Automa martina message] The UA RBC) system which ge nerated this result transmit martina reference range : <=2. The reference range was not used to interpr et this result as jules l/abnormal. [facility] AND [id number] 15:54:00 Test Item Value Reference Range Interpretation Comments UA Bacteria (test code = UA Many /HPF Bacteria) [facility] AND [id number] 15:54:00 Test Item Value Reference Range Interpretation Comments UA Mucus (test code = UA Mucus) Few /LPF [facility] JjwqnqpGOVAPPIVIK0615-35-82 09:19:00 Test Item Value Reference Range Interpretation Comments Coronavirus (COVID-19) Not Detected (07/24/21 JOHANNE (test code = 4:19 AM) Coronavirus (COVID-19) JOHANNE) [facility]2022-05-03 09:18:00 Test Item Value Reference Range Interpretation Comments Glucose Lvl (test code = Glucose Lvl) 115 70-99 [facility]2022-05-03 09:18:00 Test Item Value Reference Range Interpretation Comments BUN (test code = BUN) 29 7-22 [facility]2022-05-03 09:18:00 Test Item Value Reference Range Interpretation Comments Creatinine Lvl (test code = Creatinine 1.20 0.50-1.40 Lvl) [facility]2022-05-03 09:18:00 Test Item Value Reference Range Interpretation Comments Sodium Lvl (test code = Sodium Lvl) 140 135-145 [facility]ennialePaisa - [employer]ments [employer] | AnywhereANGEL MEDICAL CENTERDAUJS3684-10-08 09:18:00 Test Item Value Reference Range Interpretation Comments Potassium Lvl (test code = Potassium 4.3 3.5-5.1 Lvl) [facility] [employer] | AnywhereANGEL MEDICAL [id number] 09:18:00 Test Item Value Reference Range Interpretation Comments Chloride Lvl (test code = Chloride Lvl) 105 95-109 [facility]2022-05-03 09:18:00 Test Item Value Reference Range Interpretation Comments CO2 (test code = CO2) 32 24-32 [facility]2022-05-03 09:18:00 Test Item Value Reference Range Interpretation Comments Calcium Lvl (test code = Calcium Lvl) 8.5 8.5-10.5 [facility]2022-05-03 09:18:00 Test Item Value Reference Range Interpretation Comments AGAP (test code = AGAP) 7.3 10.0-20.0 [facility] TomballQpixel Technology [id number] 09:18:00 Test Item Value Reference Range Interpretation Comments eGFR (test code = eGFR) 41 [facility] CentennialPassionTag [id number] 09:17:00 Test Item Value Reference Range Interpretation Comments ABO/Rh (test code = ABO/Rh) O POS [facility] CentennialPassionTag [id number] 09:17:00 Test Item Value Reference Range Interpretation Comments Antibody Scrn (test Negative (07/24/21 4:17 code = Antibody Scrn) AM) [facility] HospitalPhsgdzxJETGSNNCQN1558-79-40 09:17:00 Test Item Value Reference Range Interpretation Comments PT (test code = PT) 16.2 s 12.0-14.7 [facility]IawvbjeJAGXNORDUV1504-52-99 09:17:00 Test Item Value Reference Range Interpretation Comments INR (test code = INR) 1.31 1 0.85-1.17 [facility] HospitalGajqkrnGEXLSKVQLH8805-36-75 09:17:00 Test Item Value Reference Range Interpretation Comments PTT (test code = PTT) 34.7 s 22.9-35.8 [place] [address] [id number] 06:39:18 Test Item Value Reference Range Interpretation Comments Ventricular rate (test code = 253) Atrial rate (test code = 255) QRSD interval (test code = 260) QT interval (test code = 264) QTC interval (test code = 265) QRS axis 1 (test code = 268) T wave axis (test code = 270) EKG impression (test Ventricular-paced code = 273) rhythm with occasional premature ventricular complexes-Abnormal [facility] [id number] 20:49:15 Test Item Value Reference Range Interpretation Comments Interpretation (test Negative results do code = 2713130) not preclude 2019-nCoV infection and should not be usedas the sole basis for treatment or other patient management decisions.Negative results must be combined with clinical observations, patienthistory, and epidemiological information. COVID-19 qualitative Not-Detected Not-Detected RT-PCR result (test code = 79814-1) COVID-19 qualitative See link below for C ase Number: RT-PCR (test code = PDF Lab Report [id number]) [facility] RNA [Presence] in Respiratory specimen by JOHANNE with probe [id number] 14:49:15 Test Item Value Reference Range Interpretation Comments SARS-CoV-2 (COVID-19) RNA Not detected [Presence] in Respiratory specimen by JOHANNE with probe detection (test code = 44955-2) Whether patient is employed in a Unknown healthcare setting (test code = 79704-9) Whether the patient has symptoms Unknown related to condition of interest (test code = 13810-2) Whether the patient was Unknown hospitalized for condition of interest (test code = 87621-3) Whether the patient was admitted Unknown to intensive care unit (ICU) for condition of interest (test code = 98051-9) Whether patient resides in a Unknown congregate care setting (test code = 95114-3) status (test code = Unknown 11997-1) Date and time of symptom onset Unknown (test code = 31073-2) ADILENE DAVISON-CoV-2 (COVID-19) RNA [Presence] in Respiratory specimen by JOHANNE with probe [id number] 14:49:15 Test Item Value Reference Range Interpretation Comments SARS coronavirus RNA [Presence] Not detected in Isolate by JOHANNE with probe detection (test code = 44652-8) Whether patient is employed in a Unknown healthcare setting (test code = 88864-5) Whether the patient has symptoms Unknown related to condition of interest (test code = 82176-2) Whether the patient was Unknown hospitalized for condition of interest (test code = 19169-8) Whether the patient was admitted Unknown to intensive care unit (ICU) for condition of interest (test code = 99823-4) Whether patient resides in a Unknown congregate care setting (test code = 25424-3) status (test code = Unknown 68035-5) Date and time of symptom onset Unknown (test code = 27265-5) ADILENE ROBLEDO
[2022-02-25 12:40] LABS: Absolute Lymphocytes (CBC) 0.7 K/uL (0.7-4.9); Hematocrit 27.9 % (36.0-45.0); Lymphocytes % 14.9 % (15.3-44.8); MPV 8.3 fL (7.6-11.3); RBC Red Blood Cell Count 3.21 M/uL (3.86-4.86)
[2022-02-25 13:27] LABS: Urine Blood Negative (Negative); Urine Glucose Negative (Negative); Urine Protein Negative (Negative); Urine Specific Gravity 1.015 (1.005-1.030); Urine pH 5.5 (5.0-7.0)
[2022-02-25] MEDS ORDERED: PANTOPRAZOLE 40 MG INJ ONE (13:30)
[2022-02-25 13:35] LABS: Bilirubin Total 0.8 mg/dL (0.2-1.0); Potassium 4.2 mmol/L (3.5-5.1); Protein, Total 7.1 g/dL (6.4-8.2)
--- NOTE | 2022-02-25 14:17 | RAD REPORT ---
EXAM DESCRIPTION: CT - Abdomen Pelvis W Contrast - 02/25/2022 1:48 pm CLINICAL HISTORY: Abdominal pain COMPARISON: 2012 TECHNIQUE: Computed axial tomography of the abdomen pelvis was obtained. 100 cc Isovue-300 was admin istered intravenously. Oral contrast was not requested which limits evaluation of bowel and appendix All CT scans are performed using dose optimization technique as appropriate and may include automated exposure control or mA/KV adjustment according to patient size. FINDINGS: Cholecystectomy. Prominence of the biliary tree without significant change probably physio logic. Spleen, pancreas and adrenals unremarkable Left renal cyst Moderate right hydronephrosis. Right ureter is dilated. Hip arthroplasties Rectum is dilated with stool measuring 12 centimeters. This compresses the bladder. Mild right lower lobe atelectasis. Atherosclerotic disease IMPRESSION: Fecal impaction with rectal distention Moderate right hydronephrosis. This may be related to the rectal distention compressing the right UVJ .
[2022-02-25] MEDS ORDERED: CEFTRIAXONE 1000 MG/VIAL ONE (14:24)
[2022-02-25] MEDS ORDERED: NA CHLORIDE 0.9% 500 ML ONE (14:25)
[2022-02-25 14:28] LABS: SARS-COV-2 RT PCR NEGATIVE (NEGATIVE)
--- NOTE | 2022-02-25 14:47 | ER ---
Nurse's Notes [facility] Name: Padma Carrillo Age: 86 yrs Sex: Female : 1935 Arrival Date: 02/25/2022 Time: 11:30 Bed 16 Private MD: Diagnosis: Constipation;GI Bleed/ Gastrointestinal hemorrhage, unspecified;Anemia, unspecified Presentation: 02/25 11:30 Chief complaint: EMS states: abdominal pain She has chronic abdominal pain but seems ko1 worse today. Coronavirus screen: At this time, the client does not indicate any symptoms associated with coronavirus-19. Ebola Screen: No symptoms or risks identified at this time. Initial Sepsis Screen: Does the patient meet any 2 criteria? No. Patient's initial sepsis screen is negative. Does the patient have a suspected source of infection? No. Patient's initial sepsis screen is negative. Risk Assessment: Do you want to hurt yourself or someone else? Patient reports no desire to harm self or others. Onset of symptoms was February 25, 2022. 11:30 Method Of Arrival: EMS: [facility] ko1 11:30 Acuity: SAGAR 3 ko1 Triage Assessment: 11:32 General: Appears in no apparent distress. uncomfortable, Behavior is calm, cooperative, ko1 appropriate for age. Pain: Complains of pain in abdomen. GI: Reports lower abdominal pain. :. Historical: - Allergies: 11:32 Codeine; ko1 11:32 Fosamax; ko1 11:32 Propoxyphene; ko1 11:32 Talwin NX; ko1 11:32 Verapamil; ko1 - PMHx: 11:32 Anemia; Atrial Fib; CVA (Deficit: slurred speech and weakness); Depression; epilepsy; ko1 GERD; Hypothyroidism; Hyperlipidemia; insomnia; muscle atrophy; UTI; - Immunization history:: Adult Immunizations unknown. - Social history:: Smoking status: Patient denies any tobacco usage or history of. Screenin:12 Abuse screen: Denies threats or abuse. Nutritional screening: No deficits noted. ko1 Tuberculosis screening: No symptoms or risk factors identified. 12:12 Fall Risk Ambulatory Aid- None/Bed Rest/Nurse Assist (0 pts). Gait- Normal/Bed ko1 Rest/Wheelchair (0 pts) Total Dotson Fall Scale indicates No Risk (0-24 pts). Assessment: 12:11 General: Appears in no apparent distress. Behavior is cooperative. Pain: Complains of ko1 pain in abdomen Pain does not radiate. Pain currently is 6 out of 10 on a pain scale. Quality of pain is described as pressure. Neuro: Level of Consciousness is awake, alert, obeys commands, Oriented to person, place, time, situation. Cardiovascular: Heart tones present Patient's skin is warm and dry. Respiratory: Airway is patent Respiratory effort is even, unlabored, Respiratory pattern is regular, symmetrical. GI: Abdomen is distended, Bowel sounds present X 4 quads. Abdomen is tender to palpation X 4 quads. : No signs and/or symptoms were reported regarding the genitourinary system. EENT: No signs and/or symptoms were reported regarding the EENT system. Derm: No signs and/or symptoms reported regarding the dermatologic system. dressing noted in the sacral area. no drainage noted dry and clean. redness noted. Musculoskeletal: Reports not being able to move right leg. 13:20 Reassessment: Patient appears in no apparent distress at this time. No changes from ko1 previously documented assessment. Patient and/or family updated on plan of care and expected duration. Pain level reassessed. Patient is alert, oriented x 3, equal unlabored respirations, skin warm/dry/pink. 14:20 Reassessment: Patient appears in no apparent distress at this time. No changes from em6 previously documented assessment. Patient and/or family updated on plan of care and expected duration. Pain level reassessed. Patient is alert, oriented x 3, equal unlabored respirations, skin warm/dry/pink. 15:20 Reassessment: Patient appears in no apparent distress at this time. No changes from em6 previously documented assessment. Patient and/or family updated on plan of care and expected duration. Pain level reassessed. Patient is alert, oriented x 3, equal unlabored respirations, skin warm/dry/pink. 16:20 Reassessment: Patient appears in no apparent distress at this time. No changes from em6 previously documented assessment. Patient and/or family updated on plan of care and expected duration. Pain level reassessed. Patient is alert, oriented x 3, equal unlabored respirations, skin warm/dry/pink. 17:20 Reassessment: Patient appears in no apparent distress at this time. No changes from em6 previously documented assessment. Patient and/or family updated on plan of care and expected duration. Pain level reassessed. Patient is alert, oriented x 3, equal unlabored respirations, skin warm/dry/pink. 18:20 Reassessment: Patient appears in no apparent distress at this time. No changes from em6 previously documented assessment. Patient and/or family updated on plan of care and expected duration. Pain level reassessed. Patient is alert, oriented x 3, equal unlabored respirations, skin warm/dry/pink. Vital Signs: 11:30 BP 114 / 61; Pulse 70; Resp 18; Temp 98.6(O); Pulse Ox 92% on R/A; ko1 13:50 BP 110 / 50; Pulse 70; Resp 12; Pulse Ox 98% on R/A; ko1 15:45 BP 123 / 53; Pulse 76; Resp 14; Pulse Ox 97% on R/A; em6 16:30 BP 125 / 56; Pulse 70; Resp 14; Pulse Ox 97% on R/A; em6 17:15 BP 116 / 72; Pulse 70; Resp 15; Pulse Ox 96% on R/A; em6 18:00 BP 113 / 65; Pulse 70; Resp 15; Pulse Ox 97% on R/A; em6 ED Course: 11:30 Patient arrived in ED. ko1 11:31 Milad Al PA is PHCP. jmm 11:31 Jr Caraballo MD is Attending Physician. jmm 11:32 Triage completed. ko1 11:32 Arm band placed on left wrist. ko1 11:39 Kimmy Maguire, YUE is Primary Nurse. ko1 12:12 Bed in low position. Call light in reach. Side rails up X2. Adult w/ patient. Cardiac ko1 monitor on. Pulse ox on. NIBP on. Warm blanket given. 13:50 CT Abd/Pelvis - IV Contrast Only In Process Unspecified. EDMS 13:56 Type And Screen Sent. ko1 13:56 COVID-19/FLU A+B Sent. ko1 14:45 Mercedes Mccoy MD is Hospitalizing Provider. [facility] 19:14 Notified Nurse Practitioner and/or Physician Clinical Informatics Director of a critical lab result(s), aa9 DDimer 622 Vamsi Attema [employer] notified. 19:31 No provider procedures requiring assistance completed. Patient admitted, IV remains in em6 place. Administered Medications: 13:40 Drug: ProTONIX (pantoprazole) 40 mg Route: IVP; Site: right antecubital; ko1 14:00 Follow up: Response: No adverse reaction em6 14:29 Drug: Rocephin (cefTRIAXone) 1 grams Route: IV; Rate: calculated rate; Site: right ko1 antecubital; 15:00 Follow up: Response: No adverse reaction; IV Status: Completed infusion; IV Intake: [id number] 14:29 Drug: NS 0.9% 500 ml Route: IV; Rate: bolus; Site: right antecubital; ko1 15:26 Follow up: IV Status: Completed infusion; IV Intake: 500ml ko1 15:30 Follow up: Response: No adverse reaction em6 15:26 Drug: ProTONIX (pantoprazole) 8 mg/hr Route: IV; Rate: 25 ml/hr; Site: right ko1 antecubital; Medication: 19:32 VIS not applicable for this client. em6 Intake: 15:00 IV: 10ml; Total: 10ml. em6 15:26 IV: 500ml; Total: 510ml. ko1 Outcome: 14:46 Decision to Hospitalize by Provider. [facility] 19:31 Admitted to Med/surg em6 19:31 Condition: stable 19:31 Instructed on the need for admit, Demonstrated understanding of instructions. 19:32 Patient left the ED. em6 Signatures: Dispatcher [employer] EDMS Milad Al PA PA [facility] Grecia Kimball RN RN aa9 Martinez, Erika, RN RN em6 Kimmy Maguire RN RN ko1 Corrections: (The following items were deleted from the chart) 16:28 12:11 Derm: No signs and/or symptoms reported regarding the dermatologic system. ko1 em6 16:28 12:11 Musculoskeletal: No signs and/or symptoms reported regarding the musculoskeletal em6 system. ko1
--- NOTE | 2022-02-25 14:47 | EDPHYS ---
Physician Documentation [facility] Name: Padma Carrillo Age: 86 yrs Sex: Female : 1935 Arrival Date: 02/25/2022 Time: 11:30 Bed 16 Private MD: ED Physician Jr Caraballo HPI: 02/25 11:36 This 86 yrs old Female presents to ER via EMS with complaints of Abdominal Pain. jmm 11:36 The patient presents with abdominal pain. jmm 17:50 Onset: The symptoms/episode began/occurred gradually. The symptoms do not radiate. This jmm is an 86/f with a history of anemia, afib, cva that presents to the ED with complaints of abdominal pain which has been ongoing for approx 1 week. Also complains of weakness. . Historical: - Allergies: 11:32 Codeine; ko1 11:32 Fosamax; ko1 11:32 Propoxyphene; ko1 11:32 Talwin NX; ko1 11:32 Verapamil; ko1 - PMHx: 11:32 Anemia; Atrial Fib; CVA (Deficit: slurred speech and weakness); Depression; epilepsy; ko1 GERD; Hypothyroidism; Hyperlipidemia; insomnia; muscle atrophy; UTI; - Immunization history:: Adult Immunizations unknown. - Social history:: Smoking status: Patient denies any tobacco usage or history of. ROS: 17:50 Constitutional: Negative for fever, chills, and weight loss, Cardiovascular: Negative jmm for chest pain, palpitations, and edema, Respiratory: Negative for shortness of breath, cough, wheezing, and pleuritic chest pain. 17:50 Abdomen/GI: Positive for abdominal pain. 17:50 All other systems are negative. Exam: 17:50 Constitutional: This is a well developed, well nourished patient who is awake, alert, jmm and in no acute distress. Head/Face: atraumatic. Eyes: EOMI, no conjunctival erythema appreciated ENT: Moist Mucus Membranes Neck: Trachea midline, Supple Chest/axilla: Normal chest wall appearance and motion. Cardiovascular: Regular rate and rhythm. No edema appreciated Respiratory: Normal respirations, no respiratory distress appreciated 17:50 Back: Normal ROM Skin: General appearance color normal 17:50 Abdomen/GI: Inspection: distension, Bowel sounds: normal, Palpation: soft, nontender, in all quadrants. 17:50 Musculoskeletal/extremity: ROM: intact in all extremities. 17:50 Skin: Appearance: Color: normal in color. 17:50 Neuro: Motor: is normal. Vital Signs: 11:30 BP 114 / 61; Pulse 70; Resp 18; Temp 98.6(O); Pulse Ox 92% on R/A; ko1 13:50 BP 110 / 50; Pulse 70; Resp 12; Pulse Ox 98% on R/A; ko1 15:45 BP 123 / 53; Pulse 76; Resp 14; Pulse Ox 97% on R/A; em6 16:30 BP 125 / 56; Pulse 70; Resp 14; Pulse Ox 97% on R/A; em6 17:15 BP 116 / 72; Pulse 70; Resp 15; Pulse Ox 96% on R/A; em6 18:00 BP 113 / 65; Pulse 70; Resp 15; Pulse Ox 97% on R/A; em6 MDM: 11:36 Patient medically screened. juliane 14:44 Data reviewed: vital signs, nurses notes. Counseling: I had a detailed discussion with juliane the patient and/or guardian regarding: the historical points, exam findings, and any diagnostic results supporting the discharge/admit diagnosis, lab results, radiology results, the need for further work-up and treatment in the hospital. 17:53 ED course: Disimpaction was performed. Patient tolerated the procedure well. I juliane discussed the patient with Dr. Hall whom will consult on the patient. . 02/25 11:37 Order name: CBC with Diff; Complete Time: 12:49 [facility] 02/25 11:37 Order name: CMP; Complete Time: 13:40 [facility] 02/25 11:37 Order name: Lipase; Complete Time: 13:40 [facility] 02/25 13:21 Order name: COVID-19/FLU A+B; Complete Time: 14:31 [facility] 02/25 13:22 Order name: Occult Blood--Ancillary; Complete Time: 13:40 bd 02/25 13:28 Order name: Urine Dipstick-Ancillary; Complete Time: 13:30 [facility] 02/25 13:29 Order name: Type And Screen; Complete Time: 15:25 [facility] 02/25 14:05 Order name: CREATININE WHOLE BLOOD; Complete Time: 14:06 [facility] 02/25 14:06 Order name: Urine Culture [facility] 02/25 17:33 Order name: CBC with Automated Diff; Complete Time: 18:56 [facility] 02/25 17:33 Order name: Magnesium EDMS 02/25 17:33 Order name: NT PRO-BNP [facility]MS 02/25 17:33 Order name: Phosphorus EDMS 02/25 17:33 Order name: T4 Free [facility] 02/25 11:37 Order name: CT Abd/Pelvis - IV Contrast Only; Complete Time: 14:18 [facility] 02/25 17:27 Order name: CONS Physician Consult [facility] 02/25 17:33 Order name: CONS [facility] Cons [facility] 02/25 17:33 Order name: Thyroid Stimulating Hormone EDMS 02/25 17:33 Order name: Urinalysis [facility] 02/25 17:33 Order name: Basic Metabolic Panel [facility] 02/25 17:33 Order name: Basic Metabolic Panel [facility] 02/25 17:33 Order name: Blood Culture [facility] 02/25 17:35 Order name: D-Dimer [facility] 02/25 17:35 Order name: Chest Pa And Lat (2 Views) [facility] 02/25 19:03 Order name: Troponin High Sensitivity [facility] 02/25 19:29 Order name: RAD [facility] 02/25 11:37 Order name: IV Saline Lock; Complete Time: 13:05 [facility] 02/25 11:37 Order name: Labs collected and sent; Complete Time: 13:05 [facility] 02/25 11:37 Order name: Urine Dipstick-Ancillary (obtain specimen); Complete Time: 13:56 [facility] 02/25 12:45 Order name: Labs - recollect needed: recollect light green and lavender top; Complete bd Time: 13:05 Administered Medications: 13:40 Drug: ProTONIX (pantoprazole) 40 mg Route: IVP; Site: right antecubital; ko1 14:00 Follow up: Response: No adverse reaction em6 14:29 Drug: Rocephin (cefTRIAXone) 1 grams Route: IV; Rate: calculated rate; Site: right ko1 antecubital; 15:00 Follow up: Response: No adverse reaction; IV Status: Completed infusion; IV Intake: 41gbpl5 14:29 Drug: NS 0.9% 500 ml Route: IV; Rate: bolus; Site: right antecubital; ko1 15:26 Follow up: IV Status: Completed infusion; IV Intake: 500ml ko1 15:30 Follow up: Response: No adverse reaction em6 15:26 Drug: ProTONIX (pantoprazole) 8 mg/hr Route: IV; Rate: 25 ml/hr; Site: right ko1 antecubital; Disposition: 02/26 10:51 Co-signature as Attending Physician, Jr Caraballo MD I agree with the assessment and kdr plan of care. Disposition Summary: 02/25/22 14:46 Hospitalization Ordered Hospitalization Status: Inpatient Admission [facility] Provider: Mercedes Mccoy [facility] jmm Condition: Stable jmm Problem: new jmm Symptoms: are unchanged jmm Bed/Room Type: Standard [facility] Room Assignment: 221(02/25/22 17:54) bd Diagnosis - Constipation jmm - GI Bleed/ Gastrointestinal hemorrhage, unspecified jmm - Anemia, unspecified jmm Forms: - Medication Reconciliation Form jmm - SBAR form jmm Signatures: Dispatcher [employer] EDMS Gina Cavanaugh Kevin, MD MD kdr Mickail, Joel, PA PA m Kimmy Maguire RN RN ko1 Sonja Nuñez RN em6 Corrections: (The following items were deleted from the chart) 02/25 17:54 14:46 jmm bd
[2022-02-25] MEDS: PANTOPRAZOLE INJ 80 MG in NA CHLORIDE 0.9% 250 ML IV SCH (15:00)
[2022-02-25] MEDS ORDERED: ACETAMINOPHEN 325 MG TABLET PO PRN (17:25)
[2022-02-25] MEDS ORDERED: ONDANSETRON 4 MG/2 ML VIAL IV PRN (17:28)
[2022-02-25] MEDS ORDERED: ALBUTEROL 2.5 MG/3 ML NEB SOL NEB PRN (17:28)
[2022-02-25] MEDS ORDERED: BISACODYL E.C. 5 MG TAB PO PRN (17:34)
--- NOTE | 2022-02-25 17:39 | P.HP ---
Certification for Inpatient Patient admitted to: Inpatient With expected LOS: >2 Midnights Patient will require the following post-hospital care: None Practitioner: I am a practitioner with admitting privileges, knowledge of patient current condition, hospital course, and medical plan of care. Services: Services provided to patient in accordance with Admission requirements found in Title 42 Section 412.3 of the Code of Federal Regulations <Rosi Mooney Young - Last Filed: 02/25/22 20:23> Patient History Date of Service: 02/25/22 Reason for admission: Abdominal pain. History of Present Illness: James is an 86-year-old female with a past medical history significant for atrial fibrillation, anemia, CVA, depression, seizure disorder, GERD, hypothyroid, HLD, insomnia, pacemaker presence who presents with complaint of generalized abdominal pain. Patient is a poor historian and unable to provide accurate history. Patient rated pain as 10/10 in severity and described pain as aching in quality. Patient is a resident of a group home. Family reported that group home indicated that patient has been having rectal bleeding. Patient also reports left chest wall pain. . Patient reported associated signs and symptoms of shortness of breath and cough. Patient denies any other signs or symptoms. Symptoms are aggravated or relieved by nothing. Patient was brought to the hospital for medical evaluation. - Past Medical/Surgical History Diabetic: No -: epilepsy -: GERD -: depression -: hyperlipidemia -: anemia -: hypothyroidism -: Atrial fibrillation -: muscle atrophy -: UTI -: CVA -: dementia -: htn ,osteoarthritis -: pacemaker -: back surgery -: bilateral knee replacement -: abdominal surgery -: jerson hip surgeries - Family History Father -: Heart disease Mother -: Heart disease, Cancer Sister -: Heart disease, Diabetes Brother -: Heart disease - Social History Smoking Status: Unknown if ever smoked Alcohol use: No CD- Drugs: No Caffeine use: No Place of Residence: [facility] <BerryyoungYoansue Guevara - Last Filed: 02/25/22 20:23> Date of Service: 02/25/22 <Mercedes Mccoy - Last Filed: 02/25/22 21:53> Allergies codeine [Codeine] Allergy (Intermediate, Verified 07/31/17 11:31) hallucination morphine Allergy (Intermediate, Verified 07/31/17 11:31) hallucinations propoxyphene HCl [From Darvon] Allergy (Intermediate, Verified 07/31/17 11:31) hallucinations verapamil [Verapamil] Allergy (Intermediate, Verified 07/31/17 11:31) hallucinations alendronate sodium [From Fosamax] Allergy (Verified 07/31/17 11:31) Unknown ibuprofen Allergy (Verified 10/12/17 22:45) Unknown pentazocine [From Talwin NX] Allergy (Verified 07/31/17 11:31) Rash Home Medications: Acetaminophen [Tylenol] 650 mg PO Q6HP PRN 04/01/18 Docusate Sodium 100 mg PO TID 04/01/18 Furosemide [Lasix*] 20 mg PO BID 04/01/18 Gabapentin 300 mg PO TID 04/01/18 Hydrocodone 5/APAP 325 [Frakes 5/325*] 1 tab PO Q6HP PRN 04/01/18 Isosorbide Dinitrate 10 mg PO BID 04/01/18 Lactobacillus Acidophilus [Acidophilus] 1 cap PO DAILY 04/01/18 Levothyroxine Sodium [Synthroid] 150 mcg PO DAILY 04/01/18 Loratadine [Claritin*] 10 mg PO BEDTIME 04/01/18 Magnesium Oxide [Mag 0X*] 400 mg PO DAILY 04/01/18 Megestrol Acetate 10 ml PO BID 04/01/18 Memantine HCl [Namenda*] 10 mg PO BID 04/01/18 Metoprolol Tartrate [Lopressor*] 50 mg PO Q12H 04/01/18 Multivit-Min/Iron Fum/Folic AC [Rkavd-Ppsatqn-Erpqpsio Tablet] 1 tab PO DAILY 04/01/18 Nitroglycerin 0.4 mg SL Q5MX3, Q15MX1, Q30M 04/01/18 Potassium Chloride 10 meq PO DAILY 04/01/18 Rivaroxaban [Xarelto] 20 mg PO DAILY 04/01/18 Sennosides [Senna] 2 tab PO BID 04/01/18 Sodium Polystyrene Sulfon/Sorb [Kionex 15 gm/60 ml Suspension] 15 gm PO 1X 04/01/18 Spironolactone [Aldactone*] 25 mg PO BID 04/01/18 Sulfamethoxazole/Trimethoprim [Bactrim Ds Tablet] 1 tab PO BID 04/01/18 Valacyclovir [Valtrex*] 500 mg PO BID 04/01/18 bisacodyL [Dulcolax*] 10 mg PO DAILYPRN PRN 04/01/18 levETIRAcetam [Keppra Inj*] 10 ml PO BID 04/01/18 traMADol HCL [Ultram*] 100 mg PO BID 04/01/18 Meropenem [Merrem 1 GM/100 ML NS IVPB] 1 gm IV Q8H 14 Days bag 04/04/18 Review of Systems General: Malaise Eyes: Unremarkable ENT: Unremarkable Respiratory: Cough, Shortness of Breath Cardiovascular: Chest Pain Gastrointestinal: Abdominal Pain, Other (rectal bleeding ) Genitourinary: Unremarkable Musculoskeletal: Unremarkable Integumentary: As per HPI Neurological: Unremarkable Lymphatics: Unremarkable <Rosi Mooney - Last Filed: 02/25/22 20:23> Physical Examination - Physical Exam General: Alert, Oriented x2, Cooperative, Mild distress HEENT: Atraumatic, PERRLA, Mucous membr. moist/pink, EOMI, Sclerae nonicteric Neck: Supple, 2+ carotid pulse no bruit, No LAD, Without JVD or thyroid abnormality Respiratory: Normal air movement, Expiratory wheezes Cardiovascular: Normal pulses, Normal S1 S2 Capillary refill: <2 Seconds Gastrointestinal: Hypoactive, No tenderness Musculoskeletal: No clubbing, No contractures Integumentary: Skin breakdown, Tenderness/swelling Neurological: Normal tone, Normal affect, Abnormal strength Lymphatics: No axilla or inguinal lymphadenopathy - Studies Laboratory Data (last 24 hrs) 02/25/22 13:04: Sodium 135 L, Potassium 4.2, BUN 61 H, Creatinine 1.07, Glucose 108 H, Total Bilirubin 0.8, AST 23, ALT 15, Alkaline Phosphatase 98, Lipase 73 02/25/22 12:23: WBC 4.80, Hgb 9.1 L, Hct 27.9 L, Plt Count 249 Microbiology Data (last 24 hrs): 02/25/22 13:22 Stool Occult Blood - Final <Rosi Mooney - Last Filed: 02/25/22 20:23> - Studies Laboratory Data (last 24 hrs) 02/25/22 13:04: Sodium 135 L, Potassium 4.2, BUN 61 H, Creatinine 1.07, Glucose 108 H, Total Bilirubin 0.8, AST 23, ALT 15, Alkaline Phosphatase 98, Lipase 73 02/25/22 12:23: WBC 4.80, Hgb 9.1 L, Hct 27.9 L, Plt Count 249 Microbiology Data (last 24 hrs): 02/25/22 13:22 Stool Occult Blood - Final <Mercedes Mccoy Clarita - Last Filed: 02/25/22 21:53> Assessment and Plan - Plan --Gastrointestinal bleeding. Of patient started on Protonix. H\H stable . We will continue to monitor hemoglobin and transfuse if less than 7.0. Gastroenterology consulted. We will await further recommendations. --Chest pain. Likely atypical. Will trend serial troponins. Telemetry to monitor for any significant arrhythmia. ---Elevated D-dimer. CTA PE protocol pending to rule out PE. Continue supportive care. --Atrial fibrillation. We will hold off on home aniticoagulant due to GI bleed. Telemetry to monitor for any significant arrhythmia. --History of CVA. Continue home medication. --History of seizure disorder. Continue home medication.Seizure precautions --GERD. Continue Protonix. --Hypertension. Stable. Continue home medications --Dementia. Continue home medication. --Cardiac pacemaker. Continue supportive care. Telemetry --Anemia of chronic disease. compounded by GI bleed. H&H stable. We will continue to monitor hemoglobin and transfuse if less than 7.0. -- History of depression\insomnia. Continue home medications. --Right knee wound. Wound care consult initiated. We will await further recommendations. --DVT prophylaxis with SCDs Discharge Plan: Home Plan to discharge in: Greater than 2 days - Advance Directives Does patient have a Living Will: No Does patient have a Durable POA for Healthcare: No - Code Status/Comfort Care Code Status Assessed: Yes Physician Review: Patient Assessed, Agree with Above Assessment and Plan Critical Care: No <Rosi Mooney - Last Filed: 02/25/22 20:23> Date of Service: 02/25/22 SUBJECTIVE: Spoke with family who is at bedside. Patient apparently has been having some lower GI bleeding, bright red blood per rectum, for a few weeks. He they have been using hemorrhoid cream at the nursing facility to try to alleviate it. Patient was scheduled for outpatient GI follow-up. Patient started having significant abdominal pains of the group home staff decided to send the patient to the hospital. Patient's hemoglobin is remaining fairly stable. Will continue to monitor patient and get GI consultation for this. Patient does also have fecal retention and will give mineral will an enema as needed to try to assist in patient's constipation. Also reviewed the CAT scan patient has right- sided hydronephrosis. Will get a Pleitez catheter in place. Will get Urology consultation. Anemia workup will also be done while in the hospital. 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 She is able to communicate fairly well but unable to walk since the stroke. That is the main reason they put her in the group home. OBJECTIVE: Vital Signs: reviewed General: WNL HEENT:WNL CV: WNL Lungs: WNL Abd: WNL Ext: WNL ASSESSMENT: 1. GI bleeding; bright red blood per rectum / hemorrhoidal bleeding 2. Right-sided hydronephrosis 3. History of CVA with aphasia and right-sided weakness; nonambulatory PLAN: Plan as mentioned above <Mercedes Mccoy - Last Filed: 02/25/22 21:53>
[2022-02-25] MEDS ORDERED: NITROGLYCERIN 0.4 MG/TAB SL SCH ×2 (18:00→19:00)
[2022-02-25] MEDS: METOPROLOL TAR 50 MG TAB PO SCH (18:00)
[2022-02-25 18:43] LABS: Absolute Lymphocytes (CBC) 0.7 K/uL (0.7-4.9); Hematocrit 27.9 % (36.0-45.0); Lymphocytes % 14.8 % (15.3-44.8); MCV 86.6 fL (80-100); RBC Red Blood Cell Count 3.22 M/uL (3.86-4.86)
[2022-02-25 19:08] LABS: Magnesium 2.4 mg/dL (1.8-2.4); Phosphorus 3.8 mg/dL (2.5-4.9); Thyroid Stimulating Hormone 2.56 uIU/mL (0.360-3.740)
--- NOTE | 2022-02-25 19:28 | RAD REPORT ---
EXAM DESCRIPTION: [facility]ho[facility] Single View02/25/2022 6:56 pm CLINICAL HISTORY: Abdominal pain COMPARISON: July 2021 FINDINGS: The lungs appear clear of acute infiltrate. The heart is mildly enlarged. Pacemaker leads in place Bowel abuts the right hemidiaphragm. It is unchanged from prior exams IMPRESSION: No acute abnormalities displayed
[2022-02-25] MEDS ORDERED: MEGESTROL ACETATE 400 MG/10 ML PO SCH (21:00)
[2022-02-25] MEDS ORDERED: DOCUSATE SODIUM 100 MG PO SCH (21:00)
[2022-02-25] MEDS ORDERED: ISOSORBIDE DINITRATE 10 MG PO SCH (21:00)
[2022-02-25] MEDS ORDERED: MINERAL OIL 30 ML UCUP PO ONE (21:44)
[2022-02-25] MEDS: LACTULOSE 20 GM/30 ML UCUP PO SCH (22:51)
[2022-02-25] MEDS: MEGESTROL 400 MG/10 ML UCUP PO SCH (22:52)
[2022-02-25] MEDS: ISOSORBIDE DINIT 5 MG TAB PO SCH (22:53)
[2022-02-25] MEDS: VALACYCLOVIR 500 MG TAB PO SCH (22:53)
[2022-02-25] MEDS: MEMANTINE HCL 10 MG TABLET PO SCH (22:54)
[2022-02-25] MEDS: FUROSEMIDE 20 MG TABLET PO SCH (22:54)
[2022-02-25] MEDS: SENOSIDES 8.6 MG TAB PO SCH (22:55)
[2022-02-25] MEDS: LORATADINE 10 MG TAB PO SCH (22:55)
[2022-02-25] MEDS: GABAPENTIN 300 MG CAP PO SCH (22:55)
[2022-02-25] MEDS: DOCUSATE NA 100 MG CAP PO SCH (22:55)
[2022-02-26 01:37] VITALS: BMI 20.3
[2022-02-26] MEDS: PANTOPRAZOLE INJ 80 MG in NA CHLORIDE 0.9% 250 ML IV SCH ×4 (02:40→20:41)
[2022-02-26] MEDS: METOPROLOL TAR 50 MG TAB PO SCH ×2 (06:00→17:28)
[2022-02-26] MEDS: LEVOTHYROXINE SOD 0.075 MG TAB PO SCH (06:10)
[2022-02-26 06:19] LABS: Absolute Lymphocytes (CBC) 0.9 K/uL (0.7-4.9); Hematocrit 26.2 % (36.0-45.0); Lymphocytes % 20.4 % (15.3-44.8); MCV 86.9 fL (80-100); MPV 8.3 fL (7.6-11.3); RBC Red Blood Cell Count 3.01 M/uL (3.86-4.86)
[2022-02-26 06:21] LABS: Protime INR 1.65
[2022-02-26 06:56] LABS: Folic Acid, (Folate) 8.5 ng/mL (3.1-17.5); Magnesium 2.3 mg/dL (1.8-2.4); Potassium 3.3 mmol/L (3.5-5.1)
[2022-02-26] MEDS ORDERED: Ringers Lactate 1,000 ML IV ONE (08:55)
[2022-02-26] MEDS: GABAPENTIN 300 MG CAP PO SCH ×3 (09:00→20:40)
[2022-02-26] MEDS ORDERED: HOME MED 1 EA UNK (Levothyroxine Sodium [Synthroid] 150 MCG Tablet) PO SCH (09:00)
[2022-02-26] MEDS: LACTULOSE 20 GM/30 ML UCUP PO SCH ×3 (09:00→20:39)
[2022-02-26] MEDS ORDERED: [UNRECOGNIZED DRUG - OTHER] PO SCH (09:00)
[2022-02-26] MEDS: SENOSIDES 8.6 MG TAB PO SCH ×2 (09:00→20:40)
[2022-02-26] MEDS: MEMANTINE HCL 10 MG TABLET PO SCH ×2 (09:00→20:40)
[2022-02-26] MEDS: DOCUSATE NA 100 MG CAP PO SCH ×3 (09:00→20:40)
[2022-02-26] MEDS ORDERED: POTASSIUM CHLORIDE 20 MEQ/15 ML PO SCH (09:00)
[2022-02-26] MEDS: MAGNESIUM OXIDE 400 MG TAB PO SCH (09:00)
[2022-02-26] MEDS: LACTOBACILLUS/ACIDOPHILUS TAB PO SCH (09:00)
[2022-02-26] MEDS: MEGESTROL 400 MG/10 ML UCUP PO SCH ×2 (09:00→20:39)
[2022-02-26] MEDS: MULTIVIT W/ MINERAL TAB PO SCH (09:00)
[2022-02-26] MEDS: POTASSIUM CL SA 10 MEQ TAB PO SCH (09:00)
[2022-02-26] MEDS ORDERED: LACTOBACILLUS ACIDOPHILUS PO SCH (09:00)
[2022-02-26] MEDS: ISOSORBIDE DINIT 5 MG TAB PO SCH ×3 (09:00→20:40)
[2022-02-26] MEDS: VALACYCLOVIR 500 MG TAB PO SCH ×2 (09:00→20:40)
[2022-02-26] MEDS ORDERED: IRON FUM PO SCH (09:00)
[2022-02-26] MEDS ORDERED: MULTIVIT MIN PO SCH (09:00)
[2022-02-26] MEDS: FUROSEMIDE 20 MG TABLET PO SCH ×2 (09:00→20:39)
[2022-02-26] MEDS ORDERED: FOLIC AC PO SCH (09:00)
[2022-02-26] MEDS ORDERED: propofoL 200 MG/20 ML VIAL IV ONE (10:14)
[2022-02-26] MEDS ORDERED: LIDOCAINE 1% MPF 5 ML VIAL ONE (10:14)
[2022-02-26] MEDS: KCL 20 MEQ/100 mL IVPB 20 MEQ/100 ML BAG IV SCH ×2 (11:00→11:27)
[2022-02-26] MEDS ORDERED: CEFTRIAXONE 1000 MG/VIAL ONE (11:16)
[2022-02-26] MEDS ORDERED: NA CHLORIDE 0.9% 250 ML ONE ×3 (11:17→20:22)
[2022-02-26] MEDS ORDERED: NA CHLORIDE 0.9% 50 ML ONE (11:18)
[2022-02-26] MEDS: CEFTRIAXONE 1,000 MG in NA CHLORIDE 0.9% 50 ML IVPB SCH (11:26)
--- NOTE | 2022-02-26 11:55 | RAD REPORT ---
EXAM DESCRIPTION: CT - Chest For Pe Angio - 02/26/2022 11:47 am CLINICAL HISTORY: Chest pain. R O PE COMPARISON: Chest For Pe Angio dated 10/12/2017; Chest Single View dated 02/25/2022 TECHNIQUE: CT angiogram of the pulmonary arteries was performed with MIP. All CT scans are performed using dose optimization technique as appropriate and may include automated exposure control or mA/KV adjustment according to patient size. FINDINGS: No evidence of pulmonary thromboembolism. No acute aortic finding demonstrated. There is moderate linear atelectasis in the right lung base. No significant pleural fluid. Moderate c ardiomegaly. No significant pericardial or pleural fluid. Distention of the upper esophagus with air is present. No concerning bony finding. IMPRESSION: No evidence of pulmonary thromboembolism. Moderate linear atelectasis in the right lung base.
[2022-02-26] MEDS: HYDROCODONE/APAP 5/325 MG TAB PO PRN (16:20)
[2022-02-26] MEDS ORDERED: NA CHLORIDE 0.9% 0 ML ONE (17:27)
[2022-02-26] MEDS ORDERED: KCL 20 MEQ/100 mL IVPB 20 MEQ/100 ML BAG IV SCH (18:00)
--- NOTE | 2022-02-26 19:26 | P.PN ---
Subjective Date of Service: 02/26/22 Chief Complaint: Abdominal pain. She was seen in PACU this morning prior to EGD. She reported no particular concerns this morning. She denies any recurrent episodes of bleeding. Review of Systems 10-point ROS is otherwise unremarkable Gastrointestinal: Hematochezia Neurological: Other (Dementia) Physical Examination - Vital Signs Temperature: 97.0 F Blood Pressure: 125/58 Pulse: 70 Respirations: 16 Pulse Ox (%): 98 - Physical Exam General: Alert, In no apparent distress, Demented HEENT: Atraumatic, Mucous membr. moist/pink, EOMI, Sclerae nonicteric Neck: JVD not distended Respiratory: Clear to auscultation bilaterally, Normal air movement Cardiovascular: No edema, Regular rate/rhythm, Normal S1 S2, No gallops, No rubs, No murmurs Gastrointestinal: Normal bowel sounds, Soft and benign, Non-distended, No tenderness, No rebound, No guarding Musculoskeletal: No clubbing Integumentary: Other (right knee wound) Neurological: Dementia - Studies Microbiology Data (last 24 hrs): 02/25/22 13:22 Stool Occult Blood - Final Assessment And Plan - Plan # Acute Blood Loss Anemia suspect due to Acute Gastrointestinal Bleed # Gastroesophageal Reflux Disease - Consulted Gastroenterology and spoke with Dr. Cutler - recommendations appreciated - Plan for EGD this morning - Type & Screen - Serial H&H: 9.1 -> 9.0 -> 8.5 (Hgb was 12.3 on 01/03/2022) - Transfuse for Hgb < 7.0 - 2 large bore IVs - Pantoprazole drip - NPO # Right Hydronephrosis secondary to Fecal Impaction with Right UVJ Compression - CT abdomen/pelvis = "Fecal impaction with rectal distention. Moderate right hydronephrosis. This may be related to the rectal distention compressing the right UVJ." - Aggressive bowel regimen - Consult Urology - recommendations appreciated # Elevated D-Dimer - D-Dimer = 622 (within normal limits once age-adjusted) - CT chest angiogram = "No evidence of pulmonary thromboembolism. Moderate linear atelectasis in the right lung base." # Right Knee Wound - Wound care consulted # Hypertension - Continue home Isordil # Dementia - Continue home memantine # Atrial Fibrillation s/p PPM - Continue home metoprolol - Hold home anticoagulation given acute GI bleed # History of Cerebrovascular Accident # Seizure Disorder # Depression - Resume home medications once verified Bo Haile M.D.
--- NOTE | 2022-02-26 20:04 | OP ---
Surgeon: Jean Cutler MD Procedure: Esophagogastroduodenoscopy. Indication For Procedure: Anemia, rule out upper GI source of bleeding. Anesthesia: Monitored anesthesia care. Complexity: High due to the patient's comorbidities and age. Technique: After obtaining informed consent from the patient's son and also explaining risks and com plications, which include but are not limited to bleeding, infection, perforation, and anesthesia com plication, patient was placed in the left lateral position. Sedation was given. From then on, the s cope was advanced into mouth and carefully guided up to the duodenum because the patient s eems to have had gastric surgery, which the son verified 30 years ago she had a mass removed from her abdomen and part of the stomach and small intestine that were also removed at that time. During the procedure, the patient's oxygen saturation and heart rate were monitored. She did have temporary de saturation, which was improved she did also, but the patient did not seem to have good res piratory effort, even with very small dose of propofol; however, did not back this procedure this muc h as this is a short procedure and we were able to manage it appropriately. Findings: Esophagus: No gross lesion seen in the entire esophagus. The esophagus appeared tortuous . Stomach: Mild patchy erythema seen in the body and what remained of the antrum. In the fundus, ther e was evidence of retained food, [id number] amount so the view of the fundus was obscured. In the distal stomach there was evidence of an anastomosis that appeared to be gastroduodenal and gastr ojejunal and that anastomosis appeared normal. Biopsies were taken from the stomach and anastomotic lesion. The visualized portion of the duodenum/jejunum appeared normal. Complications: None. Tolerance To Anesthesia: Inadequate, but due to the short nature of the procedure did not have any c omplication. Estimated Blood Loss: Minimal. Plan: 1.Await pathology results. 2.Continue PPI. 3.Treat the constipation. I had a detailed discussion with the son. I will not recommend any invasive intervention given her a nesthesia problems, her age, and mental condition. US/MODL Voice ID: [id number] Report ID: [id number]
[2022-02-26] MEDS: LORATADINE 10 MG TAB PO SCH (20:40)
[2022-02-26 22:04] LABS: Hematocrit 25.1 % (36.0-45.0)
[2022-02-26] MEDS ORDERED: MELATONIN 5 MG TABLET PO PRN (22:49)
[2022-02-27] MEDS: PANTOPRAZOLE INJ 80 MG in NA CHLORIDE 0.9% 250 ML IV SCH ×3 (00:21→23:46)
[2022-02-27 03:40] LABS: Absolute Lymphocytes (CBC) 1.1 K/uL (0.7-4.9); Hematocrit 24.3 % (36.0-45.0); Lymphocytes % 21.6 % (15.3-44.8); MCV 87.2 fL (80-100); MPV 7.9 fL (7.6-11.3); RBC Red Blood Cell Count 2.79 M/uL (3.86-4.86)
[2022-02-27] MEDS: METOPROLOL TAR 50 MG TAB PO SCH ×2 (06:00→17:41)
[2022-02-27] MEDS: LEVOTHYROXINE SOD 0.075 MG TAB PO SCH (06:19)
[2022-02-27] MEDS: MULTIVIT W/ MINERAL TAB PO SCH (09:00)
[2022-02-27] MEDS: CEFTRIAXONE 1,000 MG in NA CHLORIDE 0.9% 50 ML IVPB SCH (09:37)
[2022-02-27] MEDS: MEGESTROL 400 MG/10 ML UCUP PO SCH ×2 (09:40→22:07)
[2022-02-27] MEDS: SENOSIDES 8.6 MG TAB PO SCH ×2 (09:41→22:06)
[2022-02-27] MEDS: LACTOBACILLUS/ACIDOPHILUS TAB PO SCH (09:42)
[2022-02-27] MEDS: GABAPENTIN 300 MG CAP PO SCH ×3 (09:42→22:08)
[2022-02-27] MEDS: MEMANTINE HCL 10 MG TABLET PO SCH ×2 (09:44→22:08)
[2022-02-27] MEDS: MAGNESIUM OXIDE 400 MG TAB PO SCH (09:44)
[2022-02-27] MEDS: FUROSEMIDE 20 MG TABLET PO SCH ×2 (09:45→22:07)
[2022-02-27] MEDS: DOCUSATE NA 100 MG CAP PO SCH ×3 (09:46→22:08)
[2022-02-27] MEDS: VALACYCLOVIR 500 MG TAB PO SCH ×2 (09:47→22:07)
[2022-02-27] MEDS: ISOSORBIDE DINIT 5 MG TAB PO SCH ×3 (09:49→22:07)
[2022-02-27] MEDS: MEDIHONEY 44 ML TOPICAL TUBE TOP SCH (09:50)
[2022-02-27] MEDS: POTASSIUM CL SA 10 MEQ TAB PO SCH (10:09)
--- NOTE | 2022-02-27 13:50 | RAD REPORT ---
EXAM DESCRIPTION: US - Renal Ultrasound-Complete - 02/27/2022 1:28 pm CLINICAL HISTORY: hydronephrosis COMPARISON: Abdomen Pelvis W Contrast dated 02/25/2022 FINDINGS: The right kidney measures 8.8 x 4.1 x 4.4 cm. The left kidney measures 5.5 x 4.3 x 3.8 cm . Renal cortical thickness and echogenicity are normal range. Accuracy of size measurements is uncert ain. Exam was difficult. Patient had limited mobility to allow for an optimal acoustic window. A 4.8 centimeter simple cyst is present upper pole of the left kidney corresponding to the cyst seen on the February 25 CT study. The hydronephrosis of the kidneys could not be confirmed on this study. There is slight fullness of e ach renal pelvis less prominent than seen on prior imaging. Urinary bladder is fully contracted around a Pleitez catheter. The patient very severe fecal impaction causing gross dilatation of the rectum and distal sigmoid colon is detailed on the CT study. This is the likely source of the hydronephrosis due to extrinsic compression. If the constipation pattern was partially or fully resolved, that might account for the absence of measurable hydronephrosis on this study. IMPRESSION: Bilateral renal pelvic fullness is seen but far less prominent than was evident on the CT study. The patient's grossly dilated stool-filled rectosigmoid colon likely causes extrinsic compression on the ureters creating the hydronephrosis. This constipation pattern may have been treated since the CT study. Urinary bladder is fully contracted around a Pleitez catheter.
--- NOTE | 2022-02-27 19:21 | P.PN ---
Subjective Date of Service: 02/27/22 Chief Complaint: Abdominal pain. No acute events overnight. She denies any abdominal pain, nausea, vomiting, or diarrhea. She has been passing bowel movements per RN. She denies any recurrent episodes of bleeding. Review of Systems 10-point ROS is otherwise unremarkable Gastrointestinal: Constipation Physical Examination - Vital Signs Temperature: 98.4 F Blood Pressure: 126/55 Pulse: 72 Respirations: 18 Pulse Ox (%): 100 - Studies Microbiology Data (last 24 hrs): 02/25/22 15:50 Catheterized Urine [place] Count - Final >100,000 CFU/ML. 02/25/22 15:50 Catheterized Urine - Final Escherichia Coli Gram Neg Jadyen Assessment And Plan - Plan - Physical Exam General: Alert, In no apparent distress, Demented HEENT: Atraumatic, Mucous membr. moist/pink, EOMI, Sclerae nonicteric Neck: JVD not distended Respiratory: Clear to auscultation bilaterally, Normal air movement Cardiovascular: No edema, Regular rate/rhythm, Normal S1 S2, No gallops, No rubs, No murmurs Gastrointestinal: Normal bowel sounds, Soft and benign, Non-distended, No tenderness, No rebound, No guarding Musculoskeletal: No clubbing Integumentary: Other (right knee wound) Neurological: Dementia # Acute Blood Loss Anemia suspect due to Acute Gastrointestinal Bleed # Gastroesophageal Reflux Disease - Consulted Gastroenterology and spoke with Dr. Cutler - recommendations appreciated - EGD (02/26/2022) - no obvious source of bleeding - Dr. Cutler recommends against any further invasive intervention given her dementia and poor tolerance to anesthesia - Type & Screen - Serial H&H: 9.1 -> 9.0 -> 8.5 -> 7.8 (Hgb was 12.3 on 01/03/2022) - Transfuse for Hgb < 7.0 - 2 large bore IVs - Pantoprazole drip - NPO # Right Hydronephrosis secondary to Fecal Impaction with Right UVJ Compression - CT abdomen/pelvis = "Fecal impaction with rectal distention. Moderate right hydronephrosis. This may be related to the rectal distention compressing the right UVJ." - Aggressive bowel regimen - Consult Urology - recommendations appreciated - Renal ultrasound = "bilateral renal pelvic fullness is seen but far less prominent than was evident on the February 25 CT study. The patient's grossly dilated stool-filled rectosigmoid colon likely causes extrinsic compression on the ureters creating the hydronephrosis. This constipation pattern may have been treated since the CT study. 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 Moderate linear atelectasis in the right lung base." # Right Knee Wound - Wound care consulted # Hypertension - Continue home Isordil # Dementia - Continue home memantine # Atrial Fibrillation s/p PPM - Continue home metoprolol - Hold home anticoagulation given acute GI bleed # History of Cerebrovascular Accident # Seizure Disorder # Depression - Resume home medications once verified Bo Haile M.D.
[2022-02-27 20:14] LABS: Hematocrit 24.3 % (36.0-45.0)
[2022-02-27] MEDS: JUVEN PACKET PO SCH (22:06)
[2022-02-27] MEDS: ENSURE HIGH PROTEIN 237 ML CAN PO SCH (22:06)
[2022-02-27] MEDS: LORATADINE 10 MG TAB PO SCH (22:08)
[2022-02-28] MEDS: HYDROCODONE/APAP 5/325 MG TAB PO PRN (02:26)
[2022-02-28 04:03] LABS: Absolute Lymphocytes (CBC) 1.4 K/uL (0.7-4.9); Lymphocytes % 18.9 % (15.3-44.8); MCV 86.8 fL (80-100); MPV 8.2 fL (7.6-11.3)
[2022-02-28] MEDS: LEVOTHYROXINE SOD 0.075 MG TAB PO SCH (05:40)
[2022-02-28] MEDS: METOPROLOL TAR 50 MG TAB PO SCH ×2 (05:41→17:52)
[2022-02-28] MEDS: CEFTRIAXONE 1,000 MG in NA CHLORIDE 0.9% 50 ML IVPB SCH (08:28)
[2022-02-28] MEDS: MEGESTROL 400 MG/10 ML UCUP PO SCH ×2 (08:31→22:13)
[2022-02-28] MEDS: GABAPENTIN 300 MG CAP PO SCH ×3 (08:32→22:17)
[2022-02-28] MEDS: SENOSIDES 8.6 MG TAB PO SCH ×2 (08:32→22:14)
[2022-02-28] MEDS: DOCUSATE NA 100 MG CAP PO SCH ×3 (08:32→22:15)
[2022-02-28] MEDS: MEMANTINE HCL 10 MG TABLET PO SCH ×2 (08:33→22:15)
[2022-02-28] MEDS: ISOSORBIDE DINIT 5 MG TAB PO SCH ×3 (08:35→22:13)
[2022-02-28] MEDS: VALACYCLOVIR 500 MG TAB PO SCH ×2 (08:35→22:13)
[2022-02-28] MEDS: MAGNESIUM OXIDE 400 MG TAB PO SCH (08:36)
[2022-02-28] MEDS: POTASSIUM CL SA 10 MEQ TAB PO SCH (08:37)
[2022-02-28] MEDS: JUVEN PACKET PO SCH ×2 (08:37→22:16)
[2022-02-28] MEDS: ENSURE HIGH PROTEIN 237 ML CAN PO SCH ×2 (08:37→22:15)
[2022-02-28] MEDS: MULTIVIT W/ MINERAL TAB PO SCH (08:38)
[2022-02-28] MEDS: MEDIHONEY 44 ML TOPICAL TUBE TOP SCH (08:39)
[2022-02-28] MEDS: LACTOBACILLUS/ACIDOPHILUS TAB PO SCH (08:39)
[2022-02-28] MEDS: FUROSEMIDE 20 MG TABLET PO SCH ×2 (09:54→22:14)
--- NOTE | 2022-02-28 12:30 | RAD REPORT ---
EXAM DESCRIPTION: RAD - Abdomen 1 View (KUB) - 02/28/2022 12:10 pm CLINICAL HISTORY: abd pain COMPARISON: ABDOMEN 1 VIEW KUB dated 07/29/2012 FINDINGS: There is a very large amount of stool present dilating the rectum to 8-10 cm. Large stool volume distends the tortuous sigmoid colon. The overall tortuous and redundant colon seen. Small smitha l does not appear dilated. No free air or pneumatosis. No suspicious calcifications. No acute bone finding. Prominent degenerative change present at L4-5 and L5-S1. Left convex scoliotic curvature is present. Bipolar left hip prosthesis and right total hip prosthesis in place. IMPRESSION: Constipation pattern with a very large amount of stool dilating the rectum and moderatel y large stool volume elsewhere within the tortuous colon.
--- NOTE | 2022-02-28 13:13 | P.PN ---
Subjective Date of Service: 02/28/22 Chief Complaint: Abdominal pain. No acute events overnight. She reports significant abdominal distention this morning. She denies any nausea, vomiting, or diarrhea. She has had a large bowel movement this morning. She denies any recurrent episodes of bleeding. Review of Systems 10-point ROS is otherwise unremarkable Gastrointestinal: Abdominal Pain, Constipation Physical Examination - Vital Signs Temperature: 98.9 F Blood Pressure: 102/52 Pulse: 70 Respirations: 18 Pulse Ox (%): 100 - Studies Microbiology Data (last 24 hrs): 02/25/22 15:50 Catheterized Urine [place] Count - Final >100,000 CFU/ML. 02/25/22 15:50 Catheterized Urine - Final Escherichia Coli Gram Neg [place] Assessment And Plan - Plan - Physical Exam General: Alert, In no apparent distress, Demented HEENT: Atraumatic, Mucous membr. moist/pink, EOMI, Sclerae nonicteric Neck: JVD not distended Respiratory: Clear to auscultation bilaterally, Normal air movement Cardiovascular: No edema, Regular rate/rhythm, Normal S1 S2, No gallops, No rubs, No murmurs Gastrointestinal: Hyperactive bowel sounds, Soft and benign, Distended, No tenderness, No rebound, No guarding Musculoskeletal: No clubbing Integumentary: Other (right knee wound) Neurological: Dementia # Acute Blood Loss Anemia suspect due to Acute Gastrointestinal Bleed # Gastroesophageal Reflux Disease - Consulted Gastroenterology and spoke with Dr. Cutler - recommendations appreciated - EGD (02/26/2022) - no obvious source of bleeding - Dr. Cutler recommends against any further invasive intervention given her dementia and poor tolerance to anesthesia - Type & Screen - Serial H&H: 9.1 -> 9.0 -> 8.5 -> 7.8 -> 8.0 -> 8.3 (Hgb was 12.3 on 01/03/2022) - Transfuse for Hgb < 7.0 - 2 large bore IVs - Pantoprazole drip - NPO # Right Hydronephrosis secondary to Fecal Impaction with Right UVJ Compression - CT abdomen/pelvis = "Fecal impaction with rectal distention. Moderate right hydronephrosis. This may be related to the rectal distention compressing the right UVJ." - Aggressive bowel regimen, added polyethylene glycol today - Consult Urology - recommendations appreciated - Renal ultrasound = "bilateral renal pelvic fullness is seen but far less prominent than was evident on the February 25 CT study. The patient's grossly dilated stool-filled rectosigmoid colon likely causes extrinsic compression on the ureters creating the hydronephrosis. This constipation pattern may have been treated since the CT study. 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 Moderate linear atelectasis in the right lung base." # Right Knee Wound - Wound care consulted # Hypertension - Continue home Isordil # Dementia - Continue home memantine # Atrial Fibrillation s/p PPM - Continue home metoprolol - Hold home anticoagulation given acute GI bleed # History of Cerebrovascular Accident # Seizure Disorder # Depression - Resume home medications once verified At Ms. Carrillo's request, I have updated her daughter, Ms. Mague Ponce. Bo Haile M.D.
[2022-02-28] MEDS: PANTOPRAZOLE INJ 80 MG in NA CHLORIDE 0.9% 250 ML IV SCH ×2 (14:25→18:00)
[2022-02-28] MEDS ORDERED: FLEET ENEMA ADULT PR PRN (16:32)
[2022-02-28] MEDS: LORATADINE 10 MG TAB PO SCH (22:14)
[2022-02-28] MEDS: POLYETHYL GLY 3350 17 GM/DOSE PO SCH (22:15)
[2022-03-01] MEDS: PANTOPRAZOLE INJ 80 MG in NA CHLORIDE 0.9% 250 ML IV SCH ×4 (00:44→23:41)
[2022-03-01] MEDS: METOPROLOL TAR 50 MG TAB PO SCH ×2 (05:13→18:03)
[2022-03-01] MEDS: LEVOTHYROXINE SOD 0.075 MG TAB PO SCH (05:13)
[2022-03-01] MEDS: ISOSORBIDE DINIT 5 MG TAB PO SCH ×4 (09:00→20:25)
[2022-03-01] MEDS: POLYETHYL GLY 3350 17 GM/DOSE PO SCH ×2 (09:03→20:25)
[2022-03-01] MEDS: CEFTRIAXONE 1,000 MG in NA CHLORIDE 0.9% 50 ML IVPB SCH (09:04)
[2022-03-01] MEDS: DOCUSATE NA 100 MG CAP PO SCH ×3 (09:04→20:26)
[2022-03-01] MEDS: MEGESTROL 400 MG/10 ML UCUP PO SCH ×2 (09:04→20:24)
[2022-03-01] MEDS: SENOSIDES 8.6 MG TAB PO SCH ×2 (09:04→20:26)
[2022-03-01] MEDS: LACTOBACILLUS/ACIDOPHILUS TAB PO SCH (09:04)
[2022-03-01] MEDS: FUROSEMIDE 20 MG TABLET PO SCH ×2 (09:04→20:32)
[2022-03-01] MEDS: MULTIVIT W/ MINERAL TAB PO SCH (09:04)
[2022-03-01] MEDS: MAGNESIUM OXIDE 400 MG TAB PO SCH (09:05)
[2022-03-01] MEDS: MEDIHONEY 44 ML TOPICAL TUBE TOP SCH (09:05)
[2022-03-01] MEDS: JUVEN PACKET PO SCH ×2 (09:05→20:27)
[2022-03-01] MEDS: MEMANTINE HCL 10 MG TABLET PO SCH ×2 (09:05→20:27)
[2022-03-01] MEDS: POTASSIUM CL SA 10 MEQ TAB PO SCH (09:05)
[2022-03-01] MEDS: ENSURE HIGH PROTEIN 237 ML CAN PO SCH ×2 (09:05→20:28)
[2022-03-01] MEDS: GABAPENTIN 300 MG CAP PO SCH ×3 (09:05→20:26)
[2022-03-01] MEDS: VALACYCLOVIR 500 MG TAB PO SCH ×2 (09:06→20:25)
--- NOTE | 2022-03-01 10:28 | RAD REPORT ---
EXAM DESCRIPTION: RAD - Abdomen 1 View (KUB) - 03/01/2022 9:25 am CLINICAL HISTORY: follow-up abd distension Pain COMPARISON: Abdomen 1 View (KUB) dated 02/28/2022; ABDOMEN 1 VIEW KUB dated 07/29/2012; ABDOMEN 1 VIEW KUB dated 06/29/2012; ABDOMEN 1 VIEW KUB dated 10/19/2011 FINDINGS: The bowel gas pattern is non-obstructive. No evidence of free air or pneumatosis. No suspi cious calcifications. Moderate degenerative levoscoliosis is present of the lumbar spine. Bilateral total hip arthroplasty. Large amount of stool is retained in the rectosigmoid colon. IMPRESSION: Significant rectosigmoid fecal impaction.
--- NOTE | 2022-03-01 17:35 | P.PN ---
Subjective Date of Service: 03/01/22 Chief Complaint: Abdominal pain. No acute events overnight. She reports that her abdominal pain is improving. She denies any nausea, vomiting, or diarrhea. She has multiple large bowel movements, but she still feels constipated. She denies any recurrent episodes of bleeding. Review of Systems 10-point ROS is otherwise unremarkable Gastrointestinal: Abdominal Pain, Constipation Physical Examination - Vital Signs Temperature: 97.0 F Blood Pressure: 111/53 Pulse: 70 Respirations: 16 Pulse Ox (%): 95 Assessment And Plan - Plan - Physical Exam General: Alert, In no apparent distress, Demented HEENT: Atraumatic, Mucous membr. moist/pink, EOMI, Sclerae nonicteric Neck: JVD not distended Respiratory: Clear to auscultation bilaterally, Normal air movement Cardiovascular: No edema, Regular rate/rhythm, Normal S1 S2, No gallops, No rubs, No murmurs Gastrointestinal: Hyperactive bowel sounds, Soft and benign, Distended, No tenderness, No rebound, No guarding Musculoskeletal: No clubbing Integumentary: Other (right knee wound) Neurological: Dementia # Acute Blood Loss Anemia suspect due to Acute Gastrointestinal Bleed # Gastroesophageal Reflux Disease - Consulted Gastroenterology and spoke with Dr. Cutler - recommendations appreciated - EGD (02/26/2022) - no obvious source of bleeding - Dr. Cutler recommends against any further invasive intervention given her dementia and poor tolerance to anesthesia - Type & Screen - Serial H&H: 9.1 -> 9.0 -> 8.5 -> 7.8 -> 8.0 -> 8.3 (Hgb was 12.3 on 01/03/2022) - Transfuse for Hgb < 7.0 - 2 large bore IVs - Pantoprazole drip - NPO # Right Hydronephrosis secondary to Fecal Impaction with Right UVJ Compression - CT abdomen/pelvis = "Fecal impaction with rectal distention. Moderate right hydronephrosis. This may be related to the rectal distention compressing the right UVJ." - Aggressive bowel regimen - Consult Urology - recommendations appreciated - Renal ultrasound = "bilateral renal pelvic fullness is seen but far less prominent than was evident on the February 25 CT study. The patient's grossly dilated stool-filled rectosigmoid colon likely causes extrinsic compression on the ureters creating the hydronephrosis. This constipation pattern may have been treated since the CT study. 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 Moderate linear atelectasis in the right lung base." # Right Knee Wound - Wound care consulted # Hypertension - Continue home Isordil # Dementia - Continue home memantine # Atrial Fibrillation s/p PPM - Continue home metoprolol - Hold home anticoagulation given acute GI bleed # History of Cerebrovascular Accident # Seizure Disorder # Depression - Resume home medications once verified At Ms. Carrillo's request, I have updated her daughter, Ms. Mague Ponce. Bo Haile M.D.
[2022-03-01] MEDS: HYDROCODONE/APAP 5/325 MG TAB PO PRN (20:26)
[2022-03-01] MEDS: LORATADINE 10 MG TAB PO SCH (20:27)
[2022-03-02 04:02] LABS: Magnesium 2.1 mg/dL (1.6-2.4); Phosphorus 1.8 mg/dL (2.5-4.9)
[2022-03-02] MEDS: METOPROLOL TAR 50 MG TAB PO SCH (06:00)
[2022-03-02] MEDS: LEVOTHYROXINE SOD 0.075 MG TAB PO SCH (07:29)
[2022-03-02 08:09] VITALS: BP 104/60; TEMP 98.3
--- NOTE | 2022-03-02 08:54 | P.DS ---
Admission Date: 02/25/22 Discharge Date: 03/02/22 Disposition: TRANSFER TO LONG-TERM Discharge Condition: GOOD Reason for Admission: Abdominal pain. Consultations: 1. 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 Padma Carrillo is a pleasant 86 year old female with a past medical history significant for chronic atrial fibrillation s/p PPM, history of cerebrovascular accident, dementia, seizure disorder, hypertension, and depression who was admitted to the [facility] on 02/25/2022 for bright red blood per rectum. She was admitted to the Medicine service. Gastroenterology was consulted and she was evaluated by Dr. Cutler. She underwent an esophagogastroduodenoscopy, which did not reveal any obvious source of bleeding. Dr. Cutler recommended against any further invasive intervention given her dementia and poor tolerance for anesthesia. Additionally, she was found to have significant stool burden with fecal impaction, resulting in a right ureterovesicular junction compression and right hydronephrosis. She was treated with an aggressive bowel regimen and had multiple large bowel movements, with significant improvement in her abdominal pain/distention, and discomfort. In regards to her hydronephrosis, this was discussed with Dr. Guadarrama (Urology). He stated that as long as the renal function was good, to have her follow-up with an ultrasound in about 1 week to ensure resolution of her hydronephrosis. This was explained to her and her daughter, who verbalized understanding. Additionally, she was noted to have a multi-drug resistant Escherichia Coli urinary tract infection. She was treated with ceftriaxone and transitioned out on cefdinir to complete her course of antibiotics. On 03/02/2022, she was seen on morning rounds and deemed medically stable for discharge. She and her daughter were given the opportunity to ask questions and reported no further questions. Furthermore, all questions were answered to the best of my ability. A copy of this discharge summary will be sent to the above providers to facilitate continuity of care. Today, I personally spent 35 minutes on her case, of which greater than 50% of the time was spent in patient education, counseling, and coordination of care as described above. - Physical Exam General: Alert, In no apparent distress, Demented HEENT: Atraumatic, Mucous membr. moist/pink, EOMI, Sclerae nonicteric Neck: JVD not distended Respiratory: Clear to auscultation bilaterally, Normal air movement Cardiovascular: No edema, Regular rate/rhythm, Normal S1 S2, No gallops, No rubs, No murmurs Gastrointestinal: Hyperactive bowel sounds, Soft and benign, Distended, No tenderness, No rebound, No guarding Musculoskeletal: No clubbing Integumentary: Other (right knee wound) Neurological: Dementia Vital Signs/Physical Exam: Temp Pulse Resp BP Pulse Ox 98.3 F 55 16 104/60 100 03/02/22 08:00 03/02/22 08:00 03/02/22 08:00 03/02/22 08:00 03/02/22 08:00 Laboratory Data at Discharge: WBC 7.60 K/uL (4.3-10.9) 02/28/22 03:40 Hgb 8.3 g/dL (12.0-15.0) L 02/28/22 03:40 Hct 26.0 % (36.0-45.0) L 02/28/22 03:40 Plt Count 250 K/uL (152-406) 02/28/22 03:40 PT 18.1 SECONDS (9.5-12.5) H 02/26/22 05:34 INR 1.65 02/26/22 05:34 APTT 33.0 SECONDS (24.3-36.9) 02/26/22 05:34 Sodium 135 mmol/L (136-145) L 03/02/22 03:30 Potassium 4.0 mmol/L (3.5-5.1) 03/02/22 03:30 BUN 53 mg/dL (7-18) H 03/02/22 03:30 Creatinine 0.81 mg/dL (0.55-1.02) 03/02/22 03:30 Glucose 123 mg/dL (74-106) H 03/02/22 03:30 Phosphorus 1.8 mg/dL (2.5-4.9) L 03/02/22 03:30 Magnesium 2.1 mg/dL (1.6-2.4) 03/02/22 03:30 Total Bilirubin 0.8 mg/dL (0.2-1.0) 02/25/22 13:04 AST 23 U/L (15-37) 02/25/22 13:04 ALT 15 U/L (12-78) 02/25/22 13:04 Alkaline Phosphatase 98 U/L (45-117) 02/25/22 13:04 Lipase 73 U/L (73-393) 02/25/22 13:04 Home Medications: Acetaminophen [Tylenol] 650 mg PO Q6HP PRN 04/01/18 Docusate Sodium 100 mg PO BID 04/01/18 Furosemide [Lasix*] 20 mg PO BID 04/01/18 Gabapentin 300 mg PO TID 04/01/18 Hydrocodone 5/APAP 325 [Burson 5/325*] 1 tab PO Q6HP PRN 04/01/18 Isosorbide Dinitrate 10 mg PO BID 04/01/18 Lactobacillus Acidophilus [Acidophilus] 1 cap PO DAILY 04/01/18 Levothyroxine Sodium [Synthroid] 88 mcg PO DAILY 04/01/18 Loratadine [Claritin*] 10 mg PO BEDTIME 04/01/18 Magnesium Oxide [Mag 0X*] 400 mg PO DAILY 04/01/18 Megestrol Acetate 10 ml PO BID 04/01/18 Memantine HCl [Namenda*] 10 mg PO BID 04/01/18 Metoprolol Tartrate [Lopressor*] 25 mg PO BID 04/01/18 Multivit-Min/Iron Fum/Folic AC [Gueuf-Csdqfrx-Scefgxyc Tablet] 1 tab PO DAILY 04/01/18 Nitroglycerin 0.4 mg SL Q5MX3 PRN 04/01/18 Potassium Chloride 10 meq PO DAILY 04/01/18 Rivaroxaban [Xarelto] 20 mg PO DAILY 04/01/18 Sennosides [Senna] 2 tab PO DAILY 04/01/18 Sodium Polystyrene Sulfon/Sorb [Kionex 15 gm/60 ml Suspension] 15 gm PO 1X 04/01/18 Spironolactone [Aldactone*] 25 mg PO DAILY 04/01/18 Valacyclovir [Valtrex*] 500 mg PO BID 04/01/18 bisacodyL [Dulcolax*] 10 mg PO DAILYPRN PRN 04/01/18 levETIRAcetam [Keppra Inj*] 5 ml PO BID 04/01/18 traMADol HCL [Ultram*] 100 mg PO PRN PRN 04/01/18 Meropenem [Merrem 1 GM/100 ML NS IVPB] 1 gm IV Q8H 14 Days bag 04/04/18 Allopurinol 100 mg PO DAILY 02/26/22 Atorvastatin Calcium [Lipitor*] 10 mg PO DAILY 02/26/22 Donepezil HCl [Aricept] 10 mg PO BEDTIME 02/26/22 Duloxetine HCl [Drizalma Sprinkle] 60 mg PO BEDTIME 02/26/22 Melatonin 10 mg PO BEDTIME 02/26/22 Promethazine HCl 25 mg PO Q6H PRN 02/26/22 Cefdinir [Cefdinir*] 300 mg PO BID 10 Days #20 cap 03/02/22 Medihoney [Medihoney Woundcare Gel*] 1 appl TOP DAILY tube 03/02/22 New Medications: Cefdinir [Cefdinir*] 300 mg PO BID 10 Days #20 cap Physician Discharge Instructions: 1. Please call and schedule a follow-up appointment with your PCP in 3-5 days - Please have your PCP schedule repeat blood work and a repeat abdominal x- ray in 1 week - Please make sure you continue the bowel regimen described above 2. Please call and schedule a follow-up appointment with Gastroenterology (Dr. Cutler) in 1 week 3. Please call and schedule a follow-up appointment with Urology (Dr. Guadarrama) in 1 week - You will need to schedule to have a repeat kidney ultrasound in 1 week Diet: AHA Activity: Fall precautions Followup: Jean Cutler MD [ACTIVE - CAN ADMIT] - Unknown,U [Primary Care Provider] - Elroy Guadarrama [ACTIVE - CAN ADMIT] - Time spent managing pt's care (in minutes): 35
[2022-03-02] MEDS: MEDIHONEY 44 ML TOPICAL TUBE TOP SCH (09:00)
[2022-03-02] MEDS: JUVEN PACKET PO SCH (09:00)
[2022-03-02] MEDS: ENSURE HIGH PROTEIN 237 ML CAN PO SCH (09:00)
[2022-03-02] MEDS: CEFTRIAXONE 1,000 MG in NA CHLORIDE 0.9% 50 ML IVPB SCH (09:00)
[2022-03-02] MEDS: FUROSEMIDE 20 MG TABLET PO SCH (09:00)
[2022-03-02] MEDS: MEGESTROL 400 MG/10 ML UCUP PO SCH (10:53)
[2022-03-02] MEDS: MULTIVIT W/ MINERAL TAB PO SCH (10:54)
[2022-03-02] MEDS: ISOSORBIDE DINIT 5 MG TAB PO SCH (10:54)
[2022-03-02] MEDS: DOCUSATE NA 100 MG CAP PO SCH (10:54)
[2022-03-02] MEDS: MAGNESIUM OXIDE 400 MG TAB PO SCH (10:54)
[2022-03-02] MEDS: SENOSIDES 8.6 MG TAB PO SCH (10:54)
[2022-03-02] MEDS: POTASSIUM CL SA 10 MEQ TAB PO SCH (10:55)
[2022-03-02] MEDS: MEMANTINE HCL 10 MG TABLET PO SCH (10:55)
[2022-03-02] MEDS: LACTOBACILLUS/ACIDOPHILUS TAB PO SCH (10:55)
[2022-03-02] MEDS: GABAPENTIN 300 MG CAP PO SCH (10:55)
[2022-03-02] MEDS: VALACYCLOVIR 500 MG TAB PO SCH (10:56)
[2022-03-02 11:13] VITALS: O2SAT 97
== END 2022-03-02 12:07 | DRG 378 ==
LOC: ER 11:22 → ERHOLD 17:23 → 2ND 18:19
PROVIDERS: ADMIT Hospitalist; ATTEND Internal Medicine
PROC: 0DB78ZX Excision of Stomach, Pylorus, Via Natural or Artificial Opening Endoscopic, Diagnostic (ICD-10-PCS; principal; 2022-02-26 09:15)
DX: K92.2 Gastrointestinal hemorrhage, unspecified (principal); D62 Acute posthemorrhagic anemia; I69.351 Hemiplegia and hemiparesis following cerebral infarction affecting right dominant side; N13.6 Pyonephrosis; Z16.24 Resistance to multiple antibiotics; I48.91 Unspecified atrial fibrillation; K21.9 Gastro-esophageal reflux disease without esophagitis; E03.9 Hypothyroidism, unspecified; E78.5 Hyperlipidemia, unspecified; I10 Essential (primary) hypertension; K56.41 Fecal impaction; F32.A Depression, unspecified; G47.00 Insomnia, unspecified; G40.909 Epilepsy, unspecified, not intractable, without status epilepticus; I69.320 Aphasia following cerebral infarction; D63.8 Anemia in other chronic diseases classified elsewhere; F03.90 Unspecified dementia, unspecified severity, without behavioral disturbance, psychotic disturbance, mood disturbance, and anxiety; B96.20 Unspecified Escherichia coli [E. coli] as the cause of diseases classified elsewhere; R07.89 Other chest pain; R79.89 Other specified abnormal findings of blood chemistry; Z95.0 Presence of cardiac pacemaker; Z88.5 Allergy status to narcotic agent; Z88.8 Allergy status to other drugs, medicaments and biological substances; Z79.01 Long term (current) use of anticoagulants; Z96.653 Presence of artificial knee joint, bilateral; Z79.890 Hormone replacement therapy; Z79.899 Other long term (current) drug therapy; Z20.822 Contact with and (suspected) exposure to COVID-19
CPT/HCPCS: 0240U; 11042; 36415; 71045; 71275; 74018; 74177; 76770; 80048; 80053; 81003; 82272; 82565; 82607; 82746; 83540; 83690; 83735; 83880; 84100; 84439; 84443; 84484; 85014; 85018; 85025; 85044; 85379; 85610; 85730; 86850; 86900; 86901; 87040; 87077; 87086; 87088; 87186; 88305; 88312; 96365; 96375; 99285; C9113; J2001; J2704; J3480; J7040; J7050; J7120; Q9967

== ENCOUNTER 2022-03-29 15:31 | Emergency (ER) | payer OTHER ==
--- OUTSIDE RECORDS SUMMARY | 2022-03-29 15:38 | XMS REPORT | Continuity of Care Document ---
:1935 Author Organization [facility] t Address [address] [place] [address] Care Team Providers Name Role Phone Provider MD, Not In System Primary Care Physician Unavailabl e Pcp, Patient Does Not Have A Attending Clinician [phone] ALIRIO STANLEY Attending Clinician Unavailable Alirio Stanley Attending Clinician MIKE REYES Attending Clinician Unavailable Sherry Quiroz MD Attending Clinician Eyal Moreno MD, V. Attending Clinician Joel Mendoza CRNA Attending Clinician [phone] ANMOL MEYERS Admitting Clinician Unavailable Anmol Meyers Admitting Clinician SHERRY QUIROZ Admitting Clinician Unavailable Payers Payer Name Policy Type Policy Number Effective Date Expiration Date Josias [place] [id number] 2016 STARPLUS OON EXC 00:00:00 HHS Problems Condition Condition Condition Status Onset Resolution Last Treating Co mments Source Name Details Category Date Date Treatment Clinician Date RT DISTAL RT Diagnosis Active 2021-08-13 Memoria PERIPROSTH DISTAL 5-02 21:44:00 l ETIC FEMUR PERIPROSTH 00:00: He rmann FX ETIC FEMUR 00 FX Active 07/23/2021 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 Dementia Dementia Problem Active 2021-08-06 Memoria (disorder) (disorder) 06:38:41 l Active [place] Problem 08/06/2021 [facility] 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 06:38:41 l (context-d (context-d He rmann ependent ependent category) category) Active Problem 08/06/2021 [facility] Allergies, Adverse Reactions, Alerts Allergy Allergy Status [...] (See Pt.don't M ethodi ty to Comments) [address] adverse 00:00: Hospita reaction 00 l s to drug codeine codeine Active Memoria l Crow verapami verapami Active Memori a l l l Crow Family History Family Member Diagnosis Comments Start Date Stop Date Source Natural father [facility] Natural mother [facility] Natural sister [facility] Social History Social Habit Start Date Stop Date Quantity Comments Source History [facility]OH [facility] Drinks History SDOH [facility] Social History 2021-07-24 2021-07-24 [facility] Brittany stephon 18:01:06 18:01:06 Alcohol intake 2021-05-29 2021-05-29 [facility] 00:[facility]00 00:00:00 [facility]-drinker Hospital (finding) Tobacco use and 2021-05-25 2021-05-25 Smokeless tobacco [facility] exposure 00:00:00 00:00:00 non-user Hospital History SDOH 2021-05-25 2021-05-25 1 [facility] Alcohol Frequency 00:00:00 00:00:00 Hospita l Sex Assigned At [birth year] [facility] Smoking Status Start Date Stop Date Source Unknown if ever smoked [facility] Never smoked tobacco [facility] Medications Ordered Filled Start Stop Current Ordering Indication Dosage Frequency Signature Comments Components Source Medication Medication Date Date Medication? Clinician (SIG) Name Name oxyCODONE 5 No 5 mg = 1 Me moria mg oral 5-09 tab, PO, l tablet, 22:38: Q6H, PRN Aaron n immediate 00 Pain Score release 7-10, X 2 day, # 5 tab, 0 Refill(s), Pharmacy: [facility], 182.88, cm, 07/24/21 16:57:00 CDT, Height, 70.455, kg, 07/25/21 18:40:00 CDT, Weight oxyCODONE 5 No 5 mg = 1 Me moria mg oral 5-09 tab, PO, l tablet, 22:38: Q6H, PRN Aaron n immediate 00 Pain Score release 7-10, X 2 day, # 5 tab, 0 Refill(s), Pharmacy: [facility], 182.88, cm, 07/24/21 16:57:00 CDT, Height, 70.455, kg, 07/25/21 18:40:00 CDT, Weight gabapentin Yes 100 mg = 1 M emoria 100 mg oral 5-09 cap, PO, l capsule 20:50: BID, 0 Crow 00 Refill(s) gabapentin Yes 100 mg = 1 M emoria 100 mg oral 5-09 cap, PO, l capsule 20:50: BID, 0 [place] 00 Refill(s) gabapentin No Notes: Memor ia 100 mg oral 5-08 (Same as: l capsule 14:35: Neurontin) Herm stef 00 gabapentin No Notes: Memor ia 100 mg oral 5-08 (Same as: l capsule 14:35: Neurontin) Herm stef oxyCODONE 5 No Notes: Miguel roe mg/5 mL 5-08 (Same as: l oral 13:47: 'Roxicodon [place] solution 00 e) oxyCODONE No Notes: Memori a immediate 5-08 (Same as: l release 13:47: Roxicodone Herm stef ) naloxone No Notes: Memoria 5-08 Same as l 13:47: Narcan [place] 00 oxyCODONE 5 No Notes: Miguel roe mg/5 mL 5-08 (Same as: l oral 13:47: 'Roxicodon [place] solution 00 e) oxyCODONE No Notes: Memori a immediate 5-08 (Same as: l release 13:47: Roxicodone Herm stef ) naloxone No Notes: Memoria 5-08 Same as l 13:47: Narcan [place] 00 Jose No Notes: Memoria packet 5-07 (Same as: l 21:30: Jose [place] 00 [place]) Jose No Notes: Memoria packet 5-07 (Same as: l 21:30: Jose [place] 00 [place]) Jose No Notes: Memoria packet 5-06 (Same as: l 21:30: Jose [place] 00 [place]) Jose No Notes: Memoria packet 5-06 (Same as: l 21:30: Jose [place] 00 [place]) ceFAZolin No Notes: Memori a 5-06 (Same as l 05:00: Ancef) Crow 00 ceFAZolin No Notes: Memori a 5-06 (Same as l 05:00: Ancef) [place] 00 remove No Notes: Memoria patch 5-06 Remove l 02:00: patch 12 [place] 00 hours after applicatio n each day. metoprolol No Notes: Memor ia tartrate 5-06 (Same as: l 02:00: Lopressor) 00 12.5 mg=1/2 X 25 mg TAB Keppra 100 No Notes: Memor ia mg/mL oral 5-06 (Same l solution 02:00: as:Keppra) Her ibrahim 00 remove No Notes: Memoria patch 5-06 Remove l 02:00: patch 12 hours after applicatio n each day. metoprolol No Notes: Memor ia tartrate 5-06 (Same as: l 02:00: Lopressor) 12.5 mg=1/2 X 25 mg TAB Keppra 100 No Notes: Memor ia mg/mL oral 5-06 (Same l solution 02:00: as:Keppra) Her ibrahim sugammadex No Route: IV, M emoria (ANES) 5-06 Drug form: l 01:02: LINN ONCE, Stop date: 07/26/21 20:02:00 CDT sugammadex No Route: IV, M emoria (ANES) 5-06 Drug form: l 01:02: Beba MARIE ONCE, Stop date: 07/26/21 20:02:00 CDT lidocaine 2021-0 No Route: IV, Me moria (ANES) 5-06 Drug form: l 00:57: INJ, ONCE, Stop date: 07/26/21 19:57:00 CDT lidocaine 0 No Route: IV, Me moria (ANES) 5-06 Drug form: l 00:57: INJ, ONCE, Stop date: 07/26/21 19:57:00 CDT ondansetron No Route: IV, Memoria (ANES) 5-06 Drug form: l 00:47: INJ, ONCE, Stop date: 07/26/21 19:47:00 CDT ondansetron No Route: IV, Memoria (ANES) 5-06 Drug form: l 00:47: INJ, ONCE, Stop date: 07/26/21 19:47:00 CDT ANES 0 No Notes: Memoria hydrALAZINE 5-06 (Same as: l 00:15: Apresoline ) Push over 5 minutes ANES No 10 mg, 2 Memoria labetalol 5-06 mL, Route: l 00:15: IVP, Drug form: INJ, Q5Min, Dosing Weight 70.455, kg, PRN Elevated BP, Start date: 07/26/21 19:15:00 CDT, Duration: 5 doses or times, Stop date: Limited # of times, 0 ANE No Notes: Max Memoria acetaminoph 5-06 acetaminop l en 00:15: hen 4000 [place] 00 mg/day (4 gm/day). (Same as: Tylenol Extra Strength) ANE No Notes: Memoria oxyCODONE 5-06 (Same l 00:15: as:'Roxico done) To be drawn up in 3 mL syr ANE No Notes: Memoria HYDROmorpho 5-06 Same as l ne 00:15: Dilaudid No Notes: Memoria fentaNYL 5-06 (Same as: l 00:15: Sublimaze) Preservati ve free. ANE No Notes: Memoria flumazenil 5-06 (Same as: l 00:15: Romazicon) No Notes: Memoria naloxone 5-06 Same as l 00:15: Narcan No Notes: Memoria ondansetron 5-06 (Same as: l 00:15: Zofran) MEDICATION WASTE Product Size: 4 mg Product Wasted: ___ mg ANES No Notes: Memoria hydrALAZINE 5-06 (Same as: l 00:15: Apresoline ) Push over 5 minutes ANE No 10 mg, 2 Memoria labetalol 5-06 mL, Route: l 00:15: IVP, Drug form: INJ, Q5Min, Dosing Weight 70.455, kg, PRN Elevated BP, Start date: 07/26/21 19:15:00 CDT, Duration: 5 doses or times, Stop date: Limited # of times, 0 ANE No Notes: Max Memoria acetaminoph 5-06 acetaminop l en 00:15: hen 4000 mg/day (4 gm/day). (Same as: Tylenol Extra Strength) No Notes: Memoria oxyCODONE 5-06 (Same l 00:15: as:'Roxico done) To be drawn up in 3 mL syr No Notes: Memoria HYDROmorpho 5-06 Same as l ne 00:15: Dilaudid No Notes: Memoria fentaNYL 5-06 (Same as: l 00:15: Sublimaze) Preservati ve free. ANE No Notes: Memoria flumazenil 5-06 (Same as: l 00:15: Romazicon) No Notes: Memoria naloxone 5-06 Same as l 00:15: Narcan No Notes: Memoria ondansetron 5-06 (Same as: l 00:15: Zofran) MEDICATION WASTE Product Size: 4 mg Product Wasted: ___ mg ketAMINE No Route: IV, Mem oria (ANES) 5-05 Drug form: l 22:19: INJ, ONCE, Stop date: 07/26/21 17:19:00 CDT ketAMINE No Route: IV, Mem oria (ANES) 5-05 Drug form: l 22:19: INJ, ONCE, Stop date: 07/26/21 17:19:00 CDT dexamethaso No Route: IV, Memoria ne (ANES) 5-05 Drug form: l 22:14: INJ, ONCE, Stop date: 07/26/21 17:14:00 CDT dexamethaso No Route: IV, Memoria ne (ANES) 5-05 Drug form: l 22:14: INJ, ONCE, Stop date: 07/26/21 17:14:00 CDT propofol No Route: IV, Mem oria (ANES) 5-05 Drug form: l 22:09: INJ, ONCE, Stop date: 07/26/21 17:09:00 CDT rocuronium 2021-0 No Route: IV, Reyna emoria (ANES) 5-05 Drug form: l 22:09: INJ, ONCE, Stop date: 07/26/21 17:09:00 CDT fentaNYL 2-0 No Route: IV, Mem oria (ANES) 5-05 Drug form: l 22:09: INJ, ONCE, Stop date: 07/26/21 17:09:00 CDT propofol 2-0 No Route: IV, Mem oria (ANES) 5-05 Drug form: l 22:09: INJ, ONCE, Stop date: 07/26/21 17:09:00 CDT rocuronium 2021-0 No Route: IV, Reyna emoria (ANES) 5-05 Drug form: l 22:09: INJ, ONCE, Stop date: 07/26/21 17:09:00 CDT fentaNYL 2021-0 No Route: IV, Mem oria (ANES) 5-05 Drug form: l 22:09: INJ, ONCE, Stop date: 07/26/21 17:09:00 CDT ceFAZolin 2021-0 No Route: IV, Me moria (ANES) 5-05 Drug form: l 22:04: INJ, ONCE, Stop date: 07/26/21 17:04:00 CDT ceFAZolin 2-0 No Route: IV, Me moria (ANES) 5-05 Drug form: l 22:04: INJ, ONCE, Stop date: 07/26/21 17:04:00 CDT Lactated 2021-0 No Route: IV, Mem oria Ringers 5-05 Total l Injection 21:07: Volume: Vero nn IV (ANES) 00 1,000, 1000 mL Start date: 07/26/21 16:07:00 CDT, Stop date: 07/26/21 17:07:00 CDT Lactated 2-0 No Route: IV, Mem oria Ringers 5-05 Total l Injection 21:07: Volume: Vero nn IV (ANES) 00 1,000, 1000 mL Start date: 07/26/21 16:07:00 CDT, Stop date: 07/26/21 17:07:00 CDT adenosine 2021-0 No 59.1822 Memor ia 5-05 mg, Route: l 13:23: IVP, ONCE, Dosing Weight 70.455, kg, Priority: Routine, Start date: 07/26/21 8:23:00 CDT, Stop date: 07/26/21 8:23:00 CDT adenosine 2021- No 59.1822 Memor ia 5-05 mg, Route: l 13:23: IVP, ONCE, Dosing Weight 70.455, kg, Priority: Routine, Start date: 07/26/21 8:23:00 CDT, Stop date: 07/26/21 8:23:00 CDT Lidocaine No Notes: Memori a Viscous 2% 5-04 (Same as: l mucous 21:00: Xylocaine) Vero nn membrane 00 solution midazolam No Notes: Memori a 5-04 Same as: l 21:00: Versed Crow fentaNYL No Notes: Memoria 5-04 (Same as: l 21:00: Sublimaze) Crow 00 Preservati ve free. Lidocaine No Notes: Memori a Viscous 2% 5-04 (Same as: l mucous 21:00: Xylocaine) Vero nn membrane 00 solution midazolam No Notes: Memori a 5-04 Same as: l 21:00: Versed [place] 00 fentaNYL No Notes: Memoria 5-04 (Same as: l 21:00: Sublimaze) [place] 00 Preservati ve free. ferrous No Notes: Memoria sulfate 5-04 Give with l 14:00: food. "Do Crow 00 Not Crush" levothyroxi No Notes: Miguel roe ne 5-04 Take 1 l 14:00: hour Crow 00 before or 2 hours after meal; Enteral feeds may interefere with the absorption of this medication . (Same as:Synthro id, Levothroid ) Namenda No Notes: Memoria 5-04 (Same As: l 14:00: Namenda) [place] 00 ferrous No Notes: Memoria sulfate 5-04 Give [...] roe 5-04 (Same l 02:00: as:Remeron ) senna No Notes: Memoria 5-04 (Same as: l 02:00: Senokot) gabapentin No Notes: Memor ia 5-04 (Same as: l 02:00: Neurontin) melatonin No Notes: Memori a 5-04 (Same as: l 02:00: Melatonin) mirtazapine No Notes: Miguel roe 5-04 (Same l 02:00: as:Remeron ) Keppra 100 No Notes: Memor ia mg/mL oral 5-03 (Same l solution 22:00: as:Keppra) Her ibrahim metoprolol No Notes: Memor ia tartrate 5-03 (Same as: l 22:00: Lopressor) 12.5 mg=1/2 X 25 mg TAB Keppra 100 No Notes: Memor ia mg/mL oral 5-03 (Same l solution 22:00: as:Keppra) Her ibrahim metoprolol No Notes: Memor ia tartrate 5-03 (Same as: l 22:00: Lopressor) 12.5 mg=1/2 X 25 mg TAB Nitrostat No 0.4 mg = 1 Me moria 0.4 mg 5-03 tab, SL, l sublingual 20:25: PRN tablet Nitrostat No 0.4 mg = 1 Me moria 0.4 mg 5-03 tab, SL, l sublingual 20:25: PRN tablet tramadol 50 No 100 mg = 2 Memoria mg oral 5-03 tab, PO, l tablet 20:24: BID tramadol 50 No 100 mg = 2 [...] tab, PO, l oral tablet 20:23: Daily rivaroxaban Yes 20 mg = 1 M emoria 20 mg oral 5-03 tab, PO, l tablet 20:23: Daily Senna 8.6 Yes 17.2 mg = Mem oria mg oral 5-03 2 tab, PO, l tablet 20:23: Daily spironolact No 25 mg = 1 M emoria one 25 mg 5-03 tab, PO, l oral tablet 20:23: Daily Namenda 10 Yes 10 mg = 1 Me moria mg oral 5-03 tab, PO, l tablet 20:22: Daily Namenda 10 Yes 10 mg = 1 Me moria mg oral 5-03 tab, PO, l tablet 20:22: Daily metoprolol Yes 25 mg = 1 Me moria tartrate 25 5-03 tab, PO, l mg oral 20:21: BID tablet mirtazapine Yes 45 mg = 1 M emoria 45 mg oral 5-03 tab, PO, l tablet 20:21: Bedtime multivitami No 1 tab, PO, Memoria n with 07-24 Bedtime l minerals 20:21: metoprolol Yes 25 mg = 1 Me moria tartrate 25 5-03 tab, PO, l mg oral 20:21: BID [place] tablet mirtazapine Yes 45 mg = 1 M emoria 45 mg oral 5-03 tab, PO, l tablet 20:21: Bedtime Crow multivitami No 1 tab, PO, Memoria n with 07-24 Bedtime l minerals 20:21: levothyroxi Yes 75 Memori a ne 75 mcg 5-03 microgram l (0.075 mg) 20:20: = 1 tab, Her ibrahim oral tablet 00 PO, QAM magnesium Yes 400 mg = 1 Me moria oxide 400 5-03 tab, PO, l mg oral 20:20: QAM [place] tablet 00 melatonin 5 Yes 5 mg = 1 Me moria mg oral 5-03 tab, PO, l tablet 20:20: Bedtime levothyroxi Yes 75 Memori a ne 75 mcg 5-03 microgram l (0.075 mg) 20:20: = 1 tab, Her ibrahim oral tablet 00 PO, QAM magnesium 0 Yes 400 mg = 1 Me moria oxide 400 5-03 tab, PO, l mg oral 20:20: QAM [place] tablet 00 melatonin 5 Yes 5 mg = 1 Me moria mg oral 5-03 tab, PO, l tablet 20:20: Bedtime isosorbide No 10 mg = 1 Me moria dinitrate 5-03 tab, PO, l 10 mg oral 20:19: BID [place] tablet 00 Keppra 100 Yes 500 mg = 5 M emoria mg/mL oral 5-03 mL, PO, l solution 20:19: BID Lasix 20 mg Yes 20 mg = 1 M emoria oral tablet 5-03 tab, PO, l 20:19: Daily isosorbide No 10 mg = 1 Me moria dinitrate 5-03 tab, PO, l 10 mg oral 20:19: BID tablet 00 Keppra 100 Yes 500 mg = 5 M emoria mg/mL oral 5-03 mL, PO, l solution 20:19: BID Lasix 20 mg Yes 20 mg = 1 M emoria oral tablet 5-03 tab, PO, l 20:19: Daily gabapentin No 300 mg = 1 M emoria 300 mg oral 5-03 cap, PO, l capsule 20:18: TID gabapentin No 300 mg = 1 M emoria 300 mg oral 5-03 cap, PO, l capsule 20:18: TID Tylenol 325 Yes 650 mg = 2 Memoria mg oral 5-03 tab, PO, l tablet 20:17: Q6H, PRN pain docusate No 100 mg = 1 Mem oria sodium 100 5-03 cap, PO, l mg oral 20:17: BID capsule 00 ferrous Yes 325 mg = 1 Miguel roe sulfate 325 5-03 tab, PO, l mg oral 20:17: Daily enteric 00 coated tablet Tylenol 325 Yes 650 mg = 2 Memoria mg oral 5-03 tab, PO, l tablet 20:17: Q6H, PRN pain docusate No 100 mg = 1 Mem oria sodium 100 5-03 cap, PO, l mg oral 20:17: BID capsule 00 ferrous Yes 325 mg = 1 Miguel roe sulfate 325 5-03 tab, PO, l mg oral 20:17: Daily enteric 00 coated tablet cefTRIAXone No Notes: Miguel roe + sterile 5-03 (Same As: l water 10 mL 19:00: Rocephin). MEDICATION WASTE Product Size: 1000 mg Product Wasted: ___ mg cefTRIAXone No Notes: Miguel roe + sterile 5-03 (Same As: l water 10 mL 19:00: Rocephin). MEDICATION WASTE Product Size: 1000 mg Product Wasted: ___ mg polyethylen No Notes: Miguel roe e glycol 5-03 Dissolve l 3350 14:00: in 8 oz of [place] 00 water or juice. (Same as: Miralax) lidocaine No Notes: Memori a 4% topical 5-03 Apply only l film 14:00: once for [place] 00 up to 12 hours in a 24-hour period (12 hours on and 12 hours off). (Same as: Aspercreme Lidocaine Patch) "Remove old patch before applicatio n of new patch" Lovenox No Notes: Memoria 5-03 (Same as: l 14:00: Lovenox) [place] polyethylen No Notes: Miguel roe e glycol 5-03 Dissolve l 3350 14:00: in 8 oz of [place] 00 water or juice. (Same as: Miralax) lidocaine No Notes: Memori a 4% topical 5-03 Apply only l film 14:00: once for [place] 00 up to 12 hours in a 24-hour period (12 hours on and 12 hours off). (Same as: Aspercreme Lidocaine Patch) "Remove old patch before applicatio n of new patch" Lovenox No Notes: Memoria 5-03 (Same as: l 14:00: Lovenox) oxyCODONE 5 No Notes: Miguel roe mg/5 mL 5-03 (Same l oral 12:52: as:'Roxico Crow solution 00 done) To be drawn up in 3 mL syr oxyCODONE No Notes: Memori a immediate 5-03 (Same as: l release 12:52: Roxicodone Herm stef ) naloxone No Notes: Memoria 5-03 Same as l 12:52: Narcan Electrolyte No Notes: Miguel roe Solution 5-03 (Same as: l 1,000 mL 12:52: Isolyte S Herm stef 00 PH7.4, Normosol-R PH 7.4, Plasma-Lyt e A ) oxyCODONE 5 No Notes: Miguel roe mg/5 mL - (Same l oral 12:52: as:'Roxico Crow solution 00 done) To be drawn up in 3 mL syr oxyCODONE No Notes: Memori a immediate - (Same as: l release 12:52: Roxicodone ) naloxone No Notes: Memoria - Same as l 12:52: Narcan [place] Electrolyte No Notes: Miguel roe Solution 07-24 [...] a - (Same As: l 12:51: Dulcolax, Bisco-Lax) ondansetron No Notes: Miguel roe - (Same as: l 12:51: Zofran) MEDICATION WASTE Product Size: 4 mg Product Wasted: ___ mg melatonin No Notes: Memori a 5-03 (Same as: l 12:51: Melatonin) Dextrose No 12.5 gm, Memor ia 50% Syringe 07-24 25 mL, l (D50W) 12:51: Route: [place] 00 IVP, Drug Form: INJ, kg, PRN, PRN [...] a - (Same As: l 12:51: Dulcolax, Bisco-Lax) ondansetron No Notes: Miguel roe 07-24 (Same as: l 12:51: Zofran) MEDICATION WASTE Product Size: 4 mg Product Wasted: ___ mg melatonin No Notes: Memori a -03 (Same as: l 12:51: Melatonin) acetaminoph No Notes: Max Memoria en 5-03 acetaminop l 12:50: hen 4000 [place] 00 mg/day (4 gm/day). (Same as: Tylenol Extra Strength) acetaminoph No Notes: Max Memoria en -03 acetaminop l 12:50: hen 4000 [place] 00 mg/day (4 gm/day). (Same as: Tylenol Extra Strength) spironolact Yes 25mg QD Take 25 mg [facility] one 3-[address] (ALDACTONE) 12:10: daily. Hosp bib 25 MG 03 l tablet traMADoL [place] [id number] 50mg Q12H Take 50 mg Me thodi (ULTRAM) 50 3-[address] mg tablet 12:10: every 12 Hosp bib 03 (twelve) l hours as needed for moderate pain .acute pain. traMADoL Yes [id number] 100mg Q.5D Take 100 Met hodi (ULTRAM) 50 3-[address] mg tablet 12:10: mouth 2 Hospi ta 03 (two) l times a day .acute pain. mirtazapine 2022-0 Yes 45mg QD Take 45 mg [facility] (REMERON) 3-[address] 15 MG 12:10: nightly. Hospita tablet 03 l memantine 2022-0 Yes 10mg Q.5D Take 10 mg Me thodi (NAMENDA) 3-[address] 10 MG 12:10: (two) Hospita tablet 03 times a l day. rivaroxaban 2022-0 Yes 20mg Take 20 mg [facility] (XARELTO) 3-[address] 20 mg 12:10: Hospita tablet 03 l senna 2022-0 Yes 1{tbl} QD Take 1 [facility] (SENOKOT) 3-[address] 8.6 mg 12:10: mouth Hospita tablet 03 daily. l spironolact 2022-0 Yes 25mg QD Take 25 mg [facility] one 3-[address] (ALDACTONE) 12:10: daily. Hosp bib 25 MG 03 l tablet traMADoL 2-0 Yes [id number] 50mg Q12H Take 50 mg Me thodi (ULTRAM) 50 3-[address] mg tablet 12:10: every 12 Hosp bib 03 (twelve) l hours as needed for moderate pain .acute pain. traMADoL 2022-0 Yes [id number] 100mg Q.5D Take 100 Met hodi (ULTRAM) 50 3-[address] mg tablet 12:10: mouth 2 Hospi ta 03 (two) l times a day .acute pain. mirtazapine 2022-0 Yes 45mg QD Take 45 mg [facility] (REMERON) 3-[address] 15 MG 12:10: nightly. Hospita tablet 03 l memantine 2-0 Yes 10mg Q.5D Take 10 mg Me thodi (NAMENDA) 3-[address] 10 MG 12:10: (two) Hospita tablet 03 times a l day. rivaroxaban 2022-0 Yes 20mg Take 20 mg [facility] (XARELTO) 3-[address] 20 mg 12:10: Hospita tablet 03 l senna 2022-0 Yes 1{tbl} QD Take 1 [facility] (SENOKOT) 3-[address] 8.6 mg 12:10: mouth Hospita tablet 03 daily. l minocycline 2021- No 100mg Q.5D Take 1 Me thodi (DYNACIN) 3-04 03-[address] 100 MG 00:00: 05:59 (100 mg Hospita tablet 00 :00 total) by l mouth 2 (two) times a day for 5 days. minocycline 2021- No 100mg Q.5D Take 1 Me thodi (DYNACIN) 3-04 03-[address] 100 MG 00:00: 05:59 (100 mg Hospita tablet 00 :00 total) by l mouth 2 (two) times a day for 5 days. Vital Signs Vital Name Observation Time Observation Value Comments Source Respitory Rate 2021-07-31 14:00:00 Memori al [place] Systolic (mm Hg) 2021-07-31 14:00:00 Miguel rial [place] Diastolic (mm Hg) 2021-07-31 14:00:00 Mem orial Crow Temperature Oral (F) 2021-07-31 13:25:00 96.5 F [facility] Crow Respitory Rate 2021-07-31 13:00:00 Memori al [place] Systolic (mm Hg) 2021-07-31 13:00:00 Miguel rial [place] Diastolic (mm Hg) 2021-07-31 13:00:00 Mem orial [place] Respitory Rate 2021-07-31 12:00:00 Memori al [place] Systolic (mm Hg) 2021-07-31 12:00:00 Miguel rial Crow Diastolic (mm Hg) 2021-07-31 12:00:00 Mem orial [place] Temperature Oral (F) 2021-07-30 20:03:00 97.7 F Memorial [place] Temperature Oral (F) 2021-07-30 16:15:00 97.2 F Memorial Crow Respitory Rate 2021-07-30 06:00:00 Memori al [place] Systolic (mm Hg) 2021-07-30 06:00:00 Miguel rial Crow Diastolic (mm Hg) 2021-07-30 06:00:00 Mem orial Crow Respitory Rate 2021-07-30 05:00:00 Memori al [place] Systolic (mm Hg) 2021-07-30 05:00:00 Miguel rial [place] Diastolic (mm Hg) 2021-07-30 05:00:00 Mem orial [place] Temperature Oral (F) 2021-07-30 04:41:00 97.6 F Memorial Crow Respitory Rate 2021-07-30 04:00:00 Memori al Crow Systolic (mm Hg) 2021-07-30 04:00:00 Miguel rial [place] Diastolic (mm Hg) 2021-07-30 04:00:00 Mem orial Crow Temperature Oral (F) 2021-07-29 09:41:00 97.9 F Memorial Crow Temperature Oral (F) 2021-07-29 01:07:00 98.0 F [facility] Crow Heart Rate 2021-07-26 16:25:43 [facility] Heart Rate 2021-07-26 16:25:35 [facility] Crow Heart Rate 2021-07-26 13:20:00 [facility] Weight 2021-07-25 13:40:00 [facility] Height 2021-07-24 21:57:00 182.88 cm [facility] Weight 2021-07-24 21:57:00 [facility] BMI Calculated 2021-07-24 21:57:00 [facility] al [place] Systolic blood 2021-05-25 17:15:00 107 mm[Hg] [facility] pressure Diastolic blood 2021-05-25 17:15:00 57 mm[Hg] [facility] pressure Heart rate 2021-05-25 17:15:00 70 /min [facility] Respiratory rate 2021-05-25 17:15:00 20 /min [facility] Oxygen saturation in 2021-05-25 17:15:00 94 /min [facility] Arterial blood by Pulse oximetry Body temperature 2021-05-25 15:08:00 35.94 Kalli [facility] Body height 2021-05-25 11:46:00 182.9 cm [facility] Body weight 2021-05-25 11:46:00 67.631 kg [facility] BMI 2021-05-25 11:46:00 20.22 kg/m2 [facility] Procedures Procedure Date / Time Performing Clinician Source Performed EP PPI GENERATOR CHANGE 2021-05-25 14:42:00 Anand, [facility] ECG 12-LEAD 2021-05-25 12:45:14 Anand, [facility] spital TYPE AND SCREEN 2021-05-25 12:07:00 [facility], [facility] spital COVID-19 QUALITATIVE 2021-05-24 16:54:00 [facility] RT-PCR COMPREHENSIVE METABOLIC 2021-05-24 16:48:00 [facility] PANEL HC COMPLETE BLD COUNT 2021-05-24 16:48:00 [facility] W/AUTO DIFF MAGNESIUM LEVEL 2021-05-24 16:48:00 [facility], [facility] spital PROTHROMBIN TIME WITH INR 2021-05-24 16:48:00 [facility] ESTIMATED GFR 2021-05-24 16:48:00 [facility], [facility] spital Plan of Care Planned Activity Planned Date Details Comments Source Future Scheduled 2022-03-07 SHINGLES VACCINES (1 Met [facility] Test 06:31:01 of 2) [code = SHINGLES VACCINES (1 of 2)] Future Scheduled 2022-03-07 65+ PNEUMOCOCCAL [facility] Test 06:31:01 VACCINE (1 - PCV) [code = 65+ PNEUMOCOCCAL VACCINE (1 - PCV)] Future Scheduled 2022-03-07 COVID-19 VACCINE (4 - [facility] Test 06:31:01 Booster for Pfizer series) [code = COVID-19 VACCINE (4 - Booster for Pfizer series)] Future Scheduled 2022-03-07 INFLUENZA VACCINE Method [facility] Test 06:31:01 [code = INFLUENZA VACCINE] Future Scheduled 2022-01-24 HEPATITIS B VACCINES Met [facility] Test 12:09:10 (1 of 3 - 3-dose series) [code = HEPATITIS B VACCINES (1 of 3 - 3-dose series)] Future Scheduled 2022-01-24 SHINGLES VACCINES (1 Met [facility] Test 12:09:10 of 2) [code = SHINGLES VACCINES (1 of 2)] Future Scheduled 2022-01-24 65+ PNEUMOCOCCAL [facility] Test 12:09:10 VACCINE (1 - PCV) [code = 65+ PNEUMOCOCCAL VACCINE (1 - PCV)] Future Scheduled 2022-01-24 COVID-19 VACCINE ([facility] - [facility] Test 12:09:10 Booster for Pfizer series) [code = COVID-19 VACCINE (4 - Booster for Pfizer series)] Future Scheduled 2022-01-24 [facility]ACCINE [facility] 12:09:10 [code = INFLUENZA VACCINE] Encounters Start End Encounter Admission Attending Care Care Encounter Source Date/Time Date/Time Type Type Clinicians Facility Department ID 2021-09-[address] [facility] [id number] [place] 10:22:[id number] [facility] 2021-08-06 2021-08-06 Telephone Pcp, [facility] [id number] 00:00:00 00:00:00 Patient HEALTH [id number] it y of [place]IA?BLEA [id number] Ar dical [address] MEDICAL OFFICE [facility] 2021-07-24 2021-07-31 Inpatient [facility] [id number] Memoria 03:57:00 15:15:[address] 2021-07-24 2021-07-31 Inpatient [facility] [id number] Memoria 03:57:00 15:15:[address] 2021-07-24 2021-07-31 Inpatient E ONYEMA, [facility] [address] [facility] 06:32:00 [facility] 2021-07-31 Outpatient Onyema, [facility] [id number] 221 22:57:00 10:15:00 [facility] [address] [place] 2021-07-23 2021-07-31 Outpatient Onyema, [facility] [id number] 221 22:57:00 10:15:00 [facility] [place] 2021-07-26 2021-07-26 Outpatient ERIC [facility] [id number] [place] 08:30:00 08:30:00 [facility] 2021-07-23 2021-07-23 Outpatient Onyema, [facility] [id number] 221 22:57:00 22:57:00 [facility] [address] [place] 2021-05-25 2021-05-25 Hospital Anand, 1.2.840.1 [id number] Methodi 05:26:00 12:10:00 Encounter Nadim [id number] 3.430.2.7 Hospit a .3.546569 l .8 2021-05-25 2021-05-25 Hospital Anand, 1.2.840.1 [id number] Methodi 05:26:00 12:10:00 Encounter Nadim 00039.1.[address] 3.430.2.7 Hospit a .3.379727 l .8 2021-05-25 2021-05-25 Surgery Anand, 1.2.840.1 [id number] Methodi 07:30:00 09:30:[address] 3.430.2.7 Hospit a .3.175114 l .8 2021-05-25 2021-05-25 Surgery Anand, 1.2.840.1 [id number] Methodi 07:30:00 09:30:[address] 3.430.2.7 Hospit a .3.266389 l .8 2021-05-25 2021-05-25 Anesthesia Eyal Moreno V. 1.2.840.1 [id number] Methodi 07:28:00 09:05:00 Event Joel Mendoza 92721.1.[address] 3.430.2.7 Hospit a .3.861996 l .8 2021-05-25 2021-05-25 Anesthesia Eyal Moreno V. 1.2.840.1 [id number] Methodi 07:28:00 09:05:00 Event Joel Mendoza 31815.1.[address] 3.430.2.7 Hospit a .3.612849 l .8 2021-05-25 2021-05-25 Travel 1.2.840.1 1.2.123.657 [id number] [id number] Methodi 00:00:00 00:00:[address] 3.430.2.7 0.2.7.3.698 Ho spita .3.644817 084.8 l .8 2021-05-25 2021-05-25 Travel 1.2.840.1 1.2.724.162 [id number] [id number] Methodi 00:00:00 00:00:[address] 3.430.2.7 0.2.7.3.698 Ho spita .3.463813 084.8 l .8 2021-05-24 2021-05-24 Lab Anand, 1.2.840.1 [id number] Methodi 10:25:00 10:30:[address] 3.430.2.7 Hospit a .3.251333 l .8 2021-05-24 2021-05-24 Lab Anand, 1.2.840.1 [id number] Methodi 10:25:00 10:30:[address] 3.430.2.7 Hospit a .3.226771 l .8 2021-05-24 2021-05-24 Travel 1.2.840.1 1.2.121.428 4050 [id number] Methodi 00:00:00 00:00:[address] 3.430.2.7 0.2.7.3.698 Ho spita .3.303848 084.8 l .8 2021-05-24 2021-05-24 Travel 1.2.840.1 1.2.361.109 9488 [id number] Methodi 00:00:00 00:00:[address] 3.430.2.7 0.2.7.3.698 Ho spita .3.983619 084.8 l .8 2021-05-21 2021-05-21 [facility] Anand, 1.2.840.1 [id number] [id number] [id number] Methodi 00:00:00 00:00:00 Orders Nadim 56817.1.[address] 3.430.2.7 Hospit a .3.280750 l .8 2021-05-21 2021-05-21 [facility] Anand, 1.2.840.1 [id number] Methodi 00:00:00 00:00:00 Orders Nadim 95790.1.[address] 3.430.2.7 Hospit a .3.391023 l .8 Results Test Description Test Time Test Comments Results Result Comments Source [facility] 2021-07-30 15:54:00 Test Item Value Reference Range Interpretation Comme nts Coronavirus (COVID-19) JOHANNE (test code = Not Detected (07/30/21 10:54 AM) Coronavirus (COVID-19) JOHANNE) [facility] 15:54:00 Test Item Value Reference Range Interpretation Comments Coronavirus (COVID-19) Not Detected (07/30/21 JOHANNE (test code = 10:54 AM) Coronavirus (COVID-19) JOHANNE) [facility]labiciUCFOSYYLMD1354-39-61 15:37:00 Test Item Value Reference Range Interpretation Comments Segs (test code = Segs) 70.2 45.0-75.0 [facility]IlgofalIYISMBRGAX5589-32-27 15:37:00 Test Item Value Reference Range Interpretation Comments Lymphocytes (test code = Lymphocytes) 17.5 20.0-40.0 [facility] HospitalHqrzvnlNYSXEWAAOZ6495-96-56 15:37:00 Test Item Value Reference Range Interpretation Comments Monocytes (test code = Monocytes) 10.0 2.0-12.0 [facility] HospitalJqpvqsaRPUVQLOUMM3296-43-77 15:37:00 Test Item Value Reference Range Interpretation Comments Eosinophils (test code = 1.7 See_Comment [A utomated message] The Eosinophils) system which ge nerated this result tra nsmitted reference range : <=4.0. The reference r dasyi was not used to int erpret this result as normal/abnormal . [facility] HospitalYiqkuvoHSOTKXUWSN3957-25-67 15:37:00 Test Item Value Reference Range Interpretation Comments Basophils (test code = 0.6 See_Comment [Aut omated message] The Basophils) system which ge nerated this result tra nsmitted reference range : <=1.0. The reference r daysi was not used to int erpret this result as normal/abnormal . [facility] HospitalTcopjsoJMNGQFRBSK8160-82-05 15:37:00 Test Item Value Reference Range Interpretation Comments Neutrophils # (test code = Neutrophils 4.6 1.5-8.1 #) [facility] HospitalTlbgxbiASOFDNIYBV8087-29-34 15:37:00 Test Item Value Reference Range Interpretation Comments Lymphocytes # (test code = Lymphocytes 1.2 1.0-5.5 #) [facility] HospitalSghwyaiHEWPFVSTJH9929-61-03 15:37:00 Test Item Value Reference Range Interpretation Comments Monocytes # (test code 0.7 See_Comment [Aut omated message] The = Monocytes #) system which generated this result tra nsmitted reference range : <=0.8. The reference r daysi was not used to int erpret this result as normal/abnormal . [facility] HospitalGfzfppiFKCZBYAXPA9598-40-86 15:37:00 Test Item Value Reference Range Interpretation Comments Eosinophils # (test code 0.1 See_Comment [A utomated message] The = Eosinophils #) system whic h generated this result tra nsmitted reference range : <=0.5. The reference r daysi was not used to int erpret this result as normal/abnormal . [facility]2022-05-08 15:37:00 Test Item Value Reference Range Interpretation Comments ABO/Rh (test code = ABO/Rh) O POS [facility] VTNUFEZ6943-32-35 15:37:00 Test Item Value Reference Range Interpretation Comments Antibody Scrn (test Negative (07/29/21 10:37 code = Antibody Scrn) AM) [facility] HospitalFycuumhWEXQTCPYSK4298-82-77 15:37:00 Test Item Value Reference Range Interpretation Comments WBC (test code = WBC) 6.6 3.7-10.4 [facility] HospitalZeobxobNUXERZFQDO6507-15-01 15:37:00 Test Item Value Reference Range Interpretation Comments RBC (test code = RBC) 2.90 4.20-5.40 [facility] HospitalSundckjLPFHZKCYUD5507-40-48 15:37:00 Test Item Value Reference Range Interpretation Comments Hgb (test code = Hgb) 8.3 12.0-16.0 [facility] HospitalDfrtaujXCHYKRDBBH4912-79-88 15:37:00 Test Item Value Reference Range Interpretation Comments Hct (test code = Hct) 25.4 36.0-48.0 [facility] HospitalNajqrruQLFBCMWCYM8172-56-62 15:37:00 Test Item Value Reference Range Interpretation Comments MCV (test code = MCV) 87.5 80.0-98.0 [facility] HospitalFihlibwGDPEMVAOUR6991-37-70 15:37:00 Test Item Value Reference Range Interpretation Comments MCH (test code = MCH) 28.6 pg 27.0-31.0 [facility] HospitalHwzmchaYOYDJKOFBH1009-37-68 15:37:00 Test Item Value Reference Range Interpretation Comments MCHC (test code = MCHC) 32.7 32.0-36.0 [facility] HospitalRjzshthPBHKWPDUZR8501-98-32 15:37:00 Test Item Value Reference Range Interpretation Comments RDW (test code = RDW) 13.7 11.5-14.5 [facility] HospitalZnwzrvpBCAFGRUREH2228-30-93 15:37:00 Test Item Value Reference Range Interpretation Comments Platelet (test code = Platelet) 166 133-450 [facility] HospitalWpukpwaFUDYCTCLPV0863-78-27 15:37:00 Test Item Value Reference Range Interpretation Comments MPV (test code = MPV) 8.7 7.4-10.4 [facility] HospitalFesavgfHIVXVLJFCC6010-21-65 15:37:00 Test Item Value Reference Range Interpretation Comments Segs (test code = Segs) 70.2 45.0-75.0 [facility] HospitalOcdyzjvMTCGPPDMTL0625-81-02 15:37:00 Test Item Value Reference Range Interpretation Comments Lymphocytes (test code = Lymphocytes) 17.5 20.0-40.0 [facility] HospitalQpormbzAWJPTLRKUH0001-17-12 15:37:00 Test Item Value Reference Range Interpretation Comments Monocytes (test code = Monocytes) 10.0 2.0-12.0 [facility] HospitalThqoqreAROOBKATPE4310-97-77 15:37:00 Test Item Value Reference Range Interpretation Comments Eosinophils (test code = 1.7 See_Comment [A utomated message] The Eosinophils) system which ge nerated this result tra nsmitted reference range : <=4.0. The reference r daysi was not used to int erpret this result as normal/abnormal . [place] 939372-05-08 15:37:00 Test Item Value Reference Range Interpretation Comments Basophils (test code = 0.6 See_Comment [Aut omated message] The Basophils) system which ge nerated this result tra nsmitted reference range : <=1.0. The reference r daysi was not used to int erpret this result as normal/abnormal . [facility] HospitalOnsfcjrEYEIZXILFM3932-02-82 15:37:00 Test Item Value Reference Range Interpretation Comments Neutrophils # (test code = Neutrophils 4.6 1.5-8.1 #) [facility] HospitalRgssmpnWGANJUDJBG2411-49-45 15:37:00 Test Item Value Reference Range Interpretation Comments Lymphocytes # (test code = Lymphocytes 1.2 1.0-5.5 #) [facility] HospitalHirlmzdMZXXVATXCT1883-44-36 15:37:00 Test Item Value Reference Range Interpretation Comments Monocytes # (test code 0.7 See_Comment [Aut omated message] The = Monocytes #) system which generated this result tra nsmitted reference range : <=0.8. The reference r daysi was not used to int erpret this result as normal/abnormal . [facility] HospitalWlppiwhFYAZIWFTCD0537-48-23 15:37:00 Test Item Value Reference Range Interpretation Comments Eosinophils # (test code 0.1 See_Comment [A utomated message] The = Eosinophils #) system whic h generated this result tra nsmitted reference range : <=0.5. The reference r daysi was not used to int erpret this result as normal/abnormal . [facility] CURVNKT7947-74-81 15:37:00 Test Item Value Reference Range Interpretation Comments ABO/Rh (test code = ABO/Rh) O POS [facility] FUATZDY5480-53-67 15:37:00 Test Item Value Reference Range Interpretation Comments Antibody Scrn (test Negative (07/29/21 10:37 code = Antibody Scrn) AM) [facility] HospitalPwlfrriIXYWBJUGKI3826-96-06 15:37:00 Test Item Value Reference Range Interpretation Comments WBC (test code = WBC) 6.6 3.7-10.4 [facility] HospitalVszxtefQCVEZEWXFS0288-50-93 15:37:00 Test Item Value Reference Range Interpretation Comments RBC (test code = RBC) 2.90 4.20-5.40 [facility] HospitalPwcryklEFNNZRVBMX5458-65-03 15:37:00 Test Item Value Reference Range Interpretation Comments Hgb (test code = Hgb) 8.3 12.0-16.0 [place] [address]-05-08 15:37:00 Test Item Value Reference Range Interpretation Comments Hct (test code = Hct) 25.4 36.0-48.0 [place] 939372-05-08 15:37:00 Test Item Value Reference Range Interpretation Comments MCV (test code = MCV) 87.5 80.0-98.0 [place] 939372-05-08 15:37:00 Test Item Value Reference Range Interpretation Comments MCH (test code = MCH) 28.6 pg 27.0-31.0 [place] [address]-05-08 15:37:00 Test Item Value Reference Range Interpretation Comments MCHC (test code = MCHC) 32.7 32.0-36.0 [facility] HospitalCyxqildOVNWJNBPAI7361-11-24 15:37:00 Test Item Value Reference Range Interpretation Comments RDW (test code = RDW) 13.7 11.5-14.5 [facility] HospitalTgmbbueBINBTDGLAK8075-64-61 15:37:00 Test Item Value Reference Range Interpretation Comments Platelet (test code = Platelet) 166 133-450 [facility] HospitalRwjkzvmJTCCMUOMRO4616-62-05 15:37:00 Test Item Value Reference Range Interpretation Comments MPV (test code = MPV) 8.7 7.4-10.4 [place] 939372-05-07 18:45:00 Test Item Value Reference Range Interpretation Comments Basophils (test code = 1.0 See_Comment [Aut omated message] The Basophils) system which ge nerated this result tra nsmitted reference range : <=1.0. The reference r daysi was not used to int erpret this result as normal/abnormal . [place] [address]-05-07 18:45:00 Test Item Value Reference Range Interpretation Comments Neutrophils # (test code = Neutrophils 6.0 1.5-8.1 #) [place] [address]-05-07 18:45:00 Test Item Value Reference Range Interpretation Comments Lymphocytes # (test code = Lymphocytes 1.6 1.0-5.5 #) [place] 939372-05-07 18:45:00 Test Item Value Reference Range Interpretation Comments Monocytes # (test code 0.9 See_Comment [Aut omated message] The = Monocytes #) system which generated this result tra nsmitted reference range : <=0.8. The reference r daysi was not used to int erpret this result as normal/abnormal . [place] [address]-05-07 18:45:00 Test Item Value Reference Range Interpretation Comments Basophils # (test code 0.1 See_Comment [Aut omated message] The = Basophils #) system which generated this result tra nsmitted reference range : <=0.2. The reference r daysi was not used to int erpret this result as normal/abnormal . [place] [address]-05-07 18:45:00 Test Item Value Reference Range Interpretation Comments WBC (test code = WBC) 8.6 3.7-10.4 [place] [address]-05-07 18:45:00 Test Item Value Reference Range Interpretation Comments RBC (test code = RBC) 3.08 4.20-5.40 [place] 939372-05-07 18:45:00 Test Item Value Reference Range Interpretation Comments Hgb (test code = Hgb) 8.8 12.0-16.0 [place] [address]-05-07 18:45:00 Test Item Value Reference Range Interpretation Comments Hct (test code = Hct) 27.2 36.0-48.0 [place] [address]-05-07 18:45:00 Test Item Value Reference Range Interpretation Comments MCV (test code = MCV) 88.3 80.0-98.0 [place] [address]-05-07 18:45:00 Test Item Value Reference Range Interpretation Comments MCH (test code = MCH) 28.6 pg 27.0-31.0 [place] [address]-05-07 18:45:00 Test Item Value Reference Range Interpretation Comments MCHC (test code = MCHC) 32.4 32.0-36.0 [place] 939372-05-07 18:45:00 Test Item Value Reference Range Interpretation Comments RDW (test code = RDW) 14.2 11.5-14.5 [place] [address]-05-07 18:45:00 Test Item Value Reference Range Interpretation Comments Platelet (test code = Platelet) 194 133-450 [facility] HospitalRwlacxbWLQMMVQGAN3758-66-84 18:45:00 Test Item Value Reference Range Interpretation Comments MPV (test code = MPV) 9.2 7.4-10.4 [facility] HospitalOjlhtbfHHNMPGRSXQ4170-25-83 18:45:00 Test Item Value Reference Range Interpretation Comments Segs (test code = Segs) 69.2 45.0-75.0 [facility] HospitalQreefxcTUJYKNEDOQ6068-66-57 18:45:00 Test Item Value Reference Range Interpretation Comments Lymphocytes (test code = Lymphocytes) 18.9 20.0-40.0 [place] 939372-05-07 18:45:00 Test Item Value Reference Range Interpretation Comments Monocytes (test code = Monocytes) 10.6 2.0-12.0 [facility] HospitalIoqeubxYGFBPNSWZE2079-19-30 18:45:00 Test Item Value Reference Range Interpretation Comments Eosinophils (test code = 0.3 See_Comment [A utomated message] The Eosinophils) system which ge nerated this result tra nsmitted reference range : <=4.0. The reference r daysi was not used to int erpret this result as normal/abnormal . [facility] HospitalGvjtqzlDWKOAOBGDH7475-78-17 18:45:00 Test Item Value Reference Range Interpretation Comments Basophils (test code = 1.0 See_Comment [Aut omated message] The Basophils) system which ge nerated this result tra nsmitted reference range : <=1.0. The reference r daysi was not used to int erpret this result as normal/abnormal . [facility] HospitalJwtgtfsZJEOSRFSDI4433-80-28 18:45:00 Test Item Value Reference Range Interpretation Comments Neutrophils # (test code = Neutrophils 6.0 1.5-8.1 #) [facility] HospitalPxwvtxpJTMHXIDYUH4642-32-94 18:45:00 Test Item Value Reference Range Interpretation Comments Lymphocytes # (test code = Lymphocytes 1.6 1.0-5.5 #) [place] 939372-05-07 18:45:00 Test Item Value Reference Range Interpretation Comments Monocytes # (test code 0.9 See_Comment [Aut omated message] The = Monocytes #) system which generated this result tra nsmitted reference range : <=0.8. The reference r daysi was not used to int erpret this result as normal/abnormal . [place] [address]-05-07 18:45:00 Test Item Value Reference Range Interpretation Comments Basophils # (test code 0.1 See_Comment [Aut omated message] The = Basophils #) system which generated this result tra nsmitted reference range : <=0.2. The reference r daysi was not used to int erpret this result as normal/abnormal . [place] [address]-05-07 18:45:00 Test Item Value Reference Range Interpretation Comments WBC (test code = WBC) 8.6 3.7-10.4 [place] [address]-05-07 18:45:00 Test Item Value Reference Range Interpretation Comments RBC (test code = RBC) 3.08 4.20-5.40 [place] [address]-05-07 18:45:00 Test Item Value Reference Range Interpretation Comments Hgb (test code = Hgb) 8.8 12.0-16.0 [place] [address]-05-07 18:45:00 Test Item Value Reference Range Interpretation Comments Hct (test code = Hct) 27.2 36.0-48.0 [place] 939372-05-07 18:45:00 Test Item Value Reference Range Interpretation Comments MCV (test code = MCV) 88.3 80.0-98.0 [place] [address]-05-07 18:45:00 Test Item Value Reference Range Interpretation Comments MCH (test code = MCH) 28.6 pg 27.0-31.0 [place] [address]-05-07 18:45:00 Test Item Value Reference Range Interpretation Comments MCHC (test code = MCHC) 32.4 32.0-36.0 [place] [address]-05-07 18:45:00 Test Item Value Reference Range Interpretation Comments RDW (test code = RDW) 14.2 11.5-14.5 [place] [address]-05-07 18:45:00 Test Item Value Reference Range Interpretation Comments Platelet (test code = Platelet) 194 133-450 [place] [address]-05-07 18:45:00 Test Item Value Reference Range Interpretation Comments MPV (test code = MPV) 9.2 7.4-10.4 [place] [address]-05-07 18:45:00 Test Item Value Reference Range Interpretation Comments Segs (test code = Segs) 69.2 45.0-75.0 [place] [address]-05-07 18:45:00 Test Item Value Reference Range Interpretation Comments Lymphocytes (test code = Lymphocytes) 18.9 20.0-40.0 [place] [address]-05-07 18:45:00 Test Item Value Reference Range Interpretation Comments Monocytes (test code = Monocytes) 10.6 2.0-12.0 [place] [address]-05-07 18:45:00 Test Item Value Reference Range Interpretation Comments Eosinophils (test code = 0.3 See_Comment [A utomated message] The Eosinophils) system which ge nerated this result tra nsmitted reference range : <=4.0. The reference r daysi was not used to int erpret this result as normal/abnormal . [place] 501122-05-06 09:20:00 Test Item Value Reference Range Interpretation Comments Glucose Lvl (test code = Glucose Lvl) 151 70-99 [place] 501122-05-06 09:20:00 Test Item Value Reference Range Interpretation Comments BUN (test code = BUN) 33 7-22 [place] 501122-05-06 09:20:00 Test Item Value Reference Range Interpretation Comments Creatinine Lvl (test code = Creatinine 1.21 0.50-1.40 Lvl) [place] 501122-05-06 09:20:00 Test Item Value Reference Range Interpretation Comments Sodium Lvl (test code = Sodium Lvl) 142 135-145 [place] 501122-05-06 09:20:00 Test Item Value Reference Range Interpretation Comments Potassium Lvl (test code = Potassium 4.1 3.5-5.1 Lvl) [place] 501122-05-06 09:20:00 Test Item Value Reference Range Interpretation Comments Chloride Lvl (test code = Chloride Lvl) 109 95-109 [place] 501122-05-06 09:20:00 Test Item Value Reference Range Interpretation Comments CO2 (test code = CO2) 23 24-32 [place] 501122-05-06 09:20:00 Test Item Value Reference Range Interpretation Comments Calcium Lvl (test code = Calcium Lvl) 8.5 8.5-10.5 [facility]2022-05-06 09:20:00 Test Item Value Reference Range Interpretation Comments AGAP (test code = AGAP) 14.1 10.0-20.0 [facility]2022-05-06 09:20:00 Test Item Value Reference Range Interpretation Comments eGFR (test code = eGFR) 41 [facility] HospitalIqzjereGLFEKOTETY3079-66-32 09:20:00 Test Item Value Reference Range Interpretation Comments WBC (test code = WBC) 9.7 3.7-10.4 [place] 939372-05-06 09:20:00 Test Item Value Reference Range Interpretation Comments RBC (test code = RBC) 3.63 4.20-5.40 [place] [address]-05-06 09:20:00 Test Item Value Reference Range Interpretation Comments Hgb (test code = Hgb) 10.3 12.0-16.0 [place] [address]-05-06 09:20:00 Test Item Value Reference Range Interpretation Comments Hct (test code = Hct) 32.0 36.0-48.0 [place] 939372-05-06 09:20:00 Test Item Value Reference Range Interpretation Comments MCV (test code = MCV) 88.2 80.0-98.0 [place] [address]-05-06 09:20:00 Test Item Value Reference Range Interpretation Comments MCH (test code = MCH) 28.3 pg 27.0-31.0 [place] 939372-05-06 09:20:00 Test Item Value Reference Range Interpretation Comments MCHC (test code = MCHC) 32.1 32.0-36.0 [place] 939372-05-06 09:20:00 Test Item Value Reference Range Interpretation Comments RDW (test code = RDW) 13.8 11.5-14.5 [place] [address]-05-06 09:20:00 Test Item Value Reference Range Interpretation Comments Platelet (test code = Platelet) 162 133-450 [place] 939372-05-06 09:20:00 Test Item Value Reference Range Interpretation Comments MPV (test code = MPV) 9.2 7.4-10.4 [place] 939372-05-06 09:20:00 Test Item Value Reference Range Interpretation Comments RBC Morph (test code = Normal (07/27/21 4:20 AM) RBC Morph) [facility]KbuhyxqTOEBVVCYCE1699-39-07 09:20:00 Test Item Value Reference Range Interpretation Comments Plt Morph (test code = Normal (07/27/21 4:20 AM) Plt Morph) [place] [address]-05-06 09:20:00 Test Item Value Reference Range Interpretation Comments Segs (test code = Segs) 88.2 45.0-75.0 [place] [address]-05-06 09:20:00 Test Item Value Reference Range Interpretation Comments Lymphocytes (test code = Lymphocytes) 3.7 20.0-40.0 [place] [address]-05-06 09:20:00 Test Item Value Reference Range Interpretation Comments Monocytes (test code = Monocytes) 7.8 2.0-12.0 [place] [address]-05-06 09:20:00 Test Item Value Reference Range Interpretation Comments Basophils (test code = 0.3 See_Comment [Aut omated message] The Basophils) system which ge nerated this result tra nsmitted reference range : <=1.0. The reference r daysi was not used to int erpret this result as normal/abnormal . [id number] [facility]:20:00 Test Item Value Reference Range Interpretation Comments Neutrophils # (test code = Neutrophils 8.5 1.5-8.1 #) [place] [address]-05-06 09:20:00 Test Item Value Reference Range Interpretation Comments Lymphocytes # (test code = Lymphocytes 0.4 1.0-5.5 #) [place] [address]-05-06 09:20:00 Test Item Value Reference Range Interpretation Comments Monocytes # (test code 0.8 See_Comment [Aut omated message] The = Monocytes #) system which generated this result tra nsmitted reference range : <=0.8. The reference r daysi was not used to int erpret this result as normal/abnormal . [facility]2022-05-06 09:20:00 Test Item Value Reference Range Interpretation Comments Glucose Lvl (test code = Glucose Lvl) 151 70-99 [place] 501122-05-06 09:20:00 Test Item Value Reference Range Interpretation Comments BUN (test code = BUN) 33 7-22 [place] 501122-05-06 09:20:00 Test Item Value Reference Range Interpretation Comments Creatinine Lvl (test code = Creatinine 1.21 0.50-1.40 Lvl) [place] 501122-05-06 09:20:00 Test Item Value Reference Range Interpretation Comments Sodium Lvl (test code = Sodium Lvl) 142 135-145 [place] 501122-05-06 09:20:00 Test Item Value Reference Range Interpretation Comments Potassium Lvl (test code = Potassium 4.1 3.5-5.1 Lvl) [place] 501122-05-06 09:20:00 Test Item Value Reference Range Interpretation Comments Chloride Lvl (test code = Chloride Lvl) 109 95-109 [place] 501122-05-06 09:20:00 Test Item Value Reference Range Interpretation Comments CO2 (test code = CO2) 23 24-32 [place] 501122-05-06 09:20:00 Test Item Value Reference Range Interpretation Comments Calcium Lvl (test code = Calcium Lvl) 8.5 8.5-10.5 [place] 501122-05-06 09:20:00 Test Item Value Reference Range Interpretation Comments AGAP (test code = AGAP) 14.1 10.0-20.0 [place] 501122-05-06 09:20:00 Test Item Value Reference Range Interpretation Comments eGFR (test code = eGFR) 41 [place] [address]-05-06 09:20:00 Test Item Value Reference Range Interpretation Comments WBC (test code = WBC) 9.7 3.7-10.4 [place] [address]-05-06 09:20:00 Test Item Value Reference Range Interpretation Comments RBC (test code = RBC) 3.63 4.20-5.40 [place] [address]-05-06 09:20:00 Test Item Value Reference Range Interpretation Comments Hgb (test code = Hgb) 10.3 12.0-16.0 [place] [address]-05-06 09:20:00 Test Item Value Reference Range Interpretation Comments Hct (test code = Hct) 32.0 36.0-48.0 [place] [address]-05-06 09:20:00 Test Item Value Reference Range Interpretation Comments MCV (test code = MCV) 88.2 80.0-98.0 [place] [address]-05-06 09:20:00 Test Item Value Reference Range Interpretation Comments MCH (test code = MCH) 28.3 pg 27.0-31.0 [place] [address]-05-06 09:20:00 Test Item Value Reference Range Interpretation Comments MCHC (test code = MCHC) 32.1 32.0-36.0 [place] 939372-05-06 09:20:00 Test Item Value Reference Range Interpretation Comments RDW (test code = RDW) 13.8 11.5-14.5 [place] [address]-05-06 09:20:00 Test Item Value Reference Range Interpretation Comments Platelet (test code = Platelet) 162 133-450 [place] 939372-05-06 09:20:00 Test Item Value Reference Range Interpretation Comments MPV (test code = MPV) 9.2 7.4-10.4 [place] [address]-05-06 09:20:00 Test Item Value Reference Range Interpretation Comments RBC Morph (test code = Normal (07/27/21 4:20 AM) RBC Morph) [place] [address]-05-06 09:20:00 Test Item Value Reference Range Interpretation Comments Plt Morph (test code = Normal (07/27/21 4:20 AM) Plt Morph) [place] [address]-05-06 09:20:00 Test Item Value Reference Range Interpretation Comments Segs (test code = Segs) 88.2 45.0-75.0 [place] 939372-05-06 09:20:00 Test Item Value Reference Range Interpretation Comments Lymphocytes (test code = Lymphocytes) 3.7 20.0-40.0 [place] [address]-05-06 09:20:00 Test Item Value Reference Range Interpretation Comments Monocytes (test code = Monocytes) 7.8 2.0-12.0 [place] [address]-05-06 09:20:00 Test Item Value Reference Range Interpretation Comments Basophils (test code = 0.3 See_Comment [Aut omated message] The Basophils) system which ge nerated this result tra nsmitted reference range : <=1.0. The reference r daysi was not used to int erpret this result as normal/abnormal . [place] 939372-05-06 09:20:00 Test Item Value Reference Range Interpretation Comments Neutrophils # (test code = Neutrophils 8.5 1.5-8.1 #) [place] 939372-05-06 09:20:00 Test Item Value Reference Range Interpretation Comments Lymphocytes # (test code = Lymphocytes 0.4 1.0-5.5 #) [place] [address]-05-06 09:20:00 Test Item Value Reference Range Interpretation Comments Monocytes # (test code 0.8 See_Comment [Aut omated message] The = Monocytes #) system which generated this result tra nsmitted reference range : <=0.8. The reference r daysi was not used to int erpret this result as normal/abnormal . [facility]2022 12:10:00 Test Item Value Reference Range Interpretation Comments Glucose Lvl (test code = Glucose Lvl) 106 70-99 [place] 501122-05-04 12:10:00 Test Item Value Reference Range Interpretation Comments BUN (test code = BUN) 33 7-22 [place] 501122-05-04 12:10:00 Test Item Value Reference Range Interpretation Comments Creatinine Lvl (test code = Creatinine 1.13 0.50-1.40 Lvl) [facility]2022 12:10:00 Test Item Value Reference Range Interpretation Comments Sodium Lvl (test code = Sodium Lvl) 140 135-145 [place] 501122-05-04 12:10:00 Test Item Value Reference Range Interpretation Comments Potassium Lvl (test code = Potassium 4.2 3.5-5.1 Lvl) [place] 501122-05-04 12:10:00 Test Item Value Reference Range Interpretation Comments Chloride Lvl (test code = Chloride Lvl) 105 95-109 [place] 501122-05-04 12:10:00 Test Item Value Reference Range Interpretation Comments CO2 (test code = CO2) 28 24-32 [place] 501122-05-04 12:10:00 Test Item Value Reference Range Interpretation Comments Calcium Lvl (test code = Calcium Lvl) 8.5 8.5-10.5 [place] 501122-05-04 12:10:00 Test Item Value Reference Range Interpretation Comments AGAP (test code = AGAP) 11.2 10.0-20.0 [place] [address]-05-04 12:10:00 Test Item Value Reference Range Interpretation Comments eGFR (test code = eGFR) 44 [facility]YuwegylEKRKJNDUAF2560-01-67 12:10:00 Test Item Value Reference Range Interpretation Comments Eosinophils (test code = 0.8 See_Comment [A utomated message] The Eosinophils) system which ge nerated this result tra nsmitted reference range : <=4.0. The reference r daysi was not used to int erpret this result as normal/abnormal . [place] [address]-05-04 12:10:00 Test Item Value Reference Range Interpretation Comments Glucose Lvl (test code = Glucose Lvl) 106 70-99 [place] [address]-05-04 12:10:00 Test Item Value Reference Range Interpretation Comments BUN (test code = BUN) 33 7-22 [place] 501122-05-04 12:10:00 Test Item Value Reference Range Interpretation Comments Creatinine Lvl (test code = Creatinine 1.13 0.50-1.40 Lvl) [facility]2022 12:10:00 Test Item Value Reference Range Interpretation Comments Sodium Lvl (test code = Sodium Lvl) 140 135-145 [place] 501122-05-04 12:10:00 Test Item Value Reference Range Interpretation Comments Potassium Lvl (test code = Potassium 4.2 3.5-5.1 Lvl) [place] [address]-05-04 12:10:00 Test Item Value Reference Range Interpretation Comments Chloride Lvl (test code = Chloride Lvl) 105 95-109 [place] 501122-05-04 12:10:00 Test Item Value Reference Range Interpretation Comments CO2 (test code = CO2) 28 24-32 [place] 501122-05-04 12:10:00 Test Item Value Reference Range Interpretation Comments Calcium Lvl (test code = Calcium Lvl) 8.5 8.5-10.5 [place] 501122-05-04 12:10:00 Test Item Value Reference Range Interpretation Comments AGAP (test code = AGAP) 11.2 10.0-20.0 [facility] [id number] 12:10:00 Test Item Value Reference Range Interpretation Comments eGFR (test code = eGFR) 44 [facility]anoCeleupiEQDGHAJWWA6615-43-79 12:10:00 Test Item Value Reference Range Interpretation Comments Eosinophils (test code = 0.8 See_Comment [A utomated message] The Eosinophils) system which ge nerated this result tra nsmitted reference range : <=4.0. The reference r daysi was not used to int erpret this result as normal/abnormal . [facility] [id number] 17:12:00 Test Item Value Reference Range Interpretation Comments HS Troponin I Baseline (test code = HS 24 Troponin I Baseline) [facility] [id number] 17:12:00 Test Item Value Reference Range Interpretation Comments HS Troponin I 1 Hr (test code = HS 22 Troponin I 1 Hr) [facility] [id number] 17:12:00 Test Item Value Reference Range Interpretation Comments HS Troponin I 0 to 1 See Note (07/24/21 Hour Delta (test code = 12:12 PM) HS Troponin I 0 to 1 Hour Delta) [facility]: [id number] 17:12:00 Test Item Value Reference Range Interpretation Comments Culture: Urine (test <10,000 CFU/mL Skin code = Culture: Urine) [facility] [id number] 17:12:00 Test Item Value Reference Range Interpretation Comments HS Troponin I Baseline (test code = HS 24 Troponin I Baseline) [facility] [id number] 17:12:00 Test Item Value Reference Range Interpretation Comments HS Troponin I 1 Hr (test code = HS 22 Troponin I 1 Hr) [facility] [id number] 17:12:00 Test Item Value Reference Range Interpretation Comments HS Troponin I 0 to 1 See Note (07/24/21 Hour Delta (test code = 12:12 PM) HS Troponin I 0 to 1 Hour Delta) [facility]: [id number] 17:12:00 Test Item Value Reference Range Interpretation Comments Culture: Urine (test <10,000 CFU/mL Skin code = Culture: Urine) [facility] AND [id number] 15:54:00 Test Item Value Reference Range Interpretation Comments UA Color (test code = Lat[place] *ABN*(07/24/21 UA Color) 10:54 AM) [facility] AND [id number] 15:54:00 Test Item Value Reference Range Interpretation Comments UA Turbidity (test code Marked *ABN*(07/24/21 = UA Turbidity) 10:54 AM) [facility] AND [id number] 15:54:00 Test Item Value Reference Range Interpretation Comments UA Spec Grav (test code = UA Spec 1.018 1 Grav) [facility] AND [id number] 15:54:00 Test Item Value Reference Range Interpretation Comments UA pH (test code = UA pH) 5.0 1 5.0-8.0 [facility] AND [id number] 15:54:00 Test Item Value Reference Range Interpretation Comments UA Protein (test code = UA Negative mg/dL Protein) [facility] AND [id number] 15:54:00 Test Item Value Reference Range Interpretation Comments UA Glucose (test code = UA Negative mg/dL Glucose) [facility] AND [id number] 15:54:00 Test Item Value Reference Range Interpretation Comments UA Ketones (test code = UA Trace mg/dL Ketones) [facility] AND [id number] 15:54:00 Test Item Value Reference Range Interpretation Comments UA Bili (test code = Negative *NA*(07/24/21 UA Bili) 10:54 AM) [facility] AND [id number] 15:54:00 Test Item Value Reference Range Interpretation Comments UA Blood (test code = Small *ABN*(07/24/21 UA Blood) 10:54 AM) [facility] AND [id number] 15:54:00 Test Item Value Reference Range Interpretation Comments UA Urobilinogen (test code = UA 2.0 0.1-1.0 Urobilinogen) [facility] AND [id number] 15:54:00 Test Item Value Reference Range Interpretation Comments UA Nitrite (test code Positive *ABN*(07/24/21 = UA Nitrite) 10:54 AM) [facility] AND [id number] 15:54:00 Test Item Value Reference Range Interpretation Comments UA Leuk Est (test code Large *ABN*(07/24/21 = UA Leuk Est) 10:54 AM) [facility] AND [id number] 15:54:00 Test Item Value Reference Range Interpretation Comments UA Sq Epi (test code = UA Sq Occasional /LPF Epi) [facility] AND [id number] 15:54:00 Test Item Value Reference Range Interpretation Comments UA WBC (test code = no gt See_Comment [Automa martina message] The UA WBC) system which ge nerated this result transmit martina reference range : <=5. The reference range was not used to interpr et this result as jules l/abnormal. [facility] AND [id number] 15:54:00 Test Item Value Reference Range Interpretation Comments UA RBC (test code = 21 See_Comment [Automa martina message] The UA RBC) system which ge nerated this result transmit martina reference range : <=2. The reference range was not used to interpr et this result as jules l/abnormal. [facility] AND [id number] 15:54:00 Test Item Value Reference Range Interpretation Comments UA Bacteria (test code = UA Many /HPF Bacteria) [facility] AND [id number] 15:54:00 Test Item Value Reference Range Interpretation Comments UA Mucus (test code = UA Mucus) Few /LPF [facility] AND [id number] 15:54:00 Test Item Value Reference Range Interpretation Comments UA Color (test code = Lat[place] *ABN*(07/24/21 UA Color) 10:54 AM) [facility] AND [id number] 15:54:00 Test Item Value Reference Range Interpretation Comments UA Turbidity (test code Marked *ABN*(07/24/21 = UA Turbidity) 10:54 AM) [facility] AND [id number] 15:54:00 Test Item Value Reference Range Interpretation Comments UA Spec Grav (test code = UA Spec 1.018 1 Grav) [facility] AND [id number] 15:54:00 Test Item Value Reference Range Interpretation Comments UA pH (test code = UA pH) 5.0 1 5.0-8.0 [facility] AND [id number] 15:54:00 Test Item Value Reference Range Interpretation Comments UA Protein (test code = UA Negative mg/dL Protein) [facility] AND [id number] 15:54:00 Test Item Value Reference Range Interpretation Comments UA Glucose (test code = UA Negative mg/dL Glucose) [facility] AND [id number] 15:54:00 Test Item Value Reference Range Interpretation Comments UA Ketones (test code = UA Trace mg/dL Ketones) [facility] AND [id number] 15:54:00 Test Item Value Reference Range Interpretation Comments UA Bili (test code = Negative *NA*(07/24/21 UA Bili) 10:54 AM) [facility] AND [id number] 15:54:00 Test Item Value Reference Range Interpretation Comments UA Blood (test code = Small *ABN*(07/24/21 UA Blood) 10:54 AM) [facility] AND [id number] 15:54:00 Test Item Value Reference Range Interpretation Comments UA Urobilinogen (test code = UA 2.0 0.1-1.0 Urobilinogen) [facility] AND [id number] 15:54:00 Test Item Value Reference Range Interpretation Comments UA Nitrite (test code Positive *ABN*(07/24/21 = UA Nitrite) 10:54 AM) [facility] AND [id number] 15:54:00 Test Item Value Reference Range Interpretation Comments UA Leuk Est (test code Large *ABN*(07/24/21 = UA Leuk Est) 10:54 AM) [facility] AND [id number] 15:54:00 Test Item Value Reference Range Interpretation Comments UA Sq Epi (test code = UA Sq Occasional /LPF Epi) [facility] AND [id number] 15:54:00 Test Item Value Reference Range Interpretation Comments UA WBC (test code = no gt See_Comment [Automa martina message] The UA WBC) system which ge nerated this result transmit martina reference range : <=5. The reference range was not used to interpr et this result as jules l/abnormal. [facility] AND [id number] 15:54:00 Test Item Value Reference Range Interpretation Comments UA RBC (test code = 21 See_Comment [Automa martina message] The UA RBC) system which ge nerated this result transmit martina reference range : <=2. The reference range was not used to interpr et this result as jules l/abnormal. [facility] AND [id number] 15:54:00 Test Item Value Reference Range Interpretation Comments UA Bacteria (test code = UA Many /HPF Bacteria) [facility] AND [id number] 15:54:00 Test Item Value Reference Range Interpretation Comments UA Mucus (test code = UA Mucus) Few /LPF [id number] 09:19:00 Test Item Value Reference Range Interpretation Comments Coronavirus (COVID-19) Not Detected (07/24/21 JOHANNE (test code = 4:19 AM) Coronavirus (COVID-19) JOHANNE) [facility] H[id number] 09:19:00 Test Item Value Reference Range Interpretation Comments Coronavirus (COVID-19) Not Detected (07/24/21 JOHANNE (test code = 4:19 AM) Coronavirus (COVID-19) JOHANNE) [facility]2022-05-03 09:18:00 Test Item Value Reference Range Interpretation Comments Glucose Lvl (test code = Glucose Lvl) 115 70-99 [facility]2022-05-03 09:18:00 Test Item Value Reference Range Interpretation Comments BUN (test code = BUN) 29 7-22 [facility]2022-05-03 09:18:00 Test Item Value Reference Range Interpretation Comments Creatinine Lvl (test code = Creatinine 1.20 0.50-1.40 Lvl) [facility]2022-05-03 09:18:00 Test Item Value Reference Range Interpretation Comments Sodium Lvl (test code = Sodium Lvl) 140 135-145 [facility]2022-05-03 09:18:00 Test Item Value Reference Range Interpretation Comments Potassium Lvl (test code = Potassium 4.3 3.5-5.1 Lvl) [facility]2022-05-03 09:18:00 Test Item Value Reference Range Interpretation Comments Chloride Lvl (test code = Chloride Lvl) 105 95-109 [facility]2022-05-03 09:18:00 Test Item Value Reference Range Interpretation Comments CO2 (test code = CO2) 32 24-32 [place] 501122-05-03 09:18:00 Test Item Value Reference Range Interpretation Comments Calcium Lvl (test code = Calcium Lvl) 8.5 8.5-10.5 [facility]2022-05-03 09:18:00 Test Item Value Reference Range Interpretation Comments AGAP (test code = AGAP) 7.3 10.0-20.0 [facility]2022-05-03 09:18:00 Test Item Value Reference Range Interpretation Comments eGFR (test code = eGFR) 41 [facility]2022-05-03 09:18:00 Test Item Value Reference Range Interpretation Comments Glucose Lvl (test code = Glucose Lvl) 115 70-99 [facility]PetrotechnicsUNC [id number] 09:18:00 Test Item Value Reference Range Interpretation Comments BUN (test code = BUN) 29 7-22 [facility]2022-05-03 09:18:00 Test Item Value Reference Range Interpretation Comments Creatinine Lvl (test code = Creatinine 1.20 0.50-1.40 Lvl) [facility]PetrotechnicsUNC [facility] - [id number] 09:18:00 Test Item Value Reference Range Interpretation Comments Sodium Lvl (test code = Sodium Lvl) 140 135-145 [facility]ProH[facility] [id number] 09:18:00 Test Item Value Reference Range Interpretation Comments Potassium Lvl (test code = Potassium 4.3 3.5-5.1 Lvl) [facility]2022-05-03 09:18:00 Test Item Value Reference Range Interpretation Comments Chloride Lvl (test code = Chloride Lvl) 105 95-109 [facility]PetrotechnicsUNC [facility] [id number] 09:18:00 Test Item Value Reference Range Interpretation Comments CO2 (test code = CO2) 32 24-32 [facility] [id number] 09:18:00 Test Item Value Reference Range Interpretation Comments Calcium Lvl (test code = Calcium Lvl) 8.5 8.5-10.5 [facility] [id number] 09:18:00 Test Item Value Reference Range Interpretation Comments AGAP (test code = AGAP) 7.3 10.0-20.0 [facility] [id number] 09:18:00 Test Item Value Reference Range Interpretation Comments eGFR (test code = eGFR) 41 [facility] [id number] 09:17:00 Test Item Value Reference Range Interpretation Comments ABO/Rh (test code = ABO/Rh) O POS [facility] [id number] 09:17:00 Test Item Value Reference Range Interpretation Comments Antibody Scrn (test Negative (07/24/21 4:17 code = Antibody Scrn) AM) [id number] 09:17:00 Test Item Value Reference Range Interpretation Comments PT (test code = PT) 16.2 s 12.0-14.7 [facility] H[id number] 09:17:00 Test Item Value Reference Range Interpretation Comments INR (test code = INR) 1.31 1 0.85-1.17 [facility] HospitalOfohlwdJGFOHXTLBG8940-64-06 09:17:00 Test Item Value Reference Range Interpretation Comments PTT (test code = PTT) 34.7 s 22.9-35.8 [facility] [id number] 09:17:00 Test Item Value Reference Range Interpretation Comments ABO/Rh (test code = ABO/Rh) O POS [facility] [id number] 09:17:00 Test Item Value Reference Range Interpretation Comments Antibody Scrn (test Negative (07/24/21 4:17 code = Antibody Scrn) AM) [facility] HospitalRjtgiyxQCDHXTVUBD8705-83-02 09:17:00 Test Item Value Reference Range Interpretation Comments PT (test code = PT) 16.2 s 12.0-14.7 [facility] Ho[id number] 09:17:00 Test Item Value Reference Range Interpretation Comments INR (test code = INR) 1.31 1 0.85-1.17 [facility] HospitalYhudqkrRPJTJQXGEA7504-24-24 09:17:00 Test Item Value Reference Range Interpretation Comments PTT (test code = PTT) 34.7 s 22.9-35.[address]2022-03-05 06:39:18 Test Item Value Reference Range Interpretation [...] rhythm with occasional premature ventricular complexes-[facility] [id number] 06:39:18 Test Item Value Reference Range Interpretation [...] rhythm with occasional premature ventricular complexes-Abnormal [facility]- [facility] qualitative [id number] 20:49:15 Test Item Value Reference Range Interpretation Comments Interpretation (test Negative results do code = 7764421) not preclude 2019-nCoV infection and should not be usedas the sole basis for treatment or other patient management decisions.Negative results must be combined with clinical observations, patienthistory, and epidemiological information. COVID-19 qualitative Not-Detected Not-Detected RT-PCR result (test code = 83228-6) COVID-19 qualitative See link below for C ase Number: RT-PCR (test code = PDF Lab Report [id number]) [facility] qualitative [id number] 20:49:15 Test Item Value Reference Range Interpretation Comments Interpretation (test Negative results do code = 7160112) not preclude 2019-nCoV infection and should not be usedas the sole basis for treatment or other patient management decisions.Negative results must be combined with clinical observations, patienthistory, and epidemiological information. COVID-19 qualitative Not-Detected Not-Detected RT-PCR result (test code = 87259-7) COVID-19 qualitative See link below for C ase Number: RT-PCR (test code = PDF Lab Report [id number]) [facility] RNA [Presence] in Respiratory specimen by JOHANNE with probe [id number] 14:49:15 Test Item Value Reference Range Interpretation Comments SARS-CoV-2 (COVID-19) RNA Not detected [Presence] in Respiratory specimen by JOHANNE with probe detection (test code = 43025-7) Whether patient is employed in a Unknown healthcare setting (test code = 62618-2) Whether the patient has symptoms Unknown related to condition of interest (test code = 61511-0) Whether the patient was Unknown hospitalized for condition of interest (test code = 07614-6) Whether the patient was admitted Unknown to intensive care unit (ICU) for condition of interest (test code = 19444-8) Whether patient resides in a Unknown congregate care setting (test code = 72564-2) status (test code = Unknown 03039-8) Date and time of symptom onset Unknown (test code = 95316-7) ADILENE FERNANDEZRS-CoV-2 (COVID-19) RNA [Presence] in Respiratory specimen by JOHANNE with probe [id number] 14:49:15 Test Item Value Reference Range Interpretation Comments SARS coronavirus RNA [Presence] Not detected in Isolate by JOHANNE with probe detection (test code = 71479-4) Whether patient is employed in a Unknown healthcare setting (test code = 73750-4) Whether the patient has symptoms Unknown related to condition of interest (test code = 46504-9) Whether the patient was Unknown hospitalized for condition of interest (test code = 46098-9) Whether the patient was admitted Unknown to intensive care unit (ICU) for condition of interest (test code = 12962-1) Whether patient resides in a Unknown congregate care setting (test code = 17003-3) status (test code = Unknown 01736-6) Date and time of symptom onset Unknown (test code = 97133-9) ADILENE ROBLEDO
[2022-03-29 16:41] LABS: Absolute Lymphocytes (CBC) 1.6 K/uL (0.7-4.9); Hematocrit 34.8 % (36.0-45.0); Lymphocytes % 28.2 % (15.3-44.8); MCV 83.4 fL (80-100); MPV 8.7 fL (7.6-11.3); RBC Red Blood Cell Count 4.17 M/uL (3.86-4.86)
[2022-03-29 16:49] LABS: Magnesium 2.6 mg/dL (1.6-2.4); Potassium 4.3 mmol/L (3.5-5.1)
--- NOTE | 2022-03-29 16:55 | RAD REPORT ---
EXAM DESCRIPTION: RAD - Chest Single View - 03/29/2022 4:35 pm CLINICAL HISTORY: AMS COMPARISON: Portable 02/25/2022 TECHNIQUE: AP portable chest image was obtained 03/29/2022 4:35 pm . FINDINGS: Lung volumes are low. Chronic interstitial opacification matches comparison. No superimpos ed failure, infiltrate or mass. Trachea is midline. 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 Single lead from old pacemaker re oscar in place. Heart and vasculature are normal. No measurable pleural effusion and no pneumothorax. No acute bony abnormality seen. No acute aortic findings suspected. Colon is interposed between the liver in the right hemidiaphragm. IMPRESSION: No acute cardiopulmonary process. No significant change from comparison study.
--- NOTE | 2022-03-29 17:01 | RAD REPORT ---
EXAM DESCRIPTION: CT - Head Brain Wo Cont - 03/29/2022 4:47 pm CLINICAL HISTORY: Mental status change, unknown cause COMPARISON: Ct Stroke Brain Wo Cont dated 04/05/2018 TECHNIQUE: Axial 5 mm thick images of the head were obtained without IV contrast. All CT scans are performed using dose optimization technique as appropriate and may include automated exposure control or mA/KV adjustment according to patient size. FINDINGS: No intracranial hemorrhage, mass, edema or shift of mid-line structures. No acute infarcti on changes seen. No cortical edema or sulcal effacement. Moderate severity atrophy is present showing a minimal progression from 2019. Ventricles are in proportion to volume loss patient has prominent c erebral white matter chronic ischemic change. 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 Decreased attenuation extends into the left bas al ganglia and internal capsule. These findings are also without substantial change. Chronic intracra nial findings can mask nonhemorrhagic CVA. Mastoid air cells are clear. No acute paranasal sinus. No acute bony findings. IMPRESSION: No hemorrhage, edema or acute intracranial finding identifiable. Patient's atrophy has shown a slight progression since 2019. 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
[2022-03-29] MEDS ORDERED: NA CHLORIDE 0.9% 500 ML ONE (18:19)
--- NOTE | 2022-03-29 18:29 | ER ---
Nurse's Notes [facility] Name: Padma Carrillo Age: 86 yrs Sex: Female : 1935 Arrival Date: 03/29/2022 Time: 15:34 Bed 20 Private MD: Diagnosis: Unspecified dementia without behavioral disturbance;Anemia, unspecified;Dehydration Presentation: 03/29 15:30 Chief complaint: Patient states: AMS SINCE YESTERDAY FROM [place] [facility]. db CORRECTION CALLED EMS FOR WEAKNESS , AND MORE ALTERED THAN NORMAL AND LETHARGIC TODAY. PATIENT WITH HX OF DEMENTIA AND ALZHEIMER. GLUCOSE 224. Coronavirus screen: Vaccine status: Patient reports receiving the 2nd dose of the covid vaccine. Client denies travel out of the [place] in the last 14 days. Client presents with at least one sign or symptom that may indicate coronavirus-19. Ebola Screen: Patient negative for fever greater than or equal to 101.5 degrees Fahrenheit, and additional compatible Ebola Virus Disease symptoms Patient denies exposure to infectious person. Patient denies travel to an Ebola-affected area in the 21 days before illness onset. No symptoms or risks identified at this time. Initial Sepsis Screen: Does the patient meet any 2 criteria? Altered Mental Status. Yes Does the patient have a suspected source of infection? No. Patient's initial sepsis screen is negative. Risk Assessment: Do you want to hurt yourself or someone else? Patient reports no desire to harm self or others. Onset of symptoms was March 29, 2022. 15:30 Method Of Arrival: EMS: [facility] db 15:30 Acuity: SAGAR 2 db Triage Assessment: 15:45 General: Appears in no apparent distress. comfortable, Behavior is calm, cooperative, db appropriate for age. Pain: Denies pain. Neuro: Level of Consciousness is awake, alert, obeys commands, Oriented to person, place. Neuro: Speech is normal. Cardiovascular: No deficits noted. Respiratory: No deficits noted. Historical: - Allergies: 15:45 Codeine; db 15:45 Fosamax; db 15:45 Propoxyphene; db 15:45 Talwin NX; db 15:45 Verapamil; db - PMHx: 15:45 Anemia; Atrial Fib; CVA (Deficit: slurred speech and weakness); Depression; epilepsy; db GERD; Hyperlipidemia; Hypothyroidism; insomnia; muscle atrophy; UTI; - Immunization history:: Adult Immunizations unknown, Client reports receiving the 2nd dose of the Covid vaccine. - Social history:: Smoking status: unknown. Screenin:30 [facility] ED Fall Risk Assessment (Adult) History of falling in the last 3 months, db including since admission Yes- single mechanical fall (1 pt) Confusion or Disorientation Yes (5 pts) Intoxicated or Sedated No (0 pts) Impaired Gait No (0 pts) Mobility Assist Device Used Yes (1 pt) Altered Elimination No (0 pt) Score/Fall Risk Level 3 or more points = High Risk Oriented to surroundings, Maintained a safe environment, Educated pt \T\ family on fall prevention, incl call for assistance when getting out of bed. Abuse screen: Denies threats or abuse. Denies injuries from another. Nutritional screening: No deficits noted. Tuberculosis screening: No symptoms or risk factors identified. Assessment: 15:51 Reassessment: SEE TRIAGE FOR INITIAL ASSESSMENT. db 16:30 Reassessment: Patient and/or family updated on plan of care and expected duration. Pain db level reassessed. Patient is alert, oriented x 3, equal unlabored respirations, skin warm/dry/pink. patient resting in room. 17:30 Reassessment: Patient appears in no apparent distress at this time. No changes from db previously documented assessment. Patient and/or family updated on plan of care and expected duration. Pain level reassessed. Patient is alert, oriented x 3, equal unlabored respirations, skin warm/dry/pink. 18:30 Reassessment: Patient appears in no apparent distress at this time. Patient and/or db family updated on plan of care and expected duration. Pain level reassessed. Patient is alert, oriented x 3, equal unlabored respirations, skin warm/dry/pink. Family at bedside. General: Appears in no apparent distress. comfortable, Behavior is calm, cooperative, quiet. Pain: Denies pain. Neuro: Oriented to person, place. 18:45 Reassessment: Patient appears in no apparent distress at this time. No changes from db previously documented assessment. Patient and/or family updated on plan of care and expected duration. Pain level reassessed. SON IS AT PATIENT BEDSIDE. PENDING IV FLUIDS TO FINISH. 21:25 Reassessment: REport called to [facility] staff. fu 22:31 Reassessment: Patient left on stretcher. Report given to [facility] staff. fu Vital Signs: 15:30 BP 111 / 64; Pulse 70; Resp 18; Temp 98.1(O); Pulse Ox 99% on R/A; Weight 81.65 kg; db Height 6 ft. (182.88 cm); Pain 0/10; 16:00 BP 117 / 057; Pulse 70; Resp 18; Pulse Ox 98% on R/A; db 16:30 BP 109 / 56; Pulse 70; Resp 18; Pulse Ox 98% on R/A; db 17:30 BP 110 / 68; Pulse 72; Resp 18; Pulse Ox 98% ; db 18:30 BP 112 / 72; Pulse 74; Resp 18; Pulse Ox 98% on R/A; db 19:00 BP 103 / 59; Pulse 70; Resp 16; Pulse Ox 98% ; Pain 0/10; fu 21:00 BP 106 / 65; Pulse 70; Resp 16; Pulse Ox 98% ; fu 21:30 BP 114 / 64; Pulse 70; Resp 16; Pulse Ox 97% ; fu 15:30 Body Mass Index 24.41 (81.65 kg, 182.88 cm) db ED Course: 15:34 Patient arrived in ED. eb 15:35 Tim Moctezuma DO is Attending Physician. ms3 15:41 Ivana Dupree, RN is Primary Nurse. db 15:45 Triage completed. db 15:45 Arm band placed on right wrist. Patient placed in an exam room. db 16:30 Patient has correct armband on for positive identification. Side rails up X 1. db 16:32 Basic Metabolic Panel Sent. em1 16:32 CBC with Diff Sent. em1 16:32 Magnesium Sent. em1 16:32 Initial lab(s) drawn, by sc, sent to lab. Inserted saline lock: 22 gauge in right em1 forearm, using aseptic technique. Blood collected. 16:37 XRAY Chest (1 view) In Process Unspecified. EDMS 16:49 CT Head Brain wo Cont In Process Unspecified. EDMS 17:00 EKG done, by ED staff. tm3 20:47 Spoke with [place], they will be arranging transport for Pt to go back. wm 22:00 IV discontinued, bleeding controlled, Pressure dressing applied. fu 22:29 No provider procedures requiring assistance completed. fu Administered Medications: 18:21 Drug: NS 0.9% 500 ml Route: IV; Rate: 1000 ml/hr; Site: right antecubital; db Medication: 16:30 VIS not applicable for this client. db Outcome: 18:28 Discharge ordered by ms3 22:28 Discharged to [facility]. Report called to [facility] staff fu : Condition: improved 22:28 Discharge instructions given to [facility], Instructed on discharge instructions, follow up and referral plans. Demonstrated understanding of instructions, Prescriptions given X 0 22:33 Patient left the ED. fu Signatures: Dispatcher [employer] EDMS Kirk Nur tm3 Tank Nuñez em1 Norberto Pierson, RN RN Rosalina Gant Marcus, DO DO ms3 Tiffanie Aguayo Danielle, RN RN db Corrections: (The following items were deleted from the chart) 15:45 15:45 Immunization history: Adult Immunizations unknown, Client reports receiving the db 2nd dose of the Covid vaccine, db
--- NOTE | 2022-03-29 18:29 | EDPHYS ---
Physician Documentation [facility] Name: Padma Carrillo Age: 86 yrs Sex: Female : 1935 Arrival Date: 03/29/2022 Time: 15:34 Bed 20 Private MD: ED Physician Tim Moctezuma HPI: 03/29 16:08 This 86 yrs old Female presents to ER via EMS with complaints of Altered mental status. ms3 16:08 86-year-old female with past medical history of anemia, atrial fibrillation, CVA, ms3 dementia presents from [facility] via [facility] for altered mental status. On exam patient denies symptoms. Patient denies nausea, vomiting, chest pain, shortness of breath, pain.. Historical: - Allergies: 15:45 Codeine; db 15:45 Fosamax; db 15:45 Propoxyphene; db 15:45 Talwin NX; db 15:45 Verapamil; db - PMHx: 15:45 Anemia; Atrial Fib; CVA (Deficit: slurred speech and weakness); Depression; epilepsy; db GERD; Hyperlipidemia; Hypothyroidism; insomnia; muscle atrophy; UTI; - Immunization history:: Adult Immunizations unknown, Client reports receiving the 2nd dose of the Covid vaccine. - Social history:: Smoking status: unknown. ROS: 16:08 Constitutional: Negative for fever, and chills. Neck: Negative for injury, pain, and ms3 swelling, Cardiovascular: Negative for chest pain, and palpitations. Respiratory: Negative for shortness of breath, cough, wheezing, and pleuritic chest pain, Abdomen/GI: Negative for abdominal pain, nausea, vomiting, diarrhea, and constipation, Skin: Negative for injury, rash, and discoloration. Exam: 16:08 Constitutional: This is a well developed, well nourished patient who is awake, alert, ms3 and in no acute distress. Head/Face: Normocephalic, atraumatic. Chest/axilla: Normal chest wall appearance and motion. Nontender with no deformity. Cardiovascular: Regular rate and rhythm with a normal S1 and S2. No gallops, murmurs, or rubs. Normal PMI, no JVD. No pulse deficits. Respiratory: Lungs have equal breath sounds bilaterally, clear to auscultation and percussion. No rales, rhonchi or wheezes noted. No increased work of breathing, no retractions or nasal flaring. Abdomen/GI: Soft, non-tender, with normal bowel sounds. No distension or tympany. No guarding or rebound. No evidence of tenderness throughout. Skin: Warm, dry with normal turgor. Normal color with no rashes, no lesions, and no evidence of cellulitis. MS/ Extremity: Pulses equal, no cyanosis. Neurovascular intact. Full, normal range of motion. 16:57 ECG was reviewed by the Attending Physician. ms3 Vital Signs: 15:30 BP 111 / 64; Pulse 70; Resp 18; Temp 98.1(O); Pulse Ox 99% on R/A; Weight 81.65 kg; db Height 6 ft. (182.88 cm); Pain 0/10; 16:00 BP 117 / 057; Pulse 70; Resp 18; Pulse Ox 98% on R/A; db 16:30 BP 109 / 56; Pulse 70; Resp 18; Pulse Ox 98% on R/A; db 17:30 BP 110 / 68; Pulse 72; Resp 18; Pulse Ox 98% ; db 18:30 BP 112 / 72; Pulse 74; Resp 18; Pulse Ox 98% on R/A; db 19:00 BP 103 / 59; Pulse 70; Resp 16; Pulse Ox 98% ; Pain 0/10; fu 21:00 BP 106 / 65; Pulse 70; Resp 16; Pulse Ox 98% ; fu 21:30 BP 114 / 64; Pulse 70; Resp 16; Pulse Ox 97% ; fu 15:30 Body Mass Index 24.41 (81.65 kg, 182.88 cm) db MDM: 15:44 Patient medically screened. ms3 16:08 Differential Diagnosis: CVA, electrolyte abnormality, intracranial bleed, pneumonia, ms3 volume depletion. 19:21 Data reviewed: vital signs, nurses notes, lab test result(s), EKG, radiologic studies, ms3 and as a result, I will discharge patient. 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 Counseling: I had a detailed discussion with the patient and/or guardian regarding: the historical points, exam findings, and any diagnostic results supporting the discharge/admit diagnosis, lab results, radiology results, the need for outpatient follow up, to return to the emergency department if symptoms worsen or persist or if there are any questions or concerns that arise at home. Special discussion: I discussed with the patient/guardian in detail that at this point there is no indication for admission to the hospital. It is understood, however, that if the symptoms persist or worsen the patient needs to return immediately for re-evaluation. ED course: Consideration of hospitalization: Labs reassuring, CT and CXR without acute findings. Discussed plan with patient's son for discharge to nursing facility and he agrees with plan. Prescriptions considered but not given: Antibiotics not indicated at this time. Review of external records History obtained from [facility] Chronic illnesses impacting care: Previous CVA, dementia Social determinants of health affecting care: Patient lives in a nursing facility . 03/29 15:45 Order name: Basic Metabolic Panel; Complete Time: 17:43 ms3 03/29 15:45 Order name: CBC with Diff; Complete Time: 17:43 ms3 03/29 15:45 Order name: Magnesium; Complete Time: 17:43 ms3 03/29 15:45 Order name: XRAY Chest (1 view); Complete Time: 17:43 ms3 03/29 15:45 Order name: CT Head Brain wo Cont; Complete Time: 17:43 ms3 03/29 15:45 Order name: EKG; Complete Time: 15:45 ms3 03/29 15:45 Order name: Cardiac monitoring; Complete Time: 16:31 ms3 03/29 15:45 Order name: EKG - Nurse/Tech; Complete Time: 17:31 ms3 03/29 15:45 Order name: IV Saline Lock; Complete Time: 16:31 ms3 03/29 15:45 Order name: Labs collected and sent; Complete Time: 16:31 ms3 03/29 15:45 Order name: O2 Per Protocol; Complete Time: 16:31 ms3 03/29 15:45 Order name: O2 Sat Monitoring; Complete Time: 16:31 ms3 EC:57 Rate is 70 beats/min. Rhythm is regular. Left axis deviation noted. QRS interval is ms3 prolonged. Clinical impression: Ventricular paced rhythm. Interpreted by me. Reviewed by me. Administered Medications: 18:21 Drug: NS 0.9% 500 ml Route: IV; Rate: 1000 ml/hr; Site: right antecubital; db Disposition Summary: 03/29/22 18:28 Discharge Ordered Location: Home ms3 Condition: Stable ms3 Diagnosis - Unspecified dementia without behavioral disturbance ms3 - Anemia, unspecified ms3 - Dehydration ms3 Followup: ms3 - With: Private Physician - When: 2 - 3 days - Reason: Recheck today's complaints Discharge Instructions: - Discharge Summary Sheet ms3 - Anemia ms3 - Dehydration, Elderly ms3 Forms: - Medication Reconciliation Form ms3 - Thank You Letter ms3 - Antibiotic Education ms3 - Prescription Opioid Use ms3 Signatures: Dispatcher [employer] EDTim Begum, DO ms3 Ivana Dupree, RN RN db Corrections: (The following items were deleted from the chart) 15:45 15:45 Immunization history: Adult Immunizations unknown, Client reports receiving the db 2nd dose of the Covid vaccine, db
[2022-03-29 22:56] VITALS: BP 114/64; O2SAT 97
--- NOTE | 2022-03-30 17:39 | EKG ---
Test Date: 2022-03-29 Test Time: 16:57:04 Third Mate: MASON MEASUREMENT RESULTS: Intervals: Rate: 70 MD: QRSD: 170 QT: 486 QTc: 524 [place]: P: MD: QRS: -76 T: 96 INTERPRETIVE STATEMENTS: Ventricular-paced rhythm Abnormal ECG Compared to ECG 07/23/2021 21:26:45 Left-axis deviation no longer present Left bundle-branch block no longer present Electronically Signed On 03-30-22 17:38:56 DULITE MACHINE BLUER by Dom Leonard
== END 2022-03-29 22:33 | disposition home or self-care (01) ==
LOC: ER 15:31
DX: E86.0 Dehydration (principal); F03.90 Unspecified dementia, unspecified severity, without behavioral disturbance, psychotic disturbance, mood disturbance, and anxiety; D64.9 Anemia, unspecified; I48.91 Unspecified atrial fibrillation; Z86.73 Personal history of transient ischemic attack (TIA), and cerebral infarction without residual deficits; Z88.5 Allergy status to narcotic agent; Z88.8 Allergy status to other drugs, medicaments and biological substances
CPT/HCPCS: 93005; 85025; 80048; 36415; 83735; 70450; 71045; 99284; J7040

== ENCOUNTER 2022-07-21 03:42 | Emergency (ER) | payer OTHER ==
--- OUTSIDE RECORDS SUMMARY | 2022-07-21 03:56 | XMS REPORT | Continuity of Care Document ---
:1935 Author Organization [facility] t Address [address] [place] [address] [address] [place] [address] Care Team Providers Name Role Phone Provider , Not In System Primary Care Physician Unavailwil Parker RN, Woo Cobian Attending Clinician Unavailable Noe Nugent MD Attending Clinician Waylon Larson DO Attending Clinician Landen Mcqueen MD Attending Clinician WAYLON LARSON Attending Clinician Unavailable Pcp, Patient Does Not Have A Attending Clinician [phone] ALIRIO STANLEY Attending Clinician Unavailable Alirio Stanley Attending Clinician MIKE REYES Attending Clinician Unavailable Sherry Michel MD Attending Clinician Eyal Moreno MD, V. Attending Clinician Joel Mendoza CRNA Attending Clinician [phone] Landen Mcqueen MD Admitting Clinician LANDEN MCQUEEN Admitting Clinician Unavailable ANMOL MEYERS Admitting Clinician Unavailable Anmol Meyers Admitting Clinician SHERRY MICHEL Admitting Clinician Unavailable Payers Payer Name Policy Type Policy Number Effective Date Expiration Date Josias WHALEN [place] MEDICAID [id number] 2016 STARPLUS OON EXC 00:00:00 HHS Problems Condition Condition Condition Status Onset Resolution Last Treating Co mments Source Name Details Category Date Date Treatment Clinician Date Weakness Weakness Disease Active Unive rs 06-18 ity of 00:00: Medical Branch RT DISTAL RT Diagnosis Active 2021-08-13 Memoria PERIPROSTH DISTAL 07-23 21:44:00 l ETIC FEMUR PERIPROSTH 00:00: He rmann FX ETIC FEMUR 00 FX Active 07/23/2021 [facility] Encounter Encounter Disease Active Met hodi for for 05-25 st pacemaker pacemaker 00:00: Hosp bib at end of at end of 00 l battery battery life life 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 00:00: Hospita 00 l Atrial Atrial Problem Active 2021-08-06 Mem oria fibrillati fibrillati 06:38:41 l on on [place] (disorder) (disorder) Active Problem 08/06/2021 [facility] Dementia Dementia Problem Active 2021-08-06 Memoria (disorder) (disorder) 06:38:41 l Active Crow Problem 08/06/2021 [facility] 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 06:38:41 l (context-d (context-d He rmann ependent ependent category) category) Active Problem 08/06/2021 [facility] Allergies, Adverse Reactions, Alerts Allergy Allergy Status Severity Reaction(s) Onset Inactive Treating Comm ents Source Name Type Date Date Clinician VERAPAMI DRUG Active Unknown-Cmnt Un josselyn L INGREDI 3 ity of 00:00: Medical Branch Codeine Drug Active Unknown - Univer s Allergy See comments 3- ity of 00:00: Medical Branch Alendron Drug Active Unknown - Unive rs ate Allergy See comments 3- ity of Sodium 00:: Medical Branch Propoxyp Drug Active Unknown - Unive rs hene Allergy See comments 3- ity of 00:00: Medical Branch Pentazoc Drug Active Unknown - Unive rs ine-Nalo Allergy See comments 3-28 i ty of xone 00:00: [place] 00 Medical Branch Verapami Drug Active Unknown - Unive rs l Allergy See comments 06-18 ity of 00:00: Medical Branch CODEINE DRUG Active Unknown-Cmnt Uni vers INGREDI 06-18 ity of 00:00: Medical Branch ALENDRON DRUG Active Unknown-Cmnt Un josselyn ATE INGREDI 06-18 ity of SODIUM 00:00: Medical Branch PROPOXYP DRUG Active Unknown-Cmnt Un josselyn HENE INGREDI 06-18 ity of 00:00: Medical Branch PENTAZOC DRUG Active Unknown-Cmnt Un josselyn INE-NALO 06-18 ity of XONE 00:00: Medical Branch Codeine Propensi Active Other (See Pt.don't M ethodi ty to Comments) 3- remember st adverse 00:00: Hospita reaction 00 l s to drug Propoxyp Propensi Active Other (See Pt.don't Methodi [...] Start Date Stop Date Source Natural [facility] Natural mother [facility] Natural sister [facility] Social History Social Habit Start Date Stop Date Quantity Comments Source History SDOH University o f Alcohol Std Drinks [place] [facility] History SDOH University o f Alcohol Binge [place] [facility] History SDOH Social Unive rsity of Connections [facility] Med ical Together Branch History SDOH Social Unive rsity of Connections [facility] Medical Branch History SDOH Social Unive rsity of [facility] Medical Membership Branch History SDOH Social Unive rsity of [facility] Medical Meetings Branch History SDOH University o f Housing Places [place] [facility] Lived Branch History SDOH 2022-06-19 2022-06-19 1 University o f Alcohol Frequency 00:00:00 00:00:00 [place] M edical Branch History SDOH Social 2022-06-19 2022-06-19 5 Unive rsity of Connections Phone 00:00:00 00:00:00 [place] M edical Branch History SDOH Social 2022-06-19 2022-06-19 4 Unive rsity of Connections Living 00:00:00 00:00:00 [place] [facility] History SDOH 2022-06-19 2022-06-19 0 University o f Physical Activity 00:00:00 00:00:00 [place] M edical DPW Branch History SDOH 2022-06-19 2022-06-19 0 University o f Physical Activity 00:00:00 00:00:00 [place] M edical MPS Branch History SDOH 2022-06-19 2022-06-19 5 University o f Financial 00:00:00 00:00:00 [place] [facility] History SDOH Food 2022-06-19 2022-06-19 1 Univers ity of Worry 00:00:00 00:00:00 [place] [facility] History SDOH Food 2022-06-19 2022-06-19 1 Univers ity of Scarcity 00:00:00 00:00:00 [place] [facility] History SDOH 2022-06-19 2022-06-19 2 University o f Transport Med 00:00:00 00:00:00 [place] Medic al [facility] History SDOH 2022-06-19 2022-06-19 2 University o f Transport Non-Med 00:00:00 00:00:00 [place] M edical Branch History SDOH 2022-06-19 2022-06-19 2 University o f Housing Unable to 00:00:00 00:00:00 [place] M edical Pay Branch History SDOH 2022-06-19 2022-06-19 2 University o f Housing Homeless 00:00:00 00:00:00 [facility] dical Last Year Branch Exposure to 2022-06-08 2022-06-18 Not sure University of SARS-CoV-2 (event) 00:00:00 16:37:00 [place] [facility] Social History 2021-07-24 2021-07-24 [facility] stephon 18:01:06 18:01:06 Alcohol intake 2021-05-29 2021-05-29 Lifetime [facility] 00:00:00 00:00:00 [facility] (finding) Tobacco use and 2021-05-25 2021-05-25 Smokeless [facility] exposure 00:00:00 00:00:00 tobacco non-user Hospital Sex Assigned At [birth year] [facility] 00:[facility]00 [facility] Smoking Status Start Date Stop Date Source Tobacco [facility] [place] [facility] Medications Ordered Filled Start Stop Current Ordering Indication Dosage Frequency Signature Comments Components Source Medication Medication Date Date Medication? Clinician (SIG) Name Name sennosides Yes 17.2mg Take 2 Uni vers 8.6 mg 3-30 tablets by ity of tablet 15:20: mouth [place] 06 every Medical morning. Branch traMADoL 50 Yes 100mg Take 2 Uni vers mg tablet 3-30 tablets by ity of 15:20: mouth [place] 06 every 8 Medical (eight) Branch hours as needed. acetaminoph Yes 2735 650mg Take 2 Uni vers en 325 mg 3-30 tablets by ity of tablet 15:20: mouth [place] 06 every 6 Medical (six) Branch hours as needed. Indication s: pain Docusate Yes 1874 100mg Take 1 Univer s Sodium 100 3-30 tablet by ity of mg tablet 15:20: mouth in [facility] s 06 the Medical morning Branch and 1 tablet in the evening. Indication s: constipati on donepeziL Yes 907 10mg Take 1 Univer s (ARICEPT) 3-30 tablet by ity o f 10 mg 15:20: mouth at [place] tablet 06 bedtime. Medical Indication Branch s: Alzheimer' s disease bisacodyL 5 Yes 10mg Take 2 Univ ers mg EC 3-30 tablets by ity of tablet 15:20: mouth once [place] 06 daily as Medical needed for Branch Constipati on. levothyroxi Yes 521 88ug Take 1 Univ ers ne 88 mcg 3-30 tablet by ity o f tablet 15:20: mouth [place] 06 every Medical morning. Branch Indication s: a condition with low thyroid hormone levels atorvastati Yes 4874 10mg Take 1 Univ ers n (LIPITOR) 3-30 tablet by ity of 10 mg 15:20: mouth in [place] tablet 06 the Medical morning. Branch Indication s: history of stroke magnesium Yes 1{tbl} Take 1 Univ ers oxide 400 3-30 tablet by ity o f mg 15:20: mouth in [place] magnesium 06 the Medical Tab morning. Branch Melatonin 5 0 Yes 5mg Take 1 Univ ers mg tablet 3-30 tablet by ity o f 15:20: mouth at [place] 06 bedtime. Medical Branch multivitami Yes 1{tbl} Take 1 Un josselyn n with 3-30 tablet by ity of minerals 15:20: mouth in [place] (MULTIPLE 06 the Medical VITAMIN-MIN morning. Bran ch ERALS) tablet nitroglycer Yes 12[address] 1 Uni vers in 0.4 mg 3-30 tablet ity of sublingual 15:20: under the [place] tablet 06 tongue Medical every 5 Branch (five) minutes as needed for Chest pain (Q5MIN X3 doses). Indication s: angina, a type of chest pain proMETHazin Yes 25mg Take 1 Univ ers e 25 mg 3-30 tablet by ity of tablet 15:20: mouth [place] 06 every 6 Medical (six) Branch hours as needed for Nausea and Vomiting (N/V). levothyroxi Yes 75ug 75 mcg, Uni vers ne 3-30 Slow IV ity of (SYNTHROID) 14:00: Push, QAM, [place] injection 00 First dose Medi alejandrina 75 mcg on Myriam Branch 06/20/22 at 0900, Until Discontinu ed, Routine pantoprazol Yes 40mg 40 mg, Univ ers e 3-30 Slow IV ity of (PROTONIX) 14:00: Push, [place] injection 00 Q24H, Medical 40 mg First dose Branch on Myriam 06/20/22 at 0900, Until Discontinu ed sennosides Yes 17.2mg Take 2 Uni vers 8.6 mg 3-30 tablets by ity of tablet 11:28: mouth [place] 22 every Medical morning. Branch traMADoL 50 0 Yes 100mg Take 2 Uni vers mg tablet 3-30 tablets by ity of 11:28: mouth [place] 22 every 8 Medical (eight) Branch hours as needed. acetaminoph 0 Yes 2735 650mg Take 2 Uni vers en 325 mg 3-30 tablets by ity of tablet 11:28: mouth [place] 22 every 6 Medical (six) Branch hours as needed. Indication s: pain Docusate Yes 1874 100mg Take 1 Univer s Sodium 100 3-30 tablet by ity of mg tablet 11:28: mouth in [place] 22 the Medical morning Branch and 1 tablet in the evening. Indication s: constipati on donepeziL Yes 907 10mg Take 1 Univer s (ARICEPT) 3-30 tablet by ity o f 10 mg 11:28: mouth at [place] tablet 22 bedtime. Medical Indication Branch s: Alzheimer' s disease bisacodyL 5 Yes 10mg Take 2 Univ ers mg EC 3-30 tablets by ity of tablet 11:28: mouth once [place] 22 daily as Medical needed for Branch Constipati on. levothyroxi Yes 521 88ug Take 1 Univ ers ne 88 mcg 3-30 tablet by ity o f tablet 11:28: mouth [place] 22 every Medical morning. Branch Indication s: a condition with low thyroid hormone levels atorvastati Yes 4874 10mg Take 1 Univ ers n (LIPITOR) 3-30 tablet by ity of 10 mg 11:28: mouth in [place] tablet 22 the Medical morning. Branch Indication s: history of stroke magnesium Yes 1{tbl} Take 1 Univ ers oxide 400 3-30 tablet by ity o f mg 11:28: mouth in [place] magnesium 22 the Medical Tab morning. Branch Melatonin 5 Yes 5mg Take 1 Univ ers mg tablet 3-30 tablet by ity o f 11:28: mouth at [place] 22 bedtime. Medical Branch multivitami Yes 1{tbl} Take 1 Un josselyn n with 3-30 tablet by ity of minerals 11:28: mouth in [place] (MULTIPLE 22 the Medical VITAMIN-MIN morning. Bran ch ERALS) tablet nitroglycer Yes 1279 .4mg [address] 1 Uni vers in 0.4 mg 3-30 tablet ity of sublingual 11:28: under the [place] tablet 22 tongue Medical every 5 Branch (five) minutes as needed for Chest pain (Q5MIN X3 doses). Indication s: angina, a type of chest pain proMETHazin 2023-0 Yes 25mg Take 1 Univ ers e 25 mg 3-30 tablet by ity of tablet 11:28: mouth [place] 22 every 6 Medical (six) Branch hours as needed for Nausea and Vomiting (N/V). DULoxetine 0 Yes 60mg 60 mg, Unive rs (CYMBALTA) 3-30 Oral, QHS, ity of capsule 60 02:00: First dose [place] mg 00 on Fri Medical 06/19/22 at Branch 2100, Until Discontinu ed, Routine donepeziL Yes 907 10mg 10 mg, Univer s (ARICEPT) 3-30 Oral, QHS, ity of tablet 10 02:00: First dose [place] mg 00 on Fri Medical 06/19/22 at Branch 2100, Until Discontinu ed, Routine furosemide Yes 40mg 40 mg, Unive rs (LASIX) 3-30 Slow IV ity of injection 01:00: Push, [place] 40 mg 00 Q12H, Medical First dose Branch (after last modificati on) on Fri06/19/22 at 2000, Until Discontinu ed, Routine furosemide 2022-0 2022- Yes [id number] 40mg Take 1 Univers 40 mg 3-30 04-30 tablet by ity of tablet 00:00: 04:59 mouth in [place] 00 :00 the [facility] morning Branch for 30 days. Take for 7 days starting 06/14/22. furosemide 2022-0 2022- Yes [id number] 40mg Take 1 Univers 40 mg 3-30 04-30 tablet by ity of tablet 00:00: 04:59 mouth in [place] 00 :00 the [facility] morning Branch for 30 days. Take for 7 days starting 06/14/22. oxyCODONE 0 Yes 5mg 5 mg, Univers immediate 3-29 Oral, ity of release 20:25: Q6HPRN, [place] tablet 5 mg 44 Starting Medi alejandrina on Fri Branch 06/19/22 at 1525, Until Discontinu ed, Routine, Pain (scale 7-10)<b r>produce service team member approving Restricted medication : ERIK REYNOLDS docusate 2022-0 Yes 100mg 100 mg, Unive rs (COLACE) 50 3-29 Oral, BID, it y of mg/5 mL 14:45: First dose [place] solution 00 on Fri Medical 100 mg 06/19/22 at Branch 0945, Until Discontinu ed, Routine enoxaparin Yes 40mg 40 mg, Unive rs (LOVENOX) 06-19 Subcutaneo ity of injection 14:00: us, DAILY, [place] 40 mg 00 First dose Medical on Fri Branch 06/19/22 at 0900, Until Discontinu ed, Routine levETIRAcet Yes 500mg 500 mg, Un josselyn am (KEPPRA) 06-19 Oral, BID, it y of 100 mg/mL 14:00: First dose [place] oral 00 (after Medical solution last Branch 500 mg reorder) on Fri06/19/22 at 0915, Until Discontinu ed, Routine atorvastati Yes 4874 10mg 10 mg, Univ ers n (LIPITOR) 06-19 Oral, ity of tablet 10 14:00: DAILY, [place] mg 00 First dose Medical on Fri Branch 06/19/22 at 0900, Until Discontinu ed, Routine ascorbic Yes 500mg 500 mg, Unive rs acid 06-19 Oral, ity of (vitamin C) 14:00: DAILY, [place] (VITAMIN C) 00 First dose Me dical tablet 500 on Fri Branch mg 06/19/22 at 0900, Until Discontinu ed, Routine allopurinoL Yes 100mg 100 mg, Un josselyn (ZYLOPRIM) 06-19 Oral, ity of tablet 100 14:00: DAILY, [place] mg 00 First dose Medical on Fri Branch 06/19/22 at 0900, Until Discontinu ed, Routine pantoprazol No 40mg 40 mg, Uni vers e 06-19 Oral, ity of (PROTONIX) 14:00: 15:02 DAILY, [place] EC tablet 00 :55 First dose Medi alejandrina 40 mg on Fri06/19/22 at 0900, Until Discontinu ed, Routine polyethylen No 17g 17 g, Univ ers e glycol 06-19 Oral, ity of 3350 powder 13:30: 14:15 ONCE, 1 [place] 17 g 00 :00 dose, On Medical Fri Branch 06/19/22 at 0830, Routine metoprolol Yes 25mg 25 mg, [facility] rs tartrate 06-19 Oral, BID, ity o f (LOPRESSOR) 13:00: First dose [place] tablet 25 00 on Fri Medical mg 06/19/22 at Branch 0800, Until Discontinu ed, Routine memantine Yes 10mg 10 mg, Univer s (NAMENDA) 06-19 Oral, BID, ity of tablet 10 13:00: First dose [place] mg 00 on Fri Medical 06/19/22 at Branch 0800, Until Discontinu ed, Routine
produce service team member approving Restricted medication : LANDEN MCQUEEN furosemide 2022- No 20mg 20 mg, Univ ers (LASIX) 06-19 Slow IV ity of injection 13:00: 21:30 Push, [place] 20 mg 00 :58 Q12H, Medical First dose Branch (after last modificati on) on Fri06/19/22 at 0800, Until Discontinu ed, Routine levothyroxi No 125ug 125 mcg, Univers ne 06-19 Oral, ity of (SYNTHROID) 12:30: 15:02 QAM-0600, [place] tablet 125 00 :55 First dose Med ical mcg (after Branch last modificati on) on Fri06/19/22 at 0730, Until Discontinu ed, Routine ondansetron Yes 4mg 4 mg, Slow Univers (ZOFRAN 06-19 IV Push, ity of (PF)) 03:01: Q6HPRN, [place] injection 4 04 Starting Medi alejandrina mg on Fri06/18/22 at 2201, Until Discontinu ed, Routine, Nausea and Vomiting (N/V) acetaminoph Yes 650mg 650 mg, Un josselyn en 06-19 Oral, ity of (TYLENOL) 03:00: Q6HPRN, [place] tablet 650 56 Starting Medic al mg on Fri06/18/22 at 2200, Until Discontinu ed, Routine, Pain (scale 1-3) levothyroxi 2022- No 100ug Take 1 Un josselyn ne 100 mcg 06-19 tablet by ity of tablet 00:00: 00:00 mouth in [place] 00 :00 the Medical morning. Branch potassium 2023-0 Yes 20meq Take 1 Unive rs chloride 20 3-24 tablet by ity of mEq tablet 00:00: mouth in [place] 00 the Medical morning. Branch potassium 2023-0 Yes 20meq Take 1 Unive rs chloride 20 3-24 tablet by ity of mEq tablet 00:00: mouth in [place] 00 the Medical morning. Branch furosemide 2023-0 2023- No 40mg Take 1 Univ ers 40 mg 3-24 03-30 tablet by ity of tablet 00:00: 00:00 mouth in [place] 00 :00 the Medical morning. Branch Take for 7 days starting 06/14/22. ascorbic 2023-0 Yes 500mg Take 1 Univer s acid, 3-17 tablet by ity of vitamin C, 00:00: mouth in [place] as 500 mg 00 the Medical tablet morning. Branch ZINC ORAL 2023-0 Yes 50mg Take 50 mg Un josselyn 3-17 by mouth ity of 00:00: in the [place] 00 morning. Medical Branch ascorbic 2023-0 Yes 500mg Take 1 Univer s acid, 3-17 tablet by ity of vitamin C, 00:00: mouth in [facility] as 500 mg 00 the Medical tablet morning. Branch ZINC ORAL 2023-0 Yes 50mg Take 50 mg Un josselyn 3-17 by mouth ity of 00:00: in the [place] 00 morning. Medical Branch pantoprazol 2023-0 Yes 40mg Take 1 Univ ers e 40 mg EC 3-11 tablet by ity of tablet 00:00: mouth in [place] 00 the Medical morning. Branch pantoprazol 2023-0 Yes 40mg Take 1 Univ ers e 40 mg EC 3-11 tablet by ity of tablet 00:00: mouth in [place] 00 the Medical morning. Branch hydrocortis 2023-0 Yes 25mg Insert 1 Un josselyn one 25 mg 3-10 Suppositor ity of suppository 00:00: y into [place] 00 rectum Medical every 12 Branch (twelve) hours as needed. hydrocortis 2023-0 Yes 25mg Insert 1 Un josselyn one 25 mg 3-10 Suppositor ity of suppository 00:00: y [place] 00 rectum Medical every 12 Branch (twelve) hours as needed. cranberry 2023-0 Yes 2{tbl} Take 2 Univ ers fruit 2-25 tablets by ity of (CRANBERRY) 00:00: mouth in [place] 450 mg Tab 00 the Medical morning. Branch cranberry Yes 2{tbl} Take 2 Univ ers fruit 2-25 tablets by ity of (CRANBERRY) 00:00: mouth in [place] 450 mg Tab 00 the Medical morning. Branch DULoxetine Yes 60mg Take 2 Unive rs 30 mg 2-14 capsules ity of capsule 00:00: by mouth [place] 00 at Medical bedtime. Branch DULoxetine Yes 60mg Take 2 Unive rs 30 mg 2-14 capsules ity of capsule 00:00: by mouth [place] 00 at Medical bedtime. Branch mirtazapine Yes 15mg Take 1 Univ ers 15 mg 1-17 tablet by ity of tablet 00:00: mouth at [place] 00 bedtime. Medical Branch mirtazapine Yes 15mg Take 1 Univ ers 15 mg 1-17 tablet by ity of tablet 00:00: mouth at [place] 00 bedtime. Medical Branch guaiFENesin 2021-03 Yes 200mg Take 10 mL Univers 100 mg/5 mL 2-14 by mouth ity of solution 00:00: every 4 [place] 00 (four) Medical hours as Branch needed. guaiFENesin 2021-03 Yes 200mg Take 10 mL Univers 100 mg/5 mL 2-14 by mouth ity of solution 00:00: every 4 [place] 00 (four) Medical hours as Branch needed. LACTOBACILL 2021-03 Yes 1{capsu Take 1 U nivers US 2-11 le} capsule by ity of ACIDOPHILUS 00:00: mouth in [place] ORAL 00 the Medical morning. Branch LACTOBACILL 2021-03 Yes 1{capsu Take 1 U nivers US 2-11 le} capsule by ity of ACIDOPHILUS 00:00: mouth in [place] ORAL 00 the Medical morning. Branch loratadine 2021-03 Yes 10mg Take 1 Unive rs 10 mg 2-10 tablet by ity of tablet 00:00: mouth at [place] 00 bedtime. Medical Branch oxyCODONE 5 2021-03 Yes 5mg Take 1 Univ ers mg 2-10 tablet by ity of immediate 00:00: mouth [place] release 00 every 8 Medical tablet (eight) Branch hours as needed. loratadine 2021-03 Yes 10mg Take 1 Unive rs 10 mg 2-10 tablet by ity of tablet 00:00: mouth at [place] 00 bedtime. Medical Branch oxyCODONE 5 2021-03 Yes 5mg Take 1 Univ ers mg 2-10 tablet by ity of immediate 00:00: mouth [place] release 00 every 8 Medical tablet (eight) Branch hours as needed. allopurinoL 2021-03 Yes 100mg Take 1 Uni vers 100 mg 0-18 tablet by ity of tablet 00:00: mouth in [place] 00 the Medical morning. Branch allopurinoL 2021-03 Yes 100mg Take 1 Uni vers 100 mg 0-18 tablet by ity of tablet 00:00: mouth in [place] 00 the Medical morning. Branch ferrous Yes 330mg Take 7.5 Unive rs sulfate 220 9-28 mL by ity of mg (44 mg 00:00: mouth in [place] iron)/5 mL 00 the Medical solution morning. Branch ferrous Yes 330mg Take 7.5 Unive rs sulfate 220 9-28 mL by ity of mg (44 mg 00:00: mouth in [place] iron)/5 mL 00 the Medical solution morning. Branch Propylene Yes 1[drp] Place 1 Uni vers Glycol-Glyc 6-03 Drop in ity o f harish 1-0.3 00:00: both eyes [place] % Drop 00 in the Medical morning Branch and 1 Drop in the evening. Propylene Yes 1[drp] Place 1 Uni vers Glycol-Glyc 6-03 Drop in ity o f harish 1-0.3 00:00: both eyes [place] % Drop 00 in the Medical morning Branch and 1 Drop in the evening. gabapentin 2021-0 Yes 300mg Take 1 Univ ers 300 mg 5-10 capsule by ity of capsule 00:00: mouth in [place] 00 the Medical morning Branch and 1 capsule at noon and 1 capsule in the evening. levETIRAcet 2021-0 Yes 500mg Take 5 mL Univers am 100 5-10 by mouth ity of mg/mL oral 00:00: in the [facility] 00 morning Medical and 5 mL Branch in the evening. metoprolol 2021-0 Yes 25mg Take 1 Unive rs tartrate 25 5-10 tablet by ity of mg tablet 00:00: mouth in [address] morning [place] and 1 tablet in the evening. Hold for SBP<110, DBP<70, or HR <70. memantine 2022-0 Yes 10mg Take 1 Univer s 10 mg 5-10 tablet by ity of tablet 00:00: mouth in [address] and 1 tablet in the evening. gabapentin 2022-0 Yes 300mg Take 1 Univ ers 300 mg 5-10 capsule by ity of capsule 00:00: mouth in [address] and 1 capsule at noon and 1 capsule in the evening. levETIRAcet 2022-0 Yes 500mg Take 5 mL Univers am 100 5-10 by mouth ity of mg/mL oral 00:00: in the [address] and 5 mL Branch in the evening. metoprolol 2022-0 Yes 25mg Take 1 Unive rs tartrate 25 5-10 tablet by ity of mg tablet 00:00: mouth in [address] and 1 tablet in the evening. Hold for SBP<110, DBP<70, or HR <70. memantine 2-0 Yes 10mg Take 1 Univer s 10 mg 5-10 tablet by ity of tablet 00:00: mouth in [address] and 1 tablet in the evening. oxyCODONE 5 2021-0 No 5 mg = 1 Me moria mg oral 5-09 tab, PO, l tablet, 22:38: Q6H, PRN Aaron n immediate 00 Pain Score release 7-10, X 2 day, # 5 tab, 0 Refill(s), Pharmacy: [facility], 182.88, cm, 07/24/21 16:57:00 CDT, Height, 70.455, kg, 07/25/21 18:40:00 CDT, Weight oxyCODONE 5 2021-0 No 5 mg = 1 Me moria mg oral 5-09 tab, PO, l tablet, 22:38: Q6H, PRN [place] n immediate 00 Pain Score release 7-10, X 2 day, # 5 tab, 0 Refill(s), Pharmacy: [facility], 182.88, cm, 07/24/21 16:57:00 CDT, Height, 70.455, kg, 07/25/21 18:40:00 CDT, Weight oxyCODONE 5 2021-0 No 5 mg = 1 Me moria mg oral 5-09 tab, PO, l tablet, 22:38: Q6H, PRN [place] n immediate 00 Pain Score release 7-10, X 2 day, # 5 tab, 0 Refill(s), [facility]: [facility], 182.88, cm, 07/24/21 16:57:00 CDT, Height, 70.455, kg, 07/25/21 18:40:00 CDT, Weight oxyCODONE 5 2021-0 No 5 mg = 1 Me moria mg oral 5-09 tab, PO, l tablet, 22:38: Q6H, PRN [place] n immediate 00 Pain Score release 7-10, X 2 day, # 5 tab, 0 Refill(s), Pharmacy: [facility], 182.88, cm, 07/24/21 16:57:00 CDT, Height, 70.455, kg, 07/25/21 18:40:00 CDT, Weight oxyCODONE 5 2021-0 No 5 mg = 1 Me moria mg oral 5-09 tab, PO, l tablet, 22:38: Q6H, PRN [place] n immediate 00 Pain Score release 7-10, X 2 day, # 5 tab, 0 Refill(s), Pharmacy: [facility], 182.88, cm, 07/24/21 16:57:00 CDT, Height, 70.455, kg, 07/25/21 18:40:00 CDT, Weight oxyCODONE 5 2021-0 No 5 mg = 1 Me moria mg oral 5-09 tab, PO, l tablet, 22:38: Q6H, PRN [place] n immediate 00 Pain Score release 7-10, X 2 day, # 5 tab, 0 Refill(s), Pharmacy: [facility], 182.88, cm, 07/24/21 16:57:00 CDT, Height, 70.455, kg, 07/25/21 18:40:00 CDT, Weight gabapentin 2021-0 Yes 100 mg = 1 M emoria 100 mg oral 5-09 cap, PO, l capsule 20:50: BID, 0 [place] 00 Refill(s) gabapentin 2021-0 Yes 100 mg = 1 M emoria 100 mg oral 5-09 cap, PO, l capsule 20:50: BID, 0 [place] 00 Refill(s) gabapentin 2021-0 Yes 100 mg = 1 M emoria 100 mg oral 5-09 cap, PO, l capsule 20:50: BID, 0 [place] 00 Refill(s) gabapentin 2021-0 Yes 100 mg = 1 M emoria 100 mg oral 5-09 cap, PO, l capsule 20:50: BID, 0 [place] 00 Refill(s) gabapentin 2021-0 Yes 100 mg = 1 M emoria 100 mg oral 5-09 cap, PO, l capsule 20:50: BID, 0 [place] 00 Refill(s) gabapentin 2021-0 Yes 100 mg = 1 M emoria 100 mg oral 5-09 cap, PO, l capsule 20:50: BID, 0 Crow 00 Refill(s) gabapentin No Notes: Memor ia 100 mg oral 5-08 (Same as: l capsule 14:35: Neurontin) Herm stef gabapentin No Notes: Memor ia 100 mg oral 5-08 (Same as: l capsule 14:35: Neurontin) Herm stef gabapentin No Notes: Memor ia 100 mg oral 5-08 (Same as: l capsule 14:35: Neurontin) Herm stef gabapentin No Notes: Memor ia 100 mg oral 5-08 (Same as: l capsule 14:35: Neurontin) Herm stef gabapentin No Notes: Memor ia 100 mg oral 5-08 (Same as: l capsule 14:35: Neurontin) Herm stef gabapentin No Notes: Memor ia 100 mg oral 5-08 (Same as: l capsule 14:35: Neurontin) Herm stef oxyCODONE 5 No Notes: Miguel roe mg/5 mL 5-08 (Same as: l oral 13:47: 'Roxicodon [place] solution 00 e) oxyCODONE No Notes: Memori a immediate 5-08 (Same as: l release 13:47: Roxicodone Herm stef 00 ) naloxone No Notes: Memoria 5-08 Same as l 13:47: Narcan Crow 00 oxyCODONE 5 No Notes: Miguel roe mg/5 mL 5-08 (Same as: l oral 13:47: 'Roxicodon [place] solution 00 e) oxyCODONE No Notes: Memori a immediate 5-08 (Same as: l release 13:47: Roxicodone Herm stef 00 ) naloxone No Notes: Memoria 5-08 Same as l 13:47: Narcan [place] 00 oxyCODONE 5 No Notes: Miguel roe mg/5 mL 5-08 (Same as: l oral 13:47: 'Roxicodon [place] solution 00 e) oxyCODONE No Notes: Memori a immediate 5-08 (Same as: l release 13:47: Roxicodone Herm stef 00 ) naloxone No Notes: Memoria 5-08 Same as l 13:47: Narcan [place] 00 oxyCODONE 5 No Notes: Miguel roe mg/5 mL 5-08 (Same as: l oral 13:47: 'Roxicodon [place] solution 00 e) oxyCODONE No Notes: Memori a immediate 5-08 (Same as: l release 13:47: Roxicodone Herm stef 00 ) naloxone No Notes: Memoria 5-08 Same as l 13:47: Narcan [place] 00 oxyCODONE 5 No Notes: Miguel roe mg/5 mL 5-08 (Same as: l oral 13:47: 'Roxicodon Crow solution 00 e) oxyCODONE No Notes: Memori a immediate 5-08 (Same as: l release 13:47: Roxicodone Herm stef 00 ) naloxone No Notes: Memoria 5-08 Same as l 13:47: Narcan [place] 00 oxyCODONE 5 No Notes: Miguel roe mg/5 mL 5-08 (Same as: l oral 13:47: 'Roxicodon Crow solution 00 e) oxyCODONE No Notes: Memori a immediate 5-08 (Same as: l release 13:47: Roxicodone Herm stef 00 ) naloxone No Notes: Memoria 5-08 Same as l 13:47: Narcan Crow 00 Jose No Notes: Memoria packet 5-07 (Same as: l 21:30: Jose [place] 00 [place]) Jose No Notes: Memoria packet 5-07 (Same as: l 21:30: Jose Crow 00 [place]) Jose No Notes: Memoria packet 5-07 (Same as: l 21:30: Jose Crow 00 [place]) Jose No Notes: Memoria packet 5-07 (Same as: l 21:30: Jose [place] 00 [place]) Jose No Notes: Memoria packet 5-07 (Same as: l 21:30: Jose [place] 00 [place]) Jose No Notes: Memoria packet 5-07 (Same as: l 21:30: Jose [place] 00 [place]) Jose No Notes: Memoria packet 5-06 (Same as: l 21:30: Jose [place] 00 [place]) Jose No Notes: Memoria packet 5-06 (Same as: l 21:30: Jose [place] 00 [place]) Jose No Notes: Memoria packet 5-06 (Same as: l 21:30: Jose [place] 00 [place]) Jose No Notes: Memoria packet 5-06 (Same as: l 21:30: Jose [place] 00 [place]) Jose No Notes: Memoria packet 5-06 (Same as: l 21:30: Jose [place] 00 [place]) Jose No Notes: Memoria packet 5-06 (Same as: l 21:30: Jose [place] 00 [place]) ceFAZolin No Notes: Memori a 5-06 (Same as l 05:00: Ancef) Crow 00 ceFAZolin No Notes: Memori a 5-06 (Same as l 05:00: Ancef) Crow 00 ceFAZolin No Notes: Memori a 5-06 (Same as l 05:00: Ancef) [place] 00 ceFAZolin No Notes: Memori a 5-06 (Same as l 05:00: Ancef) [place] ceFAZolin No Notes: Memori a 5-06 (Same as l 05:00: Ancef) Crow ceFAZolin No Notes: Memori a 5-06 (Same as l 05:00: Ancef) Crow remove No Notes: Memoria patch 5-06 Remove l 02:00: patch 12 [place] 00 hours after applicatio n each day. metoprolol No Notes: Memor ia tartrate 5-06 (Same as: l 02:00: Lopressor) [place] 12.5 mg=1/2 X 25 mg TAB Keppra 100 No Notes: Memor ia mg/mL oral 5-06 (Same l solution 02:00: as:Keppra) Her ibrahim remove No Notes: Memoria patch 5-06 Remove l 02:00: patch 12 Crow 00 hours after applicatio n each day. metoprolol No Notes: Memor ia tartrate 5-06 (Same as: l 02:00: Lopressor) Crow 12.5 mg=1/2 X 25 mg TAB Keppra 100 No Notes: Memor ia mg/mL oral 5-06 (Same l solution 02:00: as:Keppra) Her ibrahim remove No Notes: Memoria patch 5-06 Remove l 02:00: patch 12 Crow 00 hours after applicatio n each day. metoprolol No Notes: Memor ia tartrate 5-06 (Same as: l 02:00: Lopressor) Crow 12.5 mg=1/2 X 25 mg TAB Keppra 100 No Notes: Memor ia mg/mL oral 5-06 (Same l solution 02:00: as:Keppra) Her ibrahim remove No Notes: Memoria patch 5-06 Remove l 02:00: patch 12 Crow 00 hours after applicatio n each day. metoprolol No Notes: Memor ia tartrate 5-06 (Same as: l 02:00: Lopressor) [place] 12.5 mg=1/2 X 25 mg TAB Keppra 100 No Notes: Memor ia mg/mL oral 5-06 (Same l solution 02:00: as:Keppra) Her ibrahim remove No Notes: Memoria patch 5-06 Remove l 02:00: patch 12 [place] 00 hours after applicatio n each day. metoprolol No Notes: Memor ia tartrate 5-06 (Same as: l 02:00: Lopressor) [place] 12.5 mg=1/2 X 25 mg TAB Keppra 100 No Notes: Memor ia mg/mL oral 5-06 (Same l solution 02:00: as:Keppra) Her ibrahim remove No Notes: Memoria patch 5-06 Remove l 02:00: patch 12 [place] 00 hours after applicatio n each day. metoprolol No Notes: Memor ia tartrate 5-06 (Same as: l 02:00: Lopressor) [place] 12.5 mg=1/2 X 25 mg TAB Keppra 100 No Notes: Memor ia mg/mL oral 5-06 (Same l solution 02:00: as:Keppra) Her ibrahim sugammadex No Route: IV, M emoria (ANES) 5- Drug form: l 01:02: Crow MARIE 00 ONCE, Stop date: 07/26/21 20:02:00 CDT sugammadex 2021-0 No Route: IV, M emoria (ANES) 5- Drug form: l 01:02: Crow MARIE 00 ONCE, Stop date: 07/26/21 20:02:00 CDT sugammadex 2021-0 No Route: IV, M emoria (ANES) 5-06 Drug form: l 01:02: SOLCrow Martinez 00 ONCE, Stop date: 07/26/21 20:02:00 CDT sugammadex 2021-0 No Route: IV, M emoria (ANES) 5- Drug form: l 01:02: Crow MARIE 00 ONCE, Stop date: 07/26/21 20:02:00 CDT sugammadex 2022-0 No Route: IV, M emoria (ANES) 5-06 Drug form: l 01:02: SOLN, Crow 00 ONCE, Stop date: 07/26/21 20:02:00 CDT sugammadex 2021-0 No Route: IV, M emoria (ANES) 5-06 Drug form: l 01:02: SOLN, Crow 00 ONCE, Stop date: 07/26/21 20:02:00 CDT lidocaine 2021-0 No Route: IV, Me moria (ANES) 5-06 Drug form: l 00:57: INJ, ONCE, Stop date: 07/26/21 19:57:00 CDT lidocaine 2021-0 No Route: IV, Me moria (ANES) 5-06 Drug form: l 00:57: INJ, ONCE, Stop date: 07/26/21 19:57:00 CDT lidocaine 2021-0 No Route: IV, Me moria (ANES) 5-06 Drug form: l 00:57: INJ, ONCE, Stop date: 07/26/21 19:57:00 CDT lidocaine 2021-0 No Route: IV, Me moria (ANES) 5-06 Drug form: l 00:57: INJ, ONCE, Stop date: 07/26/21 19:57:00 CDT lidocaine 2021-0 No Route: IV, Me moria (ANES) 5-06 Drug form: l 00:57: INJ, ONCE, Stop date: 07/26/21 19:57:00 CDT lidocaine 2021-0 No Route: IV, Me moria (ANES) 5-06 Drug form: l 00:57: INJ, ONCE, Stop date: 07/26/21 19:57:00 CDT ondansetron 2021-0 No Route: IV, Memoria (ANES) 5-06 Drug form: l 00:47: INJ, ONCE, Stop date: 07/26/21 19:47:00 CDT ondansetron 2021-0 No Route: IV, Memoria (ANES) 5-06 Drug [...] 07/26/21 19:47:00 CDT ANES No Notes: Memoria oxyCODONE 5-06 (Same l [...] 5-06 acetaminop l en 00:15: hen 4000 [place] 00 mg/day (4 gm/day). (Same as: Tylenol Extra Strength) ANE No Notes: Memoria oxyCODONE 5-06 (Same l 00:15: as:'Roxico [place] 00 done) To be drawn up in 3 mL syr ANE No Notes: Memoria HYDROmorpho 5-06 Same as l ne 00:15: Dilaudid ANE No Notes: Memoria fentaNYL 5-06 (Same as: l 00:15: Sublimaze) Preservati ve free. ANE No Notes: Memoria flumazenil 5-06 (Same as: l 00:15: Romazicon) ANE No Notes: Memoria naloxone 5-06 Same as l 00:15: Narcan No Notes: Memoria ondansetron 5-06 (Same as: l 00:15: Zofran) MEDICATION WASTE Product Size: 4 mg Product Wasted: ___ mg ANES No Notes: Memoria hydrALAZINE 5-06 (Same as: l 00:15: Apresoline ) Push over 5 minutes ANE No 10 mg, 2 Memoria labetalol 5-06 mL, Route: l 00:15: IVP, Drug [place] 00 form: INJ, Q5Min, Dosing Weight 70.455, kg, PRN Elevated BP, Start date: 07/26/21 19:15:00 CDT, Duration: 5 doses or times, Stop date: Limited # of times, 0 ANES No Notes: Max Memoria acetaminoph 5-06 acetaminop l en 00:15: hen 4000 Crow 00 mg/day (4 gm/day). (Same as: Tylenol Extra Strength) No Notes: Memoria oxyCODONE 5-06 (Same l 00:15: as:'Roxico Crow 00 done) To be drawn up in 3 mL syr S No Notes: Memoria HYDROmorpho 5-06 Same as [...] Size: 4 mg Product Wasted: ___ mg No Notes: Memoria hydrALAZINE 5-06 (Same as: l 00:15: Apresoline ) Push over 5 minutes No 10 mg, 2 Memoria labetalol 5-06 mL, Route: l 00:15: IVP, Drug form: INJ, Q5Min, Dosing Weight 70.455, kg, PRN Elevated BP, Start date: 07/26/21 19:15:00 CDT, Duration: 5 doses or times, Stop date: Limited # of times, 0 No Notes: Max Memoria acetaminoph 5-06 acetaminop l en 00:15: hen 4000 Crow 00 mg/day (4 gm/day). (Same as: Tylenol Extra Strength) No Notes: Memoria oxyCODONE 5-06 (Same l 00:15: as:'Roxico done) To be drawn up in 3 mL syr No Notes: Memoria HYDROmorpho 5-06 Same as l ne 00:15: Dilaudid No Notes: Memoria fentaNYL 5-06 (Same as: l 00:15: Sublimaze) Crow Preservati ve free. ANE No Notes: Memoria flumazenil 5-06 (Same as: l 00:15: Romazicon) [place] ANES No Notes: Memoria naloxone 5-06 Same as l 00:15: Narcan Crow No Notes: Memoria ondansetron 5-06 (Same as: l 00:15: Zofran) [place] 00 MEDICATION WASTE Product Size: 4 mg Product Wasted: ___ mg S No Notes: Memoria hydrALAZINE 5-06 (Same as: l 00:15: Apresoline ) Push over 5 minutes No 10 mg, 2 Memoria labetalol 5-06 mL, Route: l 00:15: IVP, Drug form: INJ, Q5Min, Dosing Weight 70.455, kg, PRN Elevated BP, Start date: 07/26/21 19:15:00 CDT, Duration: 5 doses or times, Stop date: Limited # of times, 0 No Notes: Max Memoria acetaminoph 5-06 acetaminop l en 00:15: hen 4000 Crow 00 mg/day (4 gm/day). (Same as: Tylenol Extra Strength) No Notes: Memoria oxyCODONE 5-06 (Same l 00:15: as:'Roxico [place] 00 done) To be drawn up in 3 mL syr No Notes: Memoria HYDROmorpho 5-06 Same as l ne 00:15: Dilaudid [place] No Notes: Memoria fentaNYL 5-06 (Same as: l 00:15: Sublimaze) [place] 00 Preservati ve free. ANE No Notes: Memoria flumazenil 5-06 (Same as: l 00:15: Romazicon) [place] No Notes: Memoria naloxone 5-06 Same as l 00:15: Narcan [place] 00 ANES No Notes: Memoria ondansetron 5-06 (Same as: l 00:15: Zofran) Crow 00 MEDICATION WASTE Product Size: 4 mg Product Wasted: ___ mg ANES No Notes: Memoria hydrALAZINE 5-06 (Same as: l 00:15: Apresoline [place] 00 ) Push over 5 minutes ANES No Notes: Memoria hydrALAZINE 5-06 (Same as: l 00:15: Apresoline [place] 00 ) Push over 5 minutes ANES No 10 mg, 2 Memoria labetalol 5-06 mL, Route: l 00:15: IVP, Drug form: INJ, Q5Min, Dosing Weight 70.455, kg, PRN Elevated BP, Start date: 07/26/21 19:15:00 CDT, Duration: 5 doses or times, Stop date: Limited # of times, 0 ANES No Notes: Max Memoria acetaminoph 5-06 acetaminop l en 00:15: hen 4000 [place] 00 mg/day (4 gm/day). (Same as: Tylenol Extra Strength) ANE No Notes: Memoria oxyCODONE 5-06 (Same l 00:15: as:'Roxico done) To be drawn up in 3 mL syr ANES No Notes: Memoria HYDROmorpho 5-06 Same as l ne 00:15: Dilaudid [place] 00 ANE No Notes: Memoria fentaNYL 5-06 (Same as: l 00:15: Sublimaze) Crow 00 Preservati ve free. ANES No Notes: Memoria flumazenil 5-06 (Same as: l 00:15: Romazicon) [place] ANE No Notes: Memoria naloxone 5-06 Same as l 00:15: Narcan [place] ANES No Notes: Memoria ondansetron 5-06 (Same as: l 00:15: Zofran) [place] 00 MEDICATION WASTE Product Size: 4 mg Product Wasted: ___ mg ANES No 10 mg, 2 Memoria labetalol 5-06 mL, Route: l 00:15: IVP, Drug form: INJ, Q5Min, Dosing Weight 70.455, kg, PRN Elevated BP, Start date: 07/26/21 19:15:00 CDT, Duration: 5 doses or times, Stop date: Limited # of times, 0 ANES No Notes: Max Memoria acetaminoph 5-06 acetaminop l en 00:15: hen 4000 Crow 00 mg/day (4 gm/day). (Same as: Tylenol Extra Strength) ketAMINE No Route: IV, Mem oria (ANES) [...] ONCE, Stop date: 07/26/21 17:14:00 CDT dexamethaso 2022-0 No Route: IV, Memoria ne (ANES) 5-05 Drug form: l 22:14: INJ, ONCE, Stop date: 07/26/21 17:14:00 CDT dexamethaso 2021-0 No Route: IV, Memoria ne (ANES) 5-05 Drug form: l 22:14: INJ, ONCE, Stop date: 07/26/21 17:14:00 CDT dexamethaso 2021-0 No Route: IV, Memoria ne (ANES) 5-05 Drug form: l 22:14: INJ, ONCE, Stop date: 07/26/21 17:14:00 CDT dexamethaso 2021-0 No Route: IV, Memoria ne (ANES) 5-05 Drug form: l 22:14: INJ, ONCE, Stop date: 07/26/21 17:14:00 CDT dexamethaso 2021-0 No Route: IV, Memoria ne (ANES) 5-05 Drug form: l 22:14: INJ, ONCE, Stop date: 07/26/21 17:14:00 CDT propofol 2021-0 No Route: IV, Mem oria (ANES) 5-05 Drug form: l 22:09: INJ, ONCE, Stop date: 07/26/21 17:09:00 CDT rocuronium 2021-0 No Route: IV, M emoria (ANES) 5-05 Drug form: l 22:09: INJ, ONCE, Stop date: 07/26/21 17:09:00 CDT fentaNYL 2021-0 No Route: IV, Mem oria (ANES) 5-05 Drug form: l 22:09: INJ, ONCE, Stop date: 07/26/21 17:09:00 CDT propofol 2021-0 No Route: IV, Mem oria (ANES) 5-05 Drug form: l 22:09: INJ, ONCE, Stop date: 07/26/21 17:09:00 CDT rocuronium 2021-0 No Route: IV, M emoria (ANES) 5-05 Drug form: l 22:09: INJ, ONCE, Stop date: 07/26/21 17:09:00 CDT fentaNYL 2022-0 No Route: IV, Mem oria (ANES) 5-05 Drug form: l 22:09: INJ, ONCE, Stop date: 07/26/21 17:09:00 CDT propofol 2022-0 No Route: IV, Mem oria (ANES) 5-05 Drug form: l 22:09: INJ, ONCE, Stop date: 07/26/21 17:09:00 CDT rocuronium 2022-0 No Route: IV, M emoria (ANES) 5-05 Drug form: l 22:09: INJ, ONCE, Stop date: 07/26/21 17:09:00 CDT fentaNYL 2022-0 No Route: IV, Mem oria (ANES) 5-05 Drug form: l 22:09: INJ, ONCE, Stop date: 07/26/21 17:09:00 CDT propofol 2022-0 No Route: IV, Mem oria (ANES) 5-05 Drug form: l 22:09: INJ, ONCE, Stop date: 07/26/21 17:09:00 CDT rocuronium 2022-0 No Route: IV, M emoria (ANES) 5-05 Drug form: l 22:09: INJ, ONCE, Stop date: 07/26/21 17:09:00 CDT fentaNYL 2022-0 No Route: IV, Mem oria (ANES) 5-05 Drug form: l 22:09: INJ, ONCE, Stop date: 07/26/21 17:09:00 CDT propofol 2022-0 No Route: IV, Mem oria (ANES) 5-05 Drug form: l 22:09: INJ, ONCE, Stop date: 07/26/21 17:09:00 CDT rocuronium 2022-0 No Route: IV, M emoria (ANES) 5-05 Drug form: l 22:09: INJ, ONCE, Stop date: 07/26/21 17:09:00 CDT fentaNYL 2022-0 No Route: IV, Mem oria (ANES) 5-05 Drug form: l 22:09: INJ, ONCE, Stop date: 07/26/21 17:09:00 CDT propofol 2021-0 No Route: IV, Mem oria (ANES) 5-05 Drug form: l 22:09: INJ, ONCE, Stop date: 07/26/21 17:09:00 CDT rocuronium 2021-0 No Route: IV, M emoria (ANES) 5-05 Drug form: l 22:09: INJ, ONCE, Stop date: 07/26/21 17:09:00 CDT fentaNYL 2021-0 No Route: IV, Mem oria (ANES) 5-05 Drug form: l 22:09: INJ, ONCE, Stop date: 07/26/21 17:09:00 CDT ceFAZolin 2021-0 No Route: IV, Me moria (ANES) 5-05 Drug form: l 22:04: INJ, ONCE, Stop date: 07/26/21 17:04:00 CDT ceFAZolin 2021-0 No Route: IV, Me moria (ANES) 5-05 Drug form: l 22:04: INJ, ONCE, Stop date: 07/26/21 17:04:00 CDT ceFAZolin 2021-0 No Route: IV, Me moria (ANES) 5-05 Drug form: l 22:04: INJ, ONCE, Stop date: 07/26/21 17:04:00 CDT ceFAZolin 2021-0 No Route: IV, Me moria (ANES) 5-05 Drug form: l 22:04: INJ, ONCE, Stop date: 07/26/21 17:04:00 CDT ceFAZolin 2021-0 No Route: IV, Me moria (ANES) 5-05 Drug form: l 22:04: INJ, ONCE, Stop date: 07/26/21 17:04:00 CDT ceFAZolin 2021-0 No Route: IV, Me moria (ANES) 5-05 Drug form: l 22:04: INJ, ONCE, Stop date: 07/26/21 17:04:00 CDT Lactated 2021-0 No Route: IV, Mem oria Ringers 5-05 Total l Injection 21:07: Volume: Vero nn IV (ANES) 00 1,000, 1000 mL Start date: 07/26/21 16:07:00 CDT, Stop date: 07/26/21 17:07:00 CDT Lactated 2021-0 No Route: IV, Mem oria Ringers 5-05 Total l Injection 21:07: Volume: Vero nn IV (ANES) 00 1,000, 1000 mL Start date: 07/26/21 16:07:00 CDT, Stop date: 07/26/21 17:07:00 CDT Lactated 2021-0 No Route: IV, Mem oria Ringers 5-05 Total l Injection 21:07: Volume: Vero nn IV (ANES) 00 1,000, 1000 mL Start date: 07/26/21 16:07:00 CDT, Stop date: 07/26/21 17:07:00 CDT Lactated 2021-0 No Route: IV, Mem oria Ringers 5-05 Total l Injection 21:07: Volume: Vero nn IV (ANES) 00 1,000, 1000 mL Start date: 07/26/21 16:07:00 CDT, Stop date: 07/26/21 17:07:00 CDT Lactated 2021-0 No Route: IV, Mem oria Ringers 5-05 Total l Injection 21:07: Volume: Vero nn IV (ANES) 00 1,000, 1000 mL Start date: 07/26/21 16:07:00 CDT, Stop date: 07/26/21 17:07:00 CDT Lactated 2021-0 No Route: IV, Mem oria Ringers 5-05 Total l Injection 21:07: Volume: Vero nn IV (ANES) 00 1,000, 1000 mL Start date: 07/26/21 16:07:00 CDT, Stop date: 07/26/21 17:07:00 CDT adenosine 2021-0 No 59.1822 Memor ia 5-05 mg, Route: l 13:23: IVP, ONCE, Crow Dosing Weight 70.455, kg, Priority: Routine, Start date: 07/26/21 8:23:00 CDT, Stop date: 07/26/21 8:23:00 CDT adenosine 2021-0 No 59.1822 Memor ia 5-05 mg, Route: l 13:23: IVP, ONCE, Dosing Weight 70.455, kg, Priority: Routine, Start date: 07/26/21 8:23:00 CDT, Stop date: 07/26/21 8:23:00 CDT adenosine 2021-0 No 59.1822 Memor ia 5-05 mg, Route: l 13:23: IVP, ONCE, Dosing Weight 70.455, kg, Priority: Routine, Start date: 07/26/21 8:23:00 CDT, Stop date: 07/26/21 8:23:00 CDT adenosine 2021-0 No 59.1822 Memor ia 5-05 mg, Route: l 13:23: IVP, ONCE, Dosing Weight 70.455, kg, Priority: Routine, Start date: 07/26/21 8:23:00 CDT, Stop date: 07/26/21 8:23:00 CDT adenosine 2021-0 No 59.1822 Memor ia 5-05 mg, Route: l 13:23: IVP, ONCE, Dosing Weight 70.455, kg, Priority: Routine, Start date: 07/26/21 8:23:00 CDT, Stop date: 07/26/21 8:23:00 CDT adenosine 2021-0 No 59.1822 Memor ia 5-05 mg, Route: l 13:23: IVP, ONCE, Dosing Weight 70.455, kg, Priority: Routine, Start date: 07/26/21 8:23:00 CDT, Stop date: 07/26/21 8:23:00 CDT Lidocaine 2021-0 No Notes: Memori a Viscous 2% 5-04 (Same as: l mucous 21:00: Xylocaine) Vero nn membrane 00 solution midazolam No Notes: Memori a 5-04 Same as: l 21:00: Versed Crow 00 fentaNYL 0 No Notes: Memoria 5-04 (Same as: l 21:00: Sublimaze) [place] 00 Preservati ve free. Lidocaine No Notes: Memori a Viscous 2% 5-04 (Same as: l mucous 21:00: Xylocaine) Veor nn membrane 00 solution midazolam 0 No Notes: Memori a 5-04 Same as: l 21:00: Versed [place] 00 fentaNYL 0 No Notes: Memoria 5-04 (Same as: l 21:00: Sublimaze) [place] 00 Preservati ve free. Lidocaine No Notes: Memori a Viscous 2% 5-04 (Same as: l mucous 21:00: Xylocaine) Vero nn membrane 00 solution midazolam 0 No Notes: Memori a 5-04 Same as: l 21:00: Versed [place] 00 fentaNYL 0 No Notes: Memoria 5-04 (Same as: l 21:00: Sublimaze) [place] 00 Preservati ve free. Lidocaine 0 No Notes: Memori a Viscous 2% 5-04 (Same as: l mucous 21:00: Xylocaine) Vero nn membrane 00 solution midazolam 0 No Notes: Memori a 5-04 Same as: l 21:00: Versed Crow 00 fentaNYL 0 No Notes: Memoria 5-04 (Same as: l 21:00: Sublimaze) [place] 00 Preservati ve free. Lidocaine No Notes: Memori a Viscous 2% 5-04 (Same as: l mucous 21:00: Xylocaine) Vero nn membrane 00 solution midazolam 0 No Notes: Memori a 5-04 Same as: l 21:00: Versed [place] 00 fentaNYL 0 No Notes: Memoria 5-04 (Same as: l 21:00: Sublimaze) Crow 00 Preservati ve free. Lidocaine 0 No Notes: Memori a Viscous 2% 5-04 (Same as: l mucous 21:00: Xylocaine) Vero nn membrane 00 solution midazolam 0 No Notes: Memori a 5-04 Same as: l 21:00: Versed [place] 00 fentaNYL 2021-0 No Notes: Memoria 5-04 (Same as: l 21:00: Sublimaze) Crow 00 Preservati ve free. ferrous 2021-0 No Notes: Memoria sulfate 5-04 Give with l 14:00: food. "Do Crow 00 Not Crush" levothyroxi No Notes: Miguel roe ne 5-04 Take 1 l 14:00: hour Crow 00 before or 2 hours after meal; Enteral feeds may interefere with the absorption of this medication . (Same as:Synthro id, Levothroid ) Namenda No Notes: Memoria 5-04 (Same As: l 14:00: Namenda) [place] 00 ferrous No Notes: Memoria sulfate 5-04 Give with l 14:00: food. "Do [place] 00 Not Crush" levothyroxi No Notes: Miguel ore ne 5-04 Take 1 l 14:00: hour [place] 00 before or 2 hours after meal; Enteral feeds may interefere with the absorption of this medication . (Same as:Synthro id, Levothroid ) ferrous No Notes: Memoria sulfate 5-04 Give with l 14:00: food. "Do Crow 00 Not Crush" levothyroxi No Notes: Miguel roe ne 5-04 Take 1 l 14:00: hour [place] 00 before or 2 hours after meal; Enteral feeds may interefere with the absorption of this medication . (Same as:Synthro id, Levothroid ) Name No Notes: Memoria 5-04 (Same As: l 14:00: Namenda) [place] 00 Namenda No Notes: Memoria 5-04 (Same As: l 14:00: Namenda) [place] 00 ferrous No Notes: Memoria sulfate 5-04 Give with l 14:00: food. "Do [place] 00 Not Crush" levothyroxi No Notes: Miguel roe ne 5-04 Take 1 l 14:00: hour Crow 00 before or 2 hours after meal; Enteral feeds may interefere with the absorption of this medication . (Same as:Synthro id, Levothroid ) Namenda No Notes: Memoria 5-04 (Same As: l 14:00: Namenda) Crow 00 ferrous No Notes: Memoria sulfate 5-04 Give with l 14:00: food. "Do Crow 00 Not Crush" levothyroxi No Notes: Miguel roe ne 5-04 Take 1 l 14:00: hour Crow 00 before or 2 hours after meal; Enteral feeds may interefere with the absorption of this medication . (Same as:Synthro id, Levothroid ) Namenda No Notes: Memoria 5-04 (Same As: l 14:00: Namenda) [place] 00 ferrous No Notes: Memoria sulfate 5-04 Give with l 14:00: food. "Do Crow 00 Not Crush" levothyroxi No Notes: Miguel roe ne 5-04 Take 1 l 14:00: hour [place] 00 before or 2 hours after meal; Enteral feeds may interefere with the absorption of this medication . (Same as:Synthro id, Levothroid ) Namenda No Notes: Memoria 5-04 (Same As: l 14:00: Namenda) [place] 00 senna No Notes: Memoria 5-04 (Same as: l 02:00: Senokot) [place] 00 gabapentin No Notes: Memor ia 5-04 (Same as: l 02:00: Neurontin) [place] 00 melatonin No Notes: Memori a 5-04 (Same as: l 02:00: Melatonin) mirtazapine No Notes: Miguel roe 5-04 (Same l 02:00: as:Remeron Crow 00 ) senna No Notes: Memoria 5-04 (Same as: l 02:00: Senokot) [place] gabapentin No Notes: Memor ia 5-04 (Same as: l 02:00: Neurontin) Crow melatonin No Notes: Memori a 5-04 (Same as: l 02:00: Melatonin) Crow 00 mirtazapine No Notes: Miguel roe 5-04 (Same l 02:00: as:Remeron [place] ) senna No Notes: Memoria 5-04 (Same as: l 02:00: Senokot) [place] gabapentin No Notes: Memor ia 5-04 (Same [...] Miguel roe 5-04 (Same l 02:00: as:Remeron [place] 00 ) Keppra 100 No Notes: Memor ia mg/mL oral 5-03 (Same l solution 22:00: as:Keppra) Her metoprolol No Notes: Memor ia tartrate 5-03 (Same as: l 22:00: Lopressor) [place] 00 12.5 mg=1/2 X 25 mg TAB Keppra 100 No Notes: Memor ia mg/mL oral 5-03 (Same l solution 22:00: as:Keppra) Her ibrahim metoprolol No Notes: Memor ia tartrate 5-03 (Same as: l 22:00: Lopressor) [place] 00 12.5 mg=1/2 X 25 mg TAB Keppra 100 No Notes: Memor ia mg/mL oral 5-03 (Same l solution 22:00: as:Keppra) Her ibrahim metoprolol No Notes: Memor ia tartrate 5-03 (Same as: l 22:00: Lopressor) [place] 00 12.5 mg=1/2 X 25 mg TAB Keppra 100 No Notes: Memor ia mg/mL oral 5-03 (Same l solution 22:00: as:Keppra) Her ibrahim metoprolol No Notes: Memor ia tartrate 5-03 (Same as: l 22:00: Lopressor) [place] 00 12.5 mg=1/2 X 25 mg TAB Keppra 100 No Notes: Memor ia mg/mL oral 5-03 (Same l solution 22:00: as:Keppra) Her ibrahim metoprolol No Notes: Memor ia tartrate 5-03 (Same as: l 22:00: Lopressor) [place] 00 12.5 mg=1/2 X 25 mg TAB Keppra 100 No Notes: Memor ia mg/mL oral 5-03 (Same l solution 22:00: as:Keppra) Her ibrahim metoprolol No Notes: Memor ia tartrate 5-03 (Same as: l 22:00: Lopressor) [place] 00 12.5 mg=1/2 X 25 mg TAB Nitrostat No 0.4 mg = 1 Me moria 0.4 mg 5-03 tab, SL, l sublingual 20:25: PRN [place] tablet Nitrostat No 0.4 mg = 1 Me moria 0.4 mg 5-03 tab, SL, l sublingual 20:25: PRN [place] tablet Nitrostat No 0.4 mg = 1 Me moria 0.4 mg 5-03 tab, SL, l sublingual 20:25: PRN [place] tablet 00 Nitrosta No 0.4 mg = 1 Me moria 0.4 mg 5-03 tab, SL, l sublingual 20:25: PRN [place] tablet Nitrosta No 0.4 mg = 1 Me moria 0.4 mg 5-03 tab, SL, l sublingual 20:25: PRN Crow tablet Nitrosta No 0.4 mg = 1 Me moria 0.4 mg 5-03 tab, SL, l sublingual 20:25: PRN [place] tablet tramadol 50 No 100 mg = [...] tab, PO, l tablet 20:23: Daily Senna 8. Yes 17.2 mg = Mem oria mg oral 5-03 2 tab, PO, l tablet 20:23: Daily spironolact No 25 mg = 1 M emoria one 25 mg 5-03 tab, PO, l oral tablet 20:23: Daily rivaroxaban Yes 20 mg = 1 M emoria 20 mg oral 5-03 tab, PO, l tablet 20:23: Daily Senna . Yes 17.2 mg = Mem oria mg oral 5-03 2 tab, PO, l tablet 20:23: Daily spironolact No 25 mg = 1 M emoria one 25 mg 5-03 tab, PO, l oral tablet 20:23: Daily rivaroxaban Yes 20 mg = 1 M emoria 20 mg oral 5-03 tab, PO, l tablet 20:23: Daily Senna . Yes 17.2 mg = Mem oria mg oral 5-03 2 tab, PO, l tablet 20:23: Daily spironolact No 25 mg = 1 M emoria one 25 mg 5-03 tab, PO, l oral tablet 20:23: Daily Vero rivaroxaban Yes 20 mg = 1 M emoria 20 mg oral 5-03 tab, PO, l tablet 20:23: Daily Senna 8. Yes 17.2 mg = Mem oria mg oral 5-03 2 tab, PO, l tablet 20:23: Daily spironolact No 25 mg = 1 M emoria one 25 mg 5-03 tab, PO, l oral tablet 20:23: Daily rivaroxaban Yes 20 mg = 1 M emoria 20 mg oral 5-03 tab, PO, l tablet 20:23: Daily Senna 8. Yes 17.2 mg = Mem oria mg oral 5-03 2 tab, PO, l tablet 20:23: Daily spironolact No 25 mg = 1 M emoria one 25 mg 5-03 tab, PO, l oral tablet 20:23: Daily Namenda Yes 10 mg = 1 Me moria mg oral 5-03 tab, PO, l tablet 20:22: Daily Namenda Yes 10 mg = 1 Me moria mg oral 5-03 tab, PO, l tablet 20:22: Daily Namenda Yes 10 mg = 1 Me moria mg oral 5-03 tab, PO, l tablet 20:22: Daily Namenda Yes 10 mg = 1 Me moria mg oral 5-03 tab, PO, l tablet 20:22: Daily Namenda Yes 10 mg = 1 Me moria mg oral 5-03 tab, PO, l tablet 20:22: Daily Namenda Yes 10 mg = 1 Me moria [...] n with 5-03 Bedtime l minerals 20:21: metoprolol Yes 25 mg = 1 Me moria tartrate 25 5-03 tab, PO, l mg oral 20:21: BID tablet mirtazapine Yes 45 mg = 1 M emoria 45 mg oral 5-03 tab, PO, l tablet 20:21: Bedtime multivitami No 1 tab, PO, Memoria n with 5-03 Bedtime l minerals 20:21: metoprolol Yes 25 mg = 1 Me moria tartrate 25 5-03 tab, PO, l mg oral 20:21: BID [place] tablet mirtazapine Yes 45 mg = 1 M emoria 45 mg oral 5-03 tab, PO, l tablet 20:21: Bedtime multivitami No 1 tab, PO, Memoria n with 5-03 Bedtime l minerals 20:21: metoprolol Yes 25 mg = 1 Me moria tartrate 25 5-03 tab, PO, l mg oral 20:21: BID [place] tablet mirtazapine Yes 45 mg = 1 M emoria 45 mg oral 5-03 tab, PO, l tablet 20:21: Bedtime multivitami No 1 tab, PO, Memoria n with 5-03 Bedtime l minerals 20:21: metoprolol Yes 25 mg = 1 Me moria tartrate 25 5-03 tab, PO, l mg oral 20:21: BID [place] tablet mirtazapine Yes 45 mg = 1 M emoria 45 mg oral 5-03 tab, PO, l tablet 20:21: Bedtime multivitami No 1 tab, PO, Memoria n with 5-03 Bedtime l minerals 20:21: metoprolol Yes 25 mg = 1 Me moria tartrate 25 5-03 tab, PO, l mg oral 20:21: BID [place] tablet mirtazapine Yes 45 mg = 1 [...] tab, PO, l mg oral 20:20: QAM [place] tablet 00 melatonin 5 Yes 5 mg = 1 Me moria mg oral 5-03 tab, PO, l tablet 20:20: Bedtime [place] levothyroxi 0 Yes 75 Memori a ne 75 mcg 5-03 microgram l (0.075 mg) 20:20: = 1 tab, Her ibrahim oral tablet 00 PO, QAM magnesium 2021-0 Yes 400 mg = 1 Me moria oxide 400 5-03 tab, PO, l mg oral 20:20: QAM [place] tablet 00 melatonin 0 Yes 5 mg = 1 Me moria mg oral 5-03 tab, PO, l tablet 20:20: Bedtime [place] levothyroxi 0 Yes 75 Memori a ne 75 mcg 5-03 microgram l (0.075 mg) 20:20: = 1 tab, Her ibrahim oral tablet 00 PO, QAM magnesium 2021-0 Yes 400 mg = 1 Me moria oxide 400 5-03 tab, PO, l mg oral 20:20: QAM Crow tablet 00 melatonin 0 Yes 5 mg = 1 Me moria mg oral 5-03 tab, PO, l tablet 20:20: Bedtime [place] levothyroxi 0 Yes 75 Memori a ne 75 mcg 5-03 microgram l (0.075 mg) 20:20: = 1 tab, Her ibrahim oral tablet 00 PO, QAM magnesium 2021-0 Yes 400 mg = 1 Me moria oxide 400 5-03 tab, PO, l mg oral 20:20: QAM [place] tablet 00 melatonin 0 Yes 5 mg = 1 Me moria mg oral 5-03 tab, PO, l tablet 20:20: Bedtime [place] levothyroxi 0 Yes 75 Memori a ne 75 mcg 5-03 microgram l (0.075 mg) 20:20: = 1 tab, Her ibrahim oral tablet 00 PO, QAM magnesium 2021-0 Yes 400 mg = 1 Me moria oxide 400 5-03 tab, PO, l mg oral 20:20: QAM [place] tablet 00 melatonin 5 0 Yes 5 mg = 1 Me moria mg oral 5-03 tab, PO, l tablet 20:20: Bedtime [place] 00 levothyroxi 2021-0 Yes 75 Memori a ne 75 mcg 5-03 microgram l (0.075 mg) 20:20: = 1 tab, Her ibrahim oral tablet 00 PO, QAM magnesium 0 Yes 400 mg = 1 Me moria oxide 400 5-03 tab, PO, l mg oral 20:20: QAM [place] tablet 00 melatonin 5 2021-0 Yes 5 mg = 1 Me moria mg oral 5-03 tab, PO, l tablet 20:20: Bedtime [place] isosorbide 0 No 10 mg = 1 Me moria dinitrate 5-03 tab, PO, l 10 mg oral 20:19: BID [place] tablet Keppra 100 0 Yes 500 mg = 5 M emoria mg/mL oral 5-03 mL, PO, l solution 20:19: BID Crow 00 Lasix 20 mg 0 Yes 20 mg = 1 M emoria oral tablet 5-03 tab, PO, l 20:19: Daily [place] 00 isosorbide 0 No 10 mg = 1 Me moria dinitrate 5-03 tab, PO, l 10 mg oral 20:19: BID [place] tablet Keppra 100 0 Yes 500 mg = 5 M emoria mg/mL oral 5-03 mL, PO, l solution 20:19: BID [place] 00 Lasix 20 mg 0 Yes 20 mg = 1 M emoria oral tablet 5-03 tab, PO, l 20:19: Daily [place] 00 isosorbide 0 No 10 mg = 1 Me moria dinitrate 5-03 tab, PO, l 10 mg oral 20:19: BID [place] tablet Keppra 100 0 Yes 500 mg = 5 M emoria mg/mL oral 5-03 mL, PO, l solution 20:19: BID [place] 00 Lasix 20 mg 2021-0 Yes 20 mg = 1 M emoria oral tablet 5-03 tab, PO, l 20:19: Daily Crow 00 isosorbide 2021-0 No 10 mg = 1 Me moria dinitrate 5-03 tab, PO, l 10 mg oral 20:19: BID Crow tablet 00 Keppra 100 0 Yes 500 mg = 5 M emoria mg/mL oral 5-03 mL, PO, l solution 20:19: BID Crow 00 Lasix 20 mg 2022-0 Yes 20 mg = 1 M emoria oral tablet 5-03 tab, PO, l 20:19: Daily isosorbide No 10 mg = 1 Me moria dinitrate 5-03 tab, PO, l 10 mg oral 20:19: BID tablet Keppra 100 Yes 500 mg = 5 M emoria mg/mL oral 5-03 mL, PO, l solution 20:19: BID Lasix 20 mg Yes 20 mg = 1 M emoria oral tablet 5-03 tab, PO, l 20:19: Daily isosorbide No 10 mg = 1 Me moria dinitrate 5-03 tab, PO, l 10 mg oral 20:19: BID tablet Keppra 100 Yes 500 mg = 5 [...] l mg oral 20:17: BID [facility] capsule ferrous Yes 325 mg = 1 Miguel roe sulfate 325 5-03 tab, PO, l mg oral 20:17: Daily [place] enteric 00 coated tablet Tylenol 325 Yes 650 mg = 2 Memoria mg oral 5-03 tab, PO, l tablet 20:17: Q6H, PRN pain docusate No 100 mg = 1 [facility] sodium 100 5-03 cap, PO, l mg oral 20:17: BID Crow capsule ferrous Yes 325 mg = 1 Miguel roe sulfate 325 5-03 tab, PO, l mg oral 20:17: Daily Crow enteric 00 coated tablet Tylenol 325 Yes 650 mg = 2 Memoria mg oral 5-03 tab, PO, l tablet 20:17: Q6H, PRN pain docusate No 100 mg = 1 Mem [facility]ria sodium 100 5-03 cap, PO, l mg oral 20:17: BID Crow capsule ferrous Yes 325 mg = 1 Miguel roe sulfate 325 5-03 tab, PO, l mg oral 20:17: Daily [place] enteric 00 coated tablet Tylenol 325 Yes 650 mg = 2 Memoria mg oral 5-03 tab, PO, l tablet 20:17: Q6H, PRN pain docusate No 100 mg = 1 Mem oria sodium 100 5-03 cap, PO, l mg oral 20:17: BID Crow capsule ferrous Yes 325 mg = 1 Miguel roe sulfate 325 5-03 tab, PO, l mg oral 20:17: Daily [place] enteric 00 coated tablet Tylenol 325 Yes 650 mg = 2 Memoria mg oral 5-03 tab, PO, l tablet 20:17: Q6H, PRN pain docusate No 100 mg = 1 Mem oria sodium 100 5-03 cap, PO, l mg oral 20:17: BID [place] capsule ferrous Yes 325 mg = 1 Miguel roe sulfate 325 5-03 tab, PO, l mg oral 20:17: Daily Crow enteric 00 coated tablet Tylenol 325 Yes 650 mg = 2 Memoria mg oral 5-03 tab, PO, l tablet 20:17: Q6H, PRN Crow 00 pain docusate No 100 mg = 1 Mem oria sodium 100 5-03 cap, PO, l mg oral 20:17: BID [place] capsule 00 ferrous Yes 325 mg = 1 Miguel roe sulfate 325 5-03 tab, PO, l mg oral 20:17: Daily Crow enteric 00 coated tablet cefTRIAXone No Notes: Miguel roe + sterile 5-03 (Same As: l water 10 mL 19:00: Rocephin). Crow 00 MEDICATION WASTE Product Size: 1000 mg Product Wasted: ___ mg cefTRIAXone No Notes: Miguel roe + sterile 5-03 (Same As: l water 10 mL 19:00: Rocephin). Crow 00 MEDICATION WASTE Product Size: 1000 mg Product Wasted: ___ mg cefTRIAXone No Notes: Miguel roe + sterile 5-03 (Same As: l water 10 mL 19:00: Rocephin). Crow 00 MEDICATION WASTE Product Size: 1000 mg Product Wasted: ___ mg cefTRIAXone No Notes: Miguel roe + sterile 5-03 (Same As: l water 10 mL 19:00: Rocephin). Crow 00 MEDICATION WASTE Product Size: 1000 mg Product Wasted: ___ mg cefTRIAXone No Notes: Miguel roe + sterile 5-03 (Same As: l water 10 mL 19:00: Rocephin). Crow 00 MEDICATION WASTE Product Size: 1000 mg Product Wasted: ___ mg cefTRIAXone No Notes: Miguel roe + sterile 5-03 (Same As: l water 10 mL 19:00: Rocephin). Crow 00 MEDICATION WASTE Product Size: 1000 mg Product Wasted: ___ mg polyethylen No Notes: Miguel roe e glycol 5-03 Dissolve l 3350 14:00: in 8 oz of Crow 00 water or juice. (Same as: Miralax) lidocaine 0 No Notes: Memori a 4% topical 5-03 Apply only l film 14:00: once for Crow 00 up to 12 hours in a 24-hour period (12 hours on and 12 hours off). (Same as: Aspercreme Lidocaine Patch) "Remove old patch before applicatio n of new patch" Lovenox 0 No Notes: Memoria 5-03 (Same as: l 14:00: Lovenox) [place] 00 polyethylen 0 No Notes: Miguel roe e glycol 5-03 Dissolve l 3350 14:00: in 8 oz of Crow 00 water or juice. (Same as: Miralax) lidocaine No Notes: Memori a 4% topical 5-03 Apply only l film 14:00: once for [place] 00 up to 12 hours in a 24-hour period (12 hours on and 12 hours off). (Same as: Aspercreme Lidocaine Patch) "Remove old patch before applicatio n of new patch" Lovenox 0 No Notes: Memoria 5-03 (Same as: l 14:00: Lovenox) [place] 00 polyethylen 0 No Notes: Miguel roe e glycol 5-03 Dissolve l 3350 14:00: in 8 oz of Crow 00 water or juice. (Same as: Miralax) lidocaine No Notes: Memori a 4% topical 5-03 Apply only l film 14:00: once for Crow 00 up to 12 hours in a 24-hour period (12 hours on and 12 hours off). (Same as: Aspercreme Lidocaine Patch) "Remove old patch before applicatio n of new patch" Lovenox 0 No Notes: Memoria 5-03 (Same as: l 14:00: Lovenox) [place] 00 polyethylen 0 No Notes: Miguel roe e glycol 5-03 Dissolve l 3350 14:00: in 8 oz of [place] 00 water or juice. (Same as: Miralax) lidocaine 2021-0 No Notes: Memori a 4% topical 5-03 Apply only l film 14:00: once for Crow 00 up to 12 hours in a 24-hour period (12 hours on and 12 hours off). (Same as: Aspercreme Lidocaine Patch) "Remove old patch before applicatio n of new patch" Lovenox No Notes: Memoria 5-03 (Same as: l 14:00: Lovenox) Crow 00 polyethylen No Notes: Miguel roe e glycol 5-03 Dissolve l 3350 14:00: in 8 oz of Crow 00 water or juice. (Same as: Miralax) lidocaine No Notes: Memori a 4% topical 5-03 Apply only l film 14:00: once for Crow 00 up to 12 hours in a 24-hour period (12 hours on and 12 hours off). (Same as: Aspercreme Lidocaine Patch) "Remove old patch before applicatio n of new patch" Lovenox No Notes: Memoria 5-03 (Same as: l 14:00: Lovenox) Crow 00 polyethylen No Notes: Miguel roe e glycol 5-03 Dissolve l 3350 14:00: in 8 oz of Crow 00 water or juice. (Same as: Miralax) lidocaine No Notes: Memori a 4% topical 5-03 Apply only l film 14:00: once for Crow 00 up to 12 hours in a 24-hour period (12 hours on and 12 hours off). (Same as: Aspercreme Lidocaine Patch) "Remove old patch before applicatio n of new patch" Lovenox No Notes: Memoria 5-03 (Same as: l 14:00: Lovenox) Crow 00 oxyCODONE 5 No Notes: Miguel roe mg/5 mL 5-03 (Same l oral 12:52: as:'Roxico Crow solution 00 done) To be drawn up in 3 mL syr oxyCODONE No Notes: Memori a immediate 5-03 (Same as: l release 12:52: Roxicodone Herm stef 00 ) naloxone No Notes: Memoria 5-03 Same as l 12:52: Narcan Crow 00 Electrolyte No Notes: Miguel roe Solution 5-03 (Same as: l 1,000 mL 12:52: Isolyte S Herm stef 00 PH7.4, Normosol-R PH 7.4, Plasma-Lyt e A ) oxyCODONE 5 No Notes: Miguel roe mg/5 mL 5-03 (Same l oral 12:52: as:'Roxico [place] solution 00 done) To be drawn up in 3 mL syr oxyCODONE No Notes: Memori a immediate 5-03 (Same as: l release 12:52: Roxicodone Herm stef 00 ) naloxone No Notes: Memoria 5-03 Same as l 12:52: Narcan [place] 00 Electrolyte No Notes: Miguel roe Solution 5-03 (Same as: l 1,000 mL 12:52: Isolyte S Herm stef 00 PH7.4, Normosol-R PH 7.4, Plasma-Lyt e A ) oxyCODONE 5 No Notes: Miguel roe mg/5 mL 5-03 (Same l oral 12:52: as:'Roxico [place] solution 00 done) To be drawn up in 3 mL syr oxyCODONE No Notes: Memori a immediate 5-03 (Same as: l release 12:52: Roxicodone Herm stef 00 ) naloxone No Notes: Memoria 5-03 Same as l 12:52: Narcan [place] 00 Electrolyte No Notes: Miguel roe Solution 5-03 [...] as: l release 12:52: Roxicodone Herm stef 00 ) naloxone No Notes: Memoria 5-03 Same as l 12:52: Narcan [place] 00 Electrolyte No Notes: Miguel roe Solution 5-03 [...] as: l release 12:52: Roxicodone Herm stef 00 ) naloxone No Notes: Memoria 5- Same as l 12:52: Narcan [place] 00 Electrolyte No Notes: Miguel roe Solution 5-03 (Same as: l 1,000 mL 12:52: Isolyte S Herm stef 00 PH7.4, Normosol-R PH 7.4, Plasma-Lyt e A ) oxyCODONE 5 No Notes: Miguel roe mg/5 mL - (Same l oral 12:52: as:'Roxico Crow solution 00 done) To be drawn up in 3 mL syr oxyCODONE No Notes: Memori a immediate -03 (Same as: l release 12:52: Roxicodone Herm stef 00 ) naloxone No Notes: Memoria - Same as l 12:52: Narcan Crow 00 Electrolyte No Notes: Miguel roe Solution 5-03 [...] Stop date: 08/23/21 7:50:00 CDT, 0 bisacodyl 2021-0 No Notes: Memori a 5-03 (Same As: l 12:51: Dulcolax, [place] Bisco-Lax) ondansetron No Notes: Miguel roe 5-03 (Same as: l 12:51: Zofran) MEDICATION WASTE Product Size: 4 mg Product Wasted: ___ mg melatonin No Notes: Memori a 5-03 (Same as: l 12:51: Melatonin) Dextrose No 12.5 gm, Memor ia 50% Syringe 5-03 25 mL, l (D50W) 12:51: Route: Crow IVP, Drug Form: INJ, kg, PRN, PRN Blood Glucose Results, Start date: 07/24/21 7:51:00 CDT, Duration: 30 day, Stop date: 08/23/21 7:50:00 CDT, 0 glucagon No 1 mg, Memoria 07-24 Route: IM, l 12:51: Drug form: PDR/INJ, PRN, kg, PRN Blood Glucose Results, Start date: 07/24/21 7:51:00 CDT, Duration: 30 day, Stop date: 08/23/21 7:50:00 CDT, 0 bisacodyl No Notes: Memori a 5-03 (Same As: l 12:51: Dulcolax, Crow Bisco-Lax) ondansetron No Notes: Miguel roe 5-03 (Same as: l 12:51: Zofran) MEDICATION WASTE Product Size: 4 mg Product Wasted: ___ mg melatonin No Notes: Memori a 5-03 (Same as: l 12:51: Melatonin) Dextrose No 12.5 gm, Memor ia 50% Syringe 5-03 25 mL, l (D50W) 12:51: Route: [place] 00 IVP, Drug Form: INJ, kg, PRN, PRN Blood Glucose Results, Start date: 07/24/21 7:51:00 CDT, Duration: 30 day, Stop date: 08/23/21 7:50:00 CDT, 0 glucagon No 1 mg, Memoria 5-03 Route: IM, l 12:51: Drug form: [place] 00 PDR/INJ, PRN, kg, PRN Blood Glucose Results, Start date: 07/24/21 7:51:00 CDT, Duration: 30 day, Stop date: 08/23/21 7:50:00 CDT, 0 bisacodyl No Notes: Memori a 5-03 (Same As: l 12:51: Dulcolax, Crow Bisco-Lax) ondansetron No Notes: Miguel roe 5-03 (Same as: l 12:51: Zofran) MEDICATION WASTE Product Size: 4 mg Product Wasted: ___ mg melatonin No Notes: Memori a 5-03 (Same as: l 12:51: Melatonin) Dextrose No 12.5 gm, Memor ia 50% Syringe - 25 mL, l (D50W) 12:51: Route: [place] 00 IVP, Drug Form: INJ, kg, PRN, PRN Blood Glucose Results, Start date: 07/24/21 7:51:00 CDT, Duration: 30 day, Stop date: 08/23/21 7:50:00 CDT, 0 glucagon No 1 mg, Memoria 5-03 Route: IM, l 12:51: Drug form: PDR/INJ, PRN, kg, PRN Blood Glucose Results, Start date: 07/24/21 7:51:00 CDT, Duration: 30 day, Stop date: 08/23/21 7:50:00 CDT, 0 bisacodyl No Notes: Memori a 5-03 (Same As: l 12:51: Dulcolax, [place] Bisco-Lax) ondansetron No Notes: Miguel roe 5-03 (Same as: l 12:51: Zofran) MEDICATION WASTE Product Size: 4 mg Product Wasted: ___ mg melatonin No Notes: Memori a 5-03 (Same as: l 12:51: Melatonin) Dextrose No 12.5 gm, Memor ia 50% Syringe 5-03 25 mL, l (D50W) 12:51: Route: Crow 00 IVP, Drug Form: INJ, kg, PRN, PRN Blood Glucose Results, Start date: 07/24/21 7:51:00 CDT, Duration: 30 day, Stop date: 08/23/21 7:50:00 CDT, 0 glucagon No 1 mg, Memoria 5 Route: IM, l 12:51: Drug form: [place] 00 PDR/INJ, PRN, kg, PRN Blood Glucose Results, Start date: 07/24/21 7:51:00 CDT, Duration: 30 day, Stop date: 08/23/21 7:50:00 CDT, 0 bisacodyl No Notes: Memori a 5-03 (Same As: l 12:51: Dulcolax, Bisco-Lax) ondansetron No Notes: Miguel roe 5-03 (Same as: l 12:51: Zofran) MEDICATION WASTE Product Size: 4 mg Product Wasted: ___ mg melatonin No Notes: Memori a 5-03 (Same as: l 12:51: Melatonin) Dextrose No 12.5 gm, Memor ia 50% Syringe 5-03 25 mL, l (D50W) 12:51: Route: [place] 00 IVP, Drug Form: INJ, kg, PRN, PRN Blood Glucose Results, Start date: 07/24/21 7:51:00 CDT, Duration: 30 day, Stop date: 08/23/21 7:50:00 CDT, 0 glucagon No 1 mg, Memoria 5-03 Route: IM, l 12:51: Drug form: [place] 00 PDR/INJ, PRN, kg, PRN Blood Glucose Results, Start date: 07/24/21 7:51:00 CDT, Duration: 30 day, Stop date: 08/23/21 7:50:00 CDT, 0 bisacodyl No Notes: Memori a 5- (Same As: l 12:51: Dulcolax, [place] 00 Bisco-Lax) ondansetron No Notes: Miguel roe 07-24 (Same as: l 12:51: Zofran) [place] 00 MEDICATION WASTE Product Size: 4 mg Product Wasted: ___ mg melatonin No Notes: Memori a - (Same as: l 12:51: Melatonin) [place] acetaminoph No Notes: Max Memoria en 5-03 acetaminop l 12:50: hen 4000 [place] 00 mg/day (4 gm/day). (Same as: Tylenol Extra Strength) acetaminoph No Notes: Max Memoria en 5-03 acetaminop l 12:50: hen 4000 Crow 00 mg/day (4 gm/day). (Same as: Tylenol Extra Strength) acetaminoph No Notes: Max Memoria en 5-03 acetaminop l 12:50: hen 4000 [place] 00 mg/day (4 gm/day). (Same as: Tylenol Extra Strength) acetaminoph No Notes: Max Memoria en 5-03 acetaminop l 12:50: hen 4000 Crow 00 mg/day (4 gm/day). (Same as: Tylenol Extra Strength) acetaminoph No Notes: Max Memoria en 5-03 acetaminop l 12:50: hen 4000 [place] 00 mg/day (4 gm/day). (Same as: Tylenol Extra Strength) acetaminoph No Notes: Max Memoria en 5-03 acetaminop l 12:50: hen 4000 [place] 00 mg/day (4 gm/day). (Same as: Tylenol Extra Strength) spironolact Yes 25mg QD Take 25 mg [facility] one 3-[address] (ALDACTONE) 12:10: daily. Hosp bib 25 MG 03 l tablet traMADoL 2022-0 Yes 00413 50mg Q12H Take 50 mg [facility] (ULTRAM) 50 3-[address] mg tablet 12:10: every 12 Hosp bib 03 (twelve) l hours as needed for moderate pain .acute pain. traMADoL 2-0 Yes 53340 100mg Q.5D Take 100 [facility] (ULTRAM) [...] tablet 03 times a l day. rivaroxaban 2-0 Yes 20mg Take 20 mg [facility] (XARELTO) 3-[address] 20 mg 12:10: Hospita tablet 03 l senna 2021-0 Yes 1{tbl} QD Take 1 [facility] (SENOKOT) 3-[address] 8.6 mg 12:10: mouth [facility]osp[facility] tablet 03 daily. l spironolact 2021-0 Yes 25mg QD Take 25 mg [facility] one 3-[address] (ALDACTONE) 12:10: daily. Hosp bib 25 MG 03 l tablet traMADoL 2-0 Yes [id number] 50mg Q12H Take 50 mg [facility] (ULTRAM) 50 3-[address] mg tablet 12:10: every 12 Hosp bib 03 (twelve) l hours as needed for moderate pain .acute pain. traMADoL 2-0 Yes [id number] 100mg Q.5D Take 100 [facility] (ULTRAM) [...] tablet 03 times a l day. rivaroxaban 2021-0 Yes 20mg Take 20 mg [facility] (XARELTO) 3-[address] 20 mg 12:10: Hospita tablet 03 l senna 2021-0 Yes 1{tbl} QD Take 1 [facility] (SENOKOT) 3-[address] 8.6 mg 12:10: mouth [facility]osp[facility] tablet 03 daily. l spironolact 2021-0 Yes 25mg QD Take 25 mg [facility] one 3-[address] (ALDACTONE) 12:10: daily. Hosp bib 25 MG 03 l tablet traMADoL 2021-0 Yes [id number] 50mg Q12H Take 50 mg [facility] (ULTRAM) 50 3-[address] mg tablet 12:10: every 12 Hosp bib 03 (twelve) l hours as needed for moderate pain .acute pain. traMADoL 2021-0 Yes [id number] 100mg Q.5D Take 100 [facility] (ULTRAM) 50 3-[address] mg tablet 12:10: mouth 2 Hospi ta 03 (two) l times a day .acute pain. mirtazapine 2021-0 Yes 45mg QD Take 45 mg [facility] (REMERON) 3-[address] 15 MG 12:10: nightly. Hospita tablet 03 l memantine 2021-0 Yes 10mg Q.5D Take 10 mg [facility] (NAMENDA) 3-[address] 10 MG 12:10: (two) [facility]ospita tablet 03 times a l day. rivaroxaban 2021-0 Yes 20mg Take 20 mg [facility] (XARELTO) 3-[address] 20 mg 12:10: Hospita tablet 03 l senna 2021-0 Yes 1{tbl} QD Take 1 [facility] (SENOKOT) 3-[address] 8.6 mg 12:10: mouth [facility]osp[facility] tablet 03 daily. l minocycline 2021-0 2021- No 100mg Q.5D Take 1 [facility] (DYNACIN) 3-04 03-[address] 100 MG 00:00: 05:59 (100 mg Hospita tablet 00 :00 total) by l mouth 2 (two) times a day for 5 days. minocycline 2021-0 2021- No 100mg Q.5D Take 1 [facility] (DYNACIN) 3-04 03-[address] 100 MG 00:00: 05:59 (100 mg Hospita tablet 00 :00 total) by l mouth 2 (two) times a day for 5 days. minocycline 0 100mg Q.5D Take 1 [facility] (DYNACIN) 3-04 03-[address] 100 MG 00:00: 05:59 (100 mg Hospita tablet 00 :00 total) by l mouth 2 (two) times a day for 5 days. Immunizations Ordered Filled Immunization Date Status Comments [facility] e Immunization Name Name SARS-COV-2 COVID-19 2022-03-07 Completed [facility]ARG[facility] 00:[facility] [place] [facility] BIVALENT 0.3ML, IM, (PFIZER [place] TOP BOOSTER) SARS-COV-2 COVID-19 2022-03-07 Completed [facility] rs[facility] of MARGARET-SUCROSE 00:00:00 [place] [facility] VACCINE 12 Y[facility] Branch BIVALENT 0.3ML, IM, (PFIZER [place] TOP BOOSTER) Influenza High Dose 2021-12-19 Completed Unive rsity of Quad 00:00:00 [facility] Pneumococcal 20 2021-12-19 Completed Universit y of Conjugate, PCV20 00:00:00 [facility] dical (Prevnar 20) Branch Influenza High Dose 2021-12-19 Completed Unive rsity of Quad 00:00:00 [facility] Pneumococcal 20 2021-12-19 Completed Universit y of Conjugate, PCV20 00:00:00 [facility] dical (Prevnar 20) Branch Influenza Virus 2021-01-17 Completed [facility] of Vaccine,quad 00:00:00 [place] [facility] Im,preserve Free [facility] 65+ Influenza Virus 2021-01-17 Completed [facility] Vaccine,quad 00:00:00 [place] [facility] Im,preserve Free [facility] 65+ SARS-COV-2 COVID-19 2020-04-19 Completed Unive rsity of PFIZER VACCINE 00:00:00 [facility] SARS-COV-2 COVID-19 2020-04-19 Completed Unive rsity of PFIZER VACCINE 00:00:00 [facility] SARS-COV-2 COVID-19 2020-03-29 Completed Unive rsity of PFIZER VACCINE 00:00:00 [facility] SARS-COV-2 COVID-19 2020-03-29 Completed Unive rsity of PFIZER VACCINE 00:00:00 [facility] Branch Pneumococcal 2019-12-30 Completed University o f Polysaccharide, 00:00:00 [place] [facility] PPSV23 (PNEUMOVAX) Branch Pneumococcal 2019-12-30 Completed University o f Polysaccharide, 00:00:00 [place] [facility] PPSV23 (PNEUMOVAX) Branch Pneumococcal 13 2019-01-08 Completed Universit y of Conjugate, PCV13 00:00:00 [facility] dical (Prevnar 13) Branch Pneumococcal 13 2019-01-08 Completed Universit y of Conjugate, PCV13 00:00:00 [facility] dical (Prevnar 13) Branch Pneumococcal 2015-02-09 Completed University o f Polysaccharide, 00:00:00 [place] [facility] PPSV23 (PNEUMOVAX) Branch Pneumococcal 2015-02-09 Completed University o f Polysaccharide, 00:00:00 [place] [facility] PPSV23 (PNEUMOVAX) Branch Vital Signs Vital Name Observation Time Observation Value Comments Source Systolic blood 2022-06-20 16:12:00 102 mm[Hg] [facility] pressure [facility] Diastolic blood 2022-06-20 16:12:00 49 mm[Hg] [facility] of pressure [facility] Heart rate 2022-06-20 16:12:00 71 /min [facility] Oxygen saturation in 2022-06-20 16:12:00 96 /min [facility] Arterial blood by [facility] Pulse oximetry [place] Body temperature 2022-06-20 13:00:00 36.94 [place] [facility] Res[facility] rate 2022-06-20 13:00:00 18 /min [facility] Body weight 2022-06-20 08:56:00 69.491 kg [facility] BMI 2022-06-20 08:56:00 20.78 kg/m2 [facility] Body height 2022-06-19 05:05:00 182.9 cm [facility] Respitory Rate 2021-07-31 14:00:00 Dylan Holliday Systolic (mm Hg) 2021-07-31 14:00:00 Miguel rial [place] Diastolic (mm Hg) 2021-07-31 14:00:00 Mem orial [facility] Temperature Oral (F) 2021-07-31 13:25:00 96.5 F [facility] Respitory Rate 2021-07-31 13:00:00 Memori al [facility] Systolic (mm Hg) 2021-07-31 13:00:00 Miguel rial [facility] Diastolic (mm Hg) 2021-07-31 13:00:00 Mem orial [facility] Respitory Rate 2021-07-31 12:00:00 Memori al [place] Systolic (mm Hg) 2021-07-31 12:00:00 Miguel rial [facility] Diastolic (mm Hg) 2021-07-31 12:00:00 Mem orial [facility] Temperature Oral (F) 2021-07-30 20:03:00 97.7 F [facility] Temperature Oral (F) 2021-07-30 16:15:00 97.2 F [facility] Respitory Rate 2021-07-30 06:00:00 Memori al [facility] Systolic (mm Hg) 2021-07-30 06:00:00 Miguel rial [place] Diastolic (mm Hg) 2021-07-30 06:00:00 Mem [facility]rial [facility] Respitory Rate 2021-07-30 05:00:00 Memori al [place] Systolic (mm Hg) 2021-07-30 05:00:00 Miguel rial [place] Diastolic (mm Hg) 2021-07-30 05:00:00 Mem orial [facility] Temperature Oral (F) 2021-07-30 04:41:00 97.6 F [facility] Respitory Rate 2021-07-30 04:00:00 Memori al [place] Systolic (mm Hg) 2021-07-30 04:00:00 Miguel rial [place] Diastolic (mm Hg) 2021-07-30 04:00:00 Mem orial [place] Temperature Oral (F) 2021-07-29 09:41:00 97.9 F [facility] Temperature Oral (F) 2021-07-29 01:07:00 98.0 F [facility] Heart Rate 2021-07-26 16:25:43 [facility] Heart Rate 2021-07-26 16:25:35 [facility] Heart Rate 2021-07-26 13:20:00 [facility] Weight 2021-07-25 13:40:00 [facility] Height 2021-07-24 21:57:00 182.88 cm [facility] Weight 2021-07-24 21:57:00 [facility] BMI Calculated 2021-07-24 21:57:00 Dylan [facility] Systolic blood 2021-05-25 17:15:00 107 mm[Hg] [facility] pressure Diastolic blood 2021-05-25 17:15:00 57 mm[Hg] [facility] pressure Heart rate 2021-05-25 17:15:00 70 /min [facility] Respiratory rate 2021-05-25 17:15:00 20 /min [facility] Oxygen saturation in 2021-05-25 17:15:00 94 /min [facility] Arterial blood by Pulse oximetry Body temperature 2021-05-25 15:08:00 35.94 Kalli [facility] Body height 2021-05-25 11:46:00 182.9 cm [facility] Body weight 2021-05-25 11:46:00 67.631 kg [facility] BMI 2021-05-25 11:46:00 20.22 kg/m2 [facility] Procedures Procedure Date / Time Performing Clinician Source Performed COVID-19 (ID NOW RAPID 2022-06-20 16:56:00 Erik Reynolds [facility] TESTING Medical Branch CBC WITH DIFF 2022-06-20 09:47:00 [facility] N-TERMINAL PRO-BNP 2022-06-20 09:47:00 [facility] 2022-06-19 13:57[facility]OLIC [facility]EL 2022-06-19 [facility]:57[facility], K, CL, CO2, GLUCOSE, Medica l Branch BUN, CREATININE, CA) CBC WITH DIFF 2022-06-19 13:57:00 [facility] PROCALCITONIN 2022-06-19 13:57:00 Edionwe, [facility] DICKSON AURIS 2022-06-19 02:15:00 [facility] SURVEILLANCE BY PCR Medical Bran ch (INFECTION CONTROL PURPOSES) FREE T4 2022-06-19 01:03:00 Noe Nugent [facility] THYROID STIMULATING 2022-06-19 01:03:00 Noe Nugent [facility] HORMONE [facility] COMP. METABOLIC PANEL 2022-06-19 01:03:00 Noe Nugent [facility] ([id number]) [facility] CT ABDOMEN PELVIS WO 2022-06-18 23:56:24 Noe Nugent [facility] CONTRAST [facility] CT HEAD WO CONTRAST 2022-06-18 23:56:24 Raffi Noe [facility] THORAX WO CONTRAST 2022-06-18 23:56:[address] [facility] HB ECG ROUTINE & RHYTHM 2022-06-18 22:38:10 Noe Nugent [facility] STRIP [facility] XR CHEST 1 VW 2022-06-18 22:30:51 Noe Nugent [facility] URINALYSIS 2022-06-18 22:18:00 aRffi Noe [facility] AC PANEL 21 + LACTIC ACID 2022-06-18 22:08:00 [facility] LIPASE 2022-06-18 22:07:00 Noe Nugent [facility] TROPONIN I 2022-06-18 22:07:00 Noe Nugent [facility] CBC WITH DIFF 2022-06-18 22:07:00 Noe Nugent [facility] PROTHROMBIN TIME / INR 2022-06-18 22:07:00 Noe Nugent [facility] ACTIVATED PARTIAL 2022-06-18 22:07:00 Noe Nugent [facility] THRMPLAS [facility] N-TERMINAL PRO-BNP 2022-06-18 22:07:00 Noe Nugent [facility] COVID-19 (ID NOW RAPID 2022-06-18 22:07:00 Noe Nugent [facility] TESTING) Medical Branch LAB ONLY COVID 2022-06-18 22:07:00 Noe Nugent [facility] EP PPI GENERATOR CHANGE 2021-05-25 14:42:00 [facility] ECG 12-LEAD 2021-05-25 12:45:14 Anand, [facility] spital TYPE AND SCREEN 2021-05-25 12:07:00 Anand, [facility] spital COVID-19 QUALITATIVE 2021-05-24 16:54:00 [facility], [facility] RT-PCR COMPREHENSIVE METABOLIC 2021-05-24 16:48:00 [facility] PANEL HC COMPLETE BLD COUNT 2021-05-24 16:48:00 [facility] W/AUTO DIFF MAGNESIUM LEVEL 2021-05-24 16:48:00 [facility], [facility] spital PROTHROMBIN TIME WITH INR 2021-05-24 16:48:00 [facility] ESTIMATED GFR 2021-05-24 16:48:00 [facility], [facility] Plan of Care Planned Activity Planned Date Details Comments Source Future Scheduled 2022-03-07 SHINGLES VACCINES (1 [facility] Test 06:31:01 of 2) [code = SHINGLES VACCINES (1 of 2)] Future Scheduled 2022-03-07 65+ PNEUMOCOCCAL [facility] Test 06:31:01 VACCINE (1 - PCV) [code = 65+ PNEUMOCOCCAL VACCINE (1 - PCV)] Future Scheduled 2022-03-07 COVID-19 VACCINE ([address] [place] [address] Test 06:31:01 Booster for Pfizer series) [code = COVID-19 VACCINE (4 - Booster for Pfizer series)] Future Scheduled 2022-03-07 INFLUENZA VACCINE [facility] Test 06:31:01 [code = INFLUENZA VACCINE] Future Scheduled 2022-03-07 SHINGLES VACCINES (1 [facility] Test 06:31:01 of 2) [code = SHINGLES VACCINES (1 of 2)] Future Scheduled 2022-03-07 65+ PNEUMOCOCCAL [facility] Test 06:31:01 VACCINE (1 - PCV) [code = 65+ PNEUMOCOCCAL VACCINE (1 - PCV)] Future Scheduled 2022-03-07 COVID-19 VACCINE ([facility] Test 06:31:01 Booster for Pfizer series) [code = COVID-19 VACCINE (4 - Booster for Pfizer series)] Future Scheduled 2022-03-07 INFLUENZA VACCINE [facility] Test 06:31:01 [code = INFLUENZA VACCINE] Future Scheduled 2022-01-24 HEPATITIS B VACCINES [facility] Test 12:09:10 (1 of 3 - 3-dose series) [code = HEPATITIS B VACCINES (1 of 3 - 3-dose series)] Future Scheduled 2022-01-24 SHINGLES VACCINES (1 [facility] Test 12:09:10 of 2) [code = SHINGLES VACCINES (1 of 2)] Future Scheduled 2022-01-24 65+ [facility]OCOCCAL [facility] Test 12:09:10 VACCINE (1 - PCV) [code = 65+ PNEUMOCOCCAL VACCINE (1 - PCV)] Future Scheduled 2022-01-24 COVID-19 VACCINE (4 - [facility] Test 12:09:10 Booster for Pfizer series) [code = COVID-19 VACCINE (4 - Booster for Pfizer series)] Future Scheduled 2022-01-24 INFLUENZA VACCINE [facility] Test 12:09:10 [code = INFLUENZA VACCINE] Encounters Start End Encounter Admission Attending Care Care Encounter Source Date/Time Date/Time Type Type Clinicians Facility Department ID 2021-09-05 Outpatient [facility] [id number] [place] 10:22:04 [id number] Health 2022-06-21 2022-06-21 Transition RUEL Parker [id number] Univers 00:00:00 00:00:00 of Care Woo OROZCO 350.1.13.10 ity of CARLOS A 4.2.7.2.686 [facility] [id number] [facility] 403 Branch 2022-06-18 2022-06-20 Hospital Noe Nugent [facility] 1.2.840.1 [id number] Univers 16:29:00 15:00:00 Encounter Waylon Larson 350.1.13.10 ity of Landen Mcqueen 4.2.7.2.686 [facility] [id number] [facility] alejandrina 081 Branch 2022-06-18 2022-06-20 Inpatient X [facility] [id number] Univers 16:29:00 15:00:00 WAYLON lopez of [facility] 2021-08-06 2021-08-06 Telephone Pcp, [facility] [id number] Univers 00:00:00 00:00:00 Patient HEALTH 350.1.13.10 it y of Does Not [place]BLEA [id number] Mt dical [address] MEDICAL OFFICE [facility] 2021-07-24 2021-07-31 Inpatient [facility] [id number] Memoria 03:57:00 15:15:[address] 2021-07-24 2021-07-31 Inpatient [facility] [id number] Memoria 03:57:00 15:15:[address] 2021-07-24 2021-07-31 Inpatient E ONYEMA, [facility] [id number] [facility] 06:32:00 10:15:00 [facility] 2021-07-23 2021-07-31 [facility] [id number] 22:57:00 10:15:00 [facility]-07[facility]23 2021-07-31 Outpatient Onyema, [facility] [id number] 221 22:57:00 10:15:00 [facility] 2021-07-26 2021-07-26 Outpatient ERIC, [facility] [id number] [place] 08:30:00 08:30:00 [facility] 2021-07-23 2021-07-23 Outpatient Onyema, [facility] [id number] 22:57:00 22:57:00 [facility] 2021-05-25 2021-05-25 Hospital [facility], 1.2.840.1 [id number] Methodi 05:26:00 12:10:00 Encounter Sherry [id number] 3.430.2.7 Hospit a .3.107645 l .8 2021-05-25 2021-05-25 Surgery Anand, 1.2.840.1 [id number] Methodi 07:30:00 09:30:[address] 3.430.2.7 Hospit a .3.474405 l .8 2021-05-25 2021-05-25 Anesthesia Eyla Moreno V. 1.2.840.1 [id number] Methodi 07:28:00 09:05:00 Event Joel Mendoza 56413.1.[address] 3.430.2.7 Hospit a .3.503586 l .8 2021-05-25 2021-05-25 Travel 1.2.840.1 1.2.650.361 [id number] Methodi 00:00:00 00:00:[address] 3.430.2.7 0.2.7.3.698 Ho spita .3.952199 084.8 l .8 2021-05-24 2021-05-24 Lab Anand, 1.2.840.1 [id number] Methodi 10:25:00 10:30:[address] 3.430.2.7 Hospit a .3.898417 l .8 2021-05-24 2021-05-24 Travel 1.2.840.1 1.2.749.806 [id number] Methodi 00:00:00 00:00:[address] 3.430.2.7 0.2.7.3.698 Ho spita .3.327331 084.8 l .8 2021-05-21 2021-05-21 Community Anand, 1.2.840.1 [id number] Methodi 00:00:00 00:00:00 Orders Nadim 37781.1.[address] 3.430.2.7 Hospit a .3.221137 l .8 Results Test Description Test Time Test Comments Results Result Comments Source THYROID STIMULATING HORMONE 2022-06-19 01:52:38 Test Item Value Reference Range Interpretation Comme nts TSH (test code = 2258676008) 8.64 See_Comment H [Automated message] The system which generated this result transmitted ref erence range: 0.45 - 4.70 mIU /L. The reference range was not u sed to interpret this result as normal/abnormal. Lab Interpretation (test code Abnormal = 75728-0) [facility] [id number] 01:38:33 Test Item Value Reference Range Interpretation Comments FREE T4 (test code = 1.12 See_Comment [Autom ated message] [id number]) The system whic h generated this result transmitted ref erence range: 0.78 - 2 .20 ng/dL:. The ref erence range was not u sed to interpret this result as normal/abnor mal. Lab Interpretation (test Normal code = 58299-9) [facility]. METABOLIC PANEL (85869)2022-06-19 01:21:56 Test Item Value Reference Range Interpretation Comments NA (test code = 133 mmol/L 135-145 L 0213672015) K (test code = 3.8 mmol/L 3.5-5.0 7591695031) CL (test code = 96 mmol/L 98-108 L 9619948378) CO2 TOTAL (test code = 36 mmol/L 23-31 H 6170800733) AGAP (test code = 1 2-16 L 5398323798) BUN (test code = 35 mg/dL 7-23 H 3717847185) GLUCOSE (test code = 95 mg/dL 70-110 6153709573) CREATININE (test code = 0.63 mg/dL 0.50-1.04 9289791379) TOTAL BILI (test code = 0.6 mg/dL 0.1-1.1 5664517114) CALCIUM (test code = 7.6 mg/dL 8.6-10.6 L 0288945336) T PROTEIN (test code = 5.0 g/dL 6.3-8.2 L 4204940066) ALBUMIN (test code = 2.4 g/dL 3.5-5.0 L 3986332968) ALK PHOS (test code = 101 U/L 34-122 4489665869) ALTv (test code = 14 U/L 5-35 1742-6) AST(SGOT) (test code = 25 U/L 13-40 8196449120) eGFR (test code = 89.4 mL/min/1.73m2 4140956842) SHIRIN (test code = SHIRIN) Association of Glomerular Filtration Rate (GFR) and Staging of Kidney Disease* + --+ --+ ------+| GFR (mL/min/1.73 m2) ?| With Kidney Damage ?| ?Without Kidney Damage+ --------+ --------+ +| ?>90 ?| ?Stage one ?| ? Normal ?+ ---+ ---+ -------+| ?60-89 ?| ?Stage two ?| ? Decreased GFR ? + --+ --+ ------+| ?30-59 ?| ?Stage three ?| ? Stage three ? + --+ --+ ------+| ?15-29 ?| ?Stage four ? | ? Stage four ?+ ---+ ---+ -------+| ?<15 (or dialysis) ? ?| ?Stage five ? | ? Stage five ?+ ---+ ---+ -------+ *Each stage assumes the associated GFR level has been in effect for at least three months. ?Stages 1 to 5, with or without kidney disease, indicate chronic kidney disease. Notes: Determination of stages one and two (with eGFR >59mL/min/1.73 m2) requires estimation of kidney damage for at least three months as defined by structural or functional abnormalities of the kidney, manifested by either:Pathological abnormalities or Markers of kidney damage (including abnormalities in the composition of the blood or urine or abnormalities in imaging tests). Lab Interpretation Abnormal (test code = 15014-8) [facility] [id number] 00:45:50 Test Item Value Reference Range Interpretation Comments TROPONIN I (test code = 0.028 ng/mL <=0.034 1527078552) SHIRIN (test code = SHIRIN) Reference (Normal) Range (defined by the 99th percentile reference limit): <= 0.034 ng/mL Note: Cardiac troponin begins to rise 3-4 hours after the onset of ischemia. Repeat in 4-6 hours if the sample was drawn within 3-4 hours of the onset of the symptom and found normal. Diagnosis of myocardial injury is made with acute changes in cTn concentrations with at least one serial sample above the 99th percentile upper reference limit (URL), taken together with the patient's clinical presentation. Biotin has been reported to cause a negative bias, interpret results relative to patient's use of biotin. Lab Interpretation Normal (test code = 91266-9) [facility]MINAL [id number] 00:42:53 Test Item Value Reference Range Interpretation Comments NT-proBNP (test code = 2750 pg/mL <=450 H 8739458406) SHIRIN (test code = SHIRIN) Biotin has been reported to cause a negative bias, interpret results relative to patient's use of biotin. Lab Interpretation (test Abnormal code = 10130-0) [facility]LIPASE2023-03-29 00:33:10 Test Item Value Reference Range Interpretation Comments LIPASE (test code = 6680719780) 26 U/L 0-220 Lab Interpretation (test code = Normal 27812-4) [facility] THRMPLAS [id number] 22:54:38 Test Item Value Reference Range Interpretation Comments APTT Patient (test 31 See_Comment [Automat ed code = 3173-2) message] The system which generated this result transmitted reference range : 23 - 38 Seconds . The reference range was not used to interpr et this result as normal/abnormal . SHIRIN (test code = SHIRIN) The [facility] patient population mean normal value for aPTT is 30 seconds. Lab Interpretation Normal (test code = 31771-5) [facility] CampusPROTHROMBIN TIME / [id number] 22:47:40 Test Item Value Reference Range Interpretation Comments PROTIME PATIENT (test 14.2 See_Comment [Auto mated message] code = 5964-2) The system wh ich generated this result transmitted ref erence range: 12.0 - 1 4.7 Seconds. The re ference range was not u sed to interpret this result as normal/abnor mal. INR (test code = 6301-6) 1.1 Nor mal INR <1.1; Warfarin Therap eutic range 2.0 to 3. 0 or 2.5 to 3.5, dep ending upon the indica tions. Lab Interpretation (test Normal code = 93586-8) [facility] WITH [id number] 22:23:16 Test Item Value Reference Range Interpretation Comments WBC (test code = 7.49 See_Comment [Automated 6690-2) message] The sy stem which generated this result transmitted reference range : 4.30 - 11.10 10*3/?L. The reference range was not used to interpret this result as normal/abnormal . RBC (test code = 4.53 See_Comment [Automated 789-8) message] The sy stem which generated this result transmitted reference range : 3.93 - 5.25 10*6/?L. The reference range was not used to interpret this result as normal/abnormal . HGB (test code = 12.0 g/dL 11.6-15.0 718-7) HCT (test code = 39.4 % 35.7-45.2 4544-3) MCV (test code = 87.0 fL 80.6-95.5 787-2) MCH (test code = 26.5 pg 25.9-32.8 785-6) MCHC (test code = 30.5 g/dL 31.6-35.1 L 786-4) RDW-SD (test code = 55.8 fL 39.0-49.9 H 17735-5) RDW-CV (test code = 18.2 % 12.0-15.5 H 788-0) PLT (test code = 300 See_Comment [Automated 777-3) message] The sy stem which generated this result transmitted reference range : 166 - 358 10*3/ ?L. The reference r daysi was not used to interpret this result as normal/abnormal . MPV (test code = 9.4 fL 9.5-12.9 L 88049-4) NRBC/100 WBC (test 0.0 See_Comment [Automat ed code = 2268908409) message] The system which generated this result transmitted reference range : 0.0 - 10.0 /100 WBCs. The refer ence range was not u sed to interpret th is result as normal/abnormal . NRBC x10^3 (test code See_Comment [Auto mated = 0365681094) message] The s ystem which generated this result transmitted reference range : 10*3/?L. The reference range was not used to interpret this result as normal/abnormal . GRAN MAT (NEUT) % 56.8 % (test code = 770-8) IMM GRAN % (test code 0.30 % = 3133617192) LYMPH % (test code = 33.1 % 736-9) MONO % (test code = 9.1 % 5905-5) EOS % (test code = 0.3 % 713-8) BASO % (test code = 0.4 % 706-2) GRAN MAT x10^3(ANC) 4.26 10*3/uL 1.88-7.09 (test code = 4497150971) IMM GRAN x10^3 (test 0.00-0.06 code = 7270707086) LYMPH x10^3 (test code 2.48 10*3/uL 1.32-3.29 = 731-0) MONO x10^3 (test code 0.68 10*3/uL 0.33-0.92 = 742-7) EOS x10^3 (test code = 0.03-0.39 L 711-2) BASO x10^3 (test code 0.03 10*3/uL 0.01-0.07 = 704-7) Lab Interpretation Abnormal (test code = 77796-4) [facility] CampusIMMUNOLOGY2022-05-09 15:54:00 Test Item Value Reference Range Interpretation Comments Coronavirus (COVID-19) Not Detected (07/30/21 JOHANNE (test code = 10:54 AM) Coronavirus (COVID-19) JOHANNE) [facility] SpringsHgtfqbiOBGYOVFKVW6943-92-67 15:54:00 Test Item Value Reference Range Interpretation Comments Coronavirus (COVID-19) Not Detected (07/30/21 JOHANNE (test code = 10:54 AM) Coronavirus (COVID-19) JOHANNE) [facility] SpringsCyjymvbUCAQYQEDGQ3433-32-72 15:54:00 Test Item Value Reference Range Interpretation Comments Coronavirus (COVID-19) Not Detected (07/30/21 JOHANNE (test code = 10:54 AM) Coronavirus (COVID-19) JOHANNE) [facility] SpringsDhppdbdMXLFSIZHCC4131-55-20 15:54:00 Test Item Value Reference Range Interpretation Comments Coronavirus (COVID-19) Not Detected (07/30/21 JOHANNE (test code = 10:54 AM) Coronavirus (COVID-19) JOHANNE) [facility]huzoiSPUPOGXHRN5124-86-12 15:54:00 Test Item Value Reference Range Interpretation Comments Coronavirus (COVID-19) Not Detected (07/30/21 JOHANNE (test code = 10:54 AM) Coronavirus (COVID-19) JOHANNE) [facility] CenterSeyaxiyOYJOCTQPTV3898-04-80 15:54:00 Test Item Value Reference Range Interpretation Comments Coronavirus (COVID-19) Not Detected (07/30/21 JOHANNE (test code = 10:54 AM) Coronavirus (COVID-19) JOHANNE) [facility] HospitalYbmmsqsPZTOVNGICK6896-03-38 15:37:00 Test Item Value Reference Range Interpretation Comments Segs (test code = Segs) 70.2 45.0-75.0 [facility] HospitalBcqiczaVAQTEEVOPS9606-84-03 15:37:00 Test Item Value Reference Range Interpretation Comments Lymphocytes (test code = Lymphocytes) 17.5 20.0-40.0 [place] [id number] 15:37:00 Test Item Value Reference Range Interpretation Comments Monocytes (test code = Monocytes) 10.0 2.0-12.0 [facility] HospitalByrycyaXAQSBHIZAC5719-64-96 15:37:00 Test Item Value Reference Range Interpretation Comments Eosinophils (test code = 1.7 See_Comment [A utomated message] The Eosinophils) system which ge nerated this result tra nsmitted reference range : <=4.0. The reference r daysi was not used to int erpret this result as normal/abnormal . [facility] HospitalOnevuzaQQADSBAETJ6741-71-09 15:37:00 Test Item Value Reference Range Interpretation Comments Basophils (test code = 0.6 See_Comment [Aut omated message] The Basophils) system which ge nerated this result tra nsmitted reference range : <=1.0. The reference r daysi was not used to int erpret this result as normal/abnormal . [place] [id number] 15:37:00 Test Item Value Reference Range Interpretation Comments Neutrophils # (test code = Neutrophils 4.6 1.5-8.1 #) [facility] HospitalZqibndgQXMRMROGIG8963-92-50 15:37:00 Test Item Value Reference Range Interpretation Comments Lymphocytes # (test code = Lymphocytes 1.2 1.0-5.5 #) [facility] SpringsBscvukySJOWLFPLMJ0294-71-77 15:37:00 Test Item Value Reference Range Interpretation Comments Monocytes # (test code 0.7 See_Comment [Aut omated message] The = Monocytes #) system which generated this result tra nsmitted reference range : <=0.8. The reference r daysi was not used to int erpret this result as normal/abnormal . [facility] SpringsTcstemuIIJSYEGRZR7440-24-44 15:37:00 Test Item Value Reference Range Interpretation Comments Eosinophils # (test code 0.1 See_Comment [A utomated message] The = Eosinophils #) system whic h generated this result tra nsmitted reference range : <=0.5. The reference r daysi was not used to int erpret this result as normal/abnormal . [facility] [address] OHKQCDZ4091-02-59 15:37:00 Test Item Value Reference Range Interpretation Comments ABO/Rh (test code = ABO/Rh) O POS [facility] [address] ZYNOVFM4692-69-13 15:37:00 Test Item Value Reference Range Interpretation Comments Antibody Scrn (test Negative (07/29/21 10:37 code = Antibody Scrn) AM) [facility] SpringsMxycdmdYWEMTVZBZE2236-54-58 15:37:00 Test Item Value Reference Range Interpretation Comments WBC (test code = WBC) 6.6 3.7-10.4 [facility]KndljdnPCHSMKHYOJ9375-17-28 15:37:00 Test Item Value Reference Range Interpretation Comments RBC (test code = RBC) 2.90 4.20-5.40 [facility] HospitalUktwykpIIDDMATEKO0076-45-86 15:37:00 Test Item Value Reference Range Interpretation Comments Hgb (test code = Hgb) 8.3 12.0-16.0 [facility] HospitalDkifldkRIQZNLWEGW1762-32-99 15:37:00 Test Item Value Reference Range Interpretation Comments Hct (test code = Hct) 25.4 36.0-48.0 [facility] HospitalPfbqrhdZOVZMBTQHI6987-41-36 15:37:00 Test Item Value Reference Range Interpretation Comments MCV (test code = MCV) 87.5 80.0-98.0 [facility]wdtusnSTZUEZONWY4947-49-91 15:37:00 Test Item Value Reference Range Interpretation Comments MCH (test code = MCH) 28.6 pg 27.0-31.0 [place]642-05-08 15:37:00 Test Item Value Reference Range Interpretation Comments MCHC (test code = MCHC) 32.7 32.0-36.0 [place] 473642-05-08 15:37:00 Test Item Value Reference Range Interpretation Comments RDW (test code = RDW) 13.7 11.5-14.5 [place] 473642-05-08 15:37:00 Test Item Value Reference Range Interpretation Comments Platelet (test code = Platelet) 166 133-450 [place] 473642-05-08 15:37:00 Test Item Value Reference Range Interpretation Comments MPV (test code = MPV) 8.7 7.4-10.4 [place] [address]-05-08 15:37:00 Test Item Value Reference Range Interpretation Comments Segs (test code = Segs) 70.2 45.0-75.0 [facility] HospitalZcnrhclUIFKHEVLVA7963-60-91 15:37:00 Test Item Value Reference Range Interpretation Comments Lymphocytes (test code = Lymphocytes) 17.5 20.0-40.0 [place] [address]-05-08 15:37:00 Test Item Value Reference Range Interpretation Comments Monocytes (test code = Monocytes) 10.0 2.0-12.0 [place] [address]-05-08 15:37:00 Test Item Value Reference Range Interpretation Comments Eosinophils (test code = 1.7 See_Comment [A utomated message] The Eosinophils) system which ge nerated this result tra nsmitted reference range : <=4.0. The reference r daysi was not used to int erpret this result as normal/abnormal . [facility] HospitalXuiacdxIGRRYLFJIN5321-83-98 15:37:00 Test Item Value Reference Range Interpretation Comments Basophils (test code = 0.6 See_Comment [Aut omated message] The Basophils) system which ge nerated this result tra nsmitted reference range : <=1.0. The reference r daysi was not used to int erpret this result as normal/abnormal . [place] [address]-05-08 15:37:00 Test Item Value Reference Range Interpretation Comments Neutrophils # (test code = Neutrophils 4.6 1.5-8.1 #) [place] 473642-05-08 15:37:00 Test Item Value Reference Range Interpretation Comments Lymphocytes # (test code = Lymphocytes 1.2 1.0-5.5 #) [facility] HospitalYwivtncXSVDYGKCFH3589-64-41 15:37:00 Test Item Value Reference Range Interpretation Comments Monocytes # (test code 0.7 See_Comment [Aut omated message] The = Monocytes #) system which generated this result tra nsmitted reference range : <=0.8. The reference r daysi was not used to int erpret this result as normal/abnormal . [facility] HospitalPxstwthXDQYZCBXGL9128-65-19 15:37:00 Test Item Value Reference Range Interpretation Comments Eosinophils # (test code 0.1 See_Comment [A utomated message] The = Eosinophils #) system whic h generated this result tra nsmitted reference range : <=0.5. The reference r daysi was not used to int erpret this result as normal/abnormal . [facility]2022-05-08 15:37:00 Test Item Value Reference Range Interpretation Comments ABO/Rh (test code = ABO/Rh) O POS [facility]2022-05-08 15:37:00 Test Item Value Reference Range Interpretation Comments Antibody Scrn (test Negative (07/29/21 10:37 code = Antibody Scrn) AM) [facility] HospitalIosbfdaNZTMWBHGKM8025-09-09 15:37:00 Test Item Value Reference Range Interpretation Comments WBC (test code = WBC) 6.6 3.7-10.4 [facility] HospitalPzhuruzMXQJXEXFTY7166-53-88 15:37:00 Test Item Value Reference Range Interpretation Comments RBC (test code = RBC) 2.90 4.20-5.40 [place] 473642-05-08 15:37:00 Test Item Value Reference Range Interpretation Comments Hgb (test code = Hgb) 8.3 12.0-16.0 [place] [address]-05-08 15:37:00 Test Item Value Reference Range Interpretation Comments Hct (test code = Hct) 25.4 36.0-48.0 [place] 473642-05-08 15:37:00 Test Item Value Reference Range Interpretation Comments MCV (test code = MCV) 87.5 80.0-98.0 [facility] HospitalWyfjielTAPQZURULQ8985-02-95 15:37:00 Test Item Value Reference Range Interpretation Comments MCH (test code = MCH) 28.6 pg 27.0-31.0 [facility] HospitalOycxpptWBASVETUYL5001-19-88 15:37:00 Test Item Value Reference Range Interpretation Comments MCHC (test code = MCHC) 32.7 32.0-36.0 [facility] HospitalLuodneiLULCLNSSPE7046-65-08 15:37:00 Test Item Value Reference Range Interpretation Comments RDW (test code = RDW) 13.7 11.5-14.5 [facility] HospitalZsdonsnWYULMJBXRB0438-24-56 15:37:00 Test Item Value Reference Range Interpretation Comments Platelet (test code = Platelet) 166 133-450 [facility] HospitalGkgggycLZLXXXPSQR3334-80-20 15:37:00 Test Item Value Reference Range Interpretation Comments MPV (test code = MPV) 8.7 7.4-10.4 [facility] HospitalUdkqfszDVICGFUVZA2144-18-18 15:37:00 Test Item Value Reference Range Interpretation Comments Segs (test code = Segs) 70.2 45.0-75.0 [facility] HospitalXfgolcmNAMORXCNOT4121-77-67 15:37:00 Test Item Value Reference Range Interpretation Comments Lymphocytes (test code = Lymphocytes) 17.5 20.0-40.0 [facility] HospitalSnrbdimIPYJOXNXWM3868-79-90 15:37:00 Test Item Value Reference Range Interpretation Comments Monocytes (test code = Monocytes) 10.0 2.0-12.0 [facility] HospitalKsazatnITULBNMNFG7234-18-60 15:37:00 Test Item Value Reference Range Interpretation Comments Eosinophils (test code = 1.7 See_Comment [A utomated message] The Eosinophils) system which ge nerated this result tra nsmitted reference range : <=4.0. The reference r daysi was not used to int erpret this result as normal/abnormal . [place] [address]642-05-08 15:37:00 Test Item Value Reference Range Interpretation Comments Basophils (test code = 0.6 See_Comment [Aut omated message] The Basophils) system which ge nerated this result tra nsmitted reference range : <=1.0. The reference r daysi was not used to int erpret this result as normal/abnormal . [facility] HospitalJyfmvvuYUAVDIOVDQ6183-30-23 15:37:00 Test Item Value Reference Range Interpretation Comments Neutrophils # (test code = Neutrophils 4.6 1.5-8.1 #) [facility] HospitalZltvjukTTDGCMHWWJ6164-94-75 15:37:00 Test Item Value Reference Range Interpretation Comments Lymphocytes # (test code = Lymphocytes 1.2 1.0-5.5 #) [facility] HospitalGvroycnMCVJLBENMM5926-84-13 15:37:00 Test Item Value Reference Range Interpretation Comments Monocytes # (test code 0.7 See_Comment [Aut omated message] The = Monocytes #) system which generated this result tra nsmitted reference range : <=0.8. The reference r daysi was not used to int erpret this result as normal/abnormal . [facility] HospitalCtrhodfJLWBCKWQNP4454-64-23 15:37:00 Test Item Value Reference Range Interpretation Comments Eosinophils # (test code 0.1 See_Comment [A utomated message] The = Eosinophils #) system whic h generated this result tra nsmitted reference range : <=0.5. The reference r daysi was not used to int erpret this result as normal/abnormal . [facility]WBGOJGT5141-80-72 15:37:00 Test Item Value Reference Range Interpretation Comments ABO/Rh (test code = ABO/Rh) O POS [facility]ITALREKZNUG8622-73-70 15:37:00 Test Item Value Reference Range Interpretation Comments Antibody Scrn (test Negative (07/29/21 10:37 code = Antibody Scrn) AM) [facility] HospitalRbahtqwTGDVHSDAVV3784-81-35 15:37:00 Test Item Value Reference Range Interpretation Comments WBC (test code = WBC) 6.6 3.7-10.4 [place] [address]642-05-08 15:37:00 Test Item Value Reference Range Interpretation Comments RBC (test code = RBC) 2.90 4.20-5.40 [place] [address]-05-08 15:37:00 Test Item Value Reference Range Interpretation Comments Hgb (test code = Hgb) 8.3 12.0-16.0 [place] [address]-05-08 15:37:00 Test Item Value Reference Range Interpretation Comments Hct (test code = Hct) 25.4 36.0-48.0 [place] [address]642-05-08 15:37:00 Test Item Value Reference Range Interpretation Comments MCV (test code = MCV) 87.5 80.0-98.0 [facility] HospitalQuflawkPQGUAXJIMG9058-93-18 15:37:00 Test Item Value Reference Range Interpretation Comments MCH (test code = MCH) 28.6 pg 27.0-31.0 [facility] HospitalEoejbhkDVVGEWHMRZ2546-04-14 15:37:00 Test Item Value Reference Range Interpretation Comments MCHC (test code = MCHC) 32.7 32.0-36.0 [facility] HospitalExnsfcjPBDBDZJEGW9027-74-92 15:37:00 Test Item Value Reference Range Interpretation Comments RDW (test code = RDW) 13.7 11.5-14.5 [place] [address]642-05-08 15:37:00 Test Item Value Reference Range Interpretation Comments Platelet (test code = Platelet) 166 133-450 [facility] HospitalDnzzutjVPZSGGQXIV6376-36-97 15:37:00 Test Item Value Reference Range Interpretation Comments MPV (test code = MPV) 8.7 7.4-10.4 [place] [address]642-05-08 15:37:00 Test Item Value Reference Range Interpretation Comments Segs (test code = Segs) 70.2 45.0-75.0 [facility] HospitalQcqniteMBLOJRBESW2728-01-41 15:37:00 Test Item Value Reference Range Interpretation Comments Lymphocytes (test code = Lymphocytes) 17.5 20.0-40.0 [facility] HospitalGdrvqwpKYATFMVPHG9827-68-68 15:37:00 Test Item Value Reference Range Interpretation Comments Monocytes (test code = Monocytes) 10.0 2.0-12.0 [facility] HospitalBvkjpvxJELEPJIRKS3724-13-33 15:37:00 Test Item Value Reference Range Interpretation Comments Eosinophils (test code = 1.7 See_Comment [A utomated message] The Eosinophils) system which ge nerated this result tra nsmitted reference range : <=4.0. The reference r daysi was not used to int erpret this result as normal/abnormal . [facility] HospitalVjthuqiOAWEOLSKYE3885-08-19 15:37:00 Test Item Value Reference Range Interpretation Comments Basophils (test code = 0.6 See_Comment [Aut omated message] The Basophils) system which ge nerated this result tra nsmitted reference range : <=1.0. The reference r daysi was not used to int erpret this result as normal/abnormal . [facility] HospitalBxhtqqjHUROHCSWJF3950-98-96 15:37:00 Test Item Value Reference Range Interpretation Comments Neutrophils # (test code = Neutrophils 4.6 1.5-8.1 #) [facility] HospitalLzvgnigLOILICEFAZ8183-05-61 15:37:00 Test Item Value Reference Range Interpretation Comments Lymphocytes # (test code = Lymphocytes 1.2 1.0-5.5 #) [facility] HospitalFnlhhdzLKRIDLOPCW6120-57-76 15:37:00 Test Item Value Reference Range Interpretation Comments Monocytes # (test code 0.7 See_Comment [Aut omated message] The = Monocytes #) system which generated this result tra nsmitted reference range : <=0.8. The reference r daysi was not used to int erpret this result as normal/abnormal . [facility] HospitalAvbylehIUTVZEQCUZ3581-77-51 15:37:00 Test Item Value Reference Range Interpretation Comments Eosinophils # (test code 0.1 See_Comment [A utomated message] The = Eosinophils #) system whic h generated this result tra nsmitted reference range : <=0.5. The reference r daysi was not used to int erpret this result as normal/abnormal . [facility] NJCMEYB5088-84-17 15:37:00 Test Item Value Reference Range Interpretation Comments ABO/Rh (test code = ABO/Rh) O POS [facility] IMYKXRA2513-64-41 15:37:00 Test Item Value Reference Range Interpretation Comments Antibody Scrn (test Negative (07/29/21 10:37 code = Antibody Scrn) AM) [facility] HospitalScivqhsGVZPONDRWZ6976-29-81 15:37:00 Test Item Value Reference Range Interpretation Comments WBC (test code = WBC) 6.6 3.7-10.4 [facility] HospitalWsbtcwoENUYNUNYRP4309-67-70 15:37:00 Test Item Value Reference Range Interpretation Comments RBC (test code = RBC) 2.90 4.20-5.40 [facility] HospitalFuxmtyjULSZYZQAXS4455-75-99 15:37:00 Test Item Value Reference Range Interpretation Comments Hgb (test code = Hgb) 8.3 12.0-16.0 [place] [address]642-05-08 15:37:00 Test Item Value Reference Range Interpretation Comments Hct (test code = Hct) 25.4 36.0-48.0 [facility] HospitalMscsjcyXPPBOMHVKL5695-51-00 15:37:00 Test Item Value Reference Range Interpretation Comments MCV (test code = MCV) 87.5 80.0-98.0 [place] [address]642-05-08 15:37:00 Test Item Value Reference Range Interpretation Comments MCH (test code = MCH) 28.6 pg 27.0-31.0 [place] [address]-05-08 15:37:00 Test Item Value Reference Range Interpretation Comments MCHC (test code = MCHC) 32.7 32.0-36.0 [place] [address]642-05-08 15:37:00 Test Item Value Reference Range Interpretation Comments RDW (test code = RDW) 13.7 11.5-14.5 [place] [address]-05-08 15:37:00 Test Item Value Reference Range Interpretation Comments Platelet (test code = Platelet) 166 133-450 [place] [address]642-05-08 15:37:00 Test Item Value Reference Range Interpretation Comments MPV (test code = MPV) 8.7 7.4-10.4 [place] [address]642-05-08 15:37:00 Test Item Value Reference Range Interpretation Comments Segs (test code = Segs) 70.2 45.0-75.0 [place] [address]642-05-08 15:37:00 Test Item Value Reference Range Interpretation Comments Lymphocytes (test code = Lymphocytes) 17.5 20.0-40.0 [place] [address]-05-08 15:37:00 Test Item Value Reference Range Interpretation Comments Monocytes (test code = Monocytes) 10.0 2.0-12.0 [place] [address]-05-08 15:37:00 Test Item Value Reference Range Interpretation Comments Eosinophils (test code = 1.7 See_Comment [A utomated message] The Eosinophils) system which ge nerated this result tra nsmitted reference range : <=4.0. The reference r daysi was not used to int erpret this result as normal/abnormal . [place] [address]642-05-08 15:37:00 Test Item Value Reference Range Interpretation Comments Basophils (test code = 0.6 See_Comment [Aut omated message] The Basophils) system which ge nerated this result tra nsmitted reference range : <=1.0. The reference r daysi was not used to int erpret this result as normal/abnormal . [facility] HospitalQvynjfpIKXORTWYXB3284-89-75 15:37:00 Test Item Value Reference Range Interpretation Comments Neutrophils # (test code = Neutrophils 4.6 1.5-8.1 #) [facility] HospitalTdxoospPWKUPTCZYR1338-57-45 15:37:00 Test Item Value Reference Range Interpretation Comments Lymphocytes # (test code = Lymphocytes 1.2 1.0-5.5 #) [facility] HospitalYdzpndnSVUVSIEEEK6532-54-71 15:37:00 Test Item Value Reference Range Interpretation Comments Monocytes # (test code 0.7 See_Comment [Aut omated message] The = Monocytes #) system which generated this result tra nsmitted reference range : <=0.8. The reference r dyasi was not used to int erpret this result as normal/abnormal . [facility] HospitalEnglpssAJPQOIECPK8643-50-60 15:37:00 Test Item Value Reference Range Interpretation Comments Eosinophils # (test code 0.1 See_Comment [A utomated message] The = Eosinophils #) system whic h generated this result tra nsmitted reference range : <=0.5. The reference r daysi was not used to int erpret this result as normal/abnormal . [facility] QASGNJP2418-51-69 15:37:00 Test Item Value Reference Range Interpretation Comments ABO/Rh (test code = ABO/Rh) O POS [facility] ABVXNPE6351-53-51 15:37:00 Test Item Value Reference Range Interpretation Comments Antibody Scrn (test Negative (07/29/21 10:37 code = Antibody Scrn) AM) [facility]2022-05-08 15:37:00 Test Item Value Reference Range Interpretation Comments ABO/Rh (test code = ABO/Rh) O POS [facility] HospitalBlkmcdaTKRXRTOQBF6214-08-80 15:37:00 Test Item Value Reference Range Interpretation Comments WBC (test code = WBC) 6.6 3.7-10.4 [facility]2022-05-08 15:37:00 Test Item Value Reference Range Interpretation Comments Antibody Scrn (test Negative (07/29/21 10:37 code = Antibody Scrn) AM) [facility] HospitalHyhtcdzGSQEJOPIYJ2536-69-59 15:37:00 Test Item Value Reference Range Interpretation Comments WBC (test code = WBC) 6.6 3.7-10.4 [facility] HospitalHsyihbjZEZCRIFKPV1125-06-00 15:37:00 Test Item Value Reference Range Interpretation Comments RBC (test code = RBC) 2.90 4.20-5.40 [facility] HospitalGzequjlIRCUALLHXJ7528-90-42 15:37:00 Test Item Value Reference Range Interpretation Comments Hgb (test code = Hgb) 8.3 12.0-16.0 [facility] HospitalNkkozkdXKXGHISYHF7415-02-35 15:37:00 Test Item Value Reference Range Interpretation Comments Hct (test code = Hct) 25.4 36.0-48.0 [facility] HospitalUuggxujXNVIVXDXLJ0909-10-43 15:37:00 Test Item Value Reference Range Interpretation Comments MCV (test code = MCV) 87.5 80.0-98.0 [facility] HospitalDkfreurGGDBMDPLQU9372-72-98 15:37:00 Test Item Value Reference Range Interpretation Comments MCH (test code = MCH) 28.6 pg 27.0-31.0 [facility] HospitalCwfxyveNWRKKYROZM0033-45-76 15:37:00 Test Item Value Reference Range Interpretation Comments MCHC (test code = MCHC) 32.7 32.0-36.0 [facility] HospitalEotznztPREPHTWPWV8392-60-77 15:37:00 Test Item Value Reference Range Interpretation Comments RDW (test code = RDW) 13.7 11.5-14.5 [facility] HospitalCexjtqeQQSTAPZPBQ2448-80-05 15:37:00 Test Item Value Reference Range Interpretation Comments Platelet (test code = Platelet) 166 133-450 [facility] HospitalBbxkxdqNMQVUJPIMR4128-18-59 15:37:00 Test Item Value Reference Range Interpretation Comments RBC (test code = RBC) 2.90 4.20-5.40 [facility] HospitalDxlqgstVJHRTEGNJE6631-08-47 15:37:00 Test Item Value Reference Range Interpretation Comments MPV (test code = MPV) 8.7 7.4-10.4 [facility] HospitalQanbwkgWMCLRZSIQD0028-84-02 15:37:00 Test Item Value Reference Range Interpretation Comments Segs (test code = Segs) 70.2 45.0-75.0 [facility] HospitalUpulhxzDVNUYGWSJW8418-85-99 15:37:00 Test Item Value Reference Range Interpretation Comments Lymphocytes (test code = Lymphocytes) 17.5 20.0-40.0 [place] [address]-05-08 15:37:00 Test Item Value Reference Range Interpretation Comments Monocytes (test code = Monocytes) 10.0 2.0-12.0 [place] [address]642-05-08 15:37:00 Test Item Value Reference Range Interpretation Comments Eosinophils (test code = 1.7 See_Comment [A utomated message] The Eosinophils) system which ge nerated this result tra nsmitted reference range : <=4.0. The reference r daysi was not used to int erpret this result as normal/abnormal . [facility] HospitalZatqmqbFOGOZWLDJG5046-43-11 15:37:00 Test Item Value Reference Range Interpretation Comments Basophils (test code = 0.6 See_Comment [Aut omated message] The Basophils) system which ge nerated this result tra nsmitted reference range : <=1.0. The reference r daysi was not used to int erpret this result as normal/abnormal . [place] [address]-05-08 15:37:00 Test Item Value Reference Range Interpretation Comments Neutrophils # (test code = Neutrophils 4.6 1.5-8.1 #) [facility] HospitalYkectctOLFOKOBCEN8801-60-93 15:37:00 Test Item Value Reference Range Interpretation Comments Lymphocytes # (test code = Lymphocytes 1.2 1.0-5.5 #) [facility] HospitalCievmzeXPVTOWGQZA0672-96-15 15:37:00 Test Item Value Reference Range Interpretation Comments Monocytes # (test code 0.7 See_Comment [Aut omated message] The = Monocytes #) system which generated this result tra nsmitted reference range : <=0.8. The reference r daysi was not used to int erpret this result as normal/abnormal . [place] [address]-05-08 15:37:00 Test Item Value Reference Range Interpretation Comments Eosinophils # (test code 0.1 See_Comment [A utomated message] The = Eosinophils #) system whic h generated this result tra nsmitted reference range : <=0.5. The reference r daysi was not used to int erpret this result as normal/abnormal . [place] [address]-05-08 15:37:00 Test Item Value Reference Range Interpretation Comments Hgb (test code = Hgb) 8.3 12.0-16.0 [place] [address]642-05-08 15:37:00 Test Item Value Reference Range Interpretation Comments Hct (test code = Hct) 25.4 36.0-48.0 [facility] HospitalYllhhleKXJQHVMAHK2489-67-36 15:37:00 Test Item Value Reference Range Interpretation Comments MCV (test code = MCV) 87.5 80.0-98.0 [place] [address]-05-08 15:37:00 Test Item Value Reference Range Interpretation Comments MCH (test code = MCH) 28.6 pg 27.0-31.0 [place] [address]-05-08 15:37:00 Test Item Value Reference Range Interpretation Comments MCHC (test code = MCHC) 32.7 32.0-36.0 [facility] HospitalFlfovvrGTJUBADLOY3036-38-82 15:37:00 Test Item Value Reference Range Interpretation Comments RDW (test code = RDW) 13.7 11.5-14.5 [facility] HospitalTelqeimKIEIBKIWDV3147-38-60 15:37:00 Test Item Value Reference Range Interpretation Comments Platelet (test code = Platelet) 166 133-450 [facility] HospitalSgcelcwQMCMTACRLN9144-38-24 15:37:00 Test Item Value Reference Range Interpretation Comments MPV (test code = MPV) 8.7 7.4-10.4 [place] [address]-05-07 18:45:00 Test Item Value Reference Range Interpretation Comments WBC (test code = WBC) 8.6 3.7-10.4 [facility] HospitalNvxktmhYNQGBAOUEM0850-02-30 18:45:00 Test Item Value Reference Range Interpretation Comments RBC (test code = RBC) 3.08 4.20-5.40 [place] [address]642-05-07 18:45:00 Test Item Value Reference Range Interpretation Comments Hgb (test code = Hgb) 8.8 12.0-16.0 [place] [address]-05-07 18:45:00 Test Item Value Reference Range Interpretation Comments Hct (test code = Hct) 27.2 36.0-48.0 [facility] HospitalAxwptyxNZLIHQKESP9043-02-50 18:45:00 Test Item Value Reference Range Interpretation Comments MCV (test code = MCV) 88.3 80.0-98.0 [place] [address]642-05-07 18:45:00 Test Item Value Reference Range Interpretation Comments MCH (test code = MCH) 28.6 pg 27.0-31.0 [facility] HospitalPeqwvycXWJKGSXNKR8813-65-96 18:45:00 Test Item Value Reference Range Interpretation Comments MCHC (test code = MCHC) 32.4 32.0-36.0 [facility] HospitalBgdwdfgJITDBGJVJG0393-39-18 18:45:00 Test Item Value Reference Range Interpretation Comments RDW (test code = RDW) 14.2 11.5-14.5 [place] [address]642-05-07 18:45:00 Test Item Value Reference Range Interpretation Comments Platelet (test code = Platelet) 194 133-450 [place] [address]642-05-07 18:45:00 Test Item Value Reference Range Interpretation Comments MPV (test code = MPV) 9.2 7.4-10.4 [place] [address]-05-07 18:45:00 Test Item Value Reference Range Interpretation Comments Segs (test code = Segs) 69.2 45.0-75.0 [place] [address]642-05-07 18:45:00 Test Item Value Reference Range Interpretation Comments Lymphocytes (test code = Lymphocytes) 18.9 20.0-40.0 [place]642-05-07 18:45:00 Test Item Value Reference Range Interpretation Comments Monocytes (test code = Monocytes) 10.6 2.0-12.0 [facility] HospitalQsdasiuSYZRXXIKDS5501-15-35 18:45:00 Test Item Value Reference Range Interpretation Comments Eosinophils (test code = 0.3 See_Comment [A utomated message] The Eosinophils) system which ge nerated this result tra nsmitted reference range : <=4.0. The reference r daysi was not used to int erpret this result as normal/abnormal . [place] 473642-05-07 18:45:00 Test Item Value Reference Range Interpretation Comments Basophils (test code = 1.0 See_Comment [Aut omated message] The Basophils) system which ge nerated this result tra nsmitted reference range : <=1.0. The reference r daysi was not used to int erpret this result as normal/abnormal . [place] 473642-05-07 18:45:00 Test Item Value Reference Range Interpretation Comments Neutrophils # (test code = Neutrophils 6.0 1.5-8.1 #) [place] [address]-05-07 18:45:00 Test Item Value Reference Range Interpretation Comments Lymphocytes # (test code = Lymphocytes 1.6 1.0-5.5 #) [place] [address]-05-07 18:45:00 Test Item Value Reference Range Interpretation Comments Monocytes # (test code 0.9 See_Comment [Aut omated message] The = Monocytes #) system which generated this result tra nsmitted reference range : <=0.8. The reference r daysi was not used to int erpret this result as normal/abnormal . [place] [address]-05-07 18:45:00 Test Item Value Reference Range Interpretation Comments Basophils # (test code 0.1 See_Comment [Aut omated message] The = Basophils #) system which generated this result tra nsmitted reference range : <=0.2. The reference r daysi was not used to int erpret this result as normal/abnormal . [place] [address]-05-07 18:45:00 Test Item Value Reference Range Interpretation Comments WBC (test code = WBC) 8.6 3.7-10.4 [place] [address]-05-07 18:45:00 Test Item Value Reference Range Interpretation Comments RBC (test code = RBC) 3.08 4.20-5.40 [place] [address]-05-07 18:45:00 Test Item Value Reference Range Interpretation Comments Hgb (test code = Hgb) 8.8 12.0-16.0 [place] [address]-05-07 18:45:00 Test Item Value Reference Range Interpretation Comments Hct (test code = Hct) 27.2 36.0-48.0 [place] [address]-05-07 18:45:00 Test Item Value Reference Range Interpretation Comments MCV (test code = MCV) 88.3 80.0-98.0 [place] [address]-05-07 18:45:00 Test Item Value Reference Range Interpretation Comments MCH (test code = MCH) 28.6 pg 27.0-31.0 [place] [address]-05-07 18:45:00 Test Item Value Reference Range Interpretation Comments MCHC (test code = MCHC) 32.4 32.0-36.0 [place] [address]-05-07 18:45:00 Test Item Value Reference Range Interpretation Comments RDW (test code = RDW) 14.2 11.5-14.5 [place] [address]-05-07 18:45:00 Test Item Value Reference Range Interpretation Comments Platelet (test code = Platelet) 194 133-450 [place] [address]-05-07 18:45:00 Test Item Value Reference Range Interpretation Comments MPV (test code = MPV) 9.2 7.4-10.4 [place] [address]-05-07 18:45:00 Test Item Value Reference Range Interpretation Comments Segs (test code = Segs) 69.2 45.0-75.0 [place] [address]-05-07 18:45:00 Test Item Value Reference Range Interpretation Comments Lymphocytes (test code = Lymphocytes) 18.9 20.0-40.0 [place] [address]-05-07 18:45:00 Test Item Value Reference Range Interpretation Comments Monocytes (test code = Monocytes) 10.6 2.0-12.0 [place] [address]-05-07 18:45:00 Test Item Value Reference Range Interpretation Comments Eosinophils (test code = 0.3 See_Comment [A utomated message] The Eosinophils) system which ge nerated this result tra nsmitted reference range : <=4.0. The reference r daysi was not used to int erpret this result as normal/abnormal . [place] [address]-05-07 18:45:00 Test Item Value Reference Range Interpretation Comments Basophils (test code = 1.0 See_Comment [Aut omated message] The Basophils) system which ge nerated this result tra nsmitted reference range : <=1.0. The reference r daysi was not used to int erpret this result as normal/abnormal . [place] 473642-05-07 18:45:00 Test Item Value Reference Range Interpretation Comments Neutrophils # (test code = Neutrophils 6.0 1.5-8.1 #) [place] 473642-05-07 18:45:00 Test Item Value Reference Range Interpretation Comments Lymphocytes # (test code = Lymphocytes 1.6 1.0-5.5 #) [place] [address]-05-07 18:45:00 Test Item Value Reference Range Interpretation Comments Monocytes # (test code 0.9 See_Comment [Aut omated message] The = Monocytes #) system which generated this result tra nsmitted reference range : <=0.8. The reference r daysi was not used to int erpret this result as normal/abnormal . [facility]hqedqhOUWSGAY[facility]YP6248[facility] 18:45:00 Test Item Value Reference Range Interpretation Comments Basophils # (test code 0.1 See_Comment [Aut omated message] The = Basophils #) system which generated this result tra nsmitted reference range : <=0.2. The reference r daysi was not used to int erpret this result as normal/abnormal . [place] [address]-05-07 18:45:00 Test Item Value Reference Range Interpretation Comments WBC (test code = WBC) 8.6 3.7-10.4 [place] [address]-05-07 18:45:00 Test Item Value Reference Range Interpretation Comments RBC (test code = RBC) 3.08 4.20-5.40 [place] [address]-05-07 18:45:00 Test Item Value Reference Range Interpretation Comments Hgb (test code = Hgb) 8.8 12.0-16.0 [place] [address]-05-07 18:45:00 Test Item Value Reference Range Interpretation Comments Hct (test code = Hct) 27.2 36.0-48.0 [place] [address]-05-07 18:45:00 Test Item Value Reference Range Interpretation Comments MCV (test code = MCV) 88.3 80.0-98.0 [place] [address]-05-07 18:45:00 Test Item Value Reference Range Interpretation Comments MCH (test code = MCH) 28.6 pg 27.0-31.0 [place] [address]-05-07 18:45:00 Test Item Value Reference Range Interpretation Comments MCHC (test code = MCHC) 32.4 32.0-36.0 [place] [address]-05-07 18:45:00 Test Item Value Reference Range Interpretation Comments RDW (test code = RDW) 14.2 11.5-14.5 [place] [address]-05-07 18:45:00 Test Item Value Reference Range Interpretation Comments Platelet (test code = Platelet) 194 133-450 [place] 473642-05-07 18:45:00 Test Item Value Reference Range Interpretation Comments MPV (test code = MPV) 9.2 7.4-10.4 [place] [address]-05-07 18:45:00 Test Item Value Reference Range Interpretation Comments Segs (test code = Segs) 69.2 45.0-75.0 [place] [address]-05-07 18:45:00 Test Item Value Reference Range Interpretation Comments Lymphocytes (test code = Lymphocytes) 18.9 20.0-40.0 [place] [address]-05-07 18:45:00 Test Item Value Reference Range Interpretation Comments Monocytes (test code = Monocytes) 10.6 2.0-12.0 [place] [address]-05-07 18:45:00 Test Item Value Reference Range Interpretation Comments Eosinophils (test code = 0.3 See_Comment [A utomated message] The Eosinophils) system which ge nerated this result tra nsmitted reference range : <=4.0. The reference r daysi was not used to int erpret this result as normal/abnormal . [place] [address]-05-07 18:45:00 Test Item Value Reference Range Interpretation Comments Basophils (test code = 1.0 See_Comment [Aut omated message] The Basophils) system which ge nerated this result tra nsmitted reference range : <=1.0. The reference r daysi was not used to int erpret this result as normal/abnormal . [facility] HospitalHikjsmuDDUVYDXNUD3934-62-08 18:45:00 Test Item Value Reference Range Interpretation Comments Neutrophils # (test code = Neutrophils 6.0 1.5-8.1 #) [place] [address]-05-07 18:45:00 Test Item Value Reference Range Interpretation Comments Lymphocytes # (test code = Lymphocytes 1.6 1.0-5.5 #) [place] [address]-05-07 18:45:00 Test Item Value Reference Range Interpretation Comments Monocytes # (test code 0.9 See_Comment [Aut omated message] The = Monocytes #) system which generated this result tra nsmitted reference range : <=0.8. The reference r daysi was not used to int erpret this result as normal/abnormal . [place] [address]-05-07 18:45:00 Test Item Value Reference Range Interpretation Comments Basophils # (test code 0.1 See_Comment [Aut omated message] The = Basophils #) system which generated this result tra nsmitted reference range : <=0.2. The reference r daysi was not used to int erpret this result as normal/abnormal . [facility] HospitalMyzddqlGDKIOUSTAU6806-93-63 18:45:00 Test Item Value Reference Range Interpretation Comments WBC (test code = WBC) 8.6 3.7-10.4 [place] [address]-05-07 18:45:00 Test Item Value Reference Range Interpretation Comments RBC (test code = RBC) 3.08 4.20-5.40 [place] [address]-05-07 18:45:00 Test Item Value Reference Range Interpretation Comments Hgb (test code = Hgb) 8.8 12.0-16.0 [place] [address]-05-07 18:45:00 Test Item Value Reference Range Interpretation Comments Hct (test code = Hct) 27.2 36.0-48.0 [facility] HospitalHxwmglcGRQHMKCVLW7440-97-68 18:45:00 Test Item Value Reference Range Interpretation Comments MCV (test code = MCV) 88.3 80.0-98.0 [place] [address]-05-07 18:45:00 Test Item Value Reference Range Interpretation Comments MCH (test code = MCH) 28.6 pg 27.0-31.0 [place]642-05-07 18:45:00 Test Item Value Reference Range Interpretation Comments MCHC (test code = MCHC) 32.4 32.0-36.0 [place]642-05-07 18:45:00 Test Item Value Reference Range Interpretation Comments RDW (test code = RDW) 14.2 11.5-14.5 [place] [address]-05-07 18:45:00 Test Item Value Reference Range Interpretation Comments Platelet (test code = Platelet) 194 133-450 [place] 473642-05-07 18:45:00 Test Item Value Reference Range Interpretation Comments MPV (test code = MPV) 9.2 7.4-10.4 [place]642-05-07 18:45:00 Test Item Value Reference Range Interpretation Comments Segs (test code = Segs) 69.2 45.0-75.0 [place] [address]-05-07 18:45:00 Test Item Value Reference Range Interpretation Comments Lymphocytes (test code = Lymphocytes) 18.9 20.0-40.0 [place] [address]-05-07 18:45:00 Test Item Value Reference Range Interpretation Comments Monocytes (test code = Monocytes) 10.6 2.0-12.0 [place] [address]-05-07 18:45:00 Test Item Value Reference Range Interpretation Comments Eosinophils (test code = 0.3 See_Comment [A utomated message] The Eosinophils) system which ge nerated this result tra nsmitted reference range : <=4.0. The reference r daysi was not used to int erpret this result as normal/abnormal . [address]05-07 18:45:00 Test Item Value Reference Range Interpretation Comments Basophils (test code = 1.0 See_Comment [Aut omated message] The Basophils) system which ge nerated this result tra nsmitted reference range : <=1.0. The reference r daysi was not used to int erpret this result as normal/abnormal . [place] [address]-05-07 18:45:00 Test Item Value Reference Range Interpretation Comments Neutrophils # (test code = Neutrophils 6.0 1.5-8.1 #) [address]05-07 18:45:00 Test Item Value Reference Range Interpretation Comments Lymphocytes # (test code = Lymphocytes 1.6 1.0-5.5 #) [place] [address]-05-07 18:45:00 Test Item Value Reference Range Interpretation Comments Monocytes # (test code 0.9 See_Comment [Aut omated message] The = Monocytes #) system which generated this result tra nsmitted reference range : <=0.8. The reference r daysi was not used to int erpret this result as normal/abnormal . [place] [address]-05-07 18:45:00 Test Item Value Reference Range Interpretation Comments Basophils # (test code 0.1 See_Comment [Aut omated message] The = Basophils #) system which generated this result tra nsmitted reference range : <=0.2. The reference r daysi was not used to int erpret this result as normal/abnormal . [facility] HospitalGjjaqzmCFELNKWAPY8284-63-20 18:45:00 Test Item Value Reference Range Interpretation Comments WBC (test code = WBC) 8.6 3.7-10.4 [facility] HospitalXwfvcocETOXXWIKVW2417-87-76 18:45:00 Test Item Value Reference Range Interpretation Comments RBC (test code = RBC) 3.08 4.20-5.40 [place] [address]642-05-07 18:45:00 Test Item Value Reference Range Interpretation Comments Hgb (test code = Hgb) 8.8 12.0-16.0 [place] [address]-05-07 18:45:00 Test Item Value Reference Range Interpretation Comments Hct (test code = Hct) 27.2 36.0-48.0 [place] [address]642-05-07 18:45:00 Test Item Value Reference Range Interpretation Comments MCV (test code = MCV) 88.3 80.0-98.0 [place] [address]-05-07 18:45:00 Test Item Value Reference Range Interpretation Comments MCH (test code = MCH) 28.6 pg 27.0-31.0 [facility] HospitalSekqsvsCQLFHEETCD6578-92-62 18:45:00 Test Item Value Reference Range Interpretation Comments MCHC (test code = MCHC) 32.4 32.0-36.0 [facility] HospitalIcshotlYYDLATVQMD3362-99-13 18:45:00 Test Item Value Reference Range Interpretation Comments RDW (test code = RDW) 14.2 11.5-14.5 [facility] HospitalFstgbjuCWBYBMKVJS8266-14-80 18:45:00 Test Item Value Reference Range Interpretation Comments Platelet (test code = Platelet) 194 133-450 [facility] HospitalMoacmioJAFKSWBNYS6048-87-03 18:45:00 Test Item Value Reference Range Interpretation Comments MPV (test code = MPV) 9.2 7.4-10.4 [place] [address]642-05-07 18:45:00 Test Item Value Reference Range Interpretation Comments Segs (test code = Segs) 69.2 45.0-75.0 [facility] HospitalYxfvlcdOWCRDYPYOH5820-08-94 18:45:00 Test Item Value Reference Range Interpretation Comments Lymphocytes (test code = Lymphocytes) 18.9 20.0-40.0 [place] [address]642-05-07 18:45:00 Test Item Value Reference Range Interpretation Comments Monocytes (test code = Monocytes) 10.6 2.0-12.0 [place] [address]-05-07 18:45:00 Test Item Value Reference Range Interpretation Comments Eosinophils (test code = 0.3 See_Comment [A utomated message] The Eosinophils) system which ge nerated this result tra nsmitted reference range : <=4.0. The reference r daysi was not used to int erpret this result as normal/abnormal . [place] [address]-05-07 18:45:00 Test Item Value Reference Range Interpretation Comments Basophils (test code = 1.0 See_Comment [Aut omated message] The Basophils) system which ge nerated this result tra nsmitted reference range : <=1.0. The reference r daysi was not used to int erpret this result as normal/abnormal . [place] [address]-05-07 18:45:00 Test Item Value Reference Range Interpretation Comments Neutrophils # (test code = Neutrophils 6.0 1.5-8.1 #) [place] [address]-05-07 18:45:00 Test Item Value Reference Range Interpretation Comments Lymphocytes # (test code = Lymphocytes 1.6 1.0-5.5 #) [place] [address]-05-07 18:45:00 Test Item Value Reference Range Interpretation Comments Monocytes # (test code 0.9 See_Comment [Aut omated message] The = Monocytes #) system which generated this result tra nsmitted reference range : <=0.8. The reference r daysi was not used to int erpret this result as normal/abnormal . [place] [address]-05-07 18:45:00 Test Item Value Reference Range Interpretation Comments Basophils # (test code 0.1 See_Comment [Aut omated message] The = Basophils #) system which generated this result tra nsmitted reference range : <=0.2. The reference r daysi was not used to int erpret this result as normal/abnormal . [address]05-07 18:45:00 Test Item Value Reference Range Interpretation Comments WBC (test code = WBC) 8.6 3.7-10.4 [place] [address]-05-07 18:45:00 Test Item Value Reference Range Interpretation Comments RBC (test code = RBC) 3.08 4.20-5.40 [place] [address]642-05-07 18:45:00 Test Item Value Reference Range Interpretation Comments Hgb (test code = Hgb) 8.8 12.0-16.0 [place] [address]-05-07 18:45:00 Test Item Value Reference Range Interpretation Comments Hct (test code = Hct) 27.2 36.0-48.0 [place] [address]-05-07 18:45:00 Test Item Value Reference Range Interpretation Comments MCV (test code = MCV) 88.3 80.0-98.0 [place] [address]-05-07 18:45:00 Test Item Value Reference Range Interpretation Comments MCH (test code = MCH) 28.6 pg 27.0-31.0 [place] [address]-05-07 18:45:00 Test Item Value Reference Range Interpretation Comments MCHC (test code = MCHC) 32.4 32.0-36.0 [place] [address]-05-07 18:45:00 Test Item Value Reference Range Interpretation Comments RDW (test code = RDW) 14.2 11.5-14.5 [place] [address]-05-07 18:45:00 Test Item Value Reference Range Interpretation Comments Platelet (test code = Platelet) 194 133-450 [facility] HospitalOheouqqCBQVFPZPJH8569-28-33 18:45:00 Test Item Value Reference Range Interpretation Comments MPV (test code = MPV) 9.2 7.4-10.4 [place] [address]-05-07 18:45:00 Test Item Value Reference Range Interpretation Comments Segs (test code = Segs) 69.2 45.0-75.0 [place] [address]-05-07 18:45:00 Test Item Value Reference Range Interpretation Comments Lymphocytes (test code = Lymphocytes) 18.9 20.0-40.0 [place] [address]-05-07 18:45:00 Test Item Value Reference Range Interpretation Comments Monocytes (test code = Monocytes) 10.6 2.0-12.0 [place] [address]-05-07 18:45:00 Test Item Value Reference Range Interpretation Comments Eosinophils (test code = 0.3 See_Comment [A utomated message] The Eosinophils) system which ge nerated this result tra nsmitted reference range : <=4.0. The reference r daysi was not used to int erpret this result as normal/abnormal . [place] [address]-05-07 18:45:00 Test Item Value Reference Range Interpretation Comments Basophils (test code = 1.0 See_Comment [Aut omated message] The Basophils) system which ge nerated this result tra nsmitted reference range : <=1.0. The reference r daysi was not used to int erpret this result as normal/abnormal . [place] [address]-05-07 18:45:00 Test Item Value Reference Range Interpretation Comments Neutrophils # (test code = Neutrophils 6.0 1.5-8.1 #) [place] [address]-05-07 18:45:00 Test Item Value Reference Range Interpretation Comments Lymphocytes # (test code = Lymphocytes 1.6 1.0-5.5 #) [place] [address]-05-07 18:45:00 Test Item Value Reference Range Interpretation Comments Monocytes # (test code 0.9 See_Comment [Aut omated message] The = Monocytes #) system which generated this result tra nsmitted reference range : <=0.8. The reference r daysi was not used to int erpret this result as normal/abnormal . [place] [address]-05-07 18:45:00 Test Item Value Reference Range Interpretation Comments Basophils # (test code 0.1 See_Comment [Aut omated message] The = Basophils #) system which generated this result tra nsmitted reference range : <=0.2. The reference r daysi was not used to int erpret this result as normal/abnormal . [place]25232-05-06 09:20:00 Test Item Value Reference Range Interpretation Comments Glucose Lvl (test code = Glucose Lvl) 151 70-99 [place] 025232-05-06 09:20:00 Test Item Value Reference Range Interpretation Comments BUN (test code = BUN) 33 7-22 [place] [address]-05-06 09:20:00 Test Item Value Reference Range Interpretation Comments Creatinine Lvl (test code = Creatinine 1.21 0.50-1.40 Lvl) [place] 025232-05-06 09:20:00 Test Item Value Reference Range Interpretation Comments Sodium Lvl (test code = Sodium Lvl) 142 135-145 [place] 025232-05-06 09:20:00 Test Item Value Reference Range Interpretation Comments Potassium Lvl (test code = Potassium 4.1 3.5-5.1 Lvl) [place] 025232-05-06 09:20:00 Test Item Value Reference Range Interpretation Comments Chloride Lvl (test code = Chloride Lvl) 109 95-109 [place] 025232-05-06 09:20:00 Test Item Value Reference Range Interpretation Comments CO2 (test code = CO2) 23 24-32 [place] 025232-05-06 09:20:00 Test Item Value Reference Range Interpretation Comments Calcium Lvl (test code = Calcium Lvl) 8.5 8.5-10.5 [place] 025232-05-06 09:20:00 Test Item Value Reference Range Interpretation Comments AGAP (test code = AGAP) 14.1 10.0-20.0 [place] 025232-05-06 09:20:00 Test Item Value Reference Range Interpretation Comments eGFR (test code = eGFR) 41 [place] [address]-05-06 09:20:00 Test Item Value Reference Range Interpretation Comments WBC (test code = WBC) 9.7 3.7-10.4 [place] [address]-05-06 09:20:00 Test Item Value Reference Range Interpretation Comments RBC (test code = RBC) 3.63 4.20-5.40 [place] [address]-05-06 09:20:00 Test Item Value Reference Range Interpretation Comments Hgb (test code = Hgb) 10.3 12.0-16.0 [place] [address]-05-06 09:20:00 Test Item Value Reference Range Interpretation Comments Hct (test code = Hct) 32.0 36.0-48.0 [place] [address]-05-06 09:20:00 Test Item Value Reference Range Interpretation Comments MCV (test code = MCV) 88.2 80.0-98.0 [place] [address]-05-06 09:20:00 Test Item Value Reference Range Interpretation Comments MCH (test code = MCH) 28.3 pg 27.0-31.0 [facility] HospitalBhsexboRCADMSOKFS1746-30-21 09:20:00 Test Item Value Reference Range Interpretation Comments MCHC (test code = MCHC) 32.1 32.0-36.0 [facility] HospitalDpeunftYESFHTBENP7184-64-62 09:20:00 Test Item Value Reference Range Interpretation Comments RDW (test code = RDW) 13.8 11.5-14.5 [facility] HospitalHascjquDXDMBLSYQM3126-02-99 09:20:00 Test Item Value Reference Range Interpretation Comments Platelet (test code = Platelet) 162 133-450 [facility] HospitalMbbxshmOHLVOAMFWG6610-89-67 09:20:00 Test Item Value Reference Range Interpretation Comments MPV (test code = MPV) 9.2 7.4-10.4 [facility] HospitalWfctdzjIROABGOSIO8984-67-56 09:20:00 Test Item Value Reference Range Interpretation Comments RBC Morph (test code = Normal (07/27/21 4:20 AM) RBC Morph) [facility] HospitalVdjlcpiUQMVPNQJZY1442-10-66 09:20:00 Test Item Value Reference Range Interpretation Comments Plt Morph (test code = Normal (07/27/21 4:20 AM) Plt Morph) [facility] HospitalIpdygalYEUDHNCDKK5133-95-49 09:20:00 Test Item Value Reference Range Interpretation Comments Segs (test code = Segs) 88.2 45.0-75.0 [facility] HospitalWkdgccxSGQXUWMISP2580-00-85 09:20:00 Test Item Value Reference Range Interpretation Comments Lymphocytes (test code = Lymphocytes) 3.7 20.0-40.0 [facility] HospitalByuyhpkEOBMUDZOLM9854-45-87 09:20:00 Test Item Value Reference Range Interpretation Comments Monocytes (test code = Monocytes) 7.8 2.0-12.0 [place]642-05-06 09:20:00 Test Item Value Reference Range Interpretation Comments Basophils (test code = 0.3 See_Comment [Aut omated message] The Basophils) system which ge nerated this result tra nsmitted reference range : <=1.0. The reference r daysi was not used to int erpret this result as normal/abnormal . [facility] HospitalIlaafgjVSLTAHTMPR1414-96-46 09:20:00 Test Item Value Reference Range Interpretation Comments Neutrophils # (test code = Neutrophils 8.5 1.5-8.1 #) [place] [address]-05-06 09:20:00 Test Item Value Reference Range Interpretation Comments Lymphocytes # (test code = Lymphocytes 0.4 1.0-5.5 #) [place] [address]-05-06 09:20:00 Test Item Value Reference Range Interpretation Comments Monocytes # (test code 0.8 See_Comment [Aut omated message] The = Monocytes #) system which generated this result tra nsmitted reference range : <=0.8. The reference r daysi was not used to int erpret this result as normal/abnormal . [place] 025232-05-06 09:20:00 Test Item Value Reference Range Interpretation Comments Glucose Lvl (test code = Glucose Lvl) 151 70-99 [place] 025232-05-06 09:20:00 Test Item Value Reference Range Interpretation Comments BUN (test code = BUN) 33 7-22 [place] 025232-05-06 09:20:00 Test Item Value Reference Range Interpretation Comments Creatinine Lvl (test code = Creatinine 1.21 0.50-1.40 Lvl) [place] 025232-05-06 09:20:00 Test Item Value Reference Range Interpretation Comments Sodium Lvl (test code = Sodium Lvl) 142 135-145 [place] 025232-05-06 09:20:00 Test Item Value Reference Range Interpretation Comments Potassium Lvl (test code = Potassium 4.1 3.5-5.1 Lvl) [place] 025232-05-06 09:20:00 Test Item Value Reference Range Interpretation Comments Chloride Lvl (test code = Chloride Lvl) 109 95-109 [place] 025232-05-06 09:20:00 Test Item Value Reference Range Interpretation Comments CO2 (test code = CO2) 23 24-32 [place] 025232-05-06 09:20:00 Test Item Value Reference Range Interpretation Comments Calcium Lvl (test code = Calcium Lvl) 8.5 8.5-10.5 [place] 025232-05-06 09:20:00 Test Item Value Reference Range Interpretation Comments AGAP (test code = AGAP) 14.1 10.0-20.0 [place] 025232-05-06 09:20:00 Test Item Value Reference Range Interpretation Comments eGFR (test code = eGFR) 41 [facility]MgfoyrpLPVHJMQGBF5004-65-00 09:20:00 Test Item Value Reference Range Interpretation Comments WBC (test code = WBC) 9.7 3.7-10.4 [facility] HospitalWbfiaecANVCZAHOIT4845-36-77 09:20:00 Test Item Value Reference Range Interpretation Comments RBC (test code = RBC) 3.63 4.20-5.40 [facility] HospitalHdwlrdcNXDECIWVNM1421-11-56 09:20:00 Test Item Value Reference Range Interpretation Comments Hgb (test code = Hgb) 10.3 12.0-16.0 [facility] HospitalJjdvofhVHZRSZYVZO4375-79-73 09:20:00 Test Item Value Reference Range Interpretation Comments Hct (test code = Hct) 32.0 36.0-48.0 [facility] HospitalUbhrjwiEZTGPIVEEO1860-50-46 09:20:00 Test Item Value Reference Range Interpretation Comments MCV (test code = MCV) 88.2 80.0-98.0 [facility] HospitalBlypcfiDWWJPNGWDZ1076-88-54 09:20:00 Test Item Value Reference Range Interpretation Comments MCH (test code = MCH) 28.3 pg 27.0-31.0 [facility] HospitalQmnmcwuKNKHZGDAMB8026-63-81 09:20:00 Test Item Value Reference Range Interpretation Comments MCHC (test code = MCHC) 32.1 32.0-36.0 [facility] HospitalFpftfmqIBQLXJUPXN5565-50-91 09:20:00 Test Item Value Reference Range Interpretation Comments RDW (test code = RDW) 13.8 11.5-14.5 [facility] HospitalYmsetmuKVCMBIFAVA5348-95-33 09:20:00 Test Item Value Reference Range Interpretation Comments Platelet (test code = Platelet) 162 133-450 [facility] HospitalRufgxoiLNTBAERXDR9812-83-27 09:20:00 Test Item Value Reference Range Interpretation Comments MPV (test code = MPV) 9.2 7.4-10.4 [facility] HospitalHcttvsxGJCEXAUZEA6131-13-15 09:20:00 Test Item Value Reference Range Interpretation Comments RBC Morph (test code = Normal (07/27/21 4:20 AM) RBC Morph) [facility] HospitalFuivdgtZZDYNSDFGK1050-64-67 09:20:00 Test Item Value Reference Range Interpretation Comments Plt Morph (test code = Normal (07/27/21 4:20 AM) Plt Morph) [place] [address]-05-06 09:20:00 Test Item Value Reference Range Interpretation Comments Segs (test code = Segs) 88.2 45.0-75.0 [place] [address]-05-06 09:20:00 Test Item Value Reference Range Interpretation Comments Lymphocytes (test code = Lymphocytes) 3.7 20.0-40.0 [place] [address]-05-06 09:20:00 Test Item Value Reference Range Interpretation Comments Monocytes (test code = Monocytes) 7.8 2.0-12.0 [address]05-06 09:20:00 Test Item Value Reference Range Interpretation Comments Basophils (test code = 0.3 See_Comment [Aut omated message] The Basophils) system which ge nerated this result tra nsmitted reference range : <=1.0. The reference r daysi was not used to int erpret this result as normal/abnormal . [place] [address]-05-06 09:20:00 Test Item Value Reference Range Interpretation Comments Neutrophils # (test code = Neutrophils 8.5 1.5-8.1 #) [address]05-06 09:20:00 Test Item Value Reference Range Interpretation Comments Lymphocytes # (test code = Lymphocytes 0.4 1.0-5.5 #) [place] [address]-05-06 09:20:00 Test Item Value Reference Range Interpretation Comments Monocytes # (test code 0.8 See_Comment [Aut omated message] The = Monocytes #) system which generated this result tra nsmitted reference range : <=0.8. The reference r daysi was not used to int erpret this result as normal/abnormal . [place] 025232-05-06 09:20:00 Test Item Value Reference Range Interpretation Comments Glucose Lvl (test code = Glucose Lvl) 151 70-99 [place] 025232-05-06 09:20:00 Test Item Value Reference Range Interpretation Comments BUN (test code = BUN) 33 7-22 [place] [address]-05-06 09:20:00 Test Item Value Reference Range Interpretation Comments Creatinine Lvl (test code = Creatinine 1.21 0.50-1.40 Lvl) [place] 025232-05-06 09:20:00 Test Item Value Reference Range Interpretation Comments Sodium Lvl (test code = Sodium Lvl) 142 135-145 [place] 025232-05-06 09:20:00 Test Item Value Reference Range Interpretation Comments Potassium Lvl (test code = Potassium 4.1 3.5-5.1 Lvl) [place] 025232-05-06 09:20:00 Test Item Value Reference Range Interpretation Comments Chloride Lvl (test code = Chloride Lvl) 109 95-109 [place] 025232-05-06 09:20:00 Test Item Value Reference Range Interpretation Comments CO2 (test code = CO2) 23 24-32 [place] 025232-05-06 09:20:00 Test Item Value Reference Range Interpretation Comments Calcium Lvl (test code = Calcium Lvl) 8.5 8.5-10.5 [place] 025232-05-06 09:20:00 Test Item Value Reference Range Interpretation Comments AGAP (test code = AGAP) 14.1 10.0-20.0 [place] 025232-05-06 09:20:00 Test Item Value Reference Range Interpretation Comments eGFR (test code = eGFR) 41 [place] 473642-05-06 09:20:00 Test Item Value Reference Range Interpretation Comments WBC (test code = WBC) 9.7 3.7-10.4 [place] 473642-05-06 09:20:00 Test Item Value Reference Range Interpretation Comments RBC (test code = RBC) 3.63 4.20-5.40 [place] 473642-05-06 09:20:00 Test Item Value Reference Range Interpretation Comments Hgb (test code = Hgb) 10.3 12.0-16.0 [place] [address]-05-06 09:20:00 Test Item Value Reference Range Interpretation Comments Hct (test code = Hct) 32.0 36.0-48.0 [place] [address]-05-06 09:20:00 Test Item Value Reference Range Interpretation Comments MCV (test code = MCV) 88.2 80.0-98.0 [place] [address]-05-06 09:20:00 Test Item Value Reference Range Interpretation Comments MCH (test code = MCH) 28.3 pg 27.0-31.0 [place] [address]-05-06 09:20:00 Test Item Value Reference Range Interpretation Comments MCHC (test code = MCHC) 32.1 32.0-36.0 [place] [address]-05-06 09:20:00 Test Item Value Reference Range Interpretation Comments RDW (test code = RDW) 13.8 11.5-14.5 [place] [address]-05-06 09:20:00 Test Item Value Reference Range Interpretation Comments Platelet (test code = Platelet) 162 133-450 [place] 473642-05-06 09:20:00 Test Item Value Reference Range Interpretation Comments MPV (test code = MPV) 9.2 7.4-10.4 [place] [address]-05-06 09:20:00 Test Item Value Reference Range Interpretation Comments RBC Morph (test code = Normal (07/27/21 4:20 AM) RBC Morph) [facility] HospitalTypazbwGMMCMVACTD1408-87-57 09:20:00 Test Item Value Reference Range Interpretation Comments Plt Morph (test code = Normal (07/27/21 4:20 AM) Plt Morph) [place] [address]-05-06 09:20:00 Test Item Value Reference Range Interpretation Comments Segs (test code = Segs) 88.2 45.0-75.0 [place] [address]-05-06 09:20:00 Test Item Value Reference Range Interpretation Comments Lymphocytes (test code = Lymphocytes) 3.7 20.0-40.0 [facility] HospitalEvublqqOSCXXTSWYJ0882-91-54 09:20:00 Test Item Value Reference Range Interpretation Comments Monocytes (test code = Monocytes) 7.8 2.0-12.0 [place] [address]-05-06 09:20:00 Test Item Value Reference Range Interpretation Comments Basophils (test code = 0.3 See_Comment [Aut omated message] The Basophils) system which ge nerated this result tra nsmitted reference range : <=1.0. The reference r daysi was not used to int erpret this result as normal/abnormal . [place] [address]-05-06 09:20:00 Test Item Value Reference Range Interpretation Comments Neutrophils # (test code = Neutrophils 8.5 1.5-8.1 #) [place] 473642-05-06 09:20:00 Test Item Value Reference Range Interpretation Comments Lymphocytes # (test code = Lymphocytes 0.4 1.0-5.5 #) [facility] HospitalQurrvgpRAINTBLNTK4085-23-62 09:20:00 Test Item Value Reference Range Interpretation Comments Monocytes # (test code 0.8 See_Comment [Aut omated message] The = Monocytes #) system which generated this result tra nsmitted reference range : <=0.8. The reference r daysi was not used to int erpret this result as normal/abnormal . [facility]2022-05-06 09:20:00 Test Item Value Reference Range Interpretation Comments Glucose Lvl (test code = Glucose Lvl) 151 70-99 [place] 025232-05-06 09:20:00 Test Item Value Reference Range Interpretation Comments BUN (test code = BUN) 33 7-22 [place] 025232-05-06 09:20:00 Test Item Value Reference Range Interpretation Comments Creatinine Lvl (test code = Creatinine 1.21 0.50-1.40 Lvl) [place] 025232-05-06 09:20:00 Test Item Value Reference Range Interpretation Comments Sodium Lvl (test code = Sodium Lvl) 142 135-145 [place] 025232-05-06 09:20:00 Test Item Value Reference Range Interpretation Comments Potassium Lvl (test code = Potassium 4.1 3.5-5.1 Lvl) [place] 025232-05-06 09:20:00 Test Item Value Reference Range Interpretation Comments Chloride Lvl (test code = Chloride Lvl) 109 95-109 [place] 025232-05-06 09:20:00 Test Item Value Reference Range Interpretation Comments CO2 (test code = CO2) 23 24-32 [place] 025232-05-06 09:20:00 Test Item Value Reference Range Interpretation Comments Calcium Lvl (test code = Calcium Lvl) 8.5 8.5-10.5 [place] 025232-05-06 09:20:00 Test Item Value Reference Range Interpretation Comments AGAP (test code = AGAP) 14.1 10.0-20.0 [place] 025232-05-06 09:20:00 Test Item Value Reference Range Interpretation Comments eGFR (test code = eGFR) 41 [facility] HospitalDjkzyqkMGKWJFPQWH7747-48-56 09:20:00 Test Item Value Reference Range Interpretation Comments WBC (test code = WBC) 9.7 3.7-10.4 [place] 473642-05-06 09:20:00 Test Item Value Reference Range Interpretation Comments RBC (test code = RBC) 3.63 4.20-5.40 [place] 473642-05-06 09:20:00 Test Item Value Reference Range Interpretation Comments Hgb (test code = Hgb) 10.3 12.0-16.0 [place] [address]-05-06 09:20:00 Test Item Value Reference Range Interpretation Comments Hct (test code = Hct) 32.0 36.0-48.0 [place] 473642-05-06 09:20:00 Test Item Value Reference Range Interpretation Comments MCV (test code = MCV) 88.2 80.0-98.0 [place] 473642-05-06 09:20:00 Test Item Value Reference Range Interpretation Comments MCH (test code = MCH) 28.3 pg 27.0-31.0 [place] 473642-05-06 09:20:00 Test Item Value Reference Range Interpretation Comments MCHC (test code = MCHC) 32.1 32.0-36.0 [facility] HospitalGlpilkzNCIHAWXZHR1600-12-82 09:20:00 Test Item Value Reference Range Interpretation Comments RDW (test code = RDW) 13.8 11.5-14.5 [facility] HospitalPvghcrgHHSBFIJBIY6793-13-85 09:20:00 Test Item Value Reference Range Interpretation Comments Platelet (test code = Platelet) 162 133-450 [facility] HospitalNtczktiEQZIKCLZTH8165-10-17 09:20:00 Test Item Value Reference Range Interpretation Comments MPV (test code = MPV) 9.2 7.4-10.4 [place] [address]-05-06 09:20:00 Test Item Value Reference Range Interpretation Comments RBC Morph (test code = Normal (07/27/21 4:20 AM) RBC Morph) [facility] HospitalSvocjuiBBVXTJKDLC6505-68-65 09:20:00 Test Item Value Reference Range Interpretation Comments Plt Morph (test code = Normal (07/27/21 4:20 AM) Plt Morph) [place] 473642-05-06 09:20:00 Test Item Value Reference Range Interpretation Comments Segs (test code = Segs) 88.2 45.0-75.0 [place] [address]-05-06 09:20:00 Test Item Value Reference Range Interpretation Comments Lymphocytes (test code = Lymphocytes) 3.7 20.0-40.0 [place] [address]-05-06 09:20:00 Test Item Value Reference Range Interpretation Comments Monocytes (test code = Monocytes) 7.8 2.0-12.0 [place] [address]-05-06 09:20:00 Test Item Value Reference Range Interpretation Comments Basophils (test code = 0.3 See_Comment [Aut omated message] The Basophils) system which ge nerated this result tra nsmitted reference range : <=1.0. The reference r daysi was not used to int erpret this result as normal/abnormal . [place] [address]-05-06 09:20:00 Test Item Value Reference Range Interpretation Comments Neutrophils # (test code = Neutrophils 8.5 1.5-8.1 #) [place] [address]-05-06 09:20:00 Test Item Value Reference Range Interpretation Comments Lymphocytes # (test code = Lymphocytes 0.4 1.0-5.5 #) [place] [address]-05-06 09:20:00 Test Item Value Reference Range Interpretation Comments Monocytes # (test code 0.8 See_Comment [Aut omated message] The = Monocytes #) system which generated this result tra nsmitted reference range : <=0.8. The reference r daysi was not used to int erpret this result as normal/abnormal . [place] 025232-05-06 09:20:00 Test Item Value Reference Range Interpretation Comments Glucose Lvl (test code = Glucose Lvl) 151 70-99 [place] [address]-05-06 09:20:00 Test Item Value Reference Range Interpretation Comments BUN (test code = BUN) 33 7-22 [place] [address]-05-06 09:20:00 Test Item Value Reference Range Interpretation Comments Creatinine Lvl (test code = Creatinine 1.21 0.50-1.40 Lvl) [place] 025232-05-06 09:20:00 Test Item Value Reference Range Interpretation Comments Sodium Lvl (test code = Sodium Lvl) 142 135-145 [place] 025232-05-06 09:20:00 Test Item Value Reference Range Interpretation Comments Potassium Lvl (test code = Potassium 4.1 3.5-5.1 Lvl) [place] 025232-05-06 09:20:00 Test Item Value Reference Range Interpretation Comments Chloride Lvl (test code = Chloride Lvl) 109 95-109 [place] 025232-05-06 09:20:00 Test Item Value Reference Range Interpretation Comments CO2 (test code = CO2) 23 24-32 [place] 025232-05-06 09:20:00 Test Item Value Reference Range Interpretation Comments Calcium Lvl (test code = Calcium Lvl) 8.5 8.5-10.5 [place] 025232-05-06 09:20:00 Test Item Value Reference Range Interpretation Comments AGAP (test code = AGAP) 14.1 10.0-20.0 [place] 025232-05-06 09:20:00 Test Item Value Reference Range Interpretation Comments eGFR (test code = eGFR) 41 [place] [address]-05-06 09:20:00 Test Item Value Reference Range Interpretation Comments WBC (test code = WBC) 9.7 3.7-10.4 [place] [address]-05-06 09:20:00 Test Item Value Reference Range Interpretation Comments RBC (test code = RBC) 3.63 4.20-5.40 [place] 473642-05-06 09:20:00 Test Item Value Reference Range Interpretation Comments Hgb (test code = Hgb) 10.3 12.0-16.0 [place] [address]-05-06 09:20:00 Test Item Value Reference Range Interpretation Comments Hct (test code = Hct) 32.0 36.0-48.0 [place] [address]-05-06 09:20:00 Test Item Value Reference Range Interpretation Comments MCV (test code = MCV) 88.2 80.0-98.0 [place] [address]-05-06 09:20:00 Test Item Value Reference Range Interpretation Comments MCH (test code = MCH) 28.3 pg 27.0-31.0 [place] [address]-05-06 09:20:00 Test Item Value Reference Range Interpretation Comments MCHC (test code = MCHC) 32.1 32.0-36.0 [facility] HospitalKntkfhsUTUZWKUUOJ2175-76-12 09:20:00 Test Item Value Reference Range Interpretation Comments RDW (test code = RDW) 13.8 11.5-14.5 [facility] HospitalPdwobdjIUZRYQLTOK2279-98-24 09:20:00 Test Item Value Reference Range Interpretation Comments Platelet (test code = Platelet) 162 133-450 [place] 473642-05-06 09:20:00 Test Item Value Reference Range Interpretation Comments MPV (test code = MPV) 9.2 7.4-10.4 [facility] HospitalWlqozksUJQLCYAVDH2753-89-27 09:20:00 Test Item Value Reference Range Interpretation Comments RBC Morph (test code = Normal (07/27/21 4:20 AM) RBC Morph) [facility] HospitalGqvysdiPOYMOQLEGI3601-29-55 09:20:00 Test Item Value Reference Range Interpretation Comments Plt Morph (test code = Normal (07/27/21 4:20 AM) Plt Morph) [facility] HospitalFejwsxeFJNPSFUPIZ7921-19-73 09:20:00 Test Item Value Reference Range Interpretation Comments Segs (test code = Segs) 88.2 45.0-75.0 [facility] HospitalQhjscwcASYKZSYVBA3200-50-58 09:20:00 Test Item Value Reference Range Interpretation Comments Lymphocytes (test code = Lymphocytes) 3.7 20.0-40.0 [facility] HospitalKseqyiaTRXOGMLVCB2729-11-64 09:20:00 Test Item Value Reference Range Interpretation Comments Monocytes (test code = Monocytes) 7.8 2.0-12.0 [place] [address]-05-06 09:20:00 Test Item Value Reference Range Interpretation Comments Basophils (test code = 0.3 See_Comment [Aut omated message] The Basophils) system which ge nerated this result tra nsmitted reference range : <=1.0. The reference r daysi was not used to int erpret this result as normal/abnormal . [facility] HospitalOviiocuRRZRMRJLIW3541-01-77 09:20:00 Test Item Value Reference Range Interpretation Comments Neutrophils # (test code = Neutrophils 8.5 1.5-8.1 #) [facility] HospitalKjnemjwMADNJMQRDW8763-82-47 09:20:00 Test Item Value Reference Range Interpretation Comments Lymphocytes # (test code = Lymphocytes 0.4 1.0-5.5 #) [place] 473642-05-06 09:20:00 Test Item Value Reference Range Interpretation Comments Monocytes # (test code 0.8 See_Comment [Aut omated message] The = Monocytes #) system which generated this result tra nsmitted reference range : <=0.8. The reference r daysi was not used to int erpret this result as normal/abnormal . [place] 025232-05-06 09:20:00 Test Item Value Reference Range Interpretation Comments Glucose Lvl (test code = Glucose Lvl) 151 70-99 [place] [address]-05-06 09:20:00 Test Item Value Reference Range Interpretation Comments BUN (test code = BUN) 33 7-22 [place] 025232-05-06 09:20:00 Test Item Value Reference Range Interpretation Comments Creatinine Lvl (test code = Creatinine 1.21 0.50-1.40 Lvl) [place] 025232-05-06 09:20:00 Test Item Value Reference Range Interpretation Comments Sodium Lvl (test code = Sodium Lvl) 142 135-145 [place] 025232-05-06 09:20:00 Test Item Value Reference Range Interpretation Comments Potassium Lvl (test code = Potassium 4.1 3.5-5.1 Lvl) [place] 025232-05-06 09:20:00 Test Item Value Reference Range Interpretation Comments Chloride Lvl (test code = Chloride Lvl) 109 95-109 [place] 025232-05-06 09:20:00 Test Item Value Reference Range Interpretation Comments CO2 (test code = CO2) 23 24-32 [place] [address]-05-06 09:20:00 Test Item Value Reference Range Interpretation Comments Calcium Lvl (test code = Calcium Lvl) 8.5 8.5-10.5 [place] 025232-05-06 09:20:00 Test Item Value Reference Range Interpretation Comments AGAP (test code = AGAP) 14.1 10.0-20.0 [place] 025232-05-06 09:20:00 Test Item Value Reference Range Interpretation Comments eGFR (test code = eGFR) 41 [place] [address]-05-06 09:20:00 Test Item Value Reference Range Interpretation Comments WBC (test code = WBC) 9.7 3.7-10.4 [facility] HospitalIgndgfmWRHWCQPWPX9165-66-23 09:20:00 Test Item Value Reference Range Interpretation Comments RBC (test code = RBC) 3.63 4.20-5.40 [facility] HospitalLcsvtiaCYUADPEXZZ0680-90-75 09:20:00 Test Item Value Reference Range Interpretation Comments Hgb (test code = Hgb) 10.3 12.0-16.0 [place] 473642-05-06 09:20:00 Test Item Value Reference Range Interpretation Comments Hct (test code = Hct) 32.0 36.0-48.0 [place] 473642-05-06 09:20:00 Test Item Value Reference Range Interpretation Comments MCV (test code = MCV) 88.2 80.0-98.0 [facility] HospitalErpbjapBZTYAVUZQN9982-58-69 09:20:00 Test Item Value Reference Range Interpretation Comments MCH (test code = MCH) 28.3 pg 27.0-31.0 [facility] HospitalRkqgoheAXTIELRVNZ5150-06-95 09:20:00 Test Item Value Reference Range Interpretation Comments MCHC (test code = MCHC) 32.1 32.0-36.0 [facility] HospitalSvoymjpWEABOMAFHT4883-77-26 09:20:00 Test Item Value Reference Range Interpretation Comments RDW (test code = RDW) 13.8 11.5-14.5 [facility] HospitalDqvnbftZRADLBJOTF5975-35-37 09:20:00 Test Item Value Reference Range Interpretation Comments Platelet (test code = Platelet) 162 133-450 [facility] HospitalXgxmheoNROARQODLT6392-51-53 09:20:00 Test Item Value Reference Range Interpretation Comments MPV (test code = MPV) 9.2 7.4-10.4 [place] 473642-05-06 09:20:00 Test Item Value Reference Range Interpretation Comments RBC Morph (test code = Normal (07/27/21 4:20 AM) RBC Morph) [facility] HospitalOthuxizRNTSMBUKFB7096-52-25 09:20:00 Test Item Value Reference Range Interpretation Comments Plt Morph (test code = Normal (07/27/21 4:20 AM) Plt Morph) [facility] HospitalQpkpnktFQCNMQYANC5292-97-77 09:20:00 Test Item Value Reference Range Interpretation Comments Segs (test code = Segs) 88.2 45.0-75.0 [place] [address]-05-06 09:20:00 Test Item Value Reference Range Interpretation Comments Lymphocytes (test code = Lymphocytes) 3.7 20.0-40.0 [place] [address]-05-06 09:20:00 Test Item Value Reference Range Interpretation Comments Monocytes (test code = Monocytes) 7.8 2.0-12.0 [place] [address]-05-06 09:20:00 Test Item Value Reference Range Interpretation Comments Basophils (test code = 0.3 See_Comment [Aut omated message] The Basophils) system which ge nerated this result tra nsmitted reference range : <=1.0. The reference r daysi was not used to int erpret this result as normal/abnormal . [place] [address]-05-06 09:20:00 Test Item Value Reference Range Interpretation Comments Neutrophils # (test code = Neutrophils 8.5 1.5-8.1 #) [place] [address]-05-06 09:20:00 Test Item Value Reference Range Interpretation Comments Lymphocytes # (test code = Lymphocytes 0.4 1.0-5.5 #) [place] [address]-05-06 09:20:00 Test Item Value Reference Range Interpretation Comments Monocytes # (test code 0.8 See_Comment [Aut omated message] The = Monocytes #) system which generated this result tra nsmitted reference range : <=0.8. The reference r daysi was not used to int erpret this result as normal/abnormal . [facility]2022 12:10:00 Test Item Value Reference Range Interpretation Comments Glucose Lvl (test code = Glucose Lvl) 106 70-99 [place] 025232-05-04 12:10:00 Test Item Value Reference Range Interpretation Comments BUN (test code = BUN) 33 7-22 [place] 025232-05-04 12:10:00 Test Item Value Reference Range Interpretation Comments Creatinine Lvl (test code = Creatinine 1.13 0.50-1.40 Lvl) [place] 025232-05-04 12:10:00 Test Item Value Reference Range Interpretation Comments Sodium Lvl (test code = Sodium Lvl) 140 135-145 [place] 025232-05-04 12:10:00 Test Item Value Reference Range Interpretation Comments Potassium Lvl (test code = Potassium 4.2 3.5-5.1 Lvl) [place] 025232-05-04 12:10:00 Test Item Value Reference Range Interpretation Comments Chloride Lvl (test code = Chloride Lvl) 105 95-109 [place] 025232-05-04 12:10:00 Test Item Value Reference Range Interpretation Comments CO2 (test code = CO2) 28 24-32 [place] [address]-05-04 12:10:00 Test Item Value Reference Range Interpretation Comments Calcium Lvl (test code = Calcium Lvl) 8.5 8.5-10.5 [place] 025232-05-04 12:10:00 Test Item Value Reference Range Interpretation Comments AGAP (test code = AGAP) 11.2 10.0-20.0 [place] 025232-05-04 12:10:00 Test Item Value Reference Range Interpretation Comments eGFR (test code = eGFR) 44 [place] [id number] 12:10:00 Test Item Value Reference Range Interpretation Comments Eosinophils (test code = 0.8 See_Comment [A utomated message] The Eosinophils) system which ge nerated this result tra nsmitted reference range : <=4.0. The reference r daysi was not used to int erpret this result as normal/abnormal . [facility]2022 12:10:00 Test Item Value Reference Range Interpretation Comments Glucose Lvl (test code = Glucose Lvl) 106 70-99 [place] 025232-05-04 12:10:00 Test Item Value Reference Range Interpretation Comments BUN (test code = BUN) 33 7-22 [place] 025232-05-04 12:10:00 Test Item Value Reference Range Interpretation Comments Creatinine Lvl (test code = Creatinine 1.13 0.50-1.40 Lvl) [place] 025232-05-04 12:10:00 Test Item Value Reference Range Interpretation Comments Sodium Lvl (test code = Sodium Lvl) 140 135-145 [place] 025232-05-04 12:10:00 Test Item Value Reference Range Interpretation Comments Potassium Lvl (test code = Potassium 4.2 3.5-5.1 Lvl) [place] 7[address]-05-04 12:10:00 Test Item Value Reference Range Interpretation Comments Chloride Lvl (test code = Chloride Lvl) 105 95-109 [place] 025232-05-04 12:10:00 Test Item Value Reference Range Interpretation Comments CO2 (test code = CO2) 28 24-32 [place] 025232-05-04 12:10:00 Test Item Value Reference Range Interpretation Comments Calcium Lvl (test code = Calcium Lvl) 8.5 8.5-10.5 [facility]2022 12:10:00 Test Item Value Reference Range Interpretation Comments AGAP (test code = AGAP) 11.2 10.0-20.0 [facility]2022 12:10:00 Test Item Value Reference Range Interpretation Comments eGFR (test code = eGFR) 44 [id number] 12:10:00 Test Item Value Reference Range Interpretation Comments Eosinophils (test code = 0.8 See_Comment [A utomated message] The Eosinophils) system which ge nerated this result tra nsmitted reference range : <=4.0. The reference r daysi was not used to int erpret this result as normal/abnormal . [facility]2022 12:10:00 Test Item Value Reference Range Interpretation Comments Glucose Lvl (test code = Glucose Lvl) 106 70-99 [facility]2022 12:10:00 Test Item Value Reference Range Interpretation Comments BUN (test code = BUN) 33 7-22 [place] 025232-05-04 12:10:00 Test Item Value Reference Range Interpretation Comments Creatinine Lvl (test code = Creatinine 1.13 0.50-1.40 Lvl) [facility]2022 12:10:00 Test Item Value Reference Range Interpretation Comments Sodium Lvl (test code = Sodium Lvl) 140 135-145 [place] 025232-05-04 12:10:00 Test Item Value Reference Range Interpretation Comments Potassium Lvl (test code = Potassium 4.2 3.5-5.1 Lvl) [place] 025232-05-04 12:10:00 Test Item Value Reference Range Interpretation Comments Chloride Lvl (test code = Chloride Lvl) 105 95-109 [place] [address]-05-04 12:10:00 Test Item Value Reference Range Interpretation Comments CO2 (test code = CO2) 28 24-32 [place] 025232-05-04 12:10:00 Test Item Value Reference Range Interpretation Comments Calcium Lvl (test code = Calcium Lvl) 8.5 8.5-10.5 [place] 025232-05-04 12:10:00 Test Item Value Reference Range Interpretation Comments AGAP (test code = AGAP) 11.2 10.0-20.0 [place] 025232-05-04 12:10:00 Test Item Value Reference Range Interpretation Comments eGFR (test code = eGFR) 44 [facility] H[id number] 12:10:00 Test Item Value Reference Range Interpretation Comments Eosinophils (test code = 0.8 See_Comment [A utomated message] The Eosinophils) system which ge nerated this result tra nsmitted reference range : <=4.0. The reference r daysi was not used to int erpret this result as normal/abnormal . [facility]2022 12:10:00 Test Item Value Reference Range Interpretation Comments Glucose Lvl (test code = Glucose Lvl) 106 70-99 [facility]2022 12:10:00 Test Item Value Reference Range Interpretation Comments BUN (test code = BUN) 33 7-22 [place] 025232-05-04 12:10:00 Test Item Value Reference Range Interpretation Comments Creatinine Lvl (test code = Creatinine 1.13 0.50-1.40 Lvl) [place] 025232-05-04 12:10:00 Test Item Value Reference Range Interpretation Comments Sodium Lvl (test code = Sodium Lvl) 140 135-145 [place] 025232-05-04 12:10:00 Test Item Value Reference Range Interpretation Comments Potassium Lvl (test code = Potassium 4.2 3.5-5.1 Lvl) [place] 025232-05-04 12:10:00 Test Item Value Reference Range Interpretation Comments Chloride Lvl (test code = Chloride Lvl) 105 95-109 [place] [address]-05-04 12:10:00 Test Item Value Reference Range Interpretation Comments CO2 (test code = CO2) 28 -32 [place] 025232-05-04 12:10:00 Test Item Value Reference Range Interpretation Comments Calcium Lvl (test code = Calcium Lvl) 8.5 8.5-10.5 [facility]2022 12:10:00 Test Item Value Reference Range Interpretation Comments AGAP (test code = AGAP) 11.2 10.0-20.0 [facility]2022 12:10:00 Test Item Value Reference Range Interpretation Comments eGFR (test code = eGFR) 44 [facility] HospitalHvcplmgEEBIOZIHCL2274-14-22 12:10:00 Test Item Value Reference Range Interpretation Comments Eosinophils (test code = 0.8 See_Comment [A utomated message] The Eosinophils) system which ge nerated this result tra nsmitted reference range : <=4.0. The reference r daysi was not used to int erpret this result as normal/abnormal . [facility]2022 12:10:00 Test Item Value Reference Range Interpretation Comments Glucose Lvl (test code = Glucose Lvl) 106 70-99 [place] 025232-05-04 12:10:00 Test Item Value Reference Range Interpretation Comments BUN (test code = BUN) 33 7-22 [facility]2022 12:10:00 Test Item Value Reference Range Interpretation Comments Creatinine Lvl (test code = Creatinine 1.13 0.50-1.40 Lvl) [facility]2022 12:10:00 Test Item Value Reference Range Interpretation Comments Sodium Lvl (test code = Sodium Lvl) 140 135-145 [place] 025232-05-04 12:10:00 Test Item Value Reference Range Interpretation Comments Potassium Lvl (test code = Potassium 4.2 3.5-5.1 Lvl) [place] 025232-05-04 12:10:00 Test Item Value Reference Range Interpretation Comments Chloride Lvl (test code = Chloride Lvl) 105 95-109 [place] 025232-05-04 12:10:00 Test Item Value Reference Range Interpretation Comments CO2 (test code = CO2) 28 24-32 [place] 025232-05-04 12:10:00 Test Item Value Reference Range Interpretation Comments Calcium Lvl (test code = Calcium Lvl) 8.5 8.5-10.5 [place] 025232-05-04 12:10:00 Test Item Value Reference Range Interpretation Comments AGAP (test code = AGAP) 11.2 10.0-20.0 [place] 025232-05-04 12:10:00 Test Item Value Reference Range Interpretation Comments eGFR (test code = eGFR) 44 [id number] 12:10:00 Test Item Value Reference Range Interpretation Comments Eosinophils (test code = 0.8 See_Comment [A utomated message] The Eosinophils) system which ge nerated this result tra nsmitted reference range : <=4.0. The reference r daysi was not used to int erpret this result as normal/abnormal . [facility]2022 12:10:00 Test Item Value Reference Range Interpretation Comments Glucose Lvl (test code = Glucose Lvl) 106 70-99 [facility]2022 12:10:00 Test Item Value Reference Range Interpretation Comments BUN (test code = BUN) 33 7-22 [place] 025232-05-04 12:10:00 Test Item Value Reference Range Interpretation Comments Creatinine Lvl (test code = Creatinine 1.13 0.50-1.40 Lvl) [facility]2022 12:10:00 Test Item Value Reference Range Interpretation Comments Sodium Lvl (test code = Sodium Lvl) 140 135-145 [place] 025232-05-04 12:10:00 Test Item Value Reference Range Interpretation Comments Potassium Lvl (test code = Potassium 4.2 3.5-5.1 Lvl) [place] 025232-05-04 12:10:00 Test Item Value Reference Range Interpretation Comments Chloride Lvl (test code = Chloride Lvl) 105 95-109 [facility]2022 12:10:00 Test Item Value Reference Range Interpretation Comments CO2 (test code = CO2) 28 24-32 [place] 025232-05-04 12:10:00 Test Item Value Reference Range Interpretation Comments Calcium Lvl (test code = Calcium Lvl) 8.5 8.5-10.5 [facility] [id number] 12:10:00 Test Item Value Reference Range Interpretation Comments AGAP (test code = AGAP) 11.2 10.0-20.0 [facility] [id number] 12:10:00 Test Item Value Reference Range Interpretation Comments eGFR (test code = eGFR) 44 [id number] 12:10:00 Test Item Value Reference Range Interpretation Comments Eosinophils (test code = 0.8 See_Comment [A utomated message] The Eosinophils) system which ge nerated this result tra nsmitted reference range : <=4.0. The reference r daysi was not used to int erpret this result as normal/abnormal . [facility] [id number] 17:12:00 Test Item Value Reference Range Interpretation Comments HS Troponin I Baseline (test code = HS 24 Troponin I Baseline) [facility] [id number] 17:12:00 Test Item Value Reference Range Interpretation Comments HS Troponin I 1 Hr (test code = HS 22 Troponin I 1 Hr) [facility] [id number] 17:12:00 Test Item Value Reference Range Interpretation Comments HS Troponin I 0 to 1 See Note (07/24/21 Hour Delta (test code = 12:12 PM) HS Troponin I 0 to 1 Hour Delta) [facility]: [id number] 17:12:00 Test Item Value Reference Range Interpretation Comments Culture: Urine (test <10,000 CFU/mL Skin code = Culture: Urine) [facility] [id number] 17:12:00 Test Item Value Reference Range Interpretation Comments HS Troponin I Baseline (test code = HS 24 Troponin I Baseline) [facility] [id number] 17:12:00 Test Item Value Reference Range Interpretation Comments HS Troponin I 1 Hr (test code = HS 22 Troponin I 1 Hr) [facility] [id number] 17:12:00 Test Item Value Reference Range Interpretation Comments HS Troponin I 0 to 1 See Note (07/24/21 Hour Delta (test code = 12:12 PM) HS Troponin I 0 to 1 Hour Delta) [facility]: [id number] 17:12:00 Test Item Value Reference Range Interpretation Comments Culture: Urine (test <10,000 CFU/mL Skin code = Culture: Urine) [facility] [id number] 17:12:00 Test Item Value Reference Range Interpretation Comments HS Troponin I Baseline (test code = HS 24 Troponin I Baseline) [facility] [id number] 17:12:00 Test Item Value Reference Range Interpretation Comments HS Troponin I 1 Hr (test code = HS 22 Troponin I 1 Hr) [facility] [id number] 17:12:00 Test Item Value Reference Range Interpretation Comments HS Troponin I 0 to 1 See Note (07/24/21 Hour Delta (test code = 12:12 PM) HS Troponin I 0 to 1 Hour Delta) [facility]: [id number] 17:12:00 Test Item Value Reference Range Interpretation Comments Culture: Urine (test <10,000 CFU/mL Skin code = Culture: Urine) Renae [facility]annCARDIAC [id number] 17:12:00 Test Item Value Reference Range Interpretation Comments HS Troponin I Baseline (test code = HS 24 Troponin I Baseline) [facility] [id number] 17:12:00 Test Item Value Reference Range Interpretation Comments HS Troponin I 1 Hr (test code = HS 22 Troponin I 1 Hr) [facility]annCARDIAC [id number] 17:12:00 Test Item Value Reference Range Interpretation Comments HS Troponin I 0 to 1 See Note (07/24/21 Hour Delta (test code = 12:12 PM) HS Troponin I 0 to 1 Hour Delta) [facility]: [id number] 17:12:00 Test Item Value Reference Range Interpretation Comments Culture: Urine (test <10,000 CFU/mL Skin code = Culture: Urine) [facility] [id number] 17:12:00 Test Item Value Reference Range Interpretation Comments HS Troponin I Baseline (test code = HS 24 Troponin I Baseline) [facility] [id number] 17:12:00 Test Item Value Reference Range Interpretation Comments HS Troponin I 1 Hr (test code = HS 22 Troponin I 1 Hr) [facility]annCARDIAC [id number] 17:12:00 Test Item Value Reference Range Interpretation Comments HS Troponin I 0 to 1 See Note (07/24/21 Hour Delta (test code = 12:12 PM) HS Troponin I 0 to 1 Hour Delta) [facility]: [id number] 17:12:00 Test Item Value Reference Range Interpretation Comments Culture: Urine (test <10,000 CFU/mL Skin code = Culture: Urine) [facility] [id number] 17:12:00 Test Item Value Reference Range Interpretation Comments HS Troponin I Baseline (test code = HS 24 Troponin I Baseline) [facility] [id number] 17:12:00 Test Item Value Reference Range Interpretation Comments HS Troponin I 1 Hr (test code = HS 22 Troponin I 1 Hr) [facility] [id number] 17:12:00 Test Item Value Reference Range Interpretation Comments HS Troponin I 0 to 1 See Note (07/24/21 Hour Delta (test code = 12:12 PM) HS Troponin I 0 to 1 Hour Delta) [facility]: [id number] 17:12:00 Test Item Value Reference Range Interpretation Comments Culture: Urine (test <10,000 CFU/mL Skin code = Culture: Urine) [facility] [id number] 15:54:00 Test Item Value Reference Range Interpretation Comments UA Color (test code = [place] *ABN*(07/24/21 UA Color) 10:54 AM) [facility] [id number] 15:54:00 Test Item Value Reference Range Interpretation Comments UA Turbidity (test code Marked *ABN*(07/24/21 = UA Turbidity) 10:54 AM) [facility] [id number] 15:54:00 Test Item Value Reference Range Interpretation Comments UA Spec Grav (test code = UA Spec 1.018 1 Grav) [facility] [id number] 15:54:00 Test Item Value Reference Range Interpretation Comments UA pH (test code = UA pH) 5.0 1 5.0-8.0 [facility] [id number] 15:54:00 Test Item Value Reference Range Interpretation Comments UA Protein (test code = UA Negative mg/dL Protein) [facility] [id number] 15:54:00 Test Item Value Reference Range Interpretation Comments UA Glucose (test code = UA Negative mg/dL Glucose) [facility] AND [id number] 15:54:00 Test Item Value Reference Range Interpretation Comments UA Ketones (test code = UA Trace mg/dL Ketones) [facility] AND [id number] 15:54:00 Test Item Value Reference Range Interpretation Comments UA Bili (test code = Negative *NA*(07/24/21 UA Bili) 10:54 AM) [facility] AND [id number] 15:54:00 Test Item Value Reference Range Interpretation Comments UA Blood (test code = Small *ABN*(07/24/21 UA Blood) 10:54 AM) [facility] AND [id number] 15:54:00 Test Item Value Reference Range Interpretation Comments UA Urobilinogen (test code = UA 2.0 0.1-1.0 Urobilinogen) [facility] AND [id number] 15:54:00 Test Item Value Reference Range Interpretation Comments UA Nitrite (test code Positive *ABN*(07/24/21 = UA Nitrite) 10:54 AM) [facility] AND [id number] 15:54:00 Test Item Value Reference Range Interpretation Comments UA Leuk Est (test code Large *ABN*(07/24/21 = UA Leuk Est) 10:54 AM) [facility] AND [id number] 15:54:00 Test Item Value Reference Range Interpretation Comments UA Sq Epi (test code = UA Sq Occasional /LPF Epi) [facility] AND [id number] 15:54:00 Test Item Value Reference Range Interpretation Comments UA WBC (test code = no gt See_Comment [Automa martina message] The UA WBC) system which ge nerated this result transmit martina reference range : <=5. The reference range was not used to interpr et this result as jules l/abnormal. [facility] AND [id number] 15:54:00 Test Item Value Reference Range Interpretation Comments UA RBC (test code = 21 See_Comment [Automa martina message] The UA RBC) system which ge nerated this result transmit martina reference range : <=2. The reference range was not used to interpr et this result as jules l/abnormal. [facility] AND [id number] 15:54:00 Test Item Value Reference Range Interpretation Comments UA Bacteria (test code = UA Many /HPF Bacteria) [facility] AND [id number] 15:54:00 Test Item Value Reference Range Interpretation Comments UA Mucus (test code = UA Mucus) Few /LPF [facility] AND [id number] 15:54:00 Test Item Value Reference Range Interpretation Comments UA Color (test code = [place] *ABN*(07/24/21 UA Color) 10:54 AM) [facility] AND [id number] 15:54:00 Test Item Value Reference Range Interpretation Comments UA Turbidity (test code Marked *ABN*(07/24/21 = UA Turbidity) 10:54 AM) [facility] AND [id number] 15:54:00 Test Item Value Reference Range Interpretation Comments UA Spec Grav (test code = UA Spec 1.018 1 Grav) [facility] AND [id number] 15:54:00 Test Item Value Reference Range Interpretation Comments UA pH (test code = UA pH) 5.0 1 5.0-8.0 [facility] AND [id number] 15:54:00 Test Item Value Reference Range Interpretation Comments UA Protein (test code = UA Negative mg/dL Protein) [facility] AND [id number] 15:54:00 Test Item Value Reference Range Interpretation Comments UA Glucose (test code = UA Negative mg/dL Glucose) [facility] AND [id number] 15:54:00 Test Item Value Reference Range Interpretation Comments UA Ketones (test code = UA Trace mg/dL Ketones) [facility] AND [id number] 15:54:00 Test Item Value Reference Range Interpretation Comments UA Bili (test code = Negative *NA*(07/24/21 UA Bili) 10:54 AM) [facility] AND [id number] 15:54:00 Test Item Value Reference Range Interpretation Comments UA Blood (test code = Small *ABN*(07/24/21 UA Blood) 10:54 AM) [facility] AND [id number] 15:54:00 Test Item Value Reference Range Interpretation Comments UA Urobilinogen (test code = UA 2.0 0.1-1.0 Urobilinogen) [facility] [id number] 15:54:00 Test Item Value Reference Range Interpretation Comments UA Nitrite (test code Positive *ABN*(07/24/21 = UA Nitrite) 10:54 AM) [facility] [id number] 15:54:00 Test Item Value Reference Range Interpretation Comments UA Leuk Est (test code Large *ABN*(07/24/21 = UA Leuk Est) 10:54 AM) [facility] [id number] 15:54:00 Test Item Value Reference Range Interpretation Comments UA Sq Epi (test code = UA Sq Occasional /LPF Epi) [facility] AND [id number] 15:54:00 Test Item Value Reference Range Interpretation Comments UA WBC (test code = no gt See_Comment [Automa martina message] The UA WBC) system which ge nerated this result transmit martina reference range : <=5. The reference range was not used to interpr et this result as jules l/abnormal. [facility] [id number] 15:54:00 Test Item Value Reference Range Interpretation Comments UA RBC (test code = 21 See_Comment [Automa martina message] The UA RBC) system which ge nerated this result transmit martina reference range : <=2. The reference range was not used to interpr et this result as jules l/abnormal. [facility] AND [id number] 15:54:00 Test Item Value Reference Range Interpretation Comments UA Bacteria (test code = UA Many /HPF Bacteria) [facility] [id number] 15:54:00 Test Item Value Reference Range Interpretation Comments UA Mucus (test code = UA Mucus) Few /LPF [facility] [id number] 15:54:00 Test Item Value Reference Range Interpretation Comments UA Color (test code = [place] *ABN*(07/24/21 UA Color) 10:54 AM) [facility] [id number] 15:54:00 Test Item Value Reference Range Interpretation Comments UA Turbidity (test code Marked *ABN*(07/24/21 = UA Turbidity) 10:54 AM) [facility] [id number] 15:54:00 Test Item Value Reference Range Interpretation Comments UA Spec Grav (test code = UA Spec 1.018 1 Grav) [facility] AND [id number] 15:54:00 Test Item Value Reference Range Interpretation Comments UA pH (test code = UA pH) 5.0 1 5.0-8.0 [facility] AND [id number] 15:54:00 Test Item Value Reference Range Interpretation Comments UA Protein (test code = UA Negative mg/dL Protein) [facility] AND [id number] 15:54:00 Test Item Value Reference Range Interpretation Comments UA Glucose (test code = UA Negative mg/dL Glucose) [facility] AND [id number] 15:54:00 Test Item Value Reference Range Interpretation Comments UA Ketones (test code = UA Trace mg/dL Ketones) [facility] AND [id number] 15:54:00 Test Item Value Reference Range Interpretation Comments UA Bili (test code = Negative *NA*(07/24/21 UA Bili) 10:54 AM) [facility] AND [id number] 15:54:00 Test Item Value Reference Range Interpretation Comments UA Blood (test code = Small *ABN*(07/24/21 UA Blood) 10:54 AM) [facility] AND [id number] 15:54:00 Test Item Value Reference Range Interpretation Comments UA Urobilinogen (test code = UA 2.0 0.1-1.0 Urobilinogen) [facility] AND [id number] 15:54:00 Test Item Value Reference Range Interpretation Comments UA Nitrite (test code Positive *ABN*(07/24/21 = UA Nitrite) 10:54 AM) [facility] AND [id number] 15:54:00 Test Item Value Reference Range Interpretation Comments UA Leuk Est (test code Large *ABN*(07/24/21 = UA Leuk Est) 10:54 AM) [facility] AND [id number] 15:54:00 Test Item Value Reference Range Interpretation Comments UA Sq Epi (test code = UA Sq Occasional /LPF Epi) [facility] AND [id number] 15:54:00 Test Item Value Reference Range Interpretation Comments UA WBC (test code = no gt See_Comment [Automa martina message] The UA WBC) system which ge nerated this result transmit martina reference range : <=5. The reference range was not used to interpr et this result as jules l/abnormal. [facility] AND [id number] 15:54:00 Test Item Value Reference Range Interpretation Comments UA RBC (test code = 21 See_Comment [Automa martina message] The UA RBC) system which ge nerated this result transmit martina reference range : <=2. The reference range was not used to interpr et this result as jules l/abnormal. [facility] [id number] 15:54:00 Test Item Value Reference Range Interpretation Comments UA Bacteria (test code = UA Many /HPF Bacteria) [facility] AND [id number] 15:54:00 Test Item Value Reference Range Interpretation Comments UA Mucus (test code = UA Mucus) Few /LPF [facility] AND [id number] 15:54:00 Test Item Value Reference Range Interpretation Comments UA Color (test code = Latonia *ABN*(07/24/21 UA Color) 10:54 AM) [facility] AND [id number] 15:54:00 Test Item Value Reference Range Interpretation Comments UA Turbidity (test code Marked *ABN*(07/24/21 = UA Turbidity) 10:54 AM) [facility] AND [id number] 15:54:00 Test Item Value Reference Range Interpretation Comments UA Spec Grav (test code = UA Spec 1.018 1 Grav) [facility] AND [id number] 15:54:00 Test Item Value Reference Range Interpretation Comments UA pH (test code = UA pH) 5.0 1 5.0-8.0 [facility] AND [id number] 15:54:00 Test Item Value Reference Range Interpretation Comments UA Protein (test code = UA Negative mg/dL Protein) [facility] AND [id number] 15:54:00 Test Item Value Reference Range Interpretation Comments UA Glucose (test code = UA Negative mg/dL Glucose) [facility] AND [id number] 15:54:00 Test Item Value Reference Range Interpretation Comments UA Ketones (test code = UA Trace mg/dL Ketones) [facility] AND [id number] 15:54:00 Test Item Value Reference Range Interpretation Comments UA Bili (test code = Negative *NA*(07/24/21 UA Bili) 10:54 AM) [facility] AND [id number] 15:54:00 Test Item Value Reference Range Interpretation Comments UA Blood (test code = Small *ABN*(07/24/21 UA Blood) 10:54 AM) [facility] AND [id number] 15:54:00 Test Item Value Reference Range Interpretation Comments UA Urobilinogen (test code = UA 2.0 0.1-1.0 Urobilinogen) [facility] AND [id number] 15:54:00 Test Item Value Reference Range Interpretation Comments UA Nitrite (test code Positive *ABN*(07/24/21 = UA Nitrite) 10:54 AM) [facility] AND [id number] 15:54:00 Test Item Value Reference Range Interpretation Comments UA Leuk Est (test code Large *ABN*(07/24/21 = UA Leuk Est) 10:54 AM) [facility] AND [id number] 15:54:00 Test Item Value Reference Range Interpretation Comments UA Sq Epi (test code = UA Sq Occasional /LPF Epi) [facility] AND [id number] 15:54:00 Test Item Value Reference Range Interpretation Comments UA WBC (test code = no gt See_Comment [Automa martina message] The UA WBC) system which ge nerated this result transmit martina reference range : <=5. The reference range was not used to interpr et this result as jules l/abnormal. [facility] [id number] 15:54:00 Test Item Value Reference Range Interpretation Comments UA RBC (test code = 21 See_Comment [Automa martina message] The UA RBC) system which ge nerated this result transmit martina reference range : <=2. The reference range was not used to interpr et this result as jules l/abnormal. [facility] [id number] 15:54:00 Test Item Value Reference Range Interpretation Comments UA Bacteria (test code = UA Many /HPF Bacteria) [facility] AND [id number] 15:54:00 Test Item Value Reference Range Interpretation Comments UA Mucus (test code = UA Mucus) Few /LPF [facility] AND [id number] 15:54:00 Test Item Value Reference Range Interpretation Comments UA Color (test code = Latonia *ABN*(07/24/21 UA Color) 10:54 AM) [facility] AND [id number] 15:54:00 Test Item Value Reference Range Interpretation Comments UA Turbidity (test code Marked *ABN*(07/24/21 = UA Turbidity) 10:54 AM) [facility] AND [id number] 15:54:00 Test Item Value Reference Range Interpretation Comments UA Spec Grav (test code = UA Spec 1.018 1 Grav) [facility] AND [id number] 15:54:00 Test Item Value Reference Range Interpretation Comments UA pH (test code = UA pH) 5.0 1 5.0-8.0 [facility] AND [id number] 15:54:00 Test Item Value Reference Range Interpretation Comments UA Protein (test code = UA Negative mg/dL Protein) [facility] AND [id number] 15:54:00 Test Item Value Reference Range Interpretation Comments UA Glucose (test code = UA Negative mg/dL Glucose) [facility] AND [id number] 15:54:00 Test Item Value Reference Range Interpretation Comments UA Ketones (test code = UA Trace mg/dL Ketones) [facility] AND [id number] 15:54:00 Test Item Value Reference Range Interpretation Comments UA Bili (test code = Negative *NA*(07/24/21 UA Bili) 10:54 AM) [facility] AND [id number] 15:54:00 Test Item Value Reference Range Interpretation Comments UA Blood (test code = Small *ABN*(07/24/21 UA Blood) 10:54 AM) [facility] AND [id number] 15:54:00 Test Item Value Reference Range Interpretation Comments UA Urobilinogen (test code = UA 2.0 0.1-1.0 Urobilinogen) [facility] AND [id number] 15:54:00 Test Item Value Reference Range Interpretation Comments UA Nitrite (test code Positive *ABN*(07/24/21 = UA Nitrite) 10:54 AM) [facility] [id number] 15:54:00 Test Item Value Reference Range Interpretation Comments UA Leuk Est (test code Large *ABN*(07/24/21 = UA Leuk Est) 10:54 AM) [facility] [id number] 15:54:00 Test Item Value Reference Range Interpretation Comments UA Sq Epi (test code = UA Sq Occasional /LPF Epi) [facility] [id number] 15:54:00 Test Item Value Reference Range Interpretation Comments UA WBC (test code = no gt See_Comment [Automa martina message] The UA WBC) system which ge nerated this result transmit martina reference range : <=5. The reference range was not used to interpr et this result as jules l/abnormal. [facility] [id number] 15:54:00 Test Item Value Reference Range Interpretation Comments UA RBC (test code = 21 See_Comment [Automa martina message] The UA RBC) system which ge nerated this result transmit martina reference range : <=2. The reference range was not used to interpr et this result as jules l/abnormal. [facility] [id number] 15:54:00 Test Item Value Reference Range Interpretation Comments UA Bacteria (test code = UA Many /HPF Bacteria) [facility] [id number] 15:54:00 Test Item Value Reference Range Interpretation Comments UA Mucus (test code = UA Mucus) Few /LPF [facility] [id number] 15:54:00 Test Item Value Reference Range Interpretation Comments UA Color (test code = Latonia *ABN*(07/24/21 UA Color) 10:54 AM) [facility] [id number] 15:54:00 Test Item Value Reference Range Interpretation Comments UA Turbidity (test code Marked *ABN*(07/24/21 = UA Turbidity) 10:54 AM) [facility] [id number] 15:54:00 Test Item Value Reference Range Interpretation Comments UA Spec Grav (test code = UA Spec 1.018 1 Grav) [facility] [id number] 15:54:00 Test Item Value Reference Range Interpretation Comments UA pH (test code = UA pH) 5.0 1 5.0-8.0 [facility] [id number] 15:54:00 Test Item Value Reference Range Interpretation Comments UA Protein (test code = UA Negative mg/dL Protein) [facility] AND [id number] 15:54:00 Test Item Value Reference Range Interpretation Comments UA Glucose (test code = UA Negative mg/dL Glucose) [facility] AND [id number] 15:54:00 Test Item Value Reference Range Interpretation Comments UA Ketones (test code = UA Trace mg/dL Ketones) [facility] AND [id number] 15:54:00 Test Item Value Reference Range Interpretation Comments UA Bili (test code = Negative *NA*(07/24/21 UA Bili) 10:54 AM) [facility] AND [id number] 15:54:00 Test Item Value Reference Range Interpretation Comments UA Blood (test code = Small *ABN*(07/24/21 UA Blood) 10:54 AM) [facility] AND [id number] 15:54:00 Test Item Value Reference Range Interpretation Comments UA Urobilinogen (test code = UA 2.0 0.1-1.0 Urobilinogen) [facility] AND [id number] 15:54:00 Test Item Value Reference Range Interpretation Comments UA Nitrite (test code Positive *ABN*(07/24/21 = UA Nitrite) 10:54 AM) [facility] AND [id number] 15:54:00 Test Item Value Reference Range Interpretation Comments UA Leuk Est (test code Large *ABN*(07/24/21 = UA Leuk Est) 10:54 AM) [facility] AND [id number] 15:54:00 Test Item Value Reference Range Interpretation Comments UA Sq Epi (test code = UA Sq Occasional /LPF Epi) [facility] AND [id number] 15:54:00 Test Item Value Reference Range Interpretation Comments UA WBC (test code = no gt See_Comment [Automa martina message] The UA WBC) system which ge nerated this result transmit martina reference range : <=5. The reference range was not used to interpr et this result as jules l/abnormal. [facility] AND [id number] 15:54:00 Test Item Value Reference Range Interpretation Comments UA RBC (test code = 21 See_Comment [Automa martina message] The UA RBC) system which ge nerated this result transmit martina reference range : <=2. The reference range was not used to interpr et this result as jules l/abnormal. [facility] AND [id number] 15:54:00 Test Item Value Reference Range Interpretation Comments UA Bacteria (test code = UA Many /HPF Bacteria) [facility] AND [id number] 15:54:00 Test Item Value Reference Range Interpretation Comments UA Mucus (test code = UA Mucus) Few /LPF [id number] 09:19:00 Test Item Value Reference Range Interpretation Comments Coronavirus (COVID-19) Not Detected (07/24/21 JOHANNE (test code = 4:19 AM) Coronavirus (COVID-19) JOHANNE) [facility] [id number] 09:19:00 Test Item Value Reference Range Interpretation Comments Coronavirus (COVID-19) Not Detected (07/24/21 JOHANNE (test code = 4:19 AM) Coronavirus (COVID-19) JOHANNE) [facility] [id number] 09:19:00 Test Item Value Reference Range Interpretation Comments Coronavirus (COVID-19) Not Detected (07/24/21 JOHANNE (test code = 4:19 AM) Coronavirus (COVID-19) JOHANNE) [facility] [id number] 09:19:00 Test Item Value Reference Range Interpretation Comments Coronavirus (COVID-19) Not Detected (07/24/21 JOHANNE (test code = 4:19 AM) Coronavirus (COVID-19) JOHANNE) [facility] [id number] 09:19:00 Test Item Value Reference Range Interpretation Comments Coronavirus (COVID-19) Not Detected (07/24/21 JOHANNE (test code = 4:19 AM) Coronavirus (COVID-19) JOHANNE) [place] 7[address]-05-03 09:19:00 Test Item Value Reference Range Interpretation Comments Coronavirus (COVID-19) Not Detected (07/24/21 JOHANNE (test code = 4:19 AM) Coronavirus (COVID-19) JOHANNE) [facility]2022-05-03 09:18:00 Test Item Value Reference Range Interpretation Comments Glucose Lvl (test code = Glucose Lvl) 115 70-99 [place] 025232-05-03 09:18:00 Test Item Value Reference Range Interpretation Comments BUN (test code = BUN) 29 7-22 [place] 025232-05-03 09:18:00 Test Item Value Reference Range Interpretation Comments Creatinine Lvl (test code = Creatinine 1.20 0.50-1.40 Lvl) [place] 025232-05-03 09:18:00 Test Item Value Reference Range Interpretation Comments Sodium Lvl (test code = Sodium Lvl) 140 135-145 [place] 025232-05-03 09:18:00 Test Item Value Reference Range Interpretation Comments Potassium Lvl (test code = Potassium 4.3 3.5-5.1 Lvl) [place] 025232-05-03 09:18:00 Test Item Value Reference Range Interpretation Comments Chloride Lvl (test code = Chloride Lvl) 105 95-109 [place] 025232-05-03 09:18:00 Test Item Value Reference Range Interpretation Comments CO2 (test code = CO2) 32 24-32 [place] 025232-05-03 09:18:00 Test Item Value Reference Range Interpretation Comments Calcium Lvl (test code = Calcium Lvl) 8.5 8.5-10.5 [place] 025232-05-03 09:18:00 Test Item Value Reference Range Interpretation Comments AGAP (test code = AGAP) 7.3 10.0-20.0 [place] 025232-05-03 09:18:00 Test Item Value Reference Range Interpretation Comments eGFR (test code = eGFR) 41 [place] 025232-05-03 09:18:00 Test Item Value Reference Range Interpretation Comments Glucose Lvl (test code = Glucose Lvl) 115 70-99 [place] 025232-05-03 09:18:00 Test Item Value Reference Range Interpretation Comments BUN (test code = BUN) 29 7-22 [place] 025232-05-03 09:18:00 Test Item Value Reference Range Interpretation Comments Creatinine Lvl (test code = Creatinine 1.20 0.50-1.40 Lvl) [place] 025232-05-03 09:18:00 Test Item Value Reference Range Interpretation Comments Sodium Lvl (test code = Sodium Lvl) 140 135-145 [place] 025232-05-03 09:18:00 Test Item Value Reference Range Interpretation Comments Potassium Lvl (test code = Potassium 4.3 3.5-5.1 Lvl) [place] 025232-05-03 09:18:00 Test Item Value Reference Range Interpretation Comments Chloride Lvl (test code = Chloride Lvl) 105 95-109 [place] 025232-05-03 09:18:00 Test Item Value Reference Range Interpretation Comments CO2 (test code = CO2) 32 24-32 [place] 025232-05-03 09:18:00 Test Item Value Reference Range Interpretation Comments Calcium Lvl (test code = Calcium Lvl) 8.5 8.5-10.5 [place] 025232-05-03 09:18:00 Test Item Value Reference Range Interpretation Comments AGAP (test code = AGAP) 7.3 10.0-20.0 [place] 705[address]-05-03 09:18:00 Test Item Value Reference Range Interpretation Comments eGFR (test code = eGFR) 41 [place] 025232-05-03 09:18:00 Test Item Value Reference Range Interpretation Comments Glucose Lvl (test code = Glucose Lvl) 115 70-99 [place] 025232-05-03 09:18:00 Test Item Value Reference Range Interpretation Comments BUN (test code = BUN) 29 7-22 [place] 025232-05-03 09:18:00 Test Item Value Reference Range Interpretation Comments Creatinine Lvl (test code = Creatinine 1.20 0.50-1.40 Lvl) [place] 025232-05-03 09:18:00 Test Item Value Reference Range Interpretation Comments Sodium Lvl (test code = Sodium Lvl) 140 135-145 [place] 025232-05-03 09:18:00 Test Item Value Reference Range Interpretation Comments Potassium Lvl (test code = Potassium 4.3 3.5-5.1 Lvl) [place] 025232-05-03 09:18:00 Test Item Value Reference Range Interpretation Comments Chloride Lvl (test code = Chloride Lvl) 105 95-109 [place] 025232-05-03 09:18:00 Test Item Value Reference Range Interpretation Comments CO2 (test code = CO2) 32 24-32 [place] 025232-05-03 09:18:00 Test Item Value Reference Range Interpretation Comments Calcium Lvl (test code = Calcium Lvl) 8.5 8.5-10.5 [place] 025232-05-03 09:18:00 Test Item Value Reference Range Interpretation Comments AGAP (test code = AGAP) 7.3 10.0-20.0 [place] 025232-05-03 09:18:00 Test Item Value Reference Range Interpretation Comments eGFR (test code = eGFR) 41 [place] 025232-05-03 09:18:00 Test Item Value Reference Range Interpretation Comments Glucose Lvl (test code = Glucose Lvl) 115 70-99 [place] 025232-05-03 09:18:00 Test Item Value Reference Range Interpretation Comments BUN (test code = BUN) 29 7-22 [place] 025232-05-03 09:18:00 Test Item Value Reference Range Interpretation Comments Creatinine Lvl (test code = Creatinine 1.20 0.50-1.40 Lvl) [place] 025232-05-03 09:18:00 Test Item Value Reference Range Interpretation Comments Sodium Lvl (test code = Sodium Lvl) 140 135-145 [facility]2022-05-03 09:18:00 Test Item Value Reference Range Interpretation Comments Potassium Lvl (test code = Potassium 4.3 3.5-5.1 Lvl) [place] 025232-05-03 09:18:00 Test Item Value Reference Range Interpretation Comments Chloride Lvl (test code = Chloride Lvl) 105 95-109 [place] 025232-05-03 09:18:00 Test Item Value Reference Range Interpretation Comments CO2 (test code = CO2) 32 24-32 [place] 025232-05-03 09:18:00 Test Item Value Reference Range Interpretation Comments Calcium Lvl (test code = Calcium Lvl) 8.5 8.5-10.5 [place] 025232-05-03 09:18:00 Test Item Value Reference Range Interpretation Comments AGAP (test code = AGAP) 7.3 10.0-20.0 [place] 7[address]-05-03 09:18:00 Test Item Value Reference Range Interpretation Comments eGFR (test code = eGFR) 41 [place] 025232-05-03 09:18:00 Test Item Value Reference Range Interpretation Comments Glucose Lvl (test code = Glucose Lvl) 115 70-99 [place] 025232-05-03 09:18:00 Test Item Value Reference Range Interpretation Comments BUN (test code = BUN) 29 7- [place] 025232-05-03 09:18:00 Test Item Value Reference Range Interpretation Comments Creatinine Lvl (test code = Creatinine 1.20 0.50-1.40 Lvl) [place] 025232-05-03 09:18:00 Test Item Value Reference Range Interpretation Comments Sodium Lvl (test code = Sodium Lvl) 140 135-145 [place] 025232-05-03 09:18:00 Test Item Value Reference Range Interpretation Comments Potassium Lvl (test code = Potassium 4.3 3.5-5.1 Lvl) [place] 025232-05-03 09:18:00 Test Item Value Reference Range Interpretation Comments Chloride Lvl (test code = Chloride Lvl) 105 95-109 [place] 025232-05-03 09:18:00 Test Item Value Reference Range Interpretation Comments CO2 (test code = CO2) 32 24-32 [facility]2022-05-03 09:18:00 Test Item Value Reference Range Interpretation Comments Calcium Lvl (test code = Calcium Lvl) 8.5 8.5-10.5 [place] 025232-05-03 09:18:00 Test Item Value Reference Range Interpretation Comments AGAP (test code = AGAP) 7.3 10.0-20.0 [place] 025232-05-03 09:18:00 Test Item Value Reference Range Interpretation Comments eGFR (test code = eGFR) 41 [place] 025232-05-03 09:18:00 Test Item Value Reference Range Interpretation Comments Glucose Lvl (test code = Glucose Lvl) 115 70-99 [place] 025232-05-03 09:18:00 Test Item Value Reference Range Interpretation Comments BUN (test code = BUN) 29 7-22 [place] 025232-05-03 09:18:00 Test Item Value Reference Range Interpretation Comments Creatinine Lvl (test code = Creatinine 1.20 0.50-1.40 Lvl) [facility]2022-05-03 09:18:00 Test Item Value Reference Range Interpretation Comments Sodium Lvl (test code = Sodium Lvl) 140 135-145 [place] 025232-05-03 09:18:00 Test Item Value Reference Range Interpretation Comments Potassium Lvl (test code = Potassium 4.3 3.5-5.1 Lvl) [facility]2022-05-03 09:18:00 Test Item Value Reference Range Interpretation Comments Chloride Lvl (test code = Chloride Lvl) 105 95-109 [facility]2022-05-03 09:18:00 Test Item Value Reference Range Interpretation Comments CO2 (test code = CO2) 32 24-32 [facility]2022-05-03 09:18:00 Test Item Value Reference Range Interpretation Comments Calcium Lvl (test code = Calcium Lvl) 8.5 8.5-10.5 [facility]2022-05-03 09:18:00 Test Item Value Reference Range Interpretation Comments AGAP (test code = AGAP) 7.3 10.0-20.0 [facility]2022-05-03 09:18:00 Test Item Value Reference Range Interpretation Comments eGFR (test code = eGFR) 41 [facility] [id number] 09:17:00 Test Item Value Reference Range Interpretation Comments ABO/Rh (test code = ABO/Rh) O POS [facility]2022-05-03 09:17:00 Test Item Value Reference Range Interpretation Comments Antibody Scrn (test Negative (07/24/21 4:17 code = Antibody Scrn) AM) [facility]sp[facility]zhVXDHSLSQVY1162-57-95 09:17:00 Test Item Value Reference Range Interpretation Comments PT (test code = PT) 16.2 s 12.0-14.7 [place] 473642-05-03 09:17:00 Test Item Value Reference Range Interpretation Comments INR (test code = INR) 1.31 1 0.85-1.17 [place] 473642-05-03 09:17:00 Test Item Value Reference Range Interpretation Comments PTT (test code = PTT) 34.7 s 22.9-35.8 [facility] [id number] 09:17:00 Test Item Value Reference Range Interpretation Comments ABO/Rh (test code = ABO/Rh) O POS [facility] [id number] 09:17:00 Test Item Value Reference Range Interpretation Comments Antibody Scrn (test Negative (07/24/21 4:17 code = Antibody Scrn) AM) [facility] HospitalWurtxnpSFUPGLDQIJ9460-62-66 09:17:00 Test Item Value Reference Range Interpretation Comments PT (test code = PT) 16.2 s 12.0-14.7 [facility] HospitalJzdslbbOMKMYMWLPE6908-37-18 09:17:00 Test Item Value Reference Range Interpretation Comments INR (test code = INR) 1.31 1 0.85-1.17 [facility] HospitalYtqzabtGWMMTLTCKH1685-97-99 09:17:00 Test Item Value Reference Range Interpretation Comments PTT (test code = PTT) 34.7 s 22.9-35.8 [facility] [id number] 09:17:00 Test Item Value Reference Range Interpretation Comments ABO/Rh (test code = ABO/Rh) O POS [facility] [id number] 09:17:00 Test Item Value Reference Range Interpretation Comments Antibody Scrn (test Negative (07/24/21 4:17 code = Antibody Scrn) AM) [facility] HospitalFsmnyvuFAENISFQGC9090-73-00 09:17:00 Test Item Value Reference Range Interpretation Comments PT (test code = PT) 16.2 s 12.0-14.7 [facility] HospitalJjlcbvePPWQGFJEID0716-53-03 09:17:00 Test Item Value Reference Range Interpretation Comments INR (test code = INR) 1.31 1 0.85-1.17 [facility] HospitalMvzdcfvDAGPUQQBNU5259-84-19 09:17:00 Test Item Value Reference Range Interpretation Comments PTT (test code = PTT) 34.7 s 22.9-35.8 [facility]2022-05-03 09:17:00 Test Item Value Reference Range Interpretation Comments ABO/Rh (test code = ABO/Rh) O POS [facility] [id number] 09:17:00 Test Item Value Reference Range Interpretation Comments Antibody Scrn (test Negative (07/24/21 4:17 code = Antibody Scrn) AM) [facility] HospitalLchdetnNLSTPDLWES0730-65-94 09:17:00 Test Item Value Reference Range Interpretation Comments PT (test code = PT) 16.2 s 12.0-14.7 [facility] HospitalFcolszxZMEXSFYETD8977-25-01 09:17:00 Test Item Value Reference Range Interpretation Comments INR (test code = INR) 1.31 1 0.85-1.17 [facility] HospitalCsqhlxkHGGXFTLTMJ2829-50-34 09:17:00 Test Item Value Reference Range Interpretation Comments PTT (test code = PTT) 34.7 s 22.9-35.8 [facility] [id number] 09:17:00 Test Item Value Reference Range Interpretation Comments ABO/Rh (test code = ABO/Rh) O POS [facility] [id number] 09:17:00 Test Item Value Reference Range Interpretation Comments Antibody Scrn (test Negative (07/24/21 4:17 code = Antibody Scrn) AM) [facility] HospitalSvsvlcdLTDZMMICTH1782-21-10 09:17:00 Test Item Value Reference Range Interpretation Comments PT (test code = PT) 16.2 s 12.0-14.7 [facility] HospitalTnqxoqjPCSSFGXYJH7090-26-32 09:17:00 Test Item Value Reference Range Interpretation Comments INR (test code = INR) 1.31 1 0.85-1.17 [facility] HospitalLndqcssXWHLQUOFNB0197-01-87 09:17:00 Test Item Value Reference Range Interpretation Comments PTT (test code = PTT) 34.7 s 22.9-35.8 [facility] [id number] 09:17:00 Test Item Value Reference Range Interpretation Comments ABO/Rh (test code = ABO/Rh) O POS [facility] [id number] 09:17:00 Test Item Value Reference Range Interpretation Comments Antibody Scrn (test Negative (07/24/21 4:17 code = Antibody Scrn) AM) [facility] HospitalFllcxubTMJMEBBMFM7386-38-54 09:17:00 Test Item Value Reference Range Interpretation Comments PT (test code = PT) 16.2 s 12.0-14.7 [facility] HospitalMrdpfygMULMKZZOVA9787-07-84 09:17:00 Test Item Value Reference Range Interpretation Comments INR (test code = INR) 1.31 1 0.85-1.17 [facility] HospitalCvcsbggUYWNKCMOJX9059-48-53 09:17:00 Test Item Value Reference Range Interpretation Comments PTT (test code = PTT) 34.7 s 22.9-35.[address]2022-03-05 06:39:18 Test Item Value Reference Range [...] rhythm with occasional premature ventricular complexes-Abnormal ECG- [address]2022-03-05 06:39:18 Test Item Value Reference Range [...] rhythm with occasional premature ventricular complexes-Abnormal ECG- [place] [address] qualitative [id number] 20:49:15 Test Item Value Reference Range Interpretation Comments Interpretation (test Negative results do code = 0090624) not preclude 2019-nCoV infection and should not be usedas the sole basis for treatment or other patient management decisions.Negative results must be combined with clinical observations, patienthistory, and epidemiological information. COVID-19 qualitative Not-Detected Not-Detected RT-PCR result (test code = 46948-0) COVID-19 qualitative See link below for C ase Number: RT-PCR (test code = PDF Lab Report [id number]) [facility] [id number] 20:49:15 Test Item Value Reference Range Interpretation Comments Interpretation (test Negative results do code = 6196721) not preclude 2019-nCoV infection and should not be usedas the sole basis for treatment or other patient management decisions.Negative results must be combined with clinical observations, patienthistory, and epidemiological information. COVID-19 qualitative Not-Detected Not-Detected RT-PCR result (test code = 55061-4) COVID-19 qualitative See link below for C ase Number: RT-PCR (test code = PDF Lab Report [id number]) [facility] VmfwiuhdNMPK-BpR-0 (COVID-19) RNA [Presence] in Respiratory specimen by JOHANNE with probe [id number] 14:49:15 Test Item Value Reference Range Interpretation Comments SARS-CoV-2 (COVID-19) RNA Not detected [Presence] in Respiratory specimen by JOHANNE with probe detection (test code = 35965-2) Whether patient is employed in a Unknown healthcare setting (test code = 78879-8) Whether the patient has symptoms Unknown related to condition of interest (test code = 55197-8) Whether the patient was Unknown hospitalized for condition of interest (test code = 65333-9) Whether the patient was admitted Unknown to intensive care unit (ICU) for condition of interest (test code = 26846-3) Whether patient resides in a Unknown congregate care setting (test code = 75128-2) status (test code = Unknown 74562-0) Date and time of symptom onset Unknown (test code = 20288-5) ADILENE GARVEY EMSGHXZT-ArV-2 (COVID-19) RNA [Presence] in Respiratory specimen by JOHANNE with probe [id number] 14:49:15 Test Item Value Reference Range Interpretation Comments SARS coronavirus RNA [Presence] Not detected in Isolate by JOHANNE with probe detection (test code = 48288-6) Whether patient is employed in a Unknown healthcare setting (test code = 25950-7) Whether the patient has symptoms Unknown related to condition of interest (test code = 81451-4) Whether the patient was Unknown hospitalized for condition of interest (test code = 84468-8) Whether the patient was admitted Unknown to intensive care unit (ICU) for condition of interest (test code = 53926-3) Whether patient resides in a Unknown congregate care setting (test code = 43728-1) status (test code = Unknown 16645-1) Date and time of symptom onset Unknown (test code = 33338-9) ADILENE ROBLEDO
[2022-07-21] MEDS ORDERED: NA CHLORIDE 0.9% 1,000 ML ONE ×3 (04:25→07:53)
[2022-07-21] MEDS ORDERED: NOREPINEPHRINE BITARTRATE/D5W 4 MG/250 ML BAG IV ONE ×2 (04:29→09:33)
[2022-07-21 04:41] LABS: Absolute Lymphocytes (CBC) 0.5 K/uL (0.7-4.9); Hematocrit 42.6 % (36.0-45.0); Lymphocytes % 4.1 % (15.3-44.8); MCV 83.1 fL (80-100); MPV 8.3 fL (7.6-11.3); RBC Red Blood Cell Count 5.12 M/uL (3.86-4.86)
[2022-07-21 04:45] LABS: Protime INR 1.16
[2022-07-21 04:54] LABS: Blood Gas Oxyhemoglobin 95.2 % (94-97); Blood O2 Saturation 97.6 % (92-98.5)
[2022-07-21] MEDS ORDERED: NA CHLORIDE 0.9% 250 ML ONE (04:54)
[2022-07-21] MEDS ORDERED: NA CHLORIDE 0.9% 100 ML ONE ×2 (04:54→06:18)
[2022-07-21] MEDS ORDERED: ONDANSETRON 4 MG/2 ML VIAL ONE (04:54)
[2022-07-21] MEDS ORDERED: VANCOMYCIN 1 GM/VIAL ONE (04:54)
[2022-07-21] MEDS ORDERED: PIPERACIL/TAZO 3.375 GM VIAL IV ONE (04:55)
[2022-07-21 04:59] LABS: Albumin 2.2 g/dL (3.4-5.0); Bilirubin Total 0.9 mg/dL (0.2-1.0); Potassium 4.6 mEq/L (3.5-5.1)
[2022-07-21 05:10] LABS: Blood Morphology Comment NOT SEEN (NOT SEEN); Platelet Estimate ADEQ
[2022-07-21 06:13] LABS: Thyroid Stimulating Hormone 4.99 uIU/mL (0.358-3.740)
[2022-07-21] MEDS ORDERED: LEVETIRACETAM 500 MG/5 ML VIAL IV ONE (06:17)
[2022-07-21] MEDS ORDERED: HYDROCORTISONE SUC 100 MG INJ ONE (06:17)
[2022-07-21] MEDS ORDERED: ALBUMIN HUMAN 25% 100 ML IV ONE ×2 (06:18→07:12)
--- NOTE | 2022-07-21 06:50 | ER ---
Nurse's Notes [facility] Name: Padma Carrillo Age: 87 yrs Sex: Female : 1935 Arrival Date: 07/21/2022 Time: 03:42 Bed 3 Private MD: Diagnosis: Severe sepsis with septic shock, persistent hypotension, colonic pseudoobstruction, acute hypoactive delirium, Hansel syndrome;Severe sepsis without septic shock Presentation: 07/21 03:56 Chief complaint: EMS states: AMS more than per patient normal, hypotension and pf1 hypoxemia 02 saturation of 76% on RA. [facility] stated patient was recently diagnosed with failure to thrive. Patient from [facility]. Coronavirus screen: Vaccine status: Patient reports being unvaccinated. unknown Client denies travel out of the [place] in the last 14 days. At this time, the client does not indicate any symptoms associated with coronavirus-19. Ebola Screen: Patient negative for fever greater than or equal to 101.5 degrees Fahrenheit, and additional compatible Ebola Virus Disease symptoms. Initial Sepsis Screen: Does the patient meet any 2 criteria? Systolic BP < 90 mmHg. Altered Mental Status. Yes Does the patient have a suspected source of infection? No. Patient's initial sepsis screen is negative. Risk Assessment: Do you want to hurt yourself or someone else? Patient reports no desire to harm self or others. Onset of symptoms is unknown. 03:56 Method Of Arrival: EMS: [facility] pf1 03:56 Acuity: SAGAR 2 pf1 Historical: - Allergies: 04:08 Codeine; pf1 04:08 Fosamax; pf1 04:08 Propoxyphene; pf1 04:08 Talwin NX; pf1 04:08 Verapamil; pf1 - PMHx: 04:08 Anemia; Atrial Fib; CVA (Deficit: slurred speech and weakness); Depression; epilepsy; pf1 GERD; Hyperlipidemia; Hypothyroidism; insomnia; muscle atrophy; UTI; - Immunization history:: Adult Immunizations unknown. - Social history:: Smoking status: unknown. - Family history:: not pertinent. Screenin:15 [facility] ED Fall Risk Assessment (Adult) History of falling in the last 3 months, pf1 including since admission No falls in past 3 months (0 pts) Confusion or Disorientation Yes (5 pts) Intoxicated or Sedated No (0 pts) Impaired Gait Yes (1 pt) Mobility Assist Device Used Yes (1 pt) Altered Elimination Yes (1 pt) Score/Fall Risk Level 3 or more points = High Risk Oriented to surroundings, Maintained a safe environment, Educated pt \T\ family on fall prevention, incl call for assistance when getting out of bed, Assessed \T\ reinforced patient's understanding of fall precautions, Provided non-skid footwear, Hourly rounding (assess needs \T\ fall precautionary measures) done, Used ambulatory aids as needed (educated on \T\ assisted with), Used gait belt as appropriate Implemented a Fall Risk Plan of Care, Offered frequent toileting (1:1 observation), Remained with patient while ambulating, Utilized family, sitter, or virtual rope maker as indicated. Abuse screen: Denies threats or abuse. Nutritional screening:. Tuberculosis screening: No symptoms or risk factors identified. Assessment: 04:09 General: Appears in no apparent distress. comfortable, ill, unkempt, Behavior is calm, pf1 cooperative. Pain: Complains of pain in abdomen pain upon palpation. Neuro: Level of Consciousness is awake, obeys commands. Cardiovascular: Capillary refill is > 3 seconds is sluggish fingers toes. Respiratory: Airway is patent Trachea midline Respiratory effort is even, unlabored, Respiratory pattern is regular, symmetrical. GI: Abdomen is round distended, Bowel sounds present X 4 quads. Abd is soft X 4 quads Abdomen is tender to palpation. : No deficits noted. No signs and/or symptoms were reported regarding the genitourinary system. EENT: No deficits noted. No signs and/or symptoms were reported regarding the EENT system. Derm: Skin is pale, purple coloring to hands and feet Decubitus located on sacrum is stage II. Musculoskeletal: Capillary refill is > 3 seconds, in bilateral fingers. toes. Range of motion: limited in bilateral legs and arms. 05:17 Reassessment: Patient appears in no apparent distress at this time. Patient and/or jb4 family updated on plan of care and expected duration. Pain level reassessed. Pt is resting comfortably in place. Central line is infusing without issue. Pt repositioned to left side. Un-blanchable redness noted to the right shoulder. 06:15 Reassessment: Patient appears in no apparent distress at this time. No changes from jb4 previously documented assessment. Patient and/or family updated on plan of care and expected duration. Pain level reassessed. 06:50 Reassessment: Pt resting in bed with eyes closed, respirations are even and unlabored jb4 with no s/s of pain or distress noted. Pt noted to have her heart rate drop into the 40's. Provider notified. See MAY. 08:30 Reassessment: REPORT TO DIANA TURNER FOR [facility] ICU. bp 09:17 Reassessment: [facility] FOR TRANSPORT. bp Vital Signs: 03:56 BP 85 / 60; Pulse 81; Resp 19; Temp 96.8; Pulse Ox 98% on 2 lpm NC; Weight 68.95 kg; pf1 Pain 0/10; 04:55 BP 136 / 60; Pulse 87; Resp 19; Pulse Ox 100% on 6 lpm NC; jb4 05:20 BP 111 / 51; Pulse 82; Resp 21; Temp 98.2(Ca); Pulse Ox 98% on 4 lpm NC; jb4 06:30 BP 123 / 46; Pulse 89; Resp 16; Temp 98.5(Ca); Pulse Ox 100% on 4 lpm NC; jb4 07:15 BP 120 / 56; Pulse 62; Resp 16; Temp 98.5(Ca); Pulse Ox 95% on 4 lpm NC; jb4 07:30 BP 119 / 53; Pulse 70; Resp 17; Pulse Ox 94% ; hb 07:45 BP 122 / 50; Pulse 85; Resp 17; Pulse Ox 94% ; hb 08:00 BP 123 / 60; Pulse 87; Resp 16; Pulse Ox 96% 4 lpm ; hb 08:15 BP 131 / 55; Pulse 80; Resp 16; Pulse Ox 97% ; hb 08:30 BP 126 / 55; Pulse 86; Resp 15; Pulse Ox 97% ; bp 08:45 BP 121 / 53; Pulse 68; Resp 15; Pulse Ox 97% ; bp 09:00 BP 123 / 51; Pulse 75; Resp 15; Pulse Ox 97% ; bp 09:15 BP 118 / 51; Pulse 81; Resp 15; Pulse Ox 95% ; bp 03:56 Pain Scale: Adult pf1 ED Course: 03:45 Patient arrived in ED. jb4 03:50 Ivan Olguin MD is Attending Physician. sp4 04:02 Triage completed. pf1 04:10 Missed attempt(s): 18 gauge in right antecubital area. Bleeding controlled, band aid jb4 applied, catheter tip intact. 04:16 Patient has correct armband on for positive identification. Bed in low position. Call pf1 light in reach. Side rails up X2. 04:19 Assisted provider with central line placement. Set up central line tray. Triple lumen pf1 line placed in right internal jugular. Line placed by Ivan Olguin MD Placement verified by CXR, blood return, Dressed with Tegaderm, Blood was collected. Patient tolerated Before procedure, did Practitioner(s) obtain informed consent? No. Patient \T\ family education about procedure, CLABSI prevention and S/S of infection? No. Time-out/Briefing performed prior to start of procedure? Yes. Was handwashing/sanitizing done immediately prior to procedure? Yes. Was patient positioned to in a way to prevent air embolism? Yes. Was procedure site sterilized? Yes, with chlorhexidine. Was the site allowed to dry? Yes. Was local anesthetic and/or sedation utilized? Yes. During the procedure, did the Practitioner(s) maintain a sterile field? Yes. Were unused ports clamped during insertion? Yes. Was blood aspirated from each lumen? Yes. After the procedure, did the Practitioner(s) clean the site and apply a sterile dressing? Yes. 04:47 Chest Single View XRAY In Process Unspecified. EDMS 05:17 Giovanni Soto, YUE is Primary Nurse. jb4 06:21 CT Chest Abdomen Pelvis W/O Contrast In Process Unspecified. EDMS 06:21 CT Head Brain wo Cont In Process Unspecified. EDMS 06:44 Pleitez cath inserted, using sterile technique, Patient tolerated well. as7 06:48 Intitated transfer to [facility], spoke with Cornell Alba. wm 07:00 Arm band placed on. bp 07:30 Attending Physician role handed off by Ivan Olguin MD jr11 07:30 Frederick Nielsen MD is Attending Physician. jr11 07:31 connected the telephone instrument supervisor parachute cushion installer for [facility] with Dr. Nielsen for patient eb transfer consultation. 07:42 administrative approval given by Gabby Mccloud Rn/ patient has been accepted to [facility] RM 7284/ Dr. Padma Michelle has accepted the patient in transfer/ report to be called to [phone]. 09:18 Patient transferred, IV remains in place. bp Administered Medications: 04:29 Drug: NS 0.9% IV 1000 ml Route: IV; Rate: 1 bolus; Site: right jugular; jb4 09:21 Follow up: IV Status: Completed infusion; IV Intake: 1000ml bp 04:31 Drug: Norepinephrine IV 0.1 mcg/kg/min {Note: started at 15mcg/min per physicians jb4 instruction..} Route: IV; Rate: calculated rate; Site: right jugular; 04:55 Follow up: BP 136 / 60; Pulse 87 bpm; Resp 19 bpm; Pulse Ox 100% 6 lpm Nasal Cannula; jb4 Rate change 5 mcg/min 09:19 Follow up: IV Status: Infusion continued upon transfer bp 04:31 Not Given (Other Intervention Used): Norepinephrine IV 15 mcg/min IV at calculated rate jb4 See Administration Instructions; (Standard concentration 4 mg / 250 mL D5W); Recommended max rate 3 mcg/kg/min; Titrate 0.05 mcg/kg/min as often as every 5 minutes to achieve goal (see titration policy); Goal parameter MAP greater than 65 mmHg. 05:04 Drug: vancoMYCIN IVPB 1 grams Route: IVPB; Infused Over: 2 hrs; Site: right jugular; jb4 09:20 Follow up: IV Status: Completed infusion; IV Intake: 250ml bp 05:04 Drug: Piperacillin-Tazobactam IVPB 3.375 grams Route: IVPB; Infused Over: 60 mins; jb4 Site: right jugular; 09:20 Follow up: IV Status: Completed infusion; IV Intake: 100ml bp 05:04 Drug: Ondansetron IVP 4 mg Route: IVP; Site: right jugular; jb4 09:21 Follow up: Response: No adverse reaction bp 06:29 Drug: Solu-CORTEF IVP 100 mg Route: IVP; Site: right jugular; jb4 07:43 Follow up: Response: No adverse reaction bp 06:29 Drug: Keppra IV 1000 mg Route: IV; Rate: bolus; Site: right jugular; jb4 07:43 Follow up: IV Status: Completed infusion; IV Intake: 100ml bp 07:00 Drug: Atropine IVP 1 mg Route: IVP; Site: right jugular; jb4 07:43 Follow up: Response: No adverse reaction bp 07:08 Drug: Albumin IVPB 25 grams Volume: 100 ml; Route: IVPB; Site: right jugular; jb4 09:19 Follow up: IV Status: Completed infusion; IV Intake: 50ml bp 07:08 Drug: NS 0.9% IV 1000 ml Route: IV; Rate: 125 ml/hr; Site: right jugular; jb4 09:19 Follow up: IV Status: Infusion continued upon transfer bp 07:22 Drug: Albumin IVPB 25 grams Volume: 100 ml; Route: IVPB; Site: right jugular; jb4 09:19 Follow up: IV Status: Completed infusion; IV Intake: 50ml bp 07:53 Drug: NS 0.9% IV 1000 ml Route: IV; Rate: 1 bolus; Site: Other; hb 09:19 Follow up: IV Status: Infusion continued upon transfer bp Medication: 05:20 VIS not applicable for this client. jb4 Intake: 07:43 IV: 100ml; Total: 100ml. bp 09:19 IV: 50ml; Total: 150ml. bp 09:19 IV: 50ml; Total: 200ml. bp 09:20 IV: 100ml; Total: 300ml. bp 09:20 IV: 250ml; Total: 550ml. bp 09:21 IV: 1000ml; Total: 1550ml. bp Outcome: 06:50 ER care complete, transfer ordered by . sp4 09:18 Transferred by ground EMS to [facility], Transfer form completed. bp 09:18 Condition: stable 09:18 Instructed on the need for transfer. 10:03 Patient left the ED. bp Signatures: Dispatcher [employer] EDMS Asia Munroe RN RN hb Bryson, James, RN RN jb4 Zander Fischer RN RN Rosalina Meyer Wendy wm Rosillo, Jose, MD MD jr11 Shelley santiago RN RN pf1 Yumiko Leon as7 Ivan Olguin MD MD sp4 Corrections: (The following items were deleted from the chart) 07:27 07:05 Reassessment: Pt resting in bed with eyes closed, respirations are even and jb4 unlabored with no s/s of pain or distress noted. Pt noted to have her heart rate drop into the 40's. Provider notified. See MAR. jb4 07:34 04:09 GI: Abdomen is round non-distended, Bowel sounds present X 4 quads. Abd is soft X pf1 4 quads Abdomen is tender to palpation pf1
--- NOTE | 2022-07-21 06:51 | EDPHYS ---
Physician Documentation [facility] Name: Padma Carrillo Age: 87 yrs Sex: Female : 1935 Arrival Date: 07/21/2022 Time: 03:42 Bed 3 Private MD: ED Physician Frederick Nielsen HPI: 07/21 03:51 This 87 yrs old Female presents to ER via Unassigned with complaints of sp4 Generalized weakness . 05:25 87-year-old female [facility] with lethargy, generalized sp4 weakness, and hypotension. Patient was found obtunded by [facility] staff and EMS was called. . 05:26 [facility] staff also noted patient was hypoxemic at 76% on room air. Presentation sp4 patient is lethargic and not able to provide any history. Patient's past medical history is positive for GI bleeds, failure to thrive, GERD, UTIs, hypertension, dementia, atrial fibrillation, on chronic anticoagulation, cardiac pacemaker, previous CVA, prolonged immobility, seizure disorder, depression, decubitus ulcers, anemia, chronic renal insufficiency, ESBL E. coli UTIs. Patient's medications include, docusate, furosemide, gabapentin, Doyle, isosorbide, lactobacillus, levothyroxine, loratadine, magnesium, megestrol, memantine, metoprolol, multivitamin, nitroglycerin, potassium, Xarelto, sennosides, spironolactone, valacyclovir, Dulcolax, Keppra, tramadol, meropenem, allopurinol, atorvastatin, donepezil, duloxetine, melatonin, promethazine, cefdinir, Medihoney. . Arrival patient is pale, hypotensive, and lethargic, also hypoxic. . 05:31 Patient was managed here on 05/26/2022 for acute blood loss anemia secondary to GI sp4 bleed, multidrug-resistant UTI including ESBL, atrial fibrillation, dementia, hypertension, history of CVA, seizure disorder, patient was managed with meropenem for ESBL UTI. Patient is full code as documented. Historical: - Allergies: 04:08 Codeine; pf1 04:08 Fosamax; pf1 04:08 Propoxyphene; pf1 04:08 Talwin NX; pf1 04:08 Verapamil; pf1 - PMHx: 04:08 Anemia; Atrial Fib; CVA (Deficit: slurred speech and weakness); Depression; epilepsy; pf1 GERD; Hyperlipidemia; Hypothyroidism; insomnia; muscle atrophy; UTI; - Immunization history:: Adult Immunizations unknown. - Social history:: Smoking status: unknown. - Family history:: not pertinent. ROS: 05:26 Constitutional: Positive for lethargy, decreased responsiveness, otherwise ROS not sp4 available 05:26 Unable to obtain ROS due to altered mental status. Exam: 05:31 Constitutional: This is a cachectic female, frail, elderly female, generalized pallor, sp4 toxic-appearing, hypotensive on arrival, peripheral cyanosis, increased cap refill, signs of diffuse muscular atrophy from immobility, bilateral sacral decubitus ulcerations, necrotic sacral ulcerations, incontinent of bowel, patient does respond to simple commands, but is nonverbal at this time. 05:31 Constitutional: Moderate to severe dehydration. Head/Face: Normocephalic, atraumatic. sp4 Eyes: Pupils equal round and reactive to light, extra-ocular motions intact. Lids and lashes normal. Conjunctiva and sclera are not injected. Cornea within normal limits. Periorbital areas with no swelling, redness, or edema. ENT: Nares patent. No nasal discharge, no septal abnormalities noted. Tympanic membranes are normal and external auditory canals are clear. Pharynx is unremarkable, patient is edentulous Neck: Trachea midline, no thyromegaly or masses palpated, and no cervical lymphadenopathy. Supple, full range of motion without nuchal rigidity, or vertebral point tenderness. No Meningismus. Chest/axilla: Normal chest wall appearance and motion. Nontender with no deformity. No lesions are appreciated. Cardiovascular: Regular rate and rhythm with a normal S1 and S2. No gallops, murmurs, or rubs. Normal PMI, no JVD. No pulse deficits. Paced rhythm on the monitor, decreased peripheral perfusion, bilateral upper lower extremity cyanosis, generalized pallor, hypotension Respiratory: Lungs have equal breath sounds bilaterally, clear to auscultation and percussion. No rales, rhonchi or wheezes noted. No increased work of breathing, no retractions or nasal flaring. Abdomen/GI: Soft, non-tender, distended abdomen, diminished bowel sounds, multiple scars from prior surgeries Back: No spinal tenderness. No costovertebral tenderness. Female : Normal external genitalia. Incontinent of bowel and bladder, Pleitez catheter introduced on exam Skin: Warm, dry with poor skin turgor, senile skin changes, peripheral cyanosis, bilateral sacral decubitus ulceration MS/ Extremity: Poor peripheral perfusion, bilateral upper and lower extremity cyanosis, diffuse muscular atrophy of lower extremities from immobility, diffuse contractures of lower extremity, patient nonambulatory Neuro: Patient is obtunded and lethargic, able to wake up with noxious stimuli, verbal nonresponsive, able to follow simple commands once awakened 05:31 ECG was reviewed by the Attending Physician. Paced rhythm at the rate of 88, sp4 ventricular paced rhythm. Vital Signs: 03:56 BP 85 / 60; Pulse 81; Resp 19; Temp 96.8; Pulse Ox 98% on 2 lpm NC; Weight 68.95 kg; pf1 Pain 0/10; 04:55 BP 136 / 60; Pulse 87; Resp 19; Pulse Ox 100% on 6 lpm NC; jb4 05:20 BP 111 / 51; Pulse 82; Resp 21; Temp 98.2(Ca); Pulse Ox 98% on 4 lpm NC; jb4 06:30 BP 123 / 46; Pulse 89; Resp 16; Temp 98.5(Ca); Pulse Ox 100% on 4 lpm NC; jb4 07:15 BP 120 / 56; Pulse 62; Resp 16; Temp 98.5(Ca); Pulse Ox 95% on 4 lpm NC; jb4 07:30 BP 119 / 53; Pulse 70; Resp 17; Pulse Ox 94% ; hb 07:45 BP 122 / 50; Pulse 85; Resp 17; Pulse Ox 94% ; hb 08:00 BP 123 / 60; Pulse 87; Resp 16; Pulse Ox 96% 4 lpm ; hb 08:15 BP 131 / 55; Pulse 80; Resp 16; Pulse Ox 97% ; hb 08:30 BP 126 / 55; Pulse 86; Resp 15; Pulse Ox 97% ; bp 08:45 BP 121 / 53; Pulse 68; Resp 15; Pulse Ox 97% ; bp 09:00 BP 123 / 51; Pulse 75; Resp 15; Pulse Ox 97% ; bp 09:15 BP 118 / 51; Pulse 81; Resp 15; Pulse Ox 95% ; bp 03:56 Pain Scale: Adult pf1 MDM: 03:53 Patient medically screened. sp4 06:07 Differential Diagnosis altered mental status, sepsis, flu. Data reviewed: vital signs, sp4 nurses notes, EMS record, [facility] records, old medical records, lab test result(s), EKG, radiologic studies, CT scan, plain films. ED course: Patient's son has confirmed that patient is full code.. ED course: Chest x-ray revealed cardiomegaly without acute infiltrate or signs of heart failure, atelectatic changes in the right lung base, minimal thickening or fluid along minor fissure, right central line in proper position superior vena cava. 06:48 Consideration of Admission/Observation Patient was admitted/placed on observation. sp4 Escalation of care including admission/observation considered. 06:50 Special discussion: Based on the history and exam findings, there is no indication for sp4 further emergent testing or inpatient evaluation. I discussed with the patient/guardian the need to see the consulting intern for further evaluation of the symptoms. ED course: Patient has worrisome findings on her CT amounting to heavily distended colon consistent with either Clements syndrome/colonic pseudoobstruction or acute volvulus possibly sigmoid volvulus, very heavy stool burden in the colon. . 07:09 Transition of care: After a detail discussion of the patient's case, care is sp4 transferred to Frederick Nielsen MD. ED course: CT head revealed no acute intracranial abnormality, CT chest abdomen and pelvis has revealed grossly enlarged heart, left dual-chamber pacemaker, no pericardial effusion, right internal jugular central line in the mid SVC, moderate right pleural effusion, trace left pleural effusion, gaseous distention of the proximal half of the esophagus, central airway patent, right basilar atelectasis. The liver is normal in appearance, no biliary dilatation, cholecystectomy, pancreas spleen normal, adrenal glands normal, upper pole left renal cyst unchanged, mid right hydronephrosis with no clear obstructing calculus. Abdominal aorta normal in course and caliber, no retroperitoneal lymphadenopathy, massive amount of stool throughout the colon, with severe distal fecal impaction, urinary bladder is displaced anteriorly containing Pleitez catheter, no free fluid, appendix not seen, bilateral hip arthroplasty are present, no acute osseous findings, and the impression there is worsening constipation distal fecal impaction now with resulting right hydronephrosis. ED course: Patient CT report does not mention colonic pseudoobstruction or volvulus. . 07:39 ED course: accepted by [facility] . [email or web address] 07:52 ED course: Alert from the lab: Lactate 2.8, pt currently being transferred for septic snw shock. 07/21 03:52 Order name: Blood Culture Adult (2) sp4 07/21 03:52 Order name: CBC with Diff; Complete Time: 05:14 sp4 07/21 03:52 Order name: CMP; Complete Time: 06:58 sp4 07/21 03:52 Order name: Lactate w/ 2H reflex if indic.; Complete Time: 05:14 sp4 07/21 03:52 Order name: Protime (+inr); Complete Time: 05:14 sp4 07/21 03:52 Order name: Ptt, Activated; Complete Time: 05:14 sp4 07/21 03:52 Order name: Urinalysis w/ reflexes; Complete Time: 07:30 sp4 07/21 03:52 Order name: ABG; Complete Time: 05:14 sp4 07/21 03:52 Order name: Procalcitonin; Complete Time: 06:02 sp4 07/21 04:44 Order name: Manual Differential; Complete Time: 05:14 EDMS 07/21 05:43 Order name: T4 Free; Complete Time: 06:58 EDMS 07/21 05:43 Order name: Thyroid Stimulating Hormone; Complete Time: 06:58 EDMS 07/21 06:01 Order name: COVID-19 SARS RT PCR sp4 07/21 06:01 Order name: Influenza Screen (a \T\ B); Complete Time: 07:30 sp4 07/21 07:27 Order name: LAB Add On eb 07/21 07:52 Order name: Lactate Sepsis 2 HR Follow-up EDMS 07/21 03:52 Order name: Chest Single View XRAY sp4 07/21 03:53 Order name: CT Chest Abdomen Pelvis W/O Contrast sp4 07/21 05:13 Order name: CT Head Brain wo Cont sp4 07/21 03:52 Order name: EKG; Complete Time: 03:53 sp4 07/21 03:52 Order name: Accucheck; Complete Time: 04:30 sp4 07/21 03:52 Order name: Cardiac monitoring; Complete Time: 04:30 sp4 07/21 03:52 Order name: Cath; Complete Time: 06:44 sp4 07/21 03:52 Order name: EKG - Nurse/Tech; Complete Time: 06:44 sp4 07/21 03:52 Order name: IV Saline Lock - Large Bore; Complete Time: 04:30 sp4 07/21 03:52 Order name: Labs collected and sent; Complete Time: 04:30 sp4 07/21 03:52 Order name: O2 Per Protocol; Complete Time: 04:30 sp4 07/21 03:52 Order name: O2 Sat Monitoring; Complete Time: 04:30 sp4 07/21 03:52 Order name: VS Recheck; Complete Time: 04:30 sp4 07/21 03:52 Order name: Vital Signs; Complete Time: 04:30 sp4 07/21 03:52 Order name: Central Line Kit; Complete Time: 04:19 sp4 EC:31 Rate is 88 beats/min. Rhythm is irregular, Paced. Clinical impression: No evidence of sp4 ischemia. Interpreted by me. Administered Medications: 04:29 Drug: NS 0.9% IV 1000 ml Route: IV; Rate: 1 bolus; Site: right jugular; jb4 09:21 Follow up: IV Status: Completed infusion; IV Intake: 1000ml bp 04:31 Drug: Norepinephrine IV 0.1 mcg/kg/min {Note: started at 15mcg/min per physicians jb4 instruction..} Route: IV; Rate: calculated rate; Site: right jugular; 04:55 Follow up: BP 136 / 60; Pulse 87 bpm; Resp 19 bpm; Pulse Ox 100% 6 lpm Nasal Cannula; jb4 Rate change 5 mcg/min 09:19 Follow up: IV Status: Infusion continued upon transfer bp 04:31 Not Given (Other Intervention Used): Norepinephrine IV 15 mcg/min IV at calculated rate jb4 See Administration Instructions; (Standard concentration 4 mg / 250 mL D5W); Recommended max rate 3 mcg/kg/min; Titrate 0.05 mcg/kg/min as often as every 5 minutes to achieve goal (see titration policy); Goal parameter MAP greater than 65 mmHg. 05:04 Drug: vancoMYCIN IVPB 1 grams Route: IVPB; Infused Over: 2 hrs; Site: right jugular; jb4 09:20 Follow up: IV Status: Completed infusion; IV Intake: 250ml bp 05:04 Drug: Piperacillin-Tazobactam IVPB 3.375 grams Route: IVPB; Infused Over: 60 mins; jb4 Site: right jugular; 09:20 Follow up: IV Status: Completed infusion; IV Intake: 100ml bp 05:04 Drug: Ondansetron IVP 4 mg Route: IVP; Site: right jugular; jb4 09:21 Follow up: Response: No adverse reaction bp 06:29 Drug: Solu-CORTEF IVP 100 mg Route: IVP; Site: right jugular; jb4 07:43 Follow up: Response: No adverse reaction bp 06:29 Drug: Keppra IV 1000 mg Route: IV; Rate: bolus; Site: right jugular; jb4 07:43 Follow up: IV Status: Completed infusion; IV Intake: 100ml bp 07:00 Drug: Atropine IVP 1 mg Route: IVP; Site: right jugular; jb4 07:43 Follow up: Response: No adverse reaction bp 07:08 Drug: Albumin IVPB 25 grams Volume: 100 ml; Route: IVPB; Site: right jugular; jb4 09:19 Follow up: IV Status: Completed infusion; IV Intake: 50ml bp 07:08 Drug: NS 0.9% IV 1000 ml Route: IV; Rate: 125 ml/hr; Site: right jugular; jb4 09:19 Follow up: IV Status: Infusion continued upon transfer bp 07:22 Drug: Albumin IVPB 25 grams Volume: 100 ml; Route: IVPB; Site: right jugular; jb4 09:19 Follow up: IV Status: Completed infusion; IV Intake: 50ml bp 07:53 Drug: NS 0.9% IV 1000 ml Route: IV; Rate: 1 bolus; Site: Other; hb 09:19 Follow up: IV Status: Infusion continued upon transfer bp Disposition: 10:44 I reviewed the patient's care provided by Advanced Practice Provider \T\ agree w/ the jr11 diagnosis \T\ care plan. I personally saw the pt \T\ performed a substantive portion of the visit, incldng all aspects of the (History/Exam/Medical Decision Making). Disposition Summary: 07/21/22 06:50 Transfer Ordered Transfer Location: [facility] sp4 Reason: Higher level of care sp4 Condition: Critical sp4 Problem: new sp4 Symptoms: have improved sp4 Accepting Physician: DR. PADMA RICE (07/21/22 10:03) bp Diagnosis - Severe sepsis with septic shock, persistent hypotension, colonic pseudoobstruction, sp4 acute hypoactive delirium, Hansel syndrome - Severe sepsis without septic shock sp4 Forms: - Medication Reconciliation Form sp4 - SBAR form sp4 Critical care time excluding procedures: 06:48 Critical care time: Bedside Care: 42 minutes, Consultation: 10 minutes, Family sp4 Intervention: 12 minutes. Total time: 64 minutes Signatures: Dispatcher [employer] EDMS Shantal Marinelli, KIT PLANNER-C KIT PLANNER-Csnw Asia Munroe, RN RN Giovanni Soto, RN RN jb4 Zander Fischer, RN RN bp Rosalina Gant Jose, MD MD [id number] Shelley santiago RN RN pf1 Ivan Olguin MD MD sp4 Corrections: (The following items were deleted from the chart) 05:43 05:30 THYROID STIMULAT HORMONE+C.LAB.BRZ ordered. EDMS EDMS 05:43 05:30 T4 FREE+C.LAB.BRZ ordered. EDMS EDMS 06:47 06:25 NG Tube ordered. sp4 jb4 08:34 06:50 [facility] ICU sp4 eb 10:03 08:34 DR. PADMA RICE eb bp
[2022-07-21] MEDS ORDERED: ATROPINE SULF 1 MG/10 ML SYR IV ONE (07:02)
[2022-07-21 07:24] LABS: Specific Gravity 1.017 (1.005-1.030); Urine Bacteria None Seen /HPF (<20); Urine Bilirubin NEGATIVE (Negative); Urine Blood Negative (Negative); Urine Clarity Turbid (Clear); Urine Color Yellow (Yellow); Urine Glucose NEGATIVE (Negative); Urine Mucus Slight /HPF (None Seen); Urine Protein NEGATIVE (Negative); Urine RBC <5 /HPF (None Seen); Urine Urobilinogen 1+ (Normal)
[2022-07-21 10:14] VITALS: TEMP 98.5
[2022-07-21 10:30] VITALS: BP 118/51; O2SAT 95
--- NOTE | 2022-07-22 10:18 | RAD REPORT ---
EXAM DESCRIPTION: RAD - Chest Single View - 07/21/2022 4:45 am CLINICAL HISTORY: CHEST PAIN TECHNIQUE: AP chest COMPARISON: July 2021 FINDINGS: CHEST: Cardiomegaly, unchanged. Atelectatic changes in the right lung base. Minimal thickening or fluid along the minor fissure. Decreased inspiration. Pulmonary vasculature within normal limits. IMPRESSION: 1. Cardiomegaly, no acute infiltrates or failure. 2. Atelectatic changes in the right lung base. 3. Minimal thickening or fluid along the minor fissure. Electronically signed by: Frederick Ahuja MD 07/21/2022 5:33 AM CDT Due to temporary technical issues with the PACS/Fluency reporting system, reports are being signed by the in house radiologist without review as a courtesy to ensure prompt reporting. The interpreting r adiologist is fully responsible for the content of the report.
--- NOTE | 2022-07-22 12:01 | RAD REPORT ---
EXAM DESCRIPTION: CT - Head Brain Wo Cont - 07/21/2022 7:23 am COMPARISON: None. CLINICAL HISTORY: [facility] MAIN DIZZINESS TECHNIQUE: Axial images were obtained from skull base to vertex without intravenous contrast. Imag es viewed on bone and brain windows. Multiplanar reformats were performed. Automated exposure contr ol was utilized on this examination as a dose lowering technique. FINDINGS: Brain parenchyma, ventricles, dura, meninges, and extra-axial spaces: Moderate generalized cerebral a nd cerebellar volume loss is present. Moderate hypodensities in the subcortical white matter of both hemispheres are nonspecific but likely relate to chronic small vessel disease. Chronic left middle ce rebral artery territory infarct. No acute intracranial hemorrhage or abnormal extra-axial fluid colle ctions. Vascular structures: Intracranial atherosclerosis is present. Calvarium, mastoid air cells, paranasal sinuses and orbits: The calvarium is normal. Severe degenerat marzena changes of the temporomandibular joints. The mastoid air cells are clear. Visualized paranasal si nuses are unremarkable. Orbital structures are unremarkable. IMPRESSION: 1. No acute intracranial abnormality. 2. Moderate senescent changes. 3. Chronic left middle cerebral artery territory infarct. 4. 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 Electronically signed by: Hola Mckay MD 07/21/2022 6:49 AM CDT Due to temporary technical issues with the PACS/Fluency reporting system, reports are being signed by the in house radiologist without review as a courtesy to ensure prompt reporting. The interpreting r adiologist is fully responsible for the content of the report.
--- NOTE | 2022-07-22 12:51 | RAD REPORT ---
EXAM DESCRIPTION: CT - Chest Abd Pelvis Wo Con - 07/21/2022 7:22 am CLINICAL HISTORY: ABDOMINAL DISTENTION COMPARISON: 05/26/2022. TECHNIQUE: CT CHEST ABDOMEN PELVIS WITHOUT IV CONTRAST on 07/21/2022 3:53 AM CDT This exam was performed according to our departmental dose-optimization program, which includes autom ated exposure control, adjustment of the mA and/or kV according to patient size and/or use of iterati ve reconstruction technique. FINDINGS: Chest: The heart is grossly enlarged. Left dual-chamber pacemaker is present. There is no pericardial effusion. Intrathoracic lymph nodes are not enlarged. Right IJ central line tip is in the mid SVC. There is a moderate right pleural effusion. There is a trace left pleural effusion. There is gaseous distention of the proximal half of the esophagus. Central airways are patent. There is predominantly right basilar atelectasis. Abdomen: The liver is normal in appearance. There is no biliary dilatation. Cholecystectomy was perfo rmed. The pancreas and spleen are normal in appearance. Adrenal glands are normal. Upper pole left re nal cyst is unchanged. There is mild right hydronephrosis with no clear obstructing calculus. Abdominal aorta is normal in course and caliber without aneurysm. There is no free air. There is no r etroperitoneal adenopathy. Pelvis: There is massive amount of stool throughout the colon, with severe distal fecal impaction. Ur inary bladder is displaced anteriorly, containing a Pleitez catheter. There is no free fluid. Appendi x is not clearly seen. Bilateral hip arthroplasty changes are present. Skeleton: There are no acute osseous findings. No suspicious bony lesions. IMPRESSION: Worsening constipation and distal fecal impaction, now with resulting right hydronephros is. Electronically signed by: Deny Rosas MD 07/21/2022 6:58 AM CDT Due to temporary technical issues with the PACS/Fluency reporting system, reports are being signed by the in house radiologist without review as a courtesy to ensure prompt reporting. The interpreting r adiologist is fully responsible for the content of the report.
--- NOTE | 2022-07-23 08:13 | EKG ---
Test Date: 2022-07-21 Test Time: 04:35:23 Contact Acid Plant Operator: MEASUREMENT RESULTS: Intervals: Rate: 88 WA: QRSD: 180 QT: 440 QTc: 532 [place]: P: WA: QRS: -44 T: 200 INTERPRETIVE STATEMENTS: Wide QRS rhythm with frequent ventricular-paced complexes and premature ventricular complexes or fusion complexes Left axis deviation Nonspecific intraventricular block Inferior infarct, age undetermined Abnormal ECG Compared to ECG 05/26/2022 15:06:49 Uncertain supraventricular rhythm now present Fusion complex(es) now present Ventricular premature complex(es) now present Left-axis deviation now present Myocardial infarct finding now present Electronically Signed On 07-23-22 08:11:10 CDT by Isreal Donaldson
== END 2022-07-21 10:03 | disposition short-term general hospital (02) ==
LOC: ER 03:42
DX: A41.9 Sepsis, unspecified organism (principal); R65.21 Severe sepsis with septic shock; K59.81 Ogilvie syndrome; K56.699 Other intestinal obstruction unspecified as to partial versus complete obstruction; R41.0 Disorientation, unspecified; I10 Essential (primary) hypertension; Z86.73 Personal history of transient ischemic attack (TIA), and cerebral infarction without residual deficits; I48.91 Unspecified atrial fibrillation; Z79.01 Long term (current) use of anticoagulants; Z95.0 Presence of cardiac pacemaker
CPT/HCPCS: 87040 ×2; 85025; 81001; 36415; 85610; 83605 ×2; 85730; 84443; 84439; 80053; 84145; 87804 ×2; 70450; 71250; 74176; 71045; 82805; U0003; J1953; J0461; J2543; J1720; J2405; P9047 ×2; J7050; J7030 ×3; 51702; 93005; 96365; 96367; 96375; 99291; 99292